=== PATIENT | male | born 1950 | race Caucasian/White ===

== ENCOUNTER 2019-04-09 13:11 | Outpatient (REF) | payer MEDICARE, SELFPAY ==
[2019-04-09 20:39] LABS: Anion Gap 10.4 mmol/L (3-11); BUN 14 mg/dL (7-18); CO2 28.6 mmol/L (21.0-32.0); CREATININE 0.87 mg/dL (0.70-1.30); Chloride 101 mmol/L (98-107); Glucose 98 mg/dL (74-106); HDL Cholesterol 62 mg/dL (40-60); LDL CHOLESTEROL 126 mg/dL (<100); Magnesium 2.1 mg/dL (1.8-2.4); Sodium 140 mmol/L (136-145)
== END 2019-04-09 13:31 ==
LOC: NCHCN 13:11
PROVIDERS: PCP Specialist/Technologist Athletic Trainer; Visit Provider Nurse Practitioner Family
DX: I10 Essential (primary) hypertension (principal); E78.5 Hyperlipidemia, unspecified; R25.2 Cramp and spasm
CPT/HCPCS: 80048; 83721; 83718; 83735

== ENCOUNTER 2023-11-05 10:33 | Emergency (ER) | payer MEDICARE, SELFPAY ==
[2023-11-05] VITALS (48 sets, daily range): BP systolic 35–188; BP diastolic 23–152; PULSE 116–155; RESP 12–42; TEMP 37.1–38; O2SAT 68–99
--- NOTE | 2023-11-05 10:30 | RT.EKG_ITS ---
APPROVED REPORT Exam: Resting ECG Reason for Exam: chf Patient Location: E HR:123 bpm ECG Measurements Heart Rate 123 AXIS OH 170 P 0 QRSd 143 QRS -92 QT 336 T 129 QTc 480 Conclusion Sinus tachycardia...rate> 99 Multiform ventricular premature complexes...short R-R, variable morphology Aberrant conduction of SV complex(es)...aberrant shape, OH 80-220 Right bundle branch block...QRSd>120, terminal axis(90,270) Probable anterior infarct, age indeterminate...Q >35mS, T neg, V2-V5 Abnormal T, consider ischemia, lateral leads...T <-0.20mV, I aVL V5 V6 poor baseline, motion artifact, left axis, narrrow complex
--- NOTE | 2023-11-05 10:30 | DI.RAD_ITS ---
Exam(s) XR PORTABLE CHEST AP EXAM: XR PORTABLE CHEST AP CLINICAL HISTORY: resp distress, hypoxia, edema TECHNIQUE: 2D digital imaging was performed. COMPARISON: No exams were available for comparison FINDINGS: Exam is quite limited due to under penetration particularly at the lung bases. Left costophrenic an gle not fully included in field of view. LUNGS: small bilateral pleural effusions. bilateral pulmonary edema. Pulmonary vascular prominenc e. HEART: Enlarged. AORTA: Mildly tortuous. BONES: Mostly obscured. Soft tissues: Unremarkable. IMPRESSION: Findings consistent with CHF. DATA REPOSITORY: RADIATION DOSE DELIVERED:
--- NOTE | 2023-11-05 10:50 | ED.GENADUL_ITS ---
Discharge Plan Disposition Patient Disposition: Transfer-Acute Inpatient Care Specific Acute Inpt Facility: [facility] Condition: Serious Discharge Details Chief Complaint: SOB Clinical Impression: Pulmonary edema, Elevated troponin, CHF (congestive heart failure) Primary Care Provider: Timmy Barba ED Provider: Anoop Ho Home Meds and New Rx's Prescriptions: No Action aspirin 325 mg tablet 325 mg PO DAILY HPI General Date/Time Provider Initiated Documentation: 11/05/23 10:40 . HPI Narrative: 73-year-old male history of hypertension brought in by EMS for evaluation of respiratory distress, tachypnea to the 30s and 40s, saturating 62% on room air on arrival initiated on CPAP, was given 2 g of magnesium DuoNeb x 2 and 10 mg of dexamethasone by EMS; per patient has been sleeping in a recliner over the last couple of nights has had increased swelling in his legs, no history of coronary disease. Related Data Home Medications ?Medication ?Instructions ?Recorded ?Confirmed aspirin 325 mg tablet 325 mg PO DAILY 11/05/23 11/05/23 Allergies Allergy/AdvReac Type Severity Reaction Status Date / Time No Known Allergies Allergy Unverified 11/05/23 11:09 General Stated Complaint: SOB HEIDE: 2 Exam Narrative Exam Narrative: Respiratory distress, tachypneic only able to speak in short sentences Tachypnea rales bilaterally Tachycardia no murmurs rubs or gallops appreciated Abdomen soft nontender nondistended Pitting edema to shins bilaterally Course Vital Signs Vital signs: Vital Signs Pulse 126 H 11/05/23 10:24 Respiratory Rate 32 H 11/05/23 10:24 Blood Pressure 165/103 H 11/05/23 10:24 Pulse Oximetry 99 11/05/23 10:24 Pulse 126 H 11/05/23 10:24 Respiratory Rate 32 H 11/05/23 10:24 Blood Pressure 165/103 H 11/05/23 10:24 Blood Pressure Position Sitting 11/05/23 10:24 Pulse Oximetry 99 11/05/23 10:24 Oxygen Delivery Method Bi-pap 11/05/23 10:24 Medical Decision Making 73-year-old male history of hypertension brought in by EMS for evaluation of respiratory distress, tachypnea to the 30s and 40s, saturating 62% on room air on arrival initiated on CPAP, was given 2 g of magnesium DuoNeb x 2 and 10 mg of dexamethasone by EMS; per patient has been sleeping in a recliner over the last couple of nights has had increased swelling in his legs, no history of coronary disease. Patient tachypneic pale mottled hypoxic to the 70s when transitioning off of EMS bedside CPAP onto our CPAP; bedside [id number] echocardiogram showing dilated hypokinetic LV no pericardial effusion normal appearing RV; EKG nondiagnostic due to base line artifact from tachypnea. Coloration and oxygenation greatly improved on BiPAP, saturating high 90s; noted to be hypertensive to the 180s systolic and 100s diastolic, given 0.4 sublingual nitro, loaded with Lasix, initiating nitroglycerin drip. Likely flash pulmonary edema in the setting of CHF in the setting of recent RI, lower suspicion for PE pneumonia asthma COPD or aortic pathology. Goals of care discussion had with patient and family patient is full code. Respiratory team at bedside. Will continue with resuscitation and contact [facility] cardiology team as patient will benefit from urgent catheterization and cardiac ICU placement 12: 15 discussed case with cardiology team at [facility] who is considering taking patient for cardiac catheterization pending improvement of respiratory status. Improving acidemia and hypercarbia on VBG. Patient's perfusion exam is improving with good coloration, maintaining mental status, will continue with nitro drip. Will load with aspirin, heparin, Plavix. 13: 18 patient accepted at [facility] for Client Services Director. Accepting physician Dr. Christian. Patient's work of breathing is improving patient's mental status is stable. Uptitrated nitro drip to 10 mcg/min. Patient diuresing more after another 80 mg IV bolus of Lasix. Medic transport team at bedside. Given patient's clinical status has signed requisite paperwork. Patient and are in agreements with need for transfer Quality:[facility] Health Related Social Needs: No Data to Display Critical Care Time Critical Care Time Critical Care Time: Yes Total Critical Care Time: 30 Attestation: Critical care time spent at the bedside assessing patient interpreting labs interpreting imaging, initiating BiPAP, coordinating specialty care with interventional cardiology team for patient in flash pulmonary edema requiring Client Services Director and ICU admission [facility] All Active Problems (Updated 11/05/23 @ 13:21 by Anoop Ho MD) CHF (congestive heart failure) (Chronic) Elevated troponin (Acute) Pulmonary edema (Acute) Social History Smoking/Tobacco Use Status: Former Tobacco Use Quit Date: 10/18/99 Smoking risk assessment performed?: Yes Alcohol Intake: current Alcohol Intake frequency: 0-2 drinks per day Alcohol type: beer Substance use type: does not use Housing: house Do you feel safe at home: Yes Do you feel safe in your relationship?: Yes
[2023-11-05 10:53] LABS: BE (Venous) -8 mmol/L (-2-3); HCO3 (Venous) 22 mmol/L (23-28); O2 Sat (Venous) 67 %; TCO2 (Venous) 21 mmol/L (24-29); pO2 (Venous) 50 mmHg
[2023-11-05 10:55] LABS: Abs Immature Grans 0.21 10^3/uL (0.0-0.06); Basophils % 0.6 %; Eosinophils % 0.7 %; HCT 40.9 % (40.0-50.0); HGB 12.3 g/dL (13.5-17.5); Immature Grans % 1.3 %; Lymphocytes % 8.2 %; MCH 24.2 pg (27.0-33.0); MCHC 30.1 % (32.0-36.0); MCV 80 fL (80-95); MPV 9.4 fL (8.0-11.0); Monocytes % 11.3 %; Neutrophils % 77.9 %; Platelet Count 345 10^3/uL (130-400); RBC 5.09 10^6/uL (4.36-5.78); RDW 17.5 % (11.8-14.1); RDW-SD 50.6 fL; WBC 16.51 10^3/uL (4.4-10.8)
[2023-11-05] MEDS: Furosemide 100 MG/10 ML VIAL (10:56)
[2023-11-05] MEDS: nitroGLYcerin 0.4 MG TAB (10:56)
[2023-11-05 10:57] LABS: Absolute Eosinophil Count 0.12 10^3/uL (0.0-0.7); Absolute Lymphocyte Count 1.35 10^3/uL (1.2-3.4); Absolute Monocyte Count 1.87 10^3/uL (0.1-0.8); Absolute Neutrophil Count 12.86 10^3/uL (1.2-6.7); pCO2 (Venous) 70 mmHg (41-51); pH (Venous) 7.09 (7.31-7.41)
[2023-11-05] MEDS: nitroGLYcerin in D5W 50 MG/250 ML BTL IV (10:58)
--- NOTE | 2023-11-05 11:00 | RT.EKG_ITS ---
APPROVED REPORT Exam: Resting ECG Reason for Exam: SOB Patient Location: E HR:125 bpm ECG Measurements Heart Rate 125 AXIS VA 187 P -84 QRSd 114 QRS -60 QT 340 T 112 QTc 491 Conclusion Sinus or ectopic atrial tachycardia...P axis (-45,135), rate> 99 Probable left atrial enlargement...P >50mS, <-0.10mV V1 Incomplete right bundle branch block...QRSd >112, terminal axis(90,270) LVH with secondary repolarization abnormality...multi-LVH criteria, abnrm ST-T ST elevation secondary to LVH...Multiple VCG criteria poor baseline, motion artifact, narrow, irregualr with ectopy
[2023-11-05 11:07] LABS: INR 1.3 (0.9-1.1); PTT Activated 27.8 sec (23.6-32.8); Prothrombin Time 12.9 sec (9.1-11.1)
[2023-11-05 11:12] LABS: Diff Comment Diff Reviewed; RBC Morphology Normal
[2023-11-05 11:22] LABS: ALT 17 U/L (16-63); AST 22 U/L (15-37); Albumin 2.8 g/dL (3.4-5.0); Alkaline Phosphatase 74 U/L (46-116); BUN 19 mg/dL (7-18); Bilirubin, Total 0.53 mg/dL (0.2-1.0); CREATININE 1.5 mg/dL (0.70-1.30); Calcium 8.7 mg/dL (8.5-10.1); Chloride 98 mmol/L (98-107); Estimated GFR 48.25 (mL/min/1.73m2); Glucose 286 mg/dL (74-106); Magnesium 3.1 mg/dL (1.8-2.4); NT-proBNP 10547 pg/mL (<300); Potassium 4.1 mmol/L (3.5-5.1); Sodium 135 mmol/L (136-145); Total Protein 6.9 g/dL (6.4-8.2)
[2023-11-05 11:31] LABS: Troponin I 2126 ng/L (< or =60)
[2023-11-05 12:03] LABS: COVID-19 PCR Negative (Negative); Influenza A PCR Negative (Negative); Influenza B PCR Negative (Negative); RSV PCR Negative (Negative)
[2023-11-05 12:10] LABS: BE (Venous) -7 mmol/L (-2-3); HCO3 (Venous) 21 mmol/L (23-28); O2 Sat (Venous) 95 %; TCO2 (Venous) 20 mmol/L (24-29); pCO2 (Venous) 57 mmHg (41-51); pO2 (Venous) 94 mmHg
[2023-11-05 12:11] LABS: pH (Venous) 7.18 (7.31-7.41)
[2023-11-05 12:16] LABS: Source Nasopharynx
[2023-11-05] MEDS: Furosemide 100 MG/10 ML VIAL 80 MG IVP (12:44)
[2023-11-05] MEDS: Aspirin 81 MG CHEW 324 MG CH (12:44)
[2023-11-05] MEDS: Clopidogrel 300 MG TAB PO ×2 (12:44→13:09)
[2023-11-05] MEDS: Heparin in 0.45% NaCl 25,000 UNIT/250 ML BAG 10 UNIT IV (13:09)
== END 2023-11-05 13:41 | disposition short-term general hospital (02) ==
LOC: ER 13:47
PROVIDERS: Emergency Provider Emergency Medicine; PCP Specialist/Technologist Athletic Trainer
DX: R06.02 Shortness of breath (principal); J81.1 Chronic pulmonary edema; I50.9 Heart failure, unspecified; R79.89 Other specified abnormal findings of blood chemistry
CPT/HCPCS: 80053; 82805; 86850; 86900; 86901; 87637; 93005; 96365; 96366; 96367; 96372; 96375; 99291; 71045; 83735; 83880; 84443; 84484; 85025; 85610; 85730; 93010; J1644; J1940; J2305

== ENCOUNTER 2023-11-17 11:41 | Inpatient (IN) | payer MEDICARE, SELFPAY ==
[2023-11-17] VITALS (38 sets, daily range): BP systolic 111–145; BP diastolic 52–92; PULSE 86–108; RESP 11–25; TEMP 37.2–37.6; O2SAT 93–100
--- NOTE | 2023-11-17 11:45 | RT.EKG_ITS ---
APPROVED REPORT Exam: Resting ECG Reason for Exam: syncope Patient Location: E HR:97 bpm ECG Measurements Heart Rate 97 AXIS AK 202 P 82 QRSd 123 QRS -63 QT 395 T 71 QTc 502 Conclusion Sinus rhythm...normal P axis, V-rate 60- 99 Ventricular premature complex...V complex w/ short R-R interval Probable left atrial enlargement...P >50mS, <-0.10mV V1 RBBB and LAFB...QRSd >120mS, axis(-40,240) Consider anteroseptal infarct...Q >30mS, dimin R, V1-V2 Normal sinus rhythm at a rate of 97. First-degree AV block AK of 202 ms. Interventricular conductio n delay with bifascicular block. Prolonged QTc at [address] segment abnormalities. No ac [place] injury pattern. No T wave version. First-degree AV block has prolonged compared to prior. Prio r dated earlier this month.
[2023-11-17 12:27] LABS: Abs Immature Grans 0.03 10^3/uL (0.0-0.06); Absolute Basophil Count 0.04 10^3/uL (0.0-0.2); Absolute Eosinophil Count 0.17 10^3/uL (0.0-0.7); Absolute Lymphocyte Count 0.54 10^3/uL (1.2-3.4); Absolute Monocyte Count 0.49 10^3/uL (0.1-0.8); Absolute Neutrophil Count 6.66 10^3/uL (1.2-6.7); Basophils % 0.5 %; Eosinophils % 2.1 %; HCT 36.6 % (40.0-50.0); HGB 11.5 g/dL (13.5-17.5); Immature Grans % 0.4 %; Lymphocytes % 6.8 %; MCH 24.1 pg (27.0-33.0); MCHC 31.4 % (32.0-36.0); MCV 77 fL (80-95); Monocytes % 6.2 %; Platelet Count 342 10^3/uL (130-400); RBC 4.78 10^6/uL (4.36-5.78); RDW 17.2 % (11.8-14.1); RDW-SD 47.5 fL; WBC 7.93 10^3/uL (4.4-10.8)
--- NOTE | 2023-11-17 12:45 | DI.RAD_ITS ---
Exam(s) XR PORTABLE CHEST AP EXAM: XR PORTABLE CHEST AP CLINICAL HISTORY: syncope. TECHNIQUE: 2D digital imaging was performed. COMPARISON: Prior chest x-ray 11/05/2023. FINDINGS: Single AP portable view. Heart size is minimally prominent. The mediastinum is not widened. Previously present pulmonary edema pattern has cleared. No new confluent infiltrates. No obvious pl eural effusions evident on this single portable view. IMPRESSION: There has been clearing of the bilateral interstitial pulmonary edema pattern which was evident on . DATA REPOSITORY: RADIATION DOSE DELIVERED:
[2023-11-17 12:51] LABS: ALT 22 U/L (16-63); AST 20 U/L (15-37); Albumin 3.1 g/dL (3.4-5.0); Alkaline Phosphatase 82 U/L (46-116); Anion Gap 9.9 mmol/L (3-11); BUN 12 mg/dL (7-18); Bilirubin, Total 0.29 mg/dL (0.2-1.0); CO2 26.1 mmol/L (21.0-32.0); CREATININE 1.1 mg/dL (0.70-1.30); Calcium 9.1 mg/dL (8.5-10.1); Chloride 101 mmol/L (98-107); Estimated GFR 70.01 (mL/min/1.73m2); Glucose 146 mg/dL (74-106); Magnesium 1.9 mg/dL (1.8-2.4); Potassium 4.1 mmol/L (3.5-5.1); Sodium 137 mmol/L (136-145); TSH (W/Ref FT4) 4.08 uIU/mL (0.36-3.74); Total Protein 7.3 g/dL (6.4-8.2)
[2023-11-17 12:55] LABS: Troponin I 287 ng/L (< or =60)
[2023-11-17 12:58] LABS: D-Dimer 2187 ng/mlFEU (<500)
--- NOTE | 2023-11-17 13:00 | DI.CT_ITS ---
Exam(s) CT CHEST PE CTA EXAM: CT CHEST PE CTA CLINICAL HISTORY: elevated ddimer post op. TECHNIQUE: Imaging Protocol: CT angiography of the chest was performed using pulmonary embolus benita col. Multi planar reconstructions were performed. CONTRAST MATERIAL: Intravenous: Omnipaque 350 Contrast volume: 100 cc COMPARISON: No exams were available for comparison FINDINGS: CHEST: PULMONARY ARTERIES: There is a significant intraluminal filling defect within left upper lobe pulmona ry arteries consistent with acute pulmonary emboli. LUNGS: No evidence of pulmonary infarction. There is a small-moderate size right pleural effusion wh ich is possibly remnant from the pulmonary edema which was evident on recent chest x-ray of 4.. No pleural fluid on the left side. There is no infiltrate in the left lung. There is, however, pleural based infiltrate in the lateral and anterior basal segments of the right lower lobe. It is doubtful that this represents pulmonary infarct as there are no intraluminal filling defects within t he pulmonary arterial tree feeding this region. There are no significant findings in the trachea and mainstem bronchi. No bronchiectasis. MEDIASTINUM: There is no hilar nor mediastinal adenopathy. Visualized thyroid unremarkable. CARDIAC: Heart size is upper normal. Coronary artery calcification is noted. There is no pericardia l effusion.Caliber of the thoracic aorta is within normal limits. There is no contrast reflux into th e intrahepatic IVC. There is no significant shift of the interventricular septum. PARTIALLY VISUALIZED UPPERMOST ABDOMEN: No adrenal masses. No ascites. OSSEOUS: No significant osseous lesions.No fractures.. IMPRESSION: 1. This study is positive for the presence of acute pulmonary emboli it in left upper lobe pulmonary arteries..There is no evidence of left lung infarction, infiltrate, nor left pleural effusion. Howev er, there is an area of peripheral pleural based infiltrate in the basal segments of the right lower lobe as well as a small right pleural effusion. This right lung pleural based infiltrate is probably not infarction given that there are no pulmonary emboli in the right-side evident. The pleural effu sinai may be related to the right-sided infiltrate or remnant from the pulmonary edema evident on the chest x-ray of 11/05/2023 2. Heart size upper normal. No pericardial effusion. No obvious right heart strain. Report called by myself to ER provider 11/17/2023 at 1:48 p.m. RADIATION DOSE DELIVERED: 127.39mGy.cm Total DLP DATA REPOSITORY: All CT scans at this facility are submitted to the National Radiology Data Registry (NRDR) Dose Index Registry (DIR) with the [employer] ([employer]). RADIATION OPTIMIZATION: All CT scans at this facility use at least one of these dose optimization te chniques: automated exposure control; mA and/or kV adjustment per patient size (includes targeted exa ms where dose is matched to clinical indication); or iterative reconstruction.
[2023-11-17 13:12] LABS: FREE T4 0.84 ng/dL (0.76-1.46)
--- NOTE | 2023-11-17 13:14 | DI.VRAD_ITS ---
PROCEDURE INFORMATION: Exam: XR Chest Exam date and time: 11/17/2023 12:41 PM Age: 73 years old Clinical indication: Other: Syncope TECHNIQUE: Imaging protocol: Radiologic exam of the chest. Views: 1 view. Total images: 2 COMPARISON: CR XR PORTABLE CHEST AP 11/05/2023 11:03 AM FINDINGS: Lungs: Bilateral hyperinflation is present. Atelectatic changes noted within both lung bases. Pleural spaces: Unremarkable. No pleural effusion. No pneumothorax. Heart/Mediastinum: Heart demonstrates mild diffuse enlargement. Vasculature: Mild atherosclerotic disease. Bones/joints: Degenerative changes of the glenohumeral and acromioclavicular joints. IMPRESSION: 1. Bilateral hyperinflation is present. 2. Atelectatic changes noted within both lung bases. 3. Mild cardiomegaly. Dictated and Authenticated by: Juan A Obrien MD. Ordering:EMELYN Farrell MD
[2023-11-17] MEDS: Omnipaque 350 MG/ML 100 ML BTL IJ (13:19)
[2023-11-17] MEDS: Enoxaparin 100 MG/ML SYR SC (14:24)
[2023-11-17 14:31] LABS: INR 1.2 (0.9-1.1)
[2023-11-17 14:40] LABS: Troponin I 307 ng/L (< or =60)
[2023-11-17 14:57] LABS: NT-proBNP 6950 pg/mL (<300)
--- NOTE | 2023-11-17 16:00 | ED.GENADUL_ITS ---
Discharge Plan Disposition Patient Disposition: Admit to [facility] Condition: Serious Discharge Details Clinical Impression: Syncope, Elevated troponin, Pulmonary embolism, CAD (coronary artery disease) Admit Date/Time: 11/17/23 16:26 Admit Provider: Romulo Landa Attending Provider: Romulo Landa Primary Care Provider: Unknown,Unknown ED Provider: Jami Zimmer Discharge Data Discharge Date/Time-TO BE ENTERED AT DEPARTURE: 11/17/23 17:00 HPI General Date/Time Provider Initiated Documentation: 11/17/23 12:06 . HPI Narrative: This 73-year-old male presents with report of recent cardiac catheterization with 4 stents placed on 04 November. Patient was an elevated female with a myocardial infarction at the time. He states that he has had persistent dyspnea and shortness of breath and felt to take this morning. He states that he had some breakfast this morning and sat in his chair and states that he had a period of unresponsiveness. She tried to wake him up for approximately a minute and was able to do so at that time. There was no seizure-like activity. Patient does report that he had some cramping in his left leg earlier this morning although this is since resolved. At this time patient denies chest pain, shortness of breath, or any additional complaints at this time. He is taking all of his medications aside from the atorvastatin as prescribed. He self discontinued the atorvastatin secondary to some insomnia he reports associated with it. He has been more fatigued and dyspneic on exertion, however he attributes this to his recent surgery and hospitalization. Related Data Home Medications ?Medication ?Instructions ?Recorded ?Confirmed aspirin 81 mg tablet,delayed 81 mg PO DAILY 11/17/23 11/17/23 release (Adult Aspirin Regimen) clopidogrel 75 mg tablet 75 mg PO DAILY 11/17/23 11/17/23 melatonin 3 mg tablet 6 mg PO HS PRN 11/17/23 11/17/23 metoprolol succinate 25 mg 25 mg PO DAILY 11/17/23 11/17/23 tablet,extended release 24 hr nitroglycerin 0.4 mg sublingual 0.4 mg sublingual Q5-15M PRN 11/17/23 11/17/23 tablet spironolactone 25 mg tablet 12.5 mg PO DAILY 11/17/23 11/17/23 (Aldactone) torsemide 20 mg tablet 20 mg PO DAILY PRN 11/17/23 11/17/23 valsartan 40 mg tablet (Diovan) 20 mg PO BID 11/17/23 11/17/23 Allergies Allergy/AdvReac Type Severity Reaction Status Date / Time No Known Allergies Allergy Unverified 11/17/23 11:53 General Stated Complaint: [id number] HEIDE: 2 Exam Narrative Exam Narrative: Alert and oriented 73-year-old male in no acute distress, no visible signs of trauma, pupils equal round reactive to light and accommodation, no respiratory distress, cardiac rate rhythm regular, 1+ edema to bilateral lower extremities neurovascularly intact no abdominal tenderness, no abdominal bruit or pulsatile mass, no murmurs or rubs Course Vital Signs Vital signs: Vital Signs Temperature 37.6 C H 11/17/23 11:48 Pulse 94 H 11/17/23 11:48 Respiratory Rate 16 11/17/23 11:48 Blood Pressure 143/71 H 11/17/23 11:48 Pulse Oximetry 95 11/17/23 11:48 Temperature 37.6 C H 11/17/23 11:48 Temperature Source Skin 11/17/23 11:48 Pulse 89 11/17/23 14:31 Pulse 89 11/17/23 14:31 Respiratory Rate 19 11/17/23 14:31 Respiratory Effort Normal 11/17/23 12:03 Respiratory Depth Normal 11/17/23 12:03 Blood Pressure 128/72 11/17/23 14:31 Blood Pressure Mean 89 11/17/23 14:31 Blood Pressure Position Sitting 11/17/23 11:48 Pulse Oximetry 94 11/17/23 14:31 Pain Level 0 11/17/23 11:48 Lab/Test Results Lab/Test Results: Laboratory Tests Range/Units 11/17/23 11/17/23 12:07 14:10 WBC (4.4-10.8) 10^3/uL 7.93 RBC (4.36-5.78) 10^6/uL 4.78 Hgb (13.5-17.5) g/dL 11.5 L Hct (40.0-50.0) % 36.6 L MCV (80-95) fL 77 L MCH (27.0-33.0) pg 24.1 L MCHC (32.0-36.0) % 31.4 L RDW (11.8-14.1) % 17.2 H Plt Count (130-400) 10^3/uL 342 MPV (8.0-11.0) fL 9.0 Immature Gran % % 0.4 Neutrophils % % 84.0 Lymphocytes % % 6.8 Monocytes % % 6.2 Eosinophils % % 2.1 Basophils % % 0.5 Nucleated RBC % (0.0-0.3) % 0.0 Absolute Neutrophils (1.2-6.7) 10^3/uL 6.66 Absolute Lymphocytes (1.2-3.4) 10^3/uL 0.54 L Absolute Monocytes (0.1-0.8) 10^3/uL 0.49 Absolute Eosinophils (0.0-0.7) 10^3/uL 0.17 Absolute Basophils (0.0-0.2) 10^3/uL 0.04 PT (9.1-11.1) sec 12.0 H INR (0.9-1.1) 1.2 H APTT (23.6-32.8) sec 28.0 D-Dimer (<500) ng/mlFEU 2187 H Sodium (136-145) mmol/L 137 Potassium (3.5-5.1) mmol/L 4.1 Chloride (98-107) mmol/L 101 Carbon Dioxide (21.0-32.0) mmol/L 26.1 Anion Gap (3-11) mmol/L 9.9 BUN (7-18) mg/dL 12 Creatinine (0.70-1.30) mg/dL 1.1 Est GFR (CKD-EPI 2020) (mL/min/1.73m2) 70.01 Glucose (74-106) mg/dL 146 H Calcium (8.5-10.1) mg/dL 9.1 Magnesium (1.8-2.4) mg/dL 1.9 Total Bilirubin (0.2-1.0) mg/dL 0.29 AST (15-37) U/L 20 ALT (16-63) U/L 22 Alkaline Phosphatase (46-116) U/L 82 Troponin I (< or =60) ng/L 287 H* 307 H* NT-Pro-B Natriuret Pep (<300) pg/mL 6950 H Total Protein (6.4-8.2) g/dL 7.3 Albumin (3.4-5.0) g/dL 3.1 L TSH (0.36-3.74) uIU/mL 4.08 H Free T4 (0.76-1.46) ng/dL 0.84 Medical Decision Making 73-year-old male in no acute distress, EKG without obvious ischemia or injury presenting with report of syncopal event this morning with preceding lightheadedness in the absence of any additional symptoms. He has no prior history of dysrhythmia per patient. He states he has had multiple episodes similar to this this week. He denies any significant new dyspnea on exertion. Chest x-ray does not show evidence of acute abnormality. D-dimer was ordered which was elevated over 1999, CTA was ordered which shows 2 PEs in the left upper lobe per radiology interpretation and my review. Troponin of 287 initially decreased from 1986 which was performed on dermis on 04 November. Ejection fraction reportedly at [facility] was approximately 20% on echocardiogram on 04 November. I spent approximately 15 minutes reviewing patient's evaluation, cardiac catheterization, and discharge summary from [facility]. Repeat troponin at the 2-hour jeramie noticed 307. BNP of 6959, decreased from 10,000 on 25 October. I spoke with Guevara cardiology PA at [facility] and he spoke with print shop stenographer and they agreed to accept patient tomorrow in transfer, Dr. Garrett Castaneda is the accepting provider. They initially, patient required transfer, however secondary to patient's ejection fraction and recent stenting with an elevated troponin, I did ask that the patient be transferred to a facility. They are unable to accept patient in transfer this evening secondary to capacity. Patient has been without obvious dysrhythmia or significant increase in troponin. He has remained alert and oriented and in no acute distress with stable vitals. patient will need trending of troponins. I did consider heparin versus Lovenox, And indicated that Lovenox is reasonable at this time. Patient will continue on the aspirin and Plavix. He did receive a dose of enoxaparin in the emergency department, 100 mg. Patient wishes to be full code status at this time. Quality:SDOH Health Related Social Needs: No Data to Display PFSH All Active Problems (Updated 11/18/23 @ 20:43 by RHIANNA Macdonald) Cardiac arrest (Acute) Hypertension (Chronic) CAD (coronary artery disease) (Chronic) Discharge planning issues (Acute) Syncope (Chronic) Pulmonary embolism (Chronic) CHF (congestive heart failure) (Chronic) Elevated troponin (Acute) Pulmonary edema (Acute) Medical History (Updated 11/18/23 @ 20:43 by RHIANNA Macdonald) HFrEF (heart failure with reduced ejection fraction) NSTEMI (non-ST elevated myocardial infarction) Surgical History (Updated 11/17/23 @ 18:17 by Deandra August APRN) History of coronary artery stent placement Social History Smoking/Tobacco Use Status: Former Tobacco Use Quit Date: 10/18/99 Smoking risk assessment performed?: Yes Alcohol Intake: current Alcohol Intake frequency: 0-2 drinks per day Alcohol type: beer Substance use type: does not use Housing: house Do you feel safe at home: Yes Do you feel safe in your relationship?: Yes PAWSS Have you Been Recently Intoxicated or Drunk Within the Last 30 days?: No Have you Ever Experienced Previous Episodes of Alcohol Withdrawal?: No Have you ever Experienced Withdrawal Seizures?: No Have you ever Experienced Delirium Tremens(DT)s?: No Have you ever undergone Alcohol Rehabilitation Treatment (i.e, inpt ot outpatient treatment programs)?: No Have you ever Experienced Blackouts?: No Have you ever Combined Alcohol with other Downers within the last 90 days?: No Have you ever Combined Alcohol with any other Substance of Abuse during the last 90 days?: No Result: 0
--- NOTE | 2023-11-17 16:26 | HPE_ITS ---
Date of service: 11/17/23 Time of Service: 16:27 Assessment and Plan Assessment and plan (1) Pulmonary embolism: Status: Chronic Assessment and plan: As per CT Provoked VS unprovoked PE -No family history, no prolonged immobility - Endovascular intervention on 11/04 and 11/05 at [facility] might be a factor to provoked PE On lovenox 100 mg Q 12 hours SQ US doppler lower ext on 11/19 if patient is still inpatient here CBC in AM Accepted at [facility] -bed pending (2) Syncope: Status: Chronic Assessment and plan: Most likely related to PE [facility] Attendant VS and symptoms (3) Elevated troponin: Status: Acute Assessment and plan: Trending Troponin was 2126 on 11/04 then around 1900 at [facility], no d/c troponin done Today trop 287 then 307 ; next troponin scheduled for 18:00 Patient remains asymptomatic w/o EKG signs (4) CHF (congestive heart failure): Status: Chronic Assessment and plan: Continue home dose diuretics, BNP 6950 today was [address]67 on 11/05/2023 On metoprolol succinate (5) Pulmonary edema: Status: Acute Assessment and plan: On home diuretic therapy No fever,chills, cough,leukocytosis, oxygen supplementation that would point to infectious etiology- no antibiotics at this time (6) CAD (coronary artery disease): Status: Chronic Assessment and plan: On plavix and ASA home dose (7) Hypertension: Status: Chronic Assessment and plan: On home dose Losartan (8) Discharge planning issues: Status: Acute Assessment and plan: Accepted at [facility] by Dr. Chavez - bed pending (9) History of coronary artery stent placement: (10) NSTEMI (non-ST elevated myocardial infarction): (11) HFrEF (heart failure with reduced ejection fraction): History of Present Illness History of Present Illness Chief Complaint: Syncope Narrative: This 73 years old male patient with a past medical history including but not limited to, CAD, stents placement to the circumflex and LAD coronary arteries on 11/05/2023 at [facility] with a diagnostic of myocardial infarction, congestive heart failure with an LVEF of 20%, hypertension, gout and PAD presented to the ED at [facility] today for evaluation of syncope. Patient reported persistent dyspnea and shortness of breath this morning and sitting in the chair status post breakfast with spouse noticing a period of unresponsiveness. At the time the spells tried to wake the patient up for approximately a minute but was unsuccessful. No seizure-like activity reported. Patient reported legs cramp early in the morning with resolution at presentation. In the ED the patient denied chest pain, shortness of breath and other symptoms. Patient reported compliance with medicine except for atorvastatin that he self discontinued due to insomnia that is associated with taking the statin. Patient reported fatigue, dyspnea on exertion and attributes this to his recent surgery and hospitalization. Workup in the ED was significant for an absolute lymphocyte count of 0.54, D- dimer of [address] positive for the presence of acute pulmonary emboli in the upper left lobe of the pulmonary artery without evidence of lung infarction infiltrate or pleural effusion. Peripheral pleural-based infiltrate seen in the basal segment of the right lower lobe with small pleural effusion with questionable infarction given that there are no pulmonary emboli in the right side. This pleural effusion might be related to the right sided infiltrate or remnant of the pulmonary edema evident on the chest x-ray completed on 11/05/2023. When met in the room, the patient denied any prolonged immobility after returning home from his stay at [facility]. The patient denied chills, fevers, night sweats, cough, hemoptysis, chest pain, hematemesis, nausea, vomiting, hematochezia, diarrhea or dysuria. The patient reported vomiting is first right with bruising around the nail; does not report any other injuries but reported transient left leg cramping earlier today. Patient denied any family history of clotting disorder. Patient reported drinking 2 beers a day since discharge from [facility]. Previously reported drinking history of drinking of 8-9 beers a day as per [facility] records. Review of Systems All systems reviewed & are unremarkable except as noted in HPI and below PFSH All Active Problems (Updated 11/17/23 @ 18:17 by Deandra August APRN) Hypertension (Chronic) CAD (coronary artery disease) (Chronic) Discharge planning issues (Acute) Syncope (Chronic) Pulmonary embolism (Chronic) CHF (congestive heart failure) (Chronic) Elevated troponin (Acute) Pulmonary edema (Acute) Medical History (Updated 11/17/23 @ 18:17 by Deandra August APRN) HFrEF (heart failure with reduced ejection fraction) NSTEMI (non-ST elevated myocardial infarction) Surgical History (Updated 11/17/23 @ 18:17 by Deandra August APRN) History of coronary artery stent placement Social History Smoking/Tobacco Use Status: Former Tobacco Use Quit Date: 10/18/99 Smoking risk assessment performed?: Yes Alcohol Intake: current Alcohol Intake frequency: 0-2 drinks per day Alcohol type: beer Substance use type: does not use Housing: house Do you feel safe at home: Yes Do you feel safe in your relationship?: Yes Meds Allergies and Home Medications Allergies Allergy/AdvReac Type Severity Reaction Status Date / Time No Known Allergies Allergy Unverified 11/17/23 11:53 Home Medications ?Medication ?Instructions ?Recorded ?Confirmed ?Type aspirin 81 mg tablet,delayed 81 mg PO DAILY 11/17/23 11/17/23 History release (Adult Aspirin Regimen) clopidogrel 75 mg tablet 75 mg PO DAILY 11/17/23 11/17/23 History melatonin 3 mg tablet 6 mg PO HS PRN 11/17/23 11/17/23 History metoprolol succinate 25 mg 25 mg PO DAILY 11/17/23 11/17/23 History tablet,extended release 24 hr nitroglycerin 0.4 mg sublingual 0.4 mg sublingual Q5-15M PRN 11/17/23 11/17/23 History tablet spironolactone 25 mg tablet 12.5 mg PO DAILY 11/17/23 11/17/23 History (Aldactone) torsemide 20 mg tablet 20 mg PO DAILY PRN 11/17/23 11/17/23 History valsartan 40 mg tablet (Diovan) 20 mg PO BID 11/17/23 11/17/23 History Exam Narrative Exam Narrative: Constitutional The patient is in bed comfortable,without acute distress HENMT: Head is atraumatic, normocephalic. Facial structures with normal appearance Eyes: Well aligneD Neuro:alert and oriented x4 . No neurological focal deficit Chest:Chest is symmetrical and normal appearance Resp: Normal respiratory pattern, speaks in full sentences, unlabored breathing, clear lung bilaterally Cardio:Tele SR HR 94, regular rhythm, no clear murmur but split S sound to 2nd left intercostal,posotive bilateral radial and pedal pulses. GI: Abdomen is not distended, soft and non tender, bowel sounds are present : Negative Costovertebral angle tenderness Back/spine/Pelvis: No back tenderness, normal alignment Integumentary: No skin lesions or rash except for small bruise to right radial area Extremities: strength 5/5 to bilateral lower and upper extremities Psych: RASS 0, congruent mood and normal affect. Results Labs 11/17/23 12:07 11/17/23 12:07 Labs: Laboratory Results - last 24 hr 11/17/23 11/17/23 12:07 14:10 WBC 7.93 RBC 4.78 Hgb 11.5 L Hct 36.6 L MCV 77 L MCH 24.1 L MCHC 31.4 L RDW 17.2 H Plt Count 342 MPV 9.0 Immature Gran % 0.4 Neutrophils % 84.0 Lymphocytes % 6.8 Monocytes % 6.2 Eosinophils % 2.1 Basophils % 0.5 Nucleated RBC % 0.0 Absolute Neutrophils 6.66 Absolute Lymphocytes 0.54 L Absolute Monocytes 0.49 Absolute Eosinophils 0.17 Absolute Basophils 0.04 PT 12.0 H INR 1.2 H APTT 28.0 D-Dimer 2187 H Sodium 137 Potassium 4.1 Chloride 101 Carbon Dioxide 26.1 Anion Gap 9.9 BUN 12 Creatinine 1.1 Est GFR (CKD-EPI 2020) 70.01 Glucose 146 H Calcium 9.1 Magnesium 1.9 Total Bilirubin 0.29 AST 20 ALT 22 Alkaline Phosphatase 82 Troponin I 287 H* 307 H* NT-Pro-B Natriuret Pep 6950 H Total Protein 7.3 Albumin 3.1 L TSH 4.08 H Free T4 0.84 Last Vital Signs Temp 37.6 C H 11/17/23 11:48 Pulse 89 11/17/23 14:31 Resp 19 11/17/23 14:31 BP 128/72 11/17/23 14:31 Pulse Ox 94 11/17/23 14:31 PAWSS Have you Been Recently Intoxicated or Drunk Within the Last 30 days?: No Have you Ever Experienced Previous Episodes of Alcohol Withdrawal?: No Have you ever Experienced Withdrawal Seizures?: No Have you ever Experienced Delirium Tremens(DT)s?: No Have you ever undergone Alcohol Rehabilitation Treatment (i.e, inpt ot outpatient treatment programs)?: No Have you ever Experienced Blackouts?: No Have you ever Combined Alcohol with other Downers within the last 90 days?: No Have you ever Combined Alcohol with any other Substance of Abuse during the last 90 days?: No Result: 0 Time Spent Time spent with Patient: >75 minutes Time was spent: preparing to see the patient(eg.review tests), obtaining and/or reviewing separately otained hiistory, ordering medications,tests, procedures, referring, communicating with other health wound care coordinator, indepentently interpreting results, counseling the patient and care coordination
--- NOTE | 2023-11-17 16:58 | W.PC.ACHO ---
Registration Status: Primary Language: Preferred Language: ED Information & Data Chief Complaint [id number] 11/17/23 16:14 Triage Note patient passed out this 11/17/23 11:48 morning, had a heart attack two weeks ago and had 4 stents placed. not having any pain or sob. patient had just finished breakfast and sat down in chair and fell over, unconscious. has been getting lightheaded in the morning since his hospitalization. no pcp. Most Recent Vital Signs Temperature 37.6 C H 11/17/23 11:48 Temperature Source Skin 11/17/23 11:48 Pulse 89 11/17/23 16:46 Pulse 90 11/17/23 16:46 Respiratory Rate 18 11/17/23 16:46 Respiratory Effort Normal 11/17/23 12:03 Respiratory Depth Normal 11/17/23 12:03 Blood Pressure 136/62 11/17/23 16:46 Blood Pressure Mean 89 11/17/23 16:46 Blood Pressure Position Sitting 11/17/23 11:48 Pulse Oximetry 95 11/17/23 16:46 Pain Level 0 11/17/23 11:48 Allergies No Known Allergies Allergy (Unverified 11/17/23 11:53) Precautions Isolation Standard precaution 11/17/23 12:03 Active Medications Generic Name Dose Route Start Last Admin Trade Name Freq PRN Reason Stop Dose Admin Iohexol 100 ml 11/17/23 13:30 11/17/23 13:19 Omnipaque 350 Mg/Ml 100 Ml Btl IJ 12/17/23 23:59 100 ml DIRECTED ABRAM Administration IV IV Catheter Type [Left Saline Lock Antecubital] IV Catheter Gauge [Left 18 Antecubital] Diagnostics 11/17/23 11/17/23 11/17/23 Range/Units 18:00 15:55 14:10 WBC (4.4-10.8) 10^3/uL RBC (4.36-5.78) 10^6/uL Hgb (13.5-17.5) g/dL Hct (40.0-50.0) % MCV (80-95) fL MCH (27.0-33.0) pg MCHC (32.0-36.0) % RDW (11.8-14.1) % Plt Count (130-400) 10^3/uL MPV (8.0-11.0) fL Immature Gran % % Neutrophils % % Lymphocytes % % Monocytes % % Eosinophils % % Basophils % % Nucleated RBC % (0.0-0.3) % Absolute Neutrophils (1.2-6.7) 10^3/uL Absolute Lymphocytes (1.2-3.4) 10^3/uL Absolute Monocytes (0.1-0.8) 10^3/uL Absolute Eosinophils (0.0-0.7) 10^3/uL Absolute Basophils (0.0-0.2) 10^3/uL PT 12.0 H (9.1-11.1) sec INR 1.2 H (0.9-1.1) APTT 28.0 (23.6-32.8) sec D-Dimer (<500) ng/mlFEU Sodium (136-145) mmol/L Potassium (3.5-5.1) mmol/L Chloride (98-107) mmol/L Carbon Dioxide (21.0-32.0) mmol/L Anion Gap (3-11) mmol/L BUN (7-18) mg/dL Creatinine (0.70-1.30) mg/dL Est GFR (CKD-EPI 2020) (mL/min/1.73m2) Glucose (74-106) mg/dL Calcium (8.5-10.1) mg/dL Magnesium (1.8-2.4) mg/dL Total Bilirubin (0.2-1.0) mg/dL AST (15-37) U/L ALT (16-63) U/L Alkaline Phosphatase (46-116) U/L Troponin I Pending Pending 307 H* (< or =60) ng/L NT-Pro-B Natriuret Pep 6950 H (<300) pg/mL Total Protein (6.4-8.2) g/dL Albumin (3.4-5.0) g/dL TSH (0.36-3.74) uIU/mL Free T4 (0.76-1.46) ng/dL 11/17/23 Range/Units 12:07 WBC 7.93 (4.4-10.8) 10^3/uL RBC 4.78 (4.36-5.78) 10^6/uL Hgb 11.5 L (13.5-17.5) g/dL Hct 36.6 L (40.0-50.0) % MCV 77 L (80-95) fL MCH 24.1 L (27.0-33.0) pg MCHC 31.4 L (32.0-36.0) % RDW 17.2 H (11.8-14.1) % Plt Count 342 (130-400) 10^3/uL MPV 9.0 (8.0-11.0) fL Immature Gran % 0.4 % Neutrophils % 84.0 % Lymphocytes % 6.8 % Monocytes % 6.2 % Eosinophils % 2.1 % Basophils % 0.5 % Nucleated RBC % 0.0 (0.0-0.3) % Absolute Neutrophils 6.66 (1.2-6.7) 10^3/uL Absolute Lymphocytes 0.54 L (1.2-3.4) 10^3/uL Absolute Monocytes 0.49 (0.1-0.8) 10^3/uL Absolute Eosinophils 0.17 (0.0-0.7) 10^3/uL Absolute Basophils 0.04 (0.0-0.2) 10^3/uL PT (9.1-11.1) sec INR (0.9-1.1) APTT (23.6-32.8) sec D-Dimer 2187 H (<500) ng/mlFEU Sodium 137 (136-145) mmol/L Potassium 4.1 (3.5-5.1) mmol/L Chloride 101 (98-107) mmol/L Carbon Dioxide 26.1 (21.0-32.0) mmol/L Anion Gap 9.9 (3-11) mmol/L BUN 12 (7-18) mg/dL Creatinine 1.1 (0.70-1.30) mg/dL Est GFR (CKD-EPI 2020) 70.01 (mL/min/1.73m2) Glucose 146 H (74-106) mg/dL Calcium 9.1 (8.5-10.1) mg/dL Magnesium 1.9 (1.8-2.4) mg/dL Total Bilirubin 0.29 (0.2-1.0) mg/dL AST 20 (15-37) U/L ALT 22 (16-63) U/L Alkaline Phosphatase 82 (46-116) U/L Troponin I 287 H* (< or =60) ng/L NT-Pro-B Natriuret Pep (<300) pg/mL Total Protein 7.3 (6.4-8.2) g/dL Albumin 3.1 L (3.4-5.0) g/dL TSH 4.08 H (0.36-3.74) uIU/mL Free T4 0.84 (0.76-1.46) ng/dL Intake and Output - 24 Hour Total 11/17/23 11:41 thru 11/17/23 12:07 Intake Total 10 Balance 10 Weight 102.058 kg Intake: IV 10 Falls Risk Assessment History of Falls Previous History 11/17/23 12:03 Contributing Factors No Factors 11/17/23 12:03 Ambulatory Aids Independent 11/17/23 12:03 Tubes/Lines None 11/17/23 12:03 Gait Evaluation No gait disturbance 11/17/23 12:03 Cognition No cognitive impairment 11/17/23 12:03 Fall Total Score 15 11/17/23 12:03 Level of Risk Standard/Low Risk 11/17/23 12:03 v v v v v v v v v Sending and/or Receiving Nurses: Please use comment section below to note any information pertinent to the patient hand-off not included above. Information / Comments: PT will go into room 214, on tele. Report received from: Tashia Luz RN
--- OUTSIDE RECORDS SUMMARY | 2023-11-17 17:08 | XMS_ITS | Encounter Summary ---
Author Organization [facility] Address [facility] [place] [address] Care Team Providers Care Acid Filler Name Role Phone None Primary Care Provider Unavailabl e Encounter Details Date Type Department Care Team (Late st Contact Info) Description 11/17/2023 External Results Administration [facility] [place] [phone] Social History Tobacco Use Types Packs/Day Years Used Date Smoking Tobacco: Former Cigarettes Q uit: 1996 Passive Smoke Exposure: Past Smokeless Tobacco: Never Alcohol Use Standard Drinks/Week Comments Yes 14 (1 standard drink = 0.6 oz pu re alcohol) [facility] Utilities Answer Date Recorded In the past 12 months has th e electric, gas, oil, or water company threatened to shut off services in your home? No 11/06/2023 Hunger Vital Sign Answer Date Recorded Within the past 12 months, y ou worried that your food would run out before you got the money to buy more. Never true 11/06/19 24 Within the past 12 months, t he food you bought just didn't last and you didn't have money to get more. Never true 11/06/2023 PRAPARE - Transportation Answer Date Re corded In the past 12 months, has l ack of transportation kept you from medical appointments or from getting medications? No 10/18 In the past 12 months, has l ack of transportation kept you from meetings, work, or from getting things needed for daily living? No 11/06/2023 Housing Stability Vital Sign Answer Todd e Recorded In the last 12 months, was t here a time when you were not able to pay the mortgage or rent on time? No 11/06/2023 Number of Times Moved in the Last Year Not on fi le 11/06/2023 At any time in the past [facility], were you homeless or living in a penitentiary (including now)? No 11/06/2023 IPV Inpatient Questions Answer Date Recorded Does Anyone Try to Keep You From Having Contact with Others or Doing Things Outside Your Home? no 11/05/2023 Feels Threatened by Someone no 10/17 Feels Unsafe at Home or Work/School no 11/05/2023 Physical Signs of Abuse Present no 11/05/2023 Sex and Gender Information Value Date Recorded Sex Assigned at Not on file Gender Identity Not on file Sexual Orientation Not on file documented as of this encounter Plan of Treatment Upcoming Encounters Date Type Department Care Team (Late st Contact Info) Description 11/18/2023 Hospital Encounter Heart and Vascular Unit Level 3 Wing B at [place] [phone] Yossi Castaneda MD [facility] [place] [address] 11/22/2023 1:00 PM EDT Laboratory Appointment Lab [address] [place] [phone] 11/22/2023 2:00 PM EDT Office Visit Cardiology at [address] [phone] Nahed Moore PA [facility] [place] [address] 11/27/2023 2:20 PM EDT Office Visit Cardiology at [address] [phone] Mara Robins PA [facility] [place] [address] documented as of this encounter Procedures Procedure Name Priority Date/Time Associated Diagnosis Comments MISC EXTERNAL CARDIOLOGY RESULT Routine 11/17/2023 3:07 PM EDT documented in this encounter Results * External Cardiology Result (11/17/2023 3:07 PM EDT) Anatomical Region Laterality Modality Other Historical Provider MD EXTERNAL CARDIOLO GY RESULT documented in this encounter Visit Diagnoses Not on filedocumented in this encounter Care Teams Acid Filler Relationship Specialty Start Date End Date None None PCP - General 11/05/23 documented as of this encounter
--- OUTSIDE RECORDS SUMMARY | 2023-11-17 17:08 | XMS_ITS | Encounter Summary ---
Author Organization [facility] Address [facility] [place] [address] Care Team Providers Care Apple Turner Name Role Phone None Primary Care Provider Unavailabl e Encounter Details Date Type Department Care Team (Late st Contact Info) Description 11/17/2023 Telephone Cardiology at [address] [phone] Guevara Fofana, PA [facility] [place] [address] Social History Tobacco Use Types Packs/Day Years Used Date Smoking Tobacco: Former Cigarettes Q uit: 1996 Passive Smoke Exposure: Past Smokeless Tobacco: Never Alcohol Use Standard Drinks/Week Comments Yes 14 (1 standard drink = 0.6 oz pu re alcohol) [facility] Utilities Answer Date Recorded In the past [...] any time in the past 12 m [facility], were you homeless or living in a usp (including now)? No 11/06/2023 DH IPV Inpatient Questions Answer Date Recorded Does [...] on file documented as of this encounter Miscellaneous Notes * Telephone Encounter - Guevara Fofana PA - 11/17/2023 3:29 PM EDT Images from the original note were not included. Cardiology Access Note 11/17/2023 Julian Elizondo Initial Contact Date: 11/17/2023 Contact time: 3:29 PM Referring Facility [facility] Referred by Jami Zimmer PA [address] [place] [address] Past Medical History: CAD with recent NSTEMI s/p stenting of mid LAD, proximal LAD, proximal LCx, and mid LCx Ischemic cardiomyopathy with LVEF 20% HTN Urinary retention Alcohol use disorder Gout Brief History: Julian Elizondo is a 73 y.o. male presenting after episode of syncope with loss of conscious for 1minute as witnessed by . Complaints of lightheadedness and fatigue earlier that morning as wellas leg cramping. D-dimer 2500. CTA showed 2 pulmonary emboli and no evidence of right heart strain.Troponin elevated 287- >307 elevated proBNP 7K (both lower than last admission earlier this month). He has not been using his atorvastatin as it made him feel weird. Vital sign: 140/64 94 16 37.6 95%RA Pertinent Diagnostic Findings: Labs: proBnp 6950, Trop 287->307 (11/04 troponin 1941-> 1944 and BNP 16K then). EKG: Sinus rhythm, first-degree AV block with [place] interval 202 ms, RBBB, LAFB, anteroseptal Q waves,no ischemic ST abnormalities which improved compared to prior tracing surrounding time of nstemi hospitalization. OSH Interventions: Therapeutic Lovenox Assessment & Plan: Julian Elizondo is a 73 y.o. male with ischemic cardiomyopathy with LVEF 20% and recent NSTEMI with 4 stents in LAD and LCx territory presents for evaluation of syncope and found to have 2 pulmonaryemboli. He has been started on therapeutic anticoagulation with Lovenox. CT did not show right heart strain. He is hemodynamically stable and maintaining normal oxygenation on room air. There has been no sign of concerning arrhythmias or heart block. [facility] is uncomfortable managing patient given EF and recent stenting. They are requesting transfer for further management. I recommend they continue to trend troponin which may be elevated in the setting of PE versus recurrent ACS though he has not had anginal symptoms and breathlessness has been stable since last admission. He is on DAPT. Listed for floor level care 11/17. I reviewed with family court counsellor backup who agrees. Above recommendations were based on my discussion with above listed OSH provider. I have not personally interviewed or examined this patient. I encouraged them to contact us if there is any change insymptoms, decision- making, or further need for guidance in management. Guevara Fofana PA-C Access Pager [phone] 11/17/2023 documented in this encounter Plan of Treatment Upcoming Encounters Date Type Department Care Team (Late st Contact Info) Description 11/18/2023 Hospital Encounter Heart and Vascular Unit Level 3 [place] [phone] Yossi Castaneda MD [facility] [place] [address] 11/22/2023 1:00 PM EDT Laboratory Appointment Lab [address] [place] [phone] 11/22/2023 2:00 PM EDT Office Visit Cardiology at [address] [phone] Nahed Moore PA [facility] [place] [address] 11/27/2023 2:20 PM EDT Office Visit Cardiology at [address] [phone] Mara Robins PA [facility] [place] [address] documented as of this encounter Visit Diagnoses Not on filedocumented in this encounter Care Teams Apple Turner Relationship Specialty Start Date End Date None None PCP - General 11/05/23 documented as of this encounter
--- OUTSIDE RECORDS SUMMARY | 2023-11-17 17:08 | XMS_ITS | Encounter Summary ---
Author Organization [facility] Address [facility] [place] [address] Care Team Providers Care Rand Tacker Name Role Phone None Primary Care Provider Unavailabl e Encounter Details Date Type Department Care Team (Late st Contact Info) Description 11/17/2023 2:30 PM EDT Ancillary Procedure [place] [phone] Yossi Castaneda MD [facility] [address] Arrived Social History Tobacco Use Types Packs/Day Years Used Date Smoking Tobacco: Former Cigarettes Q uit: 1996 Passive Smoke Exposure: Past Smokeless Tobacco: Never Alcohol Use Standard Drinks/Week Comments Yes 14 (1 standard drink = 0.6 oz pu re alcohol) [facility] Utilities Answer Date Recorded In the [...] any time in the past 12 m [facility], were you homeless or living in a [place] [facility] facility (including now)? No 11/06/2023 IPV Inpatient Questions [...] Vascular Unit Level 3 Wing B at [place] [phone] Yossi Castaneda MD [facility] [place] [address] 11/22/2023 1:00 PM EDT Laboratory Appointment Lab [address]L [place] [phone] 11/22/2023 2:00 PM EDT Office Visit Cardiology at [place] [phone] Nahed Moore PA [facility] [place] [address] 11/27/2023 2:20 PM EDT Office Visit Cardiology at [address] [phone] Mara Robins PA [facility] [place] [address] documented as of this encounter Procedures Procedure Name Priority Date/Time Associated Diagnosis Comments FILM LIBRARY STORAGE ONLY CT CHEST Routine 11/17/2023 2:25 PM EDT documented in this encounter Results * Film Library- Storage Only CT Chest (11/17/2023 2:25 PM EDT) Narrative RAD - 11/17/2023 2:25 PM EDT This exam is auto-finalizing. It's purpose is for storage only. Yossi Castaneda MD IMG FILM LIBRAR Y ORDERABLES Performing Organization Address City/State/[facility] Co de Phone Number [place], [place] documented in this encounter Visit Diagnoses Not on filedocumented in this encounter Care Teams Rand Tacker Relationship Specialty Start Date End Date None None PCP - General 11/05/23 documented as of this encounter
--- OUTSIDE RECORDS SUMMARY | 2023-11-17 17:08 | XMS_ITS | Clinical Summary ---
Author Organization Formerly [facility] Address [facility] [place] [address] Care Team Providers Care Prepared Foods Team Leader Name Role Phone None Primary Care Provider Unavailabl e Allergies No known active allergies Medications Medication Sig Dispensed Refills Start Date End Date Status valsartan (Diovan) 40 mg tablet Take 0.5 tablets by mouth 2 times daily. 90 tablet 3 11/09/2023 Active spironolactone (Aldactone) 25 mg tablet Take 0.5 tablets by mouth daily. 90 tablet 3 11/10/2023 Active nitroGLYcerin (Nitrostat) 0.[address] 1 tablet under the tongue every 5 minutes as needed for Chest pain. 90 tablet 12 11/09/2023 Active melatonin 3 mg tablet Take 2 tablets by mouth nightly as needed. 60 tablet 3 11/09/2023 Active clopidogreL (Plavix) 75 mg tablet Take 1 tablet by mouth daily. 90 tablet 3 11/10/2023 Active aspirin EC 81 mg EC (DR) tablet Take 1 tablet by mouth daily. 30 tablet 3 11/10/2023 Active metoprolol succinate XL (Toprol-XL) 25 mg ER 24 hr tablet Take 1 tablet by mouth daily. Hold for Sbp<100 and HR <55 30 tablet 12 11/09/2023 Active torsemide (Demadex) 20 mg tablet Take 1 tablet by mouth daily as needed. Take if gaining weight more than 3lbs in ne day or 5lbs in one week 90 tablet 3 11/09/2023 Active atorvastatin (Lipitor) 80 mg tablet Take 1 tablet by mouth daily. 90 tablet 3 11/10/2023 Active Active Problems Problem Noted Date Diagnosed Date Drinks beer 11/06/2023 Acute on chronic systolic heart failure 11/06/19 CAD (coronary artery disease) 11/05/2023 NSTEMI (non-ST elevated myocardial infarction) 0 11/05/2023 Encounters Date Type Department Care Team Description 11/17/2023 2:35 PM EDT Ancillary Procedure [place] [address] Yossi Castaneda MD Arrived 11/17/2023 2:30 PM EDT Ancillary Procedure [place] [address] Yossi Castaneda MD Arrived 11/17/2023 Telephone Cardiology at [address] [address] Guevara Fofana PA 11/17/2023 [place] [address] 11/08/2023 2:38 PM EDT - 11/08/2023 4:08 PM EDT Surgery [place] [address] Ashwin Antony MD CARDIAC CATHETERIZATION 11/05/2023 3:42 PM EDT - 11/05/2023 4:42 PM EDT Surgery [place] [address] Marina Mullen MD CARDIAC CATHETERIZATION 11/05/2023 2:43 PM EDT - 11/09/2023 4:19 PM EDT Hospital Encounter Heart and Vascular Unit Level 4 [place] [address] Prashant Calvin MD Helisch, Armin, MD Battula, Anusha K, MD Chaudry, Hannah I, MD Non-ST elevation myocardial infarction (NSTEMI); Coronary artery disease involving makah heart, unspecified vessel or lesion type, unspecified whether angina present; NSTEMI (non-ST elevated myocardial infarction); Hematuria, unspecified type Discharge Disposition: Home 11/05/2023 Ancillary Procedure Radiology Library at [facility] [place] [address] Yossi Castaneda MD Arrived 11/05/2023 Telephone Cardiology at [address] [place] [address] Yaz Anderson MD 11/05/2023 External Results Transfer Center [facility] [place] [address] from Last 3 Months Social History Tobacco Use Types Packs/Day Years Used Date Smoking Tobacco: Former Cigarettes Q uit: 1996 Passive Smoke Exposure: Past Smokeless Tobacco: Never Tobacco Cessation:Counseling Given: Yes Alcohol Use Standard Drinks/Week Comments Yes 14 (1 standard drink = 0.6 oz pu re alcohol) [facility] Utilities Answer Date Recorded In [...] any time in the past 12 m [facility], were you homeless or living in a alf (including now)? No 11/06/2023 [facility] Inpatient Questions Answer Date Recorded Does Anyone [...] on file Sexual Orientation Not on file Last Filed Vital Signs Vital Sign Reading Time Taken Comments Blood Pressure 107/69 11/09/2023 7:45 AM EDT Pulse 89 11/09/2023 7:45 AM EDT Temperature 36.6 ??C (97.9 ??F) 11/09/2023 7:45 AM ED T Respiratory Rate 19 11/09/2023 4:21 AM EDT Oxygen Saturation 96% 11/09/2023 7:45 AM EDT Inhaled Oxygen Concentration - - Weight 103 kg (227 lb) 11/09/2023 6:20 AM EDT Height 189 cm (6' 2.4) 11/06/2023 3:00 AM EDT Body Mass Index 28.83 11/06/2023 3:00 AM EDT Plan of Treatment Upcoming Encounters Date Type Department Care Team (Late st Contact Info) Description 11/18/2023 Hospital Encounter Heart and Vascular Unit Level 3 [place] [phone] Yossi Castaneda MD [facility] [place] [address] 11/22/2023 1:00 PM EDT Laboratory Appointment Lab 3[address] [place] [address] 11/22/2023 2:00 PM EDT Office Visit Cardiology at [address] [phone] Nahed Moore PA [facility] [place] [address] 11/27/2023 2:20 PM EDT Office Visit Cardiology at [address] [phone] Mara Robins PA [facility] [place] [address] Health Maintenance Due Date Last Done Comments CT Colonography 1948 Colonoscopy 1948 Colorectal Cancer Screening 1948 FIT DNA 1948 FIT 1948 Sigmoidoscopy (10 year) with FIT yearly 1948 Sigmoidoscopy 1948 Pneumoccocal Vaccine: 65+ (1 of 2 - PCV) 1954 Hepatitis C Screening 1966 Tdap adult 08/08/1967 Tetanus vaccine 08/08/1967 Zoster vaccine (1 of 2) 1998 Advance Directive 08/08/2003 AAA Screen 2013 Covid-19 Vaccine (1 - season) 2022 Influenza (Flu) vaccine (1 o f 1 - Influenza standard series) 11/18/2023 Lipid Screening Discontinued 11/05/2023 Procedures Procedure Name Priority Date/Time Associated Diagnosis Comments MISC EXTERNAL CARDIOLOGY RESULT Routine 11/17/2023 3:07 PM EDT FILM LIBRARY STORAGE ONLY DX CHEST Routine 11/17/2023 2:25 PM EDT FILM LIBRARY STORAGE ONLY CT CHEST Routine 11/17/2023 2:25 PM EDT SCAN DOC: TELEMETRY STRIPS 11/09/2023 10:34 AM EDT SCAN DOC: TELEMETRY STRIPS 11/09/2023 7:30 AM EDT PHOSPHORUS Routine 11/09/2023 3:29 AM EDT MAGNESIUM Routine 11/09/2023 3:29 AM EDT BASIC METABOLIC PANEL Routine 11/09/2023 3:29 AM EDT CBC (WITH DIFF) Routine 11/09/2023 3:29 AM EDT SCAN DOC: TELEMETRY STRIPS 11/08/2023 8:31 PM EDT SCAN DOC: TELEMETRY STRIPS 11/08/2023 7:19 PM EDT SCAN DOC: TELEMETRY STRIPS 11/08/2023 4:50 PM EDT EKG 12-LEAD Routine 11/08/2023 3:00 PM EDT Non-ST elevation myocardial infarction (NSTEMI) CARDIAC CATHETERIZATION Routine 11/08/19 2:55 PM EDT SCAN DOC: TELEMETRY STRIPS 11/08/2023 11:28 AM EDT SCAN DOC: TELEMETRY STRIPS 11/08/2023 8:14 AM EDT SCAN DOC: TELEMETRY STRIPS 11/08/2023 8:14 AM EDT HEPARIN (UNFRACTIONATED) LEVEL Timed 11/08/2023 2:46 AM EDT PHOSPHORUS Routine 11/08/2023 2:46 AM EDT MAGNESIUM Routine 11/08/2023 2:46 AM EDT BASIC METABOLIC PANEL Routine 11/08/2023 2:46 AM EDT CBC (WITH DIFF) Routine 11/08/2023 2:46 AM EDT SCAN DOC: TELEMETRY STRIPS 11/07/2023 9:06 PM EDT SCAN DOC: TELEMETRY STRIPS 11/07/2023 7:27 PM EDT XR CHEST PA AND LATERAL Routine 11/07/19 2:35 PM EDT SCAN DOC: TELEMETRY STRIPS 11/07/2023 7:42 AM EDT SCAN DOC: TELEMETRY STRIPS 11/07/2023 7:19 AM EDT HEPARIN (UNFRACTIONATED) LEVEL Timed 11/07/2023 1:38 AM EDT TSH Routine 11/07/2023 1:38 AM EDT PHOSPHORUS Routine 11/07/2023 1:38 AM EDT MAGNESIUM Routine 11/07/2023 1:38 AM EDT BASIC METABOLIC PANEL Routine 11/07/2023 1:38 AM EDT CBC (WITH DIFF) Routine 11/07/2023 1:38 AM EDT HEPARIN (UNFRACTIONATED) LEVEL Timed 11/06/2023 7:25 PM EDT SCAN DOC: TELEMETRY STRIPS 11/06/2023 7:19 PM EDT SCAN DOC: TELEMETRY STRIPS 11/06/2023 1:04 PM EDT SCAN DOC: TELEMETRY STRIPS 11/06/2023 1:04 PM EDT SCAN DOC: TELEMETRY STRIPS 11/06/2023 12:51 PM EDT HEPARIN (UNFRACTIONATED) LEVEL Timed 11/06/2023 12:00 PM EDT SCAN DOC: TELEMETRY STRIPS 11/06/2023 10:33 AM EDT EKG 12-LEAD Routine 11/06/2023 10:01 AM EDT Non-ST elevation myocardial infarction (NSTEMI) ECHO COMPLETE W CONTRAST Routine 11/06/2023 9:02 AM EDT Non-ST elevation myocardial infarction (NSTEMI) HEPARIN (UNFRACTIONATED) LEVEL Timed 11/06/2023 4:08 AM EDT PHOSPHORUS Routine 11/06/2023 4:08 AM EDT MAGNESIUM Routine 11/06/2023 4:08 AM EDT BASIC METABOLIC PANEL Routine 11/06/2023 4:08 AM EDT CBC (WITH DIFF) Routine 11/06/2023 4:08 AM EDT TROPONIN-T, HIGH SENSITIVITY 3 HOUR PERFORMABLE STAT 11/05/2023 7:02 PM EDT EKG 12-LEAD Routine 11/05/2023 4:52 PM EDT Non-ST elevation myocardial infarction (NSTEMI) POC, GLUCOSE Routine 11/05/2023 4:45 PM EDT CARDIAC CATHETERIZATION Routine 11/05/19 4:27 PM EDT HEMOGLOBIN A1C Routine 11/05/2023 4:03 PM EDT LIPID PANEL (REFLEX DIRECT LDL) Routine 11/05/2023 4:03 PM EDT TROPONIN-T, HIGH SENSITIVITY INITIAL PERFORMABLE STAT 11/05/2023 4:03 PM EDT TROPONIN - SERIES STAT 11/05/2023 4:0 3 PM EDT HEPATIC FUNCTION PANEL Routine 4:03 PM EDT PRO-BRAIN NATRIURETIC PEPTIDE Routine 11/05/2023 4:03 PM EDT TSH Routine 11/05/2023 4:03 PM EDT PHOSPHORUS Routine 11/05/2023 4:03 PM EDT MAGNESIUM Routine 11/05/2023 4:03 PM EDT BASIC METABOLIC PANEL Routine 11/05/2023 4:03 PM EDT CBC (WITH DIFF) Routine 11/05/2023 4:03 PM EDT POC, GLUCOSE Routine 11/05/2023 3:44 PM EDT BLOOD GAS, POC Routine 11/05/2023 3:22 PM EDT EKG 12-LEAD Routine 11/05/2023 2:48 PM EDT [facility] EXTERNAL CARDIOLOGY RESULT Routine 11/05/2023 11:59 AM EDT FILM LIBRARY STORAGE ONLY DX CHEST Routine 11/05/2023 12:00 AM EDT from Last 3 Months Results * External Cardiology Result (11/17/2023 3:07 PM EDT) Anatomical Region Laterality Modality Other Historical Provider EXTERNAL CARDIOLO GY RESULT * Film Library- Storage Only DX Chest (11/17/2023 2:25 PM EDT) Only the most recent of2 resultswithin the time period is included. Narrative [facility] - 11/17/2023 2:25 PM EDT This exam is auto-finalizing. It's purpose is for storage only. Yossi Castaneda MD IMG FILM LIBRAR Y ORDERABLES Performing Organization Address [facility] de Phone Number [facility] [place], [place] * Film Library- Storage Only CT Chest (11/17/2023 2:25 PM EDT) Narrative [facility] - 11/17/2023 2:25 PM EDT This exam is auto-finalizing. It's purpose is for storage only. Yossi JONES FILM LIBRAR Y ORDERABLES DH LIANE Ignacio * Scan Doc: Telemetry Strips (11/09/2023 10:34 AM EDT) Only the most recent of17 resultswithin the time period is included. Narrative 11/09/2023 10:34 AM EDT Ordered by an unspecified provider. Scanning Provider MEDIA MGR SCAN EXT O RDR/RSLT * (ABNORMAL) CBC (with Diff) (11/09/2023 3:29 AM EDT) Only the most recent of5 resultswithin the time period is included. White Blood Cell 6.55 4.00 - 9.50 x10(3)/mc L 11/09/2023 3:54 AM T [facility] Red Blood Cell 4.54(L) 4.58 - 5.54 x10(6)/mc L 11/09/2023 3:54 AM T [facility] Hemoglobin 10.9(L) 13.7 - 16.5 g/dL 11/09/2023 3:54 AM T [facility] Hematocrit 34.6(L) 40.5 - 48.5 % 11/09/2023 3:54 AM T [facility] Mean Cell Volume 76.2(L) 82.9 - 93.1 fL 11/09/2023 3:54 AM [facility] Mean Cell Hemoglobin 24.0(L) 27.5 - 32.1 pg 11/09/2023 3:54 AM T [facility] Mean Cell Hemoglobin Concentration 31.5(L) 32.0 - 35.7 g/dL 11/09/2023 3:54 AM [facility] Platelet 288 145 - 357 x10(3)/mc L 11/09/2023 3:54 AM [facility] Mean Platelet Volume 9.4 7.6 - 12.9 fL 11/09/2023 3:54 AM [facility] RDW Standard Deviation 48.4(H) 36.0 - 45.0 fL 11/09/2023 3:54 AM [facility] RDW coefficient of variation 17.5(H) 11.4 - 13.8 % 11/09/2023 3:54 AM [facility] NRBC% auto 0.0 % 11/09/2023 3:54 AM [facility] NRBC Absolute 0.00 0.00 - 0.00 x10(3)/mc L 11/09/2023 3:54 AM [facility] Neutrophil % 72.2 % 11/09/2023 3:54 AM [facility] Neutrophil Absolute (ANC) - Automated 4.73 1.70 - 6.10 x10(3)/mc L 11/09/2023 3:54 AM [facility] Lymph % 11.6 % 11/09/2023 3:54 AM [facility] Lymph Absolute 0.76(L) 0.90 - 3.20 x10(3)/mc L 11/09/2023 3:54 AM [facility] Monocyte % 12.5 % 11/09/2023 3:54 AM [facility] Monocyte Absolute 0.82 0.30 - 0.90 x10(3)/mc L 11/09/2023 3:54 AM [facility] Eos % 2.6 % 11/09/2023 3:54 AM [facility] Eos Absolute 0.17 0.00 - 0.40 x10(3)/mc L 11/09/2023 3:54 AM [facility] Basophil % 0.6 % 11/09/2023 3:54 AM [facility] Baso Absolute 0.04 0.00 - 0.10 x10(3)/mc L 11/09/2023 3:54 AM [facility] Immature Gran % 0.5 % 3:54 AM [facility] Immature Gran Absolute 0.03 0.00 - 0.04 x10(3)/mc L 11/09/2023 3:54 AM EDT [facility] Blood VENOUS BLOOD SPECIMEN / Unknown IP Care Team Draw / Unknown 11/09/2023 3:29 AM EDT 11/09/2023 3:40 AM EDT Allen Figueroa MD HEMATOLOGY ORDERABLE S Performing Organization Address City/[facility]/ZIP Co de Phone Number [facility] [place] [address] * Phosphorus (11/09/2023 3:29 AM EDT) Only the most recent of5 resultswithin the time period is included. Phosphorus 3.1 2.5 - 4.5 mg/dL 11/09/2023 4:11 AM EDT [facility] Blood VENOUS BLOOD SPECIMEN / Unknown IP Care Team Draw / Unknown 11/09/2023 3:29 AM EDT 11/09/2023 3:40 AM EDT Allen Figueroa MD CHEMISTRY ORDERABLES Performing Organization Address [facility] Co de Phone Number [facility] [place] [address] * Magnesium (11/09/2023 3:29 AM EDT) Only the most recent of5 resultswithin the time period is included. Magnesium 1.03 0.69 - 1.07 mMol/L 11/09/2023 4:11 AM EDT [facility] Blood VENOUS BLOOD SPECIMEN / Unknown IP Care Team Draw / Unknown 11/09/2023 3:29 AM EDT 11/09/2023 3:40 AM EDT Allen Figueroa MD CHEMISTRY ORDERABLES Performing Organization Address City/[facility] Co de Phone Number [facility] [place] [address] * (ABNORMAL) Basic Metabolic Panel (11/09/2023 3:29 AM EDT) Only the most recent of5 resultswithin the time period is included. Glucose 99 65 - 199 mg/dL 11/09/2023 4:11 AM [facility] Comment:Glucose Concentratio n >=200 mg/dL plus symptoms is consistent with Diabetes Mellitus. Blood Urea Nitrogen 21(H) 10 - 20 mg/dL 11/09/2023 4:11 AM [facility] Creatinine 1.03 0.80 - 1.50 mg/dL 11/09/2023 4:11 AM [facility] Sodium 136 135 - 145 mMol/L 11/09/2023 4:11 AM [facility] Potassium 4.1 3.5 - 5.0 mMol/L 11/09/2023 4:11 AM [facility] Chloride 103 98 - 107 mMol/L 11/09/2023 4:11 AM [facility] Carbon Dioxide 22 22 - 31 mMol/L 11/09/2023 4:11 AM [facility] Anion Gap 11 5 - 15 mMol/L 11/09/2023 4:11 AM [facility] Calcium 8.7 8.5 - 10.5 mg/dL 11/09/2023 4:11 AM [facility] Est Glomerular Filtration Rate - Male 76 mL/min/1. 73 m?? 11/09/2023 4:11 AM [facility] Comment: This patient's estimated GFR was calculated using the 2020 CKD-EPI equation. The estimated GFR can vary from the measured GFR by up to 30% in the absence of rapidly changing kidney function. Assessment of the estimated GFR is not appropriate when creatinine concentrations are rapidly changing. For clinical situations in which a more precise estimate of GFR is necessary, consider alternative methods of GFR estimation such as a 24-hour urine creatinine clearance. Assignment of CKD stage 1 - 5 for patients with an eGFR near the transition point between stages may be based on clinical assessment of muscle mass and symptoms in addition to eGFR. Link: eGFR Calculator [employer] Blood VENOUS BLOOD SPECIMEN / Unknown IP Care Team Draw / Unknown 11/09/2023 3:29 AM EDT 11/09/2023 3:40 AM EDT Allen Figueroa MD CHEMISTRY ORDERABLES Performing Organization Address [facility] Co de Phone Number [facility] [place] [address] * EKG 12 Lead (11/08/2023 3:00 PM EDT) Only the most recent of4 resultswithin the time period is included. Ventricular rate 95 BPM MUSE SYSTEM Atrial Rate 95 BPM MUSE SYSTEM P-R Interval 180 ms MUSE SYSTEM QRS Duration 126 ms MUSE SYSTEM Q-T Interval 418 ms MUSE SYSTEM QTC Calculated (Bezet) 525 ms MUSE SYSTEM Calculated P [place] 81 degrees MUSE SYSTEM Calculated R [place] -57 degrees MUSE SYSTEM Calculated T [place] 109 degrees MUSE SYSTEM INTERPRETATION Normal sinus rhythm Possible Left atrial enlargement Left axis deviation Left ventricular hypertrophy with QRS widening and repolarization abnormality ( R in aVL , [place] product ) Cannot rule out Septal infarct (cited on or before 05-NOV-2023) Abnormal ECG When compared with ECG of 06-NOV-2023 10:01, Premature ventricular complexes are no longer Present Confirmed by MD Jero, Rosas Shepard ([id number]) on 11/09/2023 11:39:40 AM MUSE SYSTEM 11/08/2023 3:00 PM EDT 11/09/2023 11:39 AM EDT Danni Joy MD ECG ORDERABLES Performing Organization Address City/[facility] Co de Phone Number MUSE SYSTEM * CARDIAC CATHETERIZATION (11/08/2023 2:55 PM EDT) Only the most recent of2 resultswithin the time period is included. Anatomical Region Laterality Modality Other Narrative 11/09/2023 8:37 AM EDT ?[facility] ? Cardiac Catheterization/Intervention Report ? Patient Name: Gayazminwski, Rose ? Procedure Date: 11/08/2023 ? A #: [id number] ? Primary Physician: Antony, Ashwin V ? Case #: [id number] ? File Name: [id number] ? Catheterization Order Number: [id number] ? [facility] ? Final Report [place], [place] ? Patient Name: ? Rose Gajowski ? ID#: ?[id number] ? : ?1950 ? Procedure Date: ? November 08, 2023 ?Case #: ? [id number] ? Room: ? 5 ? Case Physician: ? Ashwin Antony M.D. ? Start: ?13:54 ?Fellow: ? Froilan Lopez M.D. ? Admission: ??11/05/2023 ? Procedures: ?* Coronary Angiography ?* Left Heart Catheterization ?* Coronary Ultrasound ?* Coronary Stent Insertion ? History ?Rose Buck is a 73 year old man. The patient's smoking status is ?Former. The patient has a prior history of coronary artery disease. He is ?status post a recent non-ST elevation myocardial infarction. The patient ?had a coronary intervention procedure. He has a history of an ejection ?fraction less than or equal to 35%. The patient has a history of CHF. The ?CHF is NYHA Functional Class IV, is newly diagnosed and is classified as ?Systolic. Prior to the initiation of this procedure, the patient was ?designated as ASA Class III. The [facility] clinical frailty scale is 4: ?Vulnerable. ? Diagnostic Tests: ?Prior Coronary Angiography: ? Prior coronary angiography was performed on 11/05/2023 and showed ? obstructive CAD. LV ejection fraction within 6 months is 20%. ?Medications Prior to Procedure: ? Aspirin, Angiotensin II Receptor Good and Statin. ? Indications for Diagnostic Cath: ?The priority of the diagnostic procedure was Elective. 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 Chest pain symptom assessment ?was: Asymptomatic. ? Technique: ?A 6Fr sheath was inserted in the right radial artery utilizing the ?Seldinger technique. The left coronary artery was injected utilizing a ?6Fr EBU 4.0 catheter. Left ventricular pressure was performed utilizing a ?5Fr JR 4 catheter. Coronary stent insertion was performed and the ?equipment utilized will be described in the intervention summary section. ?10,500 units of heparin were administered. A total of 150cc of Omnipaque ?were opened, 109cc of Omnipaque were administered and 41cc of Omnipaque ?were wasted. Radiation: Fluoro time was 8.9 minutes, dose area product ?was 53.50 Gy/cm2 and air kerma was 759 mGY. See the case log for ?additional details. ?The patient received the following medications prior to and during the ?procedure: ? Unfractionated Heparin. ? Hemodynamics: ?Left Heart Pressures ? Resting: ? Syst Diast ? EDP ?a ?v ? m ?Ao 99 ?61 ?75 ?LV 103 ? 18 ? Coronary Angiography: ?Dominance: Left ?Left Main ? The left main was normal, free of disease. ?Left Anterior Descending ? There was mild diffuse (<=25% stenosis) disease of the entire vessel ? segment of the left anterior descending artery (LAD). ??The LAD was ? large. ??The previously placed stent is patent. ?Left Circumflex ? There was mild diffuse (<=25% stenosis) disease of the entire vessel ? segment of the left circumflex artery (LCX). ??The LCX was large. ? The proximal segment of the LCX had an eccentric and ulcerated long ? segmental 75% stenosis. ??There also was a 90% single discrete ? stenosis of the mid segment of the LCX. ?Right Coronary Artery ? This vessel was not injected. ? Intravascular Imaging/Physiology: ?Intravascular Ultrasound was performed in the proximal LCX using a 6 Fr ?EBU 4.0 guiding catheter and a 3.1 Fr Refinity 42 MHz catheter. ??Imaging ?was successful. ??Image quality was good. ??A vasodilator was administered. ?Indication: IVUS performed for pre intervention planning and post ?intervention assessment. ?IVUS performed after pre-dilation. ??IVUS performed after vessel ?manipulation. ?Findings Pre-Intervention: scattered plaque. The distal reference minimum ?luminal diameter was 3.50mm. ??The distal reference cross-sectional area ?was 9.50mm2. ??These measurements were performed after pre-dilation of the ?lesion. ?Findings Post-Intervention: The stent was well expanded and apposed. ?Conclusions: stent/intervention appears optimized. ?Intravascular Ultrasound was performed in the mid LCX using a 6 Fr EBU ?4.0 guiding catheter and a 3.1 Fr Refinity 42 MHz catheter using auto 0.5 ?mm/sec pullback. ??Imaging was successful. ??A vasodilator was ?administered. ?Indication: IVUS performed for pre intervention planning and post ?intervention assessment. ?IVUS performed after pre-dilation. ??IVUS performed after vessel ?manipulation. ?Findings Pre-Intervention: scattered plaque. The distal reference minimum ?luminal diameter was 3.30mm. ??The distal reference cross-sectional area ?was 8.50mm2. ??These measurements were performed after pre-dilation of the ?lesion. ?Findings Post-Intervention: The stent was well expanded and apposed. ?Conclusions: stent/intervention appears optimized. ? Indication for Intervention: ?Coronary intervention was indicated for primary therapy for an acute ?myocardial infarction. The priority for the procedure was Urgent. The ?NCDR indication for the procedure was NSTE-ACS. LVEF within one week was ?20%. Staged PCI was performed for multivessel disease. ? Intervention Summary: ?Left Circumflex Artery ? Proximal 75% ? Stent insertion was performed on the 75% stenosis in the ? proximal segment of the LCX. This was a de scarlett lesion. ? According to the ACC/AHA classification system, this lesion ? was a type B2 moderate risk lesion. Primary prevention of ? restenosis was the indication for stent insertion. This was ? the culprit lesion. A guidewire was placed across this lesion. ? Vessel flow pre intervention was OSVALDO 3. Lesion length was ? 15mm. ? Stent insertion was accomplished through a 6 Fr. guide. ??The ? lesion was predilated with a 3.00mm EUPHORA 12 MM balloon with ? a maximum inflation pressure of 14 atmospheres. ??A premounted ? 3.50 x 18 mm Michael Berlin (DORINDA) was deployed with a maximum ? inflation pressure of 18 atmospheres. ??Following stent ? deployment, the lesion was dilated using a 4.00mm NC EUPHORA ? 15 MM balloon with a maximum inflation pressure of 24 ? atmospheres. ? The final outcome was defined as successful. A coronary ? arteriolar vasodilator was administered as part of the ? intervention on this lesion. There was no residual stenosis ? following this intervention. The final OSVALDO flow was 3. ? Mid 90% ? Stent insertion was performed on the 90% stenosis in the mid ? segment of the LCX. This was a de scarlett lesion. This lesion was ? designated a type B2 moderate risk lesion based on ACC/AHA ? classification system. Primary prevention of restenosis was ? the indication for stent insertion. This was the culprit ? lesion. A guidewire was placed across this lesion. Vessel flow ? pre intervention was OSVALDO 3. Lesion length was 8mm. ? Stent insertion was accomplished through a 6 Fr. EBU 4.0 ? guide. ??The lesion was predilated with a 3.00mm EUPHORA 12 MM ? balloon with a maximum inflation pressure of 14 atmospheres. ? A premounted 3.50 x 18 mm Michael Berlin (DORINDA) was deployed ? with a maximum inflation pressure of 15 atmospheres. ? The final outcome was defined as successful. A coronary ? arteriolar vasodilator was administered as part of the ? intervention on this lesion. There was no residual stenosis ? following this intervention. The final OSVALDO flow was 3. ? Vascular Access: ?Vascular Access Management: ? Mechanical Compression of the right radial artery access site was ? performed. ? Dual Antiplatelet (DAPT) Recommendations: ?Drug eluting stent (DORINDA) inserted. ?Patient was on chronic DAPT on arrival to the aquatic life laborer. ?Recommended anti-platelet/anti-thrombotic regimen: ?Start aspirin 81 mg daily now and continue for indefinitely. ?Start clopidogrel 75 mg daily now and continue for 12 months then stop. ?These recommendations are made at the time of the intervention. Patient ?and provider preferences or a changing clinical situation may require ?modification of this regimen. Consult [facility] for ?questions. ?The 1 year bleeding risk as calculated by the PRECISE DAPT score is High ?risk. ?This patient may be at high bleeding risk. In patients treated with DAPT ?after coronary stent implantation who develop a high risk of bleeding, or ?are at high risk of severe bleeding complication, or develop significant ?overt bleeding, discontinuation of P2Y12 inhibitor therapy after 3 months ?for stable ischemic heart disease (SIHD) or after 6 months for acute ?coronary syndrome (ACS) may be reasonable. ? Conclusions: ?* Obstructive disease of the LCX ?* Nonobstructive disease of the LAD ?* Successful stent insertion of the proximal LCX lesion ?* Successful stent insertion of the mid LCX lesion ?* See Dual Antiplatelet (DAPT) Recommendations above ? Complications/Events: ?The patient had no complications during these procedures. ? Post Procedure Fluid Recommendations: ?IV fluid at 315 mL/hr for 4 hours for a total of 1,260 mL. These ?recommendations are made at the time of the procedure. Patient and ?provider preferences or a changing clinical situation may require ?modification of this regimen. ? Recommendations: ?Based upon the results of this procedure, it was recommended that the ?patient be managed with medical therapy. ?The attending physician was present for the entire procedure. ?Dr. Ashwin Antony M.D. was present during the moderate sedation ?intraservice time as documented by the sedation nurse. ??Case time = 00:52. ?Dr. Ashwin Antony M.D. performed the coronary angiography, stent ?insertion-coronary, left heart catheterization and IVUS # coronary. ? Ashwin Antony M.D. ? Electronically Signed by: Ashwin Antony M.D. ? Report Finalized: 11/09/2023 ??08:30 ? Procedure Note Ashwin Antony MD - 11/09/2023 [facility] Cardiac Catheterization/Intervention Report Patient Name: Rose Buck Procedure Date: 11/08/2023 A #: [id number] Primary Physician: Ashwin Antony V Case #: [id number] File Name: [id number] Catheterization Order Number: [id number] [facility] FinalReport [place], [place] Patient Name: Rose Buck ID#:[id number] :1950 Procedure Date: November 08, 2023 Case #: [id number] Room: 5 Case Physician: Ashwin Antony M.D. Start: 13:54 Fellow: Froilan Lopez M.D. Admission:11/05/2023 Procedures: * Coronary Angiography * Left Heart Catheterization * Coronary Ultrasound * Coronary Stent Insertion History Rose Buck is a 73 year old man. The patient's smoking statusis Former. The patient has a prior history of coronary artery disease.He is status post a recent non-ST elevation myocardial infarction. Thepatient had a coronary intervention procedure. He has a history of anejection fraction less than or equal to 35%. The patient has a history ofCHF. The CHF is NYHA Functional Class IV, is newly diagnosed and isclassified as Systolic. Prior to the initiation of this procedure, the patient was designated as ASA Class III. The [facility] clinical frailty scale is 4: Vulnerable. Diagnostic Tests: Prior Coronary Angiography: Prior coronary angiography was performed on 11/05/2023 andshowed obstructive CAD. LV ejection fraction within 6 months is 20%. Medications Prior to Procedure: Aspirin, Angiotensin II Receptor Good and Statin. Indications for Diagnostic Cath: The priority of the diagnostic procedure was Elective. 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 Chest pain symptomassessment was: Asymptomatic. Technique: A 6Fr sheath was inserted in the right radial artery utilizing the Seldinger technique. The left coronary artery was injected utilizinga 6Fr EBU 4.0 catheter. Left ventricular pressure was performedutilizing a 5Fr JR 4 catheter. Coronary stent insertion was performed and the equipment utilized will be described in the intervention summarysection. 10,500 units of heparin were administered. A total of 150cc ofOmnipaque were opened, 109cc of Omnipaque were administered and 41cc ofOmnipaque were wasted. Radiation: Fluoro time was 8.9 minutes, dose areaproduct was 53.50 Gy/cm2 and air kerma was 759 mGY. See the case log for additional details. The patient received the following medications prior to and duringthe procedure: Unfractionated Heparin. Hemodynamics: Left Heart Pressures Resting: Syst Diast EDP a v m Ao 99 61 75 LV 103 18 Coronary Angiography: Dominance: Left Left Main The left main was normal, free of disease. Left Anterior Descending There was mild diffuse (<=25% stenosis) disease of the entirevessel segment of the left anterior descending artery (LAD). The LADwas large. The previously placed stent is patent. Left Circumflex There was mild diffuse (<=25% stenosis) disease of the entirevessel segment of the left circumflex artery (LCX). The LCX waslarge. The proximal segment of the LCX had an eccentric and ulceratedlong segmental 75% stenosis. There also was a 90% single discrete stenosis of the mid segment of the LCX. Right Coronary Artery This vessel was not injected. Intravascular Imaging/Physiology: Intravascular Ultrasound was performed in the proximal LCX using a 6Fr EBU 4.0 guiding catheter and a 3.1 Fr Refinity 42 MHz catheter.Imaging was successful. Image quality was good. A vasodilator wasadministered. Indication: IVUS performed for pre intervention planning and post intervention assessment. IVUS performed after pre-dilation. IVUS performed after vessel manipulation. Findings Pre-Intervention: scattered plaque. The distal referenceminimum luminal diameter was 3.50mm. The distal reference cross-sectionalarea was 9.50mm2. These measurements were performed after pre-dilationof the lesion. Findings Post-Intervention: The stent was well expanded and apposed. Conclusions: stent/intervention appears optimized. Intravascular Ultrasound was performed in the mid LCX using a 6 FrEBU 4.0 guiding catheter and a 3.1 Fr Refinity 42 MHz catheter usingauto 0.5 mm/sec pullback. Imaging was successful. A vasodilator was administered. Indication: IVUS performed for pre intervention planning and post intervention assessment. IVUS performed after pre-dilation. IVUS performed after vessel manipulation. Findings Pre-Intervention: scattered plaque. The distal referenceminimum luminal diameter was 3.30mm. The distal reference cross-sectionalarea was 8.50mm2. These measurements were performed after pre-dilationof the lesion. Findings Post-Intervention: The stent was well expanded and apposed. Conclusions: stent/intervention appears optimized. Indication for Intervention: Coronary intervention was indicated for primary therapy for an acute myocardial infarction. The priority for the procedure was Urgent.The NCDR indication for the procedure was NSTE-ACS. LVEF within one weekwas 20%. Staged PCI was performed for multivessel disease. Intervention Summary: Left Circumflex Artery Proximal 75% Stent insertion was performed on the 75% stenosis in the proximal segment of the LCX. This was a de scarlett lesion. According to the ACC/AHA classification system, thislesion was a type B2 moderate risk lesion. Primary prevention of restenosis was the indication for stent insertion. Thiswas the culprit lesion. A guidewire was placed across thislesion. Vessel flow pre intervention was OSVALDO 3. Lesion lengthwas 15mm. Stent insertion was accomplished through a 6 Fr. guide.The lesion was predilated with a 3.00mm EUPHORA 12 MM balloonwith a maximum inflation pressure of 14 atmospheres. Apremounted 3.50 x 18 mm Michael Berlin (DORINDA) was deployed with amaximum inflation pressure of 18 atmospheres. Following stent deployment, the lesion was dilated using a 4.00mm NCEUPHORA 15 MM balloon with a maximum inflation pressure of 24 atmospheres. The final outcome was defined as successful. A coronary arteriolar vasodilator was administered as part of the intervention on this lesion. There was no residualstenosis following this intervention. The final OSVALDO flow was 3. Mid 90% Stent insertion was performed on the 90% stenosis in themid segment of the LCX. This was a de scarlett lesion. Thislesion was designated a type B2 moderate risk lesion based onACC/AHA classification system. Primary prevention of restenosiswas the indication for stent insertion. This was the culprit lesion. A guidewire was placed across this lesion. Vesselflow pre intervention was OSVALDO 3. Lesion length was 8mm. Stent insertion was accomplished through a 6 Fr. EBU 4.0 guide. The lesion was predilated with a 3.00mm [id number] MM balloon with a maximum inflation pressure of 14atmospheres. A premounted 3.50 x 18 mm [place] (DORINDA) wasdeployed with a maximum inflation pressure of 15 atmospheres. The final outcome was defined as successful. A coronary arteriolar vasodilator was administered as part of the intervention on this lesion. There was no residualstenosis following this intervention. The final OSVALDO flow was 3. Vascular Access: Vascular Access Management: Mechanical Compression of the right radial artery access sitewas performed. Dual Antiplatelet (DAPT) Recommendations: Drug eluting stent (DORINDA) inserted. 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 Recommended anti-platelet/anti-thrombotic regimen: Start aspirin 81 mg daily now and continue for indefinitely. Start clopidogrel 75 mg daily now and continue for 12 months thenstop. These recommendations are made at the time of the intervention.Patient and provider preferences or a changing clinical situation mayrequire modification of this regimen. Consult [facility]iologyfor questions. The 1 year bleeding risk as calculated by the PRECISE DAPT score isHigh risk. This patient may be at high bleeding risk. In patients treated withDAPT after coronary stent implantation who develop a high risk ofbleeding, or are at high risk of severe bleeding complication, or developsignificant overt bleeding, discontinuation of P2Y12 inhibitor therapy after 3months for stable ischemic heart disease (SIHD) or after 6 months for acute coronary syndrome (ACS) may be reasonable. Conclusions: * Obstructive disease of the LCX * Nonobstructive disease of the LAD * Successful stent insertion of the proximal LCX lesion * Successful stent insertion of the mid LCX lesion * See Dual Antiplatelet (DAPT) Recommendations above Complications/Events: The patient had no complications during these procedures. Post Procedure Fluid Recommendations: IV fluid at 315 mL/hr for 4 hours for a total of 1,260 mL. These recommendations are made at the time of the procedure. Patient and provider preferences or a changing clinical situation may require modification of this regimen. Recommendations: Based upon the results of this procedure, it was recommended thatthe patient be managed with medical therapy. The attending physician was present for the entire procedure. Dr. Ashwin Atnony M.D. was present during the moderate sedation intraservice time as documented by the sedation nurse. Case time =00:52. Dr. Ahswin Antony M.D. performed the coronary angiography, stent insertion-coronary, left heart catheterization and IVUS # coronary. Ashwin Antony M.D. Electronically Signed by: Ashwin Antony M.D. Report Finalized: 11/09/2023 08:30 Ashwin Machado MD CARDIAC CATH ORDERAB LES * Heparin (unfractionated) Level (11/08/2023 2:46 AM EDT) Only the most recent of5 resultswithin the time period is included. UF Heparin 0.36 IU/mL 11/08/2023 3:16 AM EDT [facility] Comment: Heparin (anti-Xa) levels should be determined in a plasma sample that has been drawn 6 hours after a dose change to approximate steady-state for continuous heparin infusions. Indication specific Heparin (anti-Xa) levels based on order set selection: Acute DVT or PE prevention: ? 0.3-0.7 IU/mL Thrombosis Prevention (e.g. atrial fibrillation, igor-procedural bridging, mechanical valves): ? 0.3-0.7 IU/mL Acute Coronary Syndrome: ? 0.3-0.7 IU/mL Stroke Indications: ? 0.3-0.5 IU/mL Ultra-low intensity (select indications in cardiac surgery): ? 0.1-0.3 IU/mL Blood VENOUS BLOOD SPECIMEN / Unknown IP Care Team Draw / Unknown 11/08/2023 2:46 AM EDT 11/08/2023 2:53 AM EDT Allen Figueroa MD HEMATOLOGY ORDERABLE S Performing Organization Address City/State/[facility] Co de Phone Number [facility] [place] [address] * XR Chest PA & Lateral (Generic) (11/07/2023 2:35 PM EDT) [employer] WORKSTATION ID [id number] DH RAD Anatomical Region Laterality Modality Chest N/A Digital Radiogra phy Impressions 11/08/2023 9:05 AM EDT Small pleural effusions I have personally reviewed the image(s) and the resident's interpretation and agree with the findings, Rosas Verduzco MD at 11/08/2023 9:05 AM Thank you for letting us participate in the care of this patient. ??If you are a health care provider and have any questions regarding this report, please contact the number below. ??For patients who have questions please contact the health career development associate that requested your imaging first. ? Electronically signed by: Rosas Verduzco MD, [facility] ??([phone]), at 11/08/2023 9:05 AM Narrative 11/08/2023 9:05 AM EDT EXAMINATION: XR CHEST PA AND LATERAL (GENERIC) CLINICAL HISTORY: Chest pain and shortness of breath TECHNIQUE: PA and lateral views of the chest COMPARISON: None FINDINGS: The cardiac silhouette is enlarged. There are small pleural effusions, right greater than left. No pneumothorax. Procedure Note Rosas Verduzco MD - 11/08/2023 EXAMINATION: XR CHEST PA AND LATERAL (GENERIC) CLINICAL HISTORY: Chest pain and shortness of breath TECHNIQUE: PA and lateral views of the chest COMPARISON: None FINDINGS: The cardiac silhouette is enlarged. There are small pleural effusions,right greater than left. No pneumothorax. IMPRESSION Small pleural effusions I have personally reviewed the image(s) and the resident's interpretationand agree with the findings, Rosas Verduzco MD at 11/08/2023 9:05 AM Thank you for letting us participate in the care of this patient. If youare a health care provider and have any questions regarding this report,please contact the number below. For patients who have questions please contactthe health career development associate that requested your imaging first. Electronically signed by: Rosas Verduzco MD, [facility]([phone]), at 11/08/2023 9:05 AM Danni Joy MD IMG DX ORDERABLES * TSH (11/07/2023 1:38 AM EDT) Only the most recent of2 resultswithin the time period is included. Thyroid Stimulating Hormone 3.11 0.27 - 4.20 mcIU/mL 11/07/2023 2:23 AM EDT [facility] Blood VENOUS BLOOD SPECIMEN / Unknown IP Care Team Draw / Unknown 11/07/2023 1:38 AM EDT 11/07/2023 1:43 AM EDT Danni Joy MD CHEMISTRY ORDERABLES [facility] [place] [address] * ECHO COMPLETE W CONTRAST (11/06/2023 9:02 AM EDT) EF 20 HEARTLAB SYSTEM Anatomical Region Laterality Modality Cardiac Other 11/06/2023 7:50 AM EDT Narrative 11/06/2023 9:49 AM EDT [address] [place] [address] ? Echocardiogram Report Name: ROSE BUCK ? Study Date: 11/06/2023 07:50 AMBP: 97/64 mmHg ? Patient Location: [facility] CV26 A : 1950 ? Height: 189 cm ? Account: [id number] Age: 73 yrs ? Weight: 107 kg Gender: Male ?BSA: 2.3 m2 Ordering Physician: PRASHANT CALVIN Referring Physician: MILDRED STEINER Performed By: KAYLIN Samuel Reason For Study: NSTEMI Interpreting Fellow: Rafael Johnson. Exam Location: [facility]. Interpretation Summary Left ventricle is severely dilated by volume index. Wall thickness is moderately increased. Left ventricular systolic function is severely reduced. The LVEF is 20% by Schwartz's biplane. There area RWMAs in a multi-vessel distribution, including anteroapical akinesis (see diagram in PDF). There is no left ventricular thrombus observed. The right ventricle is of normal size and systolic function. The estimated peak RVSP is 39 mmHg. The left atrium is moderately dilated. The right atrium is mildly dilated. There is mild mitral regurgitation. No comparison study is available. See report for additional findings. Procedure Complete-[id number]. Satisfactory quality. Left Ventricle Left ventricle is severely dilated. Wall thickness is moderately increased. There is no left ventricular outflow tract obstruction. There is no ventricular septal defect. Left ventricular systolic function is severely reduced. The left ventricular ejection fraction is 20% by Schwartz's biplane. There is akinesis of the apical region. There is akinesis of the inferior wall. Moderate global hypokinesis. There is no left ventricular thrombus. Right Ventricle The right ventricle is of normal size. Right ventricular systolic function is normal. Left Atrium The left atrium is moderately dilated. No abnormality of the interatrial septum is identified. Right Atrium The right atrium is mildly dilated. Aortic Valve The aortic valve is tricuspid. There is calcification of the aortic annulus. The aortic valve is mildly thickened. There is no aortic stenosis. There is no aortic regurgitation. Mitral Valve The mitral valve leaflets are thickened. There is posterior mitral annular calcification. There is mild mitral regurgitation. Tricuspid Valve The tricuspid valve is structurally and functionally normal. There is mild tricuspid regurgitation. Pulmonic Valve The pulmonic valve is not well visualized. There is no pulmonic valve regurgitation. Great Arteries The aortic root is dilated. The diameter at the level of the sinuses of Valsalva is 4.1 cm. The ascending aorta is not well visualized. The pulmonary artery is not well visualized. Venous Inferior vena cava is normal in size. Inferior vena cava collapse greater than 50% with respiration. Pericardium/Pleural The pericardium appears normal. A pericardial fat pad is present. Hemodynamics The estimated right atrial pressure is 3mmHg. The peak right ventricular systolic pressure is 39 mmHg. Left ventricular diastolic function is indeterminate. Ejection Fraction ?2D Measurements ? Volumes EF(MOD-bp): 19.7 % ?IVSd: 1.6 cm ? LAV(MOD- bp) Indexed: ?LVIDd: 5.5 cm ?LVIDs: 5.1 cm ?44.4 ml/m2 ?LVPWd: 1.1 cm ?RA A4Cs_phl: 24.3 cm2 ?RWT: 0.39 {ratio} ?EDV(MOD-bp) Indexed: ?LV mass(C)d: 308.9 grams ? 107.8 ml/m2 ?LV mass(C)dI: 132.0 grams/m2 ?? ESV(MOD- bp) Indexed: ?Ao root diam: 4.1 cm ? 86.6 ml/m2 ?Ao root diam index: 1.8 ?SV(LVOT): 53.0 ml ?LVOT diam: 2.4 cm ? SI(LVOT): 22.6 ml/m2 Doppler LV V1 VTI: 12.0 cm Lat Peak E' Pietro: 11.9 cm/sec TR max pietro: 298.0 cm/sec I ?WMSI = 2.44 ? % Normal = 13 ?Segments ??Size X - Cannot ?2 - ?4 - ?1-2 ? small Interpret ?1 - Normal ?? Hypokinetic 3 - Akinetic Dyskinetic ?? 3-5 ? moderate 5 - ? 6-14 ?large Aneurysmal ?15-16 ?? diffuse Procedure Note Vipul Beltrán MD - 11/06/2023 [address] [place] [address] Echocardiogram Report Name: ROSE BUCK Study Date: 407:50 AMBP: 97/64 mmHg Patient Location: [id number] : 1950 Height: 189 cm Account: [id number] Age: 73 yrs Weight: 107 kg Gender: Male BSA: 2.3 m2 Ordering Physician: PRASHANT CALVIN Referring Physician: MILDRED STEINER Performed By: KAYLIN Samuel Reason For Study: NSTEMI Interpreting Fellow: Rafael Johnson. Exam Location: [facility]. Interpretation Summary Left ventricle is severely dilated by volume index. Wall thickness ismoderately increased. Left ventricular systolic function is severely reduced. TheLVEF is 20% by Schwartz's biplane. There area RWMAs in a multi-vessel distribution,including anteroapical akinesis (see diagram in PDF). There is no left ventricularthrombus observed. The right ventricle is of normal size and systolic function. The estimatedpeak RVSP is 39 mmHg. The left atrium is moderately dilated. The right atrium is mildlydilated. There is mild mitral regurgitation. No comparison study is available. See report for additional findings. Procedure Complete-[id number]. Satisfactory quality. Left Ventricle Left ventricle is severely dilated. Wall thickness is moderatelyincreased. There is no left ventricular outflow tract obstruction. There is no ventricularseptal defect. Left ventricular systolic function is severely reduced. The left ventricular ejection fraction is 20% by Schwartz's biplane. There isakinesis of the apical region. There is akinesis of the inferior wall. Moderateglobal hypokinesis. There is no left ventricular thrombus. Right Ventricle The right ventricle is of normal size. Right ventricular systolic functionis normal. Left Atrium The left atrium is moderately dilated. No abnormality of the interatrialseptum is identified. Right Atrium The right atrium is mildly dilated. Aortic Valve The aortic valve is tricuspid. There is calcification of the aorticannulus. The aortic valve is mildly thickened. There is no aortic stenosis. There is noaortic regurgitation. Mitral Valve The mitral valve leaflets are thickened. There is posterior mitralannular calcification. There is mild mitral regurgitation. Tricuspid Valve The tricuspid valve is structurally and functionally normal. There ismild tricuspid regurgitation. Pulmonic Valve The pulmonic valve is not well visualized. There is no pulmonic valve regurgitation. Great Arteries The aortic root is dilated. The diameter at the level of the sinuses ofValsalva is 4.1 cm. The ascending aorta is not well visualized. The pulmonaryartery is not well visualized. Venous Inferior vena cava is normal in size. Inferior vena cava collapse greaterthan 50% with respiration. Pericardium/Pleural The pericardium appears normal. A pericardial fat pad is present. Hemodynamics The estimated right atrial pressure is 3mmHg. The peak right ventricularsystolic pressure is 39 mmHg. Left ventricular diastolic function isindeterminate. Ejection Fraction 2D Measurements Volumes EF(MOD-bp): 19.7 % IVSd: 1.6 cm LAV(MOD-bp)Indexed: LVIDd: 5.5 cm LVIDs: 5.1 cm 44.4 ml/m2 LVPWd: 1.1 cm RA A4Cs_phl: 24.3cm2 RWT: 0.39 {ratio} EDV(MOD-bp)Indexed: LV mass(C)d: 308.9 grams 107.8 ml/m2 LV mass(C)dI: 132.0 grams/m2 ESV(MOD-bp)Indexed: Ao root diam: 4.1 cm 86.6 ml/m2 Ao root diam index: 1.8 SV(LVOT): 53.0ml LVOT diam: 2.4 cm SI(LVOT): 22.6ml/m2 Doppler LV V1 VTI: 12.0 cm Lat Peak E' Pietro: 11.9 cm/sec TR max pietro: 298.0 cm/sec I WMSI = 2.44 % Normal = 13 SegmentsSize X - Cannot 2 - 4 - 1-2small Interpret 1 - Normal Hypokinetic 3 - Akinetic Dyskinetic 3-5moderate 5 - 6-14large Aneurysmal 15-16diffuse Prashant Calvin MD ECHO ORDERABLES * (ABNORMAL) Troponin-T, Shola Sensitivity 3 Hour (11/05/2023 7:02 PM EDT) [facility] Troponin-T, High Sensitivity 1,944(H) <=22 ng/L 11/05/2023 7:32 PM EDT [facility] Comment: This patient's troponin T concentration was determined using the Ni 5th Generation troponin T assay. According to the fourth universal definition of myocardial infarction, the term acute myocardial infarction should be used when there is acute myocardial injury with clinical evidence of acute myocardial ischemia and with detection of a rise and/or fall of cardiac troponin values with at least one value above the 99th percentile and at least one of the following: - Symptoms of myocardial ischemia; - New ischemic ECG changes; - Development of pathological Q waves; - Imaging evidence of new loss of viable myocardium or new regional wall motion ?? abnormality in a pattern consistent with an ischemic etiology; - Identification of a coronary thrombus by angiography or autopsy (not for type 2 or 3 ?? MIs) Serial measurement of troponin and the change in troponin concentration over time (delta) is crucial for the diagnosis of acute myocardial infarction. Guidance on the interpretation of the new 5th Generation Troponin T values and the delta troponin value can be found in the [facility] Test Catalog Troponin - https://one-dh.testcatalog.org/catalogs/565/files/33382 Reference: Fourth [place] Definition of Myocardial Infarction. Journal of the [place] College [employer] 2018;72:7942-8207 Troponin-T, HS 3 hr delta 3 ng/L 11/05/2023 7:32 PM EDT [facility] Comment:The 3 hour Troponin T delta value is the absolute difference between the Troponin T concentrations of the initial and subsequent sample collected between 2 h: 45 min and 6 h following the initial collection Blood VENOUS BLOOD SPECIMEN / Unknown IP Care Team Draw / Unknown 11/05/2023 7:02 PM EDT 11/05/2023 7:06 PM EDT Prashant Calvin MD CHEMISTRY ORDERABLES Performing Organization Address [facility]/ZIP Co de Phone Number [facility] [place] [address] * POC, GLUCOSE (11/05/2023 4:45 PM EDT) Only the most recent of2 resultswithin the time period is included. Pathologist [facility] Glucometer, POC 195 65 - 199 mg/dL 11/06/2023 1:14 AM EDT [facility] Comment:Supplemental ranges: <140 mg/dL before meals <180 mg/dL all other times of the day. Blood CAPILLARY BLOOD / Unknown 11/05/2023 4:45 PM EDT 11/06/2023 1:14 AM EDT Prashant Calvin MD POINT OF CARE TEST O RDERABLES Performing Organization Address [facility] Co de Phone Number [facility] [place] [address] * (ABNORMAL) Troponin-T, High Sensitivity (11/05/2023 4:03 PM EDT) [facility] Troponin-T, High Sensitivity Initial 1,941(HHH ) <=22 ng/L 11/05/2023 6:19 PM EDT [facility] Comment: This patient's troponin T concentration was determined using the Ni 5th Generation troponin T assay. The 99th percentile for Troponin T for this test is 14 ng/L for females, and 22 ng/L for males. According to the fourth universal definition of myocardial infarction, the term acute myocardial infarction should be used when there is acute myocardial injury with clinical evidence of acute myocardial ischemia and with detection of a rise and/or fall of cardiac troponin values with at least one value above the 99th percentile and at least one of the following: - Symptoms of myocardial ischemia; - New ischemic ECG changes; - Development of pathological Q waves; - Imaging evidence of new loss of viable myocardium or new regional wall motion ?? abnormality in a pattern consistent with an ischemic etiology; - Identification of a coronary thrombus by angiography or autopsy (not for type 2 or 3 ?? MIs) Serial measurement of troponin and the change in troponin concentration over time (delta) is crucial for the diagnosis of acute myocardial infarction. Guidance on the interpretation of the new 5th Generation Troponin T values and the delta troponin value can be found in the [facility] Test Catalog Troponin - https://[facility].testcatalog.org/catalogs/565/files/64330 Reference: Fourth [place] Definition of Myocardial Infarction. Journal of the [place] College of [employer]iology 2018;72:9041-6694 Blood VENOUS BLOOD SPECIMEN / Unknown IP Care Team Draw / Unknown 11/05/2023 4:03 PM EDT 11/05/2023 5:22 PM EDT Prashant Calvin MD CHEMISTRY ORDERABLES Performing Organization Address City/[facility]/ZIP Co de Phone Number [facility] [place] [address] * (ABNORMAL) pro-Brain Natriuretic Peptide (11/05/2023 4:03 PM EDT) NT-proBNP 15,949(H) <=124 pg/mL 11/05/2023 6:13 PM EDT [facility] Blood VENOUS BLOOD SPECIMEN / Unknown IP Care Team Draw / Unknown 11/05/2023 4:03 PM EDT 11/05/2023 5:22 PM EDT Prashant Calvin MD CHEMISTRY ORDERABLES [facility] [place] [address] * Hemoglobin A1c (11/05/2023 4:03 PM EDT) Hemoglobin A1c 5.4 4.3 - 5.6 % 11/05/2023 8:50 PM EDT [facility] Comment: Per ADA guidelines, without clear symptoms of hyperglycemia or a random plasma glucose >199 mg/dL, a single abnormal A1c measurement cannot be used to diagnose diabetes mellitus. The diagnosis must be confirmed by either 1) a concurrent abnormal fasting plasma glucose or impaired response to oral glucose tolerance testing, or 2) an additional abnormal A1c, impaired fasting plasma glucose, or impaired response to oral glucose tolerance testing on a different day. A1c results obtained on patients with altered red blood cell turnover may not be commercial pest control representative of glycemic control. Reference Interval: 4.3 - 5.6% 5.7 - 6.4%: Consistent with prediabetes >=6.5%: Consistent with diagnosis of diabetes mellitus Estimated Average Glucose 11/05/2023 8:50 PM EDT [facility] Comment:Not Calculated. Blood VENOUS BLOOD SPECIMEN / Unknown IP Care Team Draw / Unknown 11/05/2023 4:03 PM EDT 11/05/2023 5:22 PM EDT [facility] - 11/05/2023 8:50 PM EDT Estimated average glucose (eAG) is calculated from the equation described in: Bahman MARTÍNEZ, Lia J, Gala R, et al. ??Translating the A1C assay into estimated average glucose values. ??Diabetes Care 2008:31(8):9280-2211. Additional resources are available on the ADA website (diabetes.org). Prashant Calvin MD CHEMISTRY ORDERABLES [facility] [place] [address] * Hepatic Function Panel (11/05/2023 4:03 PM EDT) Albumin 3.6 3.2 - 5.2 g/dL 11/05/2023 6:13 PM EDT [facility] Aspartate Aminotransferase 35 <=39 unit/L 11/05/2023 6:13 PM EDT [facility] Alanine Aminotransferase 15 0 - 55 unit/L 11/05/2023 6:13 PM EDT [facility] Alkaline Phosphatase 74 40 - 130 unit/L 11/05/2023 6:13 PM EDT [facility] Bilirubin, Total 0.3 <=1.3 mg/dL 11/05/2023 6:13 PM EDT [facility] Bilirubin, Direct 0.2 0.0 - 0.3 mg/dL 11/05/2023 6:13 PM EDT [facility] Protein, Total 6.6 6.1 - 8.0 g/dL 11/05/2023 6:13 PM EDT [facility] Blood VENOUS BLOOD SPECIMEN / Unknown IP Care Team Draw / Unknown 11/05/2023 4:03 PM EDT 11/05/2023 5:22 PM EDT Prashant Calvin MD CHEMISTRY ORDERABLES [facility] [place] [address] * Lipid Panel (Reflex Direct LDL) (11/05/2023 4:03 PM EDT) Cholesterol, Total 108 mg/dL 11/05/2023 6:13 PM EDT [facility] Comment: Desirable: < 200 mg/dL Borderline High: 200 - 239 mg/dL High: > or = 240 mg/dL Triglyceride 37 mg/dL 11/05/2023 6:13 PM EDT [facility] Comment: Normal: <150 mg/dL Borderline High: 150-199 mg/dL High: 200-499 mg/dL Very High: > or =500 mg/dL HDL Cholesterol 40 mg/dL 4 6:13 PM EDT [facility] Comment:Males: High Risk: <4 0 mg/dL LDL Cholesterol 58 mg/dL 4 6:13 PM EDT [facility] Comment: Desirable: <100 mg/dL Above Desirable: 100-129 mg/dL Borderline High: 130-159 mg/dL High: 160-189 mg/dL Very High: > or =190 mg/dL Note: LDL calculation updated to the NIH LDL formula as of 10/21/2023 Non-HDL Cholesterol 68 mg/dL 11/05/2023 6:13 PM EDT [facility] Comment: Desirable: <130 mg/dL Above Desirable: 130-159 mg/dL Borderline High: 160-189 mg/dL High: 190-219 mg/dL Very High: > or = 220 mg/dL Blood VENOUS BLOOD SPECIMEN / Unknown IP Care Team Draw / Unknown 11/05/2023 4:03 PM EDT 11/05/2023 5:22 PM EDT [facility] - 11/05/2023 6:13 PM EDT It is important to review the results of your lipid panel with your health care provider. You can compare your lipid results to the ranges below and whether they are in the desirable range. These ranges are only meant to be used for people without known cardiac disease, history of stroke, or peripheral vascular disease (blockages in the leg arteries or diabetes). If you have one of these conditions, your desirable LDL-C (bad cholesterol) will likely be even lower. ?? ACC/AHA Guidelines (most recently Margarette et al. [facility] 12/20/21): * For individuals with atherosclerotic cardiovascular disease (ASCVD) or LDL >=190 mg/dL, use a high-intensity statin(40-80 mg atorvastatin or 20-40 mg rosuvastatin with goal >=50% LDL reduction) * For individuals with diabetes, age 40-75 without ASCVD, moderate-intensity statin (goal 30-49% LDL reduction); consider high intensity statin for those with increased risk. * For adults without diabetes or ASCVD, aged 40-75 with LDL 70-189 mg/dL, estimate 10 year ASCVD risk with smartphrase ??.ASCVDRISK ??or Dynamed Decisions. If 10 year risk is 7.5%-19.9% (intermediate risk), consider moderate intensity statin based on risk enhancers and patient preference. Consider coronary artery calcium test (CT)if there is concern regarding the benefit of a statin. If ten year risk is >=20%, initiate high-intensity statin. * Evaluate for secondary causes of Triglycerides >500 mg/dL or LDL >190 mg/dL. * Lifestyle modification is a critical component of ASCVD risk reduction. * If not reaching LDL goals on maximally tolerated statin, consider ezetimibe and/or a PCSK9 inhibitor: ?* Target for primary prevention: LDL<100 ?* Target for those with ASCVD or diabetes and 10-year risk >=20%: LDL<70 ?* Target for those with very high risk ASCVD: LDL<55 (Very high risk being the presence of 2 or more of: recent acute coronary syndrome, past ? myocardial infarction, ischemic stroke, symptomatic peripheral artery disease) Prashant Calvin MD CHEMISTRY ORDERABLES [facility] [place] [address] * (ABNORMAL) BLOOD GAS, POC (11/05/2023 3:22 PM EDT) Sodium, POC 131(L) 135 - 145 mmol/L 11/08/2023 8:27 AM EDT [facility] Potassium, POC 3.6 3.5 - 5.0 mmol/L [facility] pH, POC 7.35 7.35 - 7.45 11/08/2023 8:27 AM [facility] Ionized Calcium, POC 1.14(L) 1.15 - 1.33 mmol/L 11/08/2023 8:27 AM [facility] pCO2, POC 39 35 - 45 mmHg 11/08/2023 8:27 AM EDT [facility] pO2, POC 76(L) 85 - 104 mmHg [facility]23 [facility] Base Excess, POC -4.0(L) -3.0 - 3.0 mmol/L 11/08/2023 8:27 AM [facility] Hematocrit, POC 36.0(L) 40.5 - 48.5 %PCV 11/08/2023 8:27 AM [facility] Hemoglobin, POC 12.2(L) 13.7 - 16.5 g/dL 11/08/2023 8:27 AM EDT [facility] Comment:The calculation of h emoglobin from hematocrit assumes a normal MCHC. Bicarbonate, POC 21.4 20.0 - 26.0 mmol/L 11/08/2023 8:27 AM EDT [facility] Carbon Dioxide, POC 23 22 - 31 mmol/L 11/08/2023 8:27 AM EDT [facility] Blood VENOUS BLOOD SPECIMEN / Unknown 11/05/2023 3:22 PM EDT 11/08/2023 8:27 AM EDT Prashant Calvin MD POINT OF CARE TEST O RDERABLES [facility] [place] [address] * External Cardiology Result (11/05/2023 11:59 AM EDT) Anatomical Region Laterality Modality Other Historical Provider EXTERNAL CARDIOLO GY RESULT from Last 3 Months Advance Directives * Attempt Cardiopulmonary Resuscitation - Inpatient (Latest Code Status on File) Date Activated Date Inactivated Comments 11/05/2023 3:07 PM 11/09/2023 6:25 PM Question Answer Comments Code Status decision made by: Patient Content of discussion: Open to resuscitative eff orts if heart stops Care Teams Prepared Foods Team Leader Relationship Specialty Start Date End Date None None PCP - General 11/05/23
--- OUTSIDE RECORDS SUMMARY | 2023-11-17 17:08 | XMS_ITS | Encounter Summary ---
[facility] Address [facility] [place] [address] Care Team Providers Care Digital Imager Name Role Phone None Primary Care Provider Unavailabl e Encounter Details Date Type Department Care Team (Late st Contact Info) Description 11/17/2023 2:35 PM EDT Ancillary Procedure [place] [address] Yossi Castaneda MD [facility] [place] [address] Arrived Social History Tobacco Use Types Packs/Day Years Used Date Smoking Tobacco: Former Cigarettes Q uit: 1996 Passive Smoke Exposure: Past Smokeless Tobacco: Never Alcohol Use Standard Drinks/Week Comments Yes 14 (1 standard drink = 0.6 oz pu re alcohol) [facility] Utilities Answer Date Recorded In the [...] any time in the past 12 m [facility], were you homeless or living in a chcf (including now)? No 11/06/2023 IPV Inpatient Questions [...] Vascular Unit Level 3 Wing B at [place] [phone] Yossi Castaneda MD [facility] [place] [address] 11/22/2023 1:00 PM EDT Laboratory Appointment Lab 3L [place] [phone] 11/22/2023 2:00 PM EDT Office Visit Cardiology at [place] [phone] Nahed Moore PA [facility] [place] [address] 11/27/2023 2:20 PM EDT Office Visit Cardiology at [address] [phone] Mara Robins PA [facility] [place] [address] documented as of this encounter Procedures Procedure Name Priority Date/Time Associated Diagnosis Comments FILM LIBRARY STORAGE ONLY DX CHEST Routine 11/17/2023 2:25 PM EDT documented in this encounter Results * Film Library- Storage Only DX Chest (11/17/2023 2:25 PM EDT) Narrative RAD - 11/17/2023 2:25 PM EDT This exam is auto-finalizing. It's purpose is for storage only. Yossi Castaneda MD IMG FILM LIBRAR Y ORDERABLES Performing Organization Address City/State/[facility] Co de Phone Number [place], [place] documented in this encounter Visit Diagnoses Not on filedocumented in this encounter Care Teams Digital Imager Relationship Specialty Start Date End Date None None PCP - General 11/05/23 documented as of this encounter
--- OUTSIDE RECORDS SUMMARY | 2023-11-17 17:09 | XMS_ITS | Encounter Summary ---
Author Organization [facility] Address [facility] [place] [address] Care Team Providers Care Scrap Metal Processing Worker Name Role Phone None Primary Care Provider Unavailabl e Encounter Details Date Type Department Care Team (Late st Contact Info) Description 11/05/2023 External Results Transfer Center [facility] [place] [phone] Social History Tobacco Use Types Packs/Day Years Used Date Smoking Tobacco: Former Cigarettes Q uit: 1996 Passive Smoke Exposure: Past Smokeless Tobacco: Never Alcohol Use Standard Drinks/Week Comments Yes 14 (1 standard drink = 0.6 oz pu re alcohol) [facility] Utilities Answer Date Recorded In the [...] any time in the past 12 m [facility], were you homeless or living in a skilled nursing (including now)? No 11/06/2023 IPV Inpatient Questions [...] Vascular Unit Level 3 [place] [phone] Yossi Castaneda MD [facility] [place] [address] 11/22/2023 1:00 PM EDT Laboratory Appointment Lab [address] [place] [phone] 11/22/2023 2:00 PM EDT Office Visit Cardiology at [address] [phone] Nahed Moore PA [facility] [place] [address] 11/27/2023 2:20 PM EDT Office Visit Cardiology at [address] [phone] Mara Robins PA [facility] [place] [address] documented as of this encounter Procedures Procedure Name Priority Date/Time Associated Diagnosis Comments MISC EXTERNAL CARDIOLOGY RESULT Routine 11/05/2023 11:59 AM EDT documented in this encounter Results * External Cardiology Result (11/05/2023 11:59 AM EDT) Anatomical Region Laterality Modality Other Historical Provider MD EXTERNAL CARDIOLO GY RESULT documented in this encounter Visit Diagnoses Not on filedocumented in this encounter Care Teams Scrap Metal Processing Worker Relationship Specialty Start Date End Date None None PCP - General 11/05/23 documented as of this encounter
--- OUTSIDE RECORDS SUMMARY | 2023-11-17 17:09 | XMS_ITS | Encounter Summary ---
Author Organization [facility] Address [facility] [place] [address] Care Team Providers Care Tread Cutter Name Role Phone None Primary Care Provider Unavailabl e Encounter Details Date Type Department Care Team (Late st Contact Info) Description 11/05/2023 Ancillary Procedure [place] [phone] Yossi Castaneda MD [facility] [place] [address] Arrived Social History Tobacco Use Types Packs/Day Years Used Date Smoking Tobacco: Former Cigarettes Q uit: 1996 Passive Smoke Exposure: Past Smokeless Tobacco: Never Alcohol Use Standard Drinks/Week Comments Yes 14 (1 standard drink = 0.6 oz pu re alcohol) [facility] Utilities Answer Date Recorded In the past 12 months has th e electric, gas, oil, or water Whyd threatened to shut off services in your [...] any time in the past 12 m onths, were you homeless or living in a long-term (including now)? No 11/06/2023 IPV Inpatient Questions [...] Vascular Unit Level 3 Wing B at [place] [phone] Yossi Castaneda MD [facility] [place] [address] 11/22/2023 1:00 PM EDT Laboratory Appointment Lab 3L [place] [phone] 11/22/2023 2:00 PM EDT Office Visit Cardiology at [place] [phone] Nahed Moore PA [facility] [place] [address] 11/27/2023 2:20 PM EDT Office Visit Cardiology at [address] [phone] Mara Robins PA [facility] [place] [address] documented as of this encounter Procedures Procedure Name Priority Date/Time Associated Diagnosis Comments FILM LIBRARY STORAGE ONLY DX CHEST Routine 11/05/2023 12:00 AM EDT documented in this encounter Results * Film Library- Storage Only DX Chest (11/05/2023 12:00 AM EDT) Narrative JOSELUIS - 11/17/2023 2:25 PM EDT This exam is auto-finalizing. It's purpose is for storage only. Yossi Castaneda MD IMG FILM LIBRAR Y ORDERABLES Performing Organization Address City/State/[facility] Co de Phone Number [place], [place] documented in this encounter Visit Diagnoses Not on filedocumented in this encounter Care Teams Tread Cutter Relationship Specialty Start Date End Date None None PCP - General 11/05/23 documented as of this encounter
--- OUTSIDE RECORDS SUMMARY | 2023-11-17 17:09 | XMS_ITS | Encounter Summary ---
Author Organization [facility] [place] [address] Care Team Providers Care Database Dba Name Role Phone None Primary Care Provider Unavailabl e Reason for Visit * Auth/Cert (Routine) Specialty Diagnoses / Procedures Referred By Terrance t Referred To Contact Diagnoses CAD (coronary artery disease) LHC/CORS Procedures CARDIAC CATHETERIZATION Marina Mullen MD [facility] [place] [address] [place] [address] [facility] Referral ID Status Reason Start Date Expiration Date Visits Re quested Visits Authorized [id number] 1 1 Encounter Details Date Type Department Care Team (Late st Contact Info) Description 11/05/2023 3:42 PM EDT - 11/05/2023 4:42 PM EDT [place] [address] Marina Mullen MD [facility] [place] [address] CARDIAC CATHETERIZATION Social History Tobacco Use Types Packs/Day Years Used Date Smoking Tobacco: Former Cigarettes Q uit: 1996 Passive Smoke Exposure: Past Smokeless Tobacco: Never Tobacco Cessation:Counseling Given: Yes Alcohol Use Standard Drinks/Week Comments Yes 14 (1 standard drink = 0.6 oz pu re alcohol) [facility] Utilities Answer Date Recorded In the past 12 months has e electric, gas, oil, or water company threatened to shut off services in your home? No 11/06/2023 Hunger Vital Sign Answer Date Recorded Within the past 12 months, y ou worried that your food would run out before you got the money to buy more. Never true 08/20/20 24 Within the past 12 months, t [...] any time in the past 12 m [facility], were you homeless or living in a custodial (including now)? No 11/06/2023 IPV Inpatient Questions [...] on file documented as of this encounter Last Filed Vital Signs Vital Sign Reading Time Taken Comments Blood Pressure 109/70 11/05/2023 4:33 PM EDT Pulse 94 11/05/2023 4:33 PM EDT Temperature 36 ??C (96.8 ??F) 11/05/2023 4:33 PM EDT Respiratory Rate 27 11/05/2023 4:33 PM EDT Oxygen Saturation 95% 11/05/2023 4:33 PM EDT Inhaled Oxygen Concentration - - Weight - - Height - - Body Mass Index - - documented in this encounter Discharge Summaries * Danni Joy MD - 11/09/2023 4:19 PM EDT Discharge Summary Patient Name: Rose Buck Patient Age: 73 y.o. Language: Tajik Race: Choose not to Disclose Ethnicity: Choose not to Disclose Admit date: 11/05/2023 Discharge date and time: 11/09/2023 Attending Physician: Danni Joy MD Discharge Physician: Danni Joy MD Follow-up Recommendations for Providers: #Outpatient follow-up with cardiology, and cardiac rehab #Discharged on aspirin, Plavix, valsartan, spironolactone, atorvastatin, metoprolol #Urology referral placed for hematuria resolved on discharge after discontinuation of heparin # To address alcohol intake and nutrition at every visit # Patient to find and establish care with PCP close to his home. He will give us a call if he is unable to find PCP in the next 4 weeks. Inpatient Provider Contact Information: Danni Joy MD For questions regarding this document or issues relating to this hospitalization on the Medical Service, please contact your inpatient physician through the [facility] Warp Tension Tester . Issues afterhours and on weekends will be handled by the Hospitalist staff on-call. Discharge Diagnoses (Hospital Problems) and Secondary Diagnoses (Chronic Problems): Active Hospital Problems Diagnosis NSTEMI (non-ST elevated myocardial infarction) Drinks beer Acute on chronic systolic heart failure CAD (coronary artery disease) Resolved Hospital Problems No resolved problems to display. There are no active non-hospital problems to display for this patient. Operations/Major Procedures: Operations: Procedure(s): CARDIAC CATHETERIZATION 11/08/2023 Procedure(s): CARDIAC CATHETERIZATION 11/08/2023 Other Major Procedures: History of Presentation: ID: Rose Buck is a 73 y.o. male w/ PMH of HTN, PAD, gout and arthritis transferred from [facility] for PCI with angioplasty. He refers experiencing constant chest pain, irradiating to the left should for a few days which he tried to get his mind out of it, orthopnea for a couple weeks, and fatigue. Today in the morning he was experiencing dyspnea on exertion three days ago, which limited his ability to take no more than three steps without the feeling of passing out. His called EMS today due to progressive worsening. Chief concern: chest pain, shortness of breath, fatigue REVIEW OF SYSTEMS (positives in bold) A full 14 point review of systems was performed and negative except as noted per the HPI Past Medical History HTN, gout (arthritis) Past Surgical History Vasectomy Otherwise non-contributory Family History No history of HTN, cardiac disease, diabetes in his family that he recalls. Social History Alcohol: 8 - 9 beers/day - cut back to half that quantity during the past week Tobacco: former smoker 03/14/1997, 2 - 3 packs/day for 31 years Hospital Course: NSTEMI s/p proximal and mid LAD PCI ASCVD Ischemic cardiomyopathy with a EF of 20% S/p PCI of the midLAD lesion with 3.0x30mm stent post dilated to 3.5, Proximal LAD with 3.5x22mm stent postdilated with 4.0 NC at 18 SAMMY near proximal portion followed by multiple dilations further along the stent with excellent angiographic result. Prox LCx lesion treated with a single stent good angio and IVUS result. Mid LCx lesion treated with a single stent with good angio and IVUS result Continue with aspirin ,Plavix, metoprolol 12.5 mg every 12, atorvastatin 80mg, spironolactone 12.5 mg valsartan 20 mg twice daily Decompensated HfrEF LVEDP-30 ->18 Diuresed aggressively, on day of discharge, reports significant improvement in her shortness of breath, on room air, close to euvolemia. Recommended additional 24 to 48 hours of IV diuresis-preferred going home. Recommended to take torsemide 20 mg as needed for weight gain of 3 pounds in in the setting of fluctuating renal functions. DEN most likely from over diuresis-resolved Hematuria He had retention on the day of admission resolved with Bates's. Discontinued Bates's 11/09/2023 with successful voiding trial. He had mild hematuria with minimal clots on 11/07/2023, H&H with mild drop in hemoglobin howeverremained stable. Imaging resolved post heparin discontinuation. Clear urine for 24 hours recommended. Outpatient urology follow-up. We discussed regarding risk versus benefits of tamsulosin and ACS shared decision was made to hold tamsulosin in the setting of absent symptoms of Prostate hyperplasia. Leukocytosis Most likely reactive, Afebrile Trended down will monitor closely Alcohol use Social work consult in Closely monitor for withdrawal No active signs of withdrawal PerSocialworker note-Patient reports that he is aware he needs to cut down or stop.He also is aware on how to find services in his area if he needs counseling or anything else.He was not interested in the Rethinking Drinking brochure Vital Signs at Discharge: BP: 107/69, Heart Rate: 89, Temp: 36.6 ??C (97.9 ??F), Resp: 19, BMI (Calculated): 29.97 Height: 189 cm (6' 2.4) (11/06/23 0300) Weight: 103 kg (227 lb) (11/09/23 0620) Functional and Cognitive Status: Aox4, independent with ADL's Important Studies and Lab Data: Labs: Last wbc, hgb, hct plt No results for input(s): WBC, HGB, HCT in the last 72 hours. Invalid input(s): PLT Last 3 wbc, hgb, hct plt Recent Labs 11/09/23 0329 11/08/23 0246 11/07/23 0138 WBC 6.55 7.95 12.68* HGB 10.9* 10.7* 11.3* HCT 34.6* 33.9* 35.6* PLATELET 288 298 326 Last 3 Lytes Recent Labs 11/09/23 0329 11/08/23 0246 11/07/23 0138 NA 136 135 133* K 4.1 4.1 3.7 CL 103 99 94* CO2 22 25 24 BUN 21* 27* 32* CREATININE 1.03 1.15 1.35 Last 3 LFTs Recent Labs 11/05/23 1603 AST 35 ALT 15 ALKPHOS 74 BILITOT 0.3 BILIDIR 0.2 Last Ca, Mg, Phos Recent Labs 11/09/23 0329 CALCIUM 8.7 PHOS 3.1 MAGNESIUM 1.03 Last 3 Coags No results for input(s): PT, INR, PTT in the last 168 hours. Last 3 ProBNP, Trop, CK No results for input(s): CK, TROPONINT, PROBNP in the last 168 hours. Last 3 TFT Recent Labs 11/07/23 0138 11/05/23 1603 TSH 3.11 2.25 Pending Studies and Lab Data: Discharge Conditions/Prognosis: good Discharge to: home Updated Allergies/ADRs: No Known Allergies Immunizations Given this Hospitalization: There is no immunization history on file for this patient. Discharge Medications: Your Medications New Medications Dose Details aspirin EC 81 mg EC (DR) tablet Take 1 tablet by mouth daily. 81 mg Quantity: 30 tablet Refills: 3 atorvastatin 80 mg tablet Commonly known as: Lipitor Take 1 tablet by mouth daily. 80 mg Quantity: 90 tablet Refills: 3 clopidogreL 75 mg tablet Commonly known as: Plavix Take 1 tablet by mouth daily. 75 mg Quantity: 90 tablet Refills: 3 melatonin 3 mg tablet Take 2 tablets by mouth nightly as needed. 6 mg Quantity: 60 tablet Refills: 3 metoprolol succinate XL 25 mg ER 24 hr tablet Commonly known as: Toprol-XL Take 1 tablet by mouth daily. Hold for Sbp<100 and HR <55 25 mg Quantity: 30 tablet Refills: 12 nitroGLYcerin 0.4 mg sublingual tablet Commonly known as: Nitrostat Place 1 tablet under the tongue every 5 minutes as needed for Chest pain. 0.4 mg Quantity: 90 tablet Refills: 12 spironolactone 25 mg tablet Commonly known as: Aldactone Take 0.5 tablets by mouth daily. 12.5 mg Quantity: 90 tablet Refills: 3 torsemide 20 mg tablet Commonly known as: Demadex Take 1 tablet by mouth daily as needed. Take if gaining weight more than 3lbs in ne day or 5lbs in one week 20 mg Quantity: 90 tablet Refills: 3 valsartan 40 mg tablet Commonly known as: Diovan Take 0.5 tablets by mouth 2 times daily. 20 mg Quantity: 90 tablet Refills: 3 Smoking Status at Discharge: Social History Tobacco Use Smoking Status Former Current packs/day: 0.00 Types: Cigarettes Quit date: 1996 Years since quittin.6 Passive exposure: Past Smokeless Tobacco Never Instructions Given to Patient at Discharge: Patient Instructions Anti-coagulation follow up: None Call your doctor if: Chest pain, dyspnea, pain or swelling in legs occurs, or for weight gain of 2 pounds overnight or 5pounds in 5 days. If you have non-emergent questions, prior to your follow-up visit call: Sunday-Sunday between the hours of 8AM-5PM please call the Cardiology Clinic [phone] to speak with a nurse. All other hours please call the Hospital Warp Tension Tester [phone] and ask to speak to the complaint adjuster on-call. Return to work: One week Driving: No driving for 48 hours after cath Follow up Appointments: 11/27/2023 2:20 PM Mara Robins PA [facility] CARDIOLOGY 4A Arrive at: [facility] [address] [place] [facility] Home oxygen therapy: N/A Arrangements for VNA/home care: N/A You were hospitalized for treatment of your heart attack. A heart attack (myocardial infarction, orMI) occurs when one or more of the coronary arteries, which supply the heart with oxygen-rich blood, is blocked. A blockage usually occurs when plaque inside the artery breaks open and a blood clot forms in the artery. In order to treat this, you underwent a cardiac catheterization at which time a stent was placed to left coronary artery. In order to protect your stent from blood clots forming, you will need to remain on two antiplatelet medications called aspirin and Plavix for a minimum of one year. After this time, your element winding machine tender will determine if you need to continue on both blood thinners, or if either can be stopped. You will likely be on aspirin life-long. You were also started/continued on a beta good called metoprolol which will help reduce workloadon your heart, as well as a statin called atorvastatin which will help reduce your cholesterol as well as help to reduce inflammation in your heart arteries. You were prescribed sublingual nitroglycerin. Keep it with you at all times. If you have angina symptoms, such as chest pain or pressure, sit down and rest. Take the first dose of nitroglycerin and let it melt under your tongue. If symptoms go away, do not take any additional. If your symptoms get worse or are not getting better within 5 minutes, take a second nitro tab and call 911 right away. Stay on the phone. The emergency berry picker machine operator will tell you what to do. Nitroglycerin is an emergency use medication. If you are taking this more than once in a week or increased frequency of use, please alert your provider. Nitroglycerin in the original bottle is good for 1 year once the bottle is opened or until the date on the bottle is not used. If the bottom of the bottle is obscured by powder, or the label falls of discard the nitroglycerin and get a new bottle. You may resume light activity such as walking after your discharge. Do not do any strenuous activity for the first week after your catheterization, including no lifting anything over 10 lbs. This is to help protect your cardiac cath access site and to continue to let it heal properly. You may shower, but do not submerge your cardiac cath access site in water for 1 week (no tubs, hot tubs, lakes, or pools). You may resume driving 48 hours after your catheterization if you were driving prior to your hospitalization. You were hospitalized for evaluation of your shortness of breath, lower leg swelling . Your lab work, chest xray, and ultrasound of your heart indicated you were in congestive heart failure. The ultrasound of your heart also showed that your heart muscle has weakened. We evaluated this further with [facility] and believe CAD caused this weakening. You were started on lasix, a diuretic to help remove fluid from your body. This was started in the hospital through your IV and switched to a pill form before you discharged home. You were started on a beta good called metoprolol which will help reduce workload on your heart.You were also started on valsartan and spironolactone, a medication often used to decrease blood pressure, but also works to decrease work load on the heart. These medications all work to help improve and preserve normal heart shape, size, and function. You will need to limit sodium in your diet. We suggest you avoid adding salt to any of your food, and actively monitor the salt content on the labels of the food you buy. Your total salt intake in a 24 hour period should not exceed 2,000 grams. Once at home, you will need to weigh yourself without clothing at the same time each day. Record your weight. Call your doctor if you have a sudden weight gain, such as more than 2 to 3 pounds in a day or 5 pounds in a week. (Your doctor may suggest a different range of weight gain.) A sudden weight gain may mean that your heart failure is getting worse. Your weight on day of discharge is 227 When to call your doctor: -Chest pain, worsening shortness of breath, fatigue with usual exertion, or new rest/night time symptoms. -Weigh yourself daily and record; if you note an increase of more than 2-3 pounds in 2 days, or 5 pounds over a week, contact your health care provider. -If you become short of breath, cannot lie down to sleep, or have swelling in your legs/ankles or abdomen, contact your health care provider. -Call if you have reduced urination during the day or increased urination at night. -Call for signs of increased wound drainage, redness, swelling, or increased pain at the site of your cardiac cath. -Call if you develop a temp >100.5 Activity level: -No heavy lifting (more than five pounds) for 48 hours; no more than 10 pounds for one week. -You may return to work in 1 week. Use common sense. Don't exhaust yourself. -No hunting, skiing, jogging, snow shoveling, snowmobiling, lawn mowing, swimming, golf or tennis until after your return appointment with your family doctor. -Do not ride motorcycles, tractors or horses until cleared by your doctor. Diet: -Heart healthy: low salt, low fat, low concentrated sweets. Remember to avoid added salt, canned foods, processed foods (ie hot dogs, sausage, cold meats), and foods naturally high in salt, such as potato chips or pizza. Driving: -Per your routine after 48 hrs Shower/Bath: -You may shower 24 hours after cardiac catheterization. -You may not sit in water for 5 days (tub bath, hot tub or pool). Wound Care: -Cath site dressing may be removed in 24 hours. Site may be washed with soap/water. A dressing doesnot need to be reapplied unless irritation occurs with underclothes. If irritation occurs, apply clean band-aid daily. Exercise: -Exercise 5-7 days per week as tolerated with gradual increase to 30 minutes per day. Smoking cessation: -If you are currently a smoker, you are strongly urged to stop smoking! Smoking increases the severity and incidence of heart disease, and is a risk factor for cancer and emphysema. Your health care provider can provide specific measures to assist you, including nicotine supplements, anti-anxiety meds, and support groups in your community. General Instructions None Future Appointments and Orders Future Appointments and Orders Future Appointments Provider Department Dept Phone 11/22/2023 1:00 PM LAB, THREE L Lab 3L [facility] Arrive at: [facility] [address] [place] [facility]L [phone] 11/22/2023 2:00 PM Nahed Moore PA Cardiology at [facility] Arrive at: [facility] [address] [place] [facility] [address]A [phone] 11/27/2023 2:20 PM Mara Robins PA Cardiology at [facility] Arrive at: [facility] [address] [place] [facility] [address] [phone] Future Orders Complete By Expires Referral to Cardiac Rehab [[id number] Custom] As directed Process Instructions: If no progress note charted, please enter Clinical details in comments. Scheduling Instructions: Questions: My question or request is: NSTEMI, staged PCI- cardiac rehab at [facility] Referral to Urology [[id number] Custom] As directed Process Instructions: If no progress note charted, please enter Clinical details in comments. Scheduling Instructions: Questions: My question or request is: hematuria on Heparin inaptient , cleared off of AC. Discharge References/Attachments None documented in this encounter Discharge Instructions * Patient Instructions* Danni Joy MD - 11/09/2023 10:44 AM EDT Anti-coagulation follow up: None Call your doctor if: Chest pain, dyspnea, pain or swelling in legs occurs, or for weight gain of 2 pounds overnight or 5pounds in 5 days. If you have non-emergent questions, prior to your follow-up visit call: Sunday-Sunday between the hours of 8AM-5PM please call the Cardiology Clinic [phone] to speak with a nurse. All other hours please call the Hospital Warp Tension Tester [phone] and ask to speak to the complaint adjuster on-call. Return to work: One week Driving: No driving for 48 hours after cath Follow up Appointments: 11/27/2023 2:20 PM Mara Robins PA [facility] CARDIOLOGY 4A Arrive at: [facility] [address] [place] [facility] Home oxygen therapy: N/A Arrangements for VNA/home care: N/A You were hospitalized for treatment of your heart attack. A heart attack (myocardial infarction, orMI) occurs when one or more of the coronary arteries, which supply the heart with oxygen-rich blood, is blocked. A blockage usually occurs when plaque inside the artery breaks open and a blood clot forms in the artery. In order to treat this, you underwent a cardiac catheterization at which time a stent was placed to left coronary artery. In order to protect your stent from blood clots forming, you will need to remain on two antiplatelet medications called aspirin and Plavix for a minimum of one year. After this time, your element winding machine tender will determine if you need to continue on both blood thinners, or if either can be stopped. You will likely be on aspirin life-long. You were also started/continued on a beta good called metoprolol which will help reduce workloadon your heart, as well as a statin called atorvastatin which will help reduce your cholesterol as well as help to reduce inflammation in your heart arteries. You were prescribed sublingual nitroglycerin. Keep it with you at all times. If you have angina symptoms, such as chest pain or pressure, sit down and rest. Take the first dose of nitroglycerin and let it melt under your tongue. If symptoms go away, do not take any additional. If your symptoms get worse or are not getting better within 5 minutes, take a second nitro tab and call 911 right away. Stay on the phone. The emergency berry picker machine operator will tell you what to do. Nitroglycerin is an emergency use medication. If you are taking this more than once in a week or increased frequency of use, please alert your provider. Nitroglycerin in the original bottle is good for 1 year once the bottle is opened or until the date on the bottle is not used. If the bottom of the bottle is obscured by powder, or the label falls of discard the nitroglycerin and get a new bottle. You may resume light activity such as walking after your discharge. Do not do any strenuous activity for the first week after your catheterization, including no lifting anything over 10 lbs. This is to help protect your cardiac cath access site and to continue to let it heal properly. You may shower, but do not submerge your cardiac cath access site in water for 1 week (no tubs, hot tubs, lakes, or pools). You may resume driving 48 hours after your catheterization if you were driving prior to your hospitalization. You were hospitalized for evaluation of your shortness of breath, lower leg swelling . Your lab work, chest xray, and ultrasound of your heart indicated you were in congestive heart failure. The ultrasound of your heart also showed that your heart muscle has weakened. We evaluated this further with [facility] and believe CAD caused this weakening. You were started on lasix, a diuretic to help remove fluid from your body. This was started in the hospital through your IV and switched to a pill form before you discharged home. You were started on a beta good called metoprolol which will help reduce workload on your heart.You were also started on valsartan and spironolactone, a medication often used to decrease blood pressure, but also works to decrease work load on the heart. These medications all work to help improve and preserve normal heart shape, size, and function. You will need to limit sodium in your diet. We suggest you avoid adding salt to any of your food, and actively monitor the salt content on the labels of the food you buy. Your total salt intake in a 24 hour period should not exceed 2,000 grams. Once at home, you will need to weigh yourself without clothing at the same time each day. Record your weight. Call your doctor if you have a sudden weight gain, such as more than 2 to 3 pounds in a day or 5 pounds in a week. (Your doctor may suggest a different range of weight gain.) A sudden weight gain may mean that your heart failure is getting worse. Your weight on day of discharge is 227 When to call your doctor: -Chest pain, worsening shortness of breath, fatigue with usual exertion, or new rest/night time symptoms. -Weigh yourself daily and record; if you note an increase of more than 2-3 pounds in 2 days, or 5 pounds over a week, contact your health care provider. -If you become short of breath, cannot lie down to sleep, or have swelling in your legs/ankles or abdomen, contact your health care provider. -Call if you have reduced urination during the day or increased urination at night. -Call for signs of increased wound drainage, redness, swelling, or increased pain at the site of your cardiac cath. -Call if you develop a temp >100.5 Activity level: -No heavy lifting (more than five pounds) for 48 hours; no more than 10 pounds for one week. -You may return to work in 1 week. Use common sense. Don't exhaust yourself. -No hunting, skiing, jogging, snow shoveling, snowmobiling, lawn mowing, swimming, golf or tennis until after your return appointment with your family doctor. -Do not ride motorcycles, tractors or horses until cleared by your doctor. Diet: -Heart healthy: low salt, low fat, low concentrated sweets. Remember to avoid added salt, canned foods, processed foods (ie hot dogs, sausage, cold meats), and foods naturally high in salt, such as potato chips or pizza. Driving: -Per your routine after 48 hrs Shower/Bath: -You may shower 24 hours after cardiac catheterization. -You may not sit in water for 5 days (tub bath, hot tub or pool). Wound Care: -Cath site dressing may be removed in 24 hours. Site may be washed with soap/water. A dressing doesnot need to be reapplied unless irritation occurs with underclothes. If irritation occurs, apply clean band-aid daily. Exercise: -Exercise 5-7 days per week as tolerated with gradual increase to 30 minutes per day. Smoking cessation: -If you are currently a smoker, you are strongly urged to stop smoking! Smoking increases the severity and incidence of heart disease, and is a risk factor for cancer and emphysema. Your health care provider can provide specific measures to assist you, including nicotine supplements, anti-anxiety meds, and support groups in your community. documented in this encounter Medications at Time of Discharge Medication Sig Dispensed Refills Start Date End Date atorvastatin (Lipitor) 80 mg tablet Take 1 tablet by mouth daily. 90 tablet 3 11/10/2023 valsartan (Diovan) 40 mg tablet Take 0.5 tablets by mouth 2 times daily. 90 tablet 3 11/09/2023 spironolactone (Aldactone) 25 mg tablet Take 0.5 tablets by mouth daily. 90 tablet 3 11/10/2023 nitroGLYcerin (Nitrostat) 0.[address] 1 tablet under the tongue every 5 minutes as needed for Chest pain. 90 tablet 12 11/09/2023 melatonin 3 mg tablet Take 2 tablets by mouth nightly as needed. 60 tablet 3 11/09/2023 clopidogreL (Plavix) 75 mg tablet Take 1 tablet by mouth daily. 90 tablet 3 11/10/2023 aspirin EC 81 mg EC (DR) tablet Take 1 tablet by mouth daily. 30 tablet 3 11/10/2023 metoprolol succinate XL (Toprol-XL) 25 mg ER 24 hr tablet Take 1 tablet by mouth daily. Hold for Sbp<100 and HR <55 30 tablet 12 11/09/2023 torsemide (Demadex) 20 mg tablet Take 1 tablet by mouth daily as needed. Take if gaining weight more than 3lbs in ne day or 5lbs in one week 90 tablet 3 11/09/2023 documented as of this encounter Progress Notes * Bekah Saeed - 11/09/2023 10:45 AM EDT Nutrition Services Note - Low Nutrition Acuity Rose Buck is a 73 y.o. male Reason for intervention: consult - cardiac education NSTEMI S/p LAD stent Nutrition Plan: Patient scheduled for a cardiac diet consult following NSTEMI S/p LAD stent. Peg Driver met with pt at bedside. Peg Driver provided Guidelines for a Heart Healthy Lifestyle handout and discussed with pt his typical eating habits. Pt stated he typically cooks at home for him and his , and rarely goes out to eat. Pt stated that he gave up red meat and likes cooking with fresh fruit and vegetables. Peg Driver highlighted the importance of decreasing alcohol consumption for a heart healthy lifestyle, andpt agreed he needed to work toward that. Pt was very engaged, asked questions about his diet, and agreed that he would review the material and work toward improving his diet to maintain a heart healthy lifestyle. Clinical nutrition to monitor and follow up. Active Orders Diet Daily Healthy Menu Choices/Cardiac diet ([facility]-Diet) Frequency: Effective Now Number of Occurrences: Until Specified Admit Weight: 113.4 kg Estimated body mass index is 28.83 kg/m?? as calculated from the following: Height as of this encounter: 189 cm (6' 2.4). Weight as of this encounter: 103 kg (227 lb). Wt Readings from Last 5 Encounters: 11/09/23 103 kg (227 lb) Last Bowel Movement: 11/09/23 Patient education / questions: all nutrition related questions answered at this time Nutrition services to follow weekly through hospital course unless consulted in the interim. Bekah Saeed Implementation Lead * Danni Joy MD - 11/08/2023 2:06 PM EDT Inpatient Cardiology Progress Note Patient Name: Rose Buck Service: CV1 Hospitalist Responsible Attending: Danni Joy MD Reason for continued hospitalization: Awaiting cardiac catherization Active Problems: Active Hospital Problems Diagnosis NSTEMI (non-ST elevated myocardial infarction) Drinks beer Acute on chronic systolic heart failure CAD (coronary artery disease) Resolved Hospital Problems No resolved problems to display. Interval History: No acute events overnight Denies chest pains, shortness of breath at baseline, improvement in orthopnea Posted for Staged PCI today Haematuria with minimal clots noted Telemetry: HR: 85 sinus rhythm Meds: Scheduled Meds: [Transfer Hold] metoproloL tartrate 12.5 mg Oral 2 times per day [Transfer Hold] sodium chloride 0.9 % (flush) 5 mL Intravenous BID aspirin EC 81 mg Oral Daily clopidogreL 75 mg Oral Daily [Transfer Hold] valsartan 20 mg Oral BID [Transfer Hold] spironolactone 12.5 mg Oral Daily [Transfer Hold] rosuvastatin 20 mg Oral QPM [Transfer Hold] pantoprazole EC 40 mg Oral Daily Continuous Infusions: PRN Meds:midazolam, fentaNYL (PF), verapamiL, nitroGLYcerin, heparin (porcine), [Transfer Hold] ipratropium-albuteroL, [Transfer Hold] sodium chloride, [Transfer Hold] sodium chloride 0.9 % (flush), [Transfer Hold] lidocaine, [Transfer Hold] nitroGLYcerin, [Transfer Hold] acetaminophen, [Transfer Hold] melatonin Physical Exam: Vital Signs: Last value Range last 48 hrs Temperature Temp: 36.8 ??C (98.2 ??F) Temp: [36.4 ??C (97.6 ??F)-37.2 ??C (99 ??F)] Heart Rate Heart Rate: 90 Heart Rate: [85-109] Blood Pressure BP: 106/68 BP: (94-135)/(58-86) Respiratory Rate Resp: 18 Resp: [18-24] SpO2 SpO2: 95 % SpO2: [92 %-100 %] Physical Exam Constitutional: Positive for activity change. HENT: Negative. Eyes: Negative. Respiratory: Positive for chest tightness and shortness of breath. Cardiovascular: Negative. Gastrointestinal: Negative. Endocrine: Negative. Genitourinary: Negative. Musculoskeletal: Negative. Allergic/Immunologic: Negative. Neurological: Negative. Hematological: Negative. Psychiatric/Behavioral: Negative. Lab Comments: Recent Labs 11/08/23 0246 11/07/23 0138 11/06/23 0408 WBC 7.95 12.68* 16.03* HGB 10.7* 11.3* 12.2* HCT 33.9* 35.6* 38.3* PLATELET 298 326 297 No results for input(s): INR in the last 168 hours. Recent Labs 11/08/23 02411/07/23 0138 11/06/23 0408 NA 135 133* 133* K 4.1 3.7 4.1 CL 99 94* 95* CO2 25 24 23 BUN 27* 32* 25* CREATININE 1.15 1.35 1.40 Recent Labs 11/05/23 1603 AST 35 ALT 15 ALKPHOS 74 BILITOT 0.3 BILIDIR 0.2 Recent Labs 11/08/23 0246 11/07/23 0138 11/06/23 0408 CALCIUM 8.5 8.9 9.0 MAGNESIUM 1.06 1.05 1.04 PHOS 3.3 4.4 4.6* Recent Labs 11/05/23 1902 11/05/23 1603 TROPONINTHS 1,944* 1,941* Assessment: Rose Bukc is a 73 y.o. male with past medical history of hypertension, PAD, gout, arthritis presented from outside hospital for NSTEMI s/p LAD PCI with severe stenosis of LCx for staged PCI this week. Also found to have acute on chronic systolic heart failure with LVEDP of 30. Plan: NSTEMI s/p proximal and mid LAD PCI ASCVD Ischemic cardiomyopathy with a EF of 20% Continue with aspirin and Plavix Continue with metoprolol 12.5 mg every 12 Continue with rosuvastatin 20 mg Continue with spironolactone 12.5 mg Continue with valsartan 20 mg twice daily Hold Lasix today in the setting of DEN Posted for staged PCI today DEN most likely from over diuresis-resolved Net negative of 4.5 L for the past 24 hours post IV Lasix 120 mg Hold Lasix for today Daily BMPs Leukocytosis Most likely reactive Afebrile Trending down will monitor closely Hematuria On AC Stable counts Will monitor off of AC post cath Alcohol use Social work consult in Closely monitor for withdrawal No active signs of withdrawal Diet: NPO diet (Give Meds) DVT Prophylaxis: Heparin gtt GI Prophylaxis: Pantoprazole 40 mg qd Danni Joy MD 11/08/2023 * Danni Joy MD - 11/07/2023 3:49 PM EDT Inpatient Cardiology Progress Note Patient Name: Rose Buck Service: CV1 Hospitalist Responsible Attending: Danni Joy MD Reason for continued hospitalization: Awaiting cardiac catherization Active Problems: Active Hospital Problems Diagnosis NSTEMI (non-ST elevated myocardial infarction) Drinks beer Acute on chronic systolic heart failure CAD (coronary artery disease) Resolved Hospital Problems No resolved problems to display. Interval History: No acute events overnight Denies chest pains, shortness of breath at baseline, improvement in orthopnea Hold diuresis today, net negative of 5 L over the past 48 hours, anticipating rising creatinine post cath as well Could not go for catheter today due to scheduling conflict, posted for cath tomorrow. N.p.o. after midnight DC heparin around midnight after 48hrs completion and asymptomatic, to reconsider if symptomatic Telemetry: HR: 85 sinus rhythm Meds: Scheduled Meds: metoproloL tartrate 12.5 mg Oral 2 times per day sodium chloride 0.9 % (flush) 5 mL Intravenous BID aspirin EC 81 mg Oral Daily clopidogreL 75 mg Oral Daily valsartan 20 mg Oral BID spironolactone 12.5 mg Oral Daily rosuvastatin 20 mg Oral QPM pantoprazole EC 40 mg Oral Daily Continuous Infusions: heparin (porcine) infusion 1,700 Units/hr (11/07/23 0521) PRN Meds:ipratropium-albuteroL, sodium chloride, sodium chloride 0.9 % (flush), lidocaine, nitroGLYcerin, heparin (porcine) infusion AND heparin (porcine), acetaminophen, melatonin Physical Exam: Vital Signs: Last value Range last 48 hrs Temperature Temp: 36.7 ??C (98.1 ??F) Temp: [36 ??C (96.8 ??F)-37.6 ??C (99.7 ??F)] Heart Rate Heart Rate: 96 Heart Rate: [88-109] Blood Pressure BP: 114/66 BP: (90-122)/(48-86) Respiratory Rate Resp: 22 Resp: [15-28] SpO2 SpO2: 95 % SpO2: [90 %-98 %] Physical Exam Constitutional: Positive for activity change. HENT: Negative. Eyes: Negative. Respiratory: Positive for chest tightness and shortness of breath. Cardiovascular: Negative. Gastrointestinal: Negative. Endocrine: Negative. Genitourinary: Negative. Musculoskeletal: Negative. Allergic/Immunologic: Negative. Neurological: Negative. Hematological: Negative. Psychiatric/Behavioral: Negative. Lab Comments: Recent Labs 11/07/2313711/06/23 0408 11/05/23 1603 WBC 12.68* 16.03* 18.52* HGB 11.3* 12.2* 12.2* HCT 35.6* 38.3* 38.6* PLATELET 326 297 261 No results for input(s): INR in the last 168 hours. Recent Labs 11/07/23 01311/06/23 0408 11/05/23 1603 NA 133* 133* 132* K 3.7 4.1 3.7 CL 94* 95* 95* CO2 24 23 22 BUN 32* 25* 22* CREATININE 1.35 1.40 1.28 Recent Labs 11/05/23 1603 AST 35 ALT 15 ALKPHOS 74 BILITOT 0.3 BILIDIR 0.2 Recent Labs 11/07/23 0138 11/06/23 0408 11/05/23 1603 CALCIUM 8.9 9.0 8.6 MAGNESIUM 1.05 1.04 1.04 PHOS 4.4 4.6* 3.3 Recent Labs 11/05/23 1902 11/05/23 1603 TROPONINTHS 1,944* 1,941* Assessment: Rose Buck is a 73 y.o. male with past medical history of hypertension, PAD, gout, arthritis presented from outside hospital for NSTEMI s/p LAD PCI with severe stenosis of LCx for staged PCI this week. Also found to have acute on chronic systolic heart failure with LVEDP of 30. Plan: NSTEMI s/p proximal and mid LAD PCI ASCVD Ischemic cardiomyopathy with a EF of 20% Continue with aspirin and Plavix Continue with Heparin Gtt Continue with metoprolol 12.5 mg every 12 Continue with rosuvastatin 20 mg Continue with spironolactone 12.5 mg Continue with valsartan 20 mg twice daily Hold Lasix today in the setting of DEN Staged PCI for left circumflex artery this week to discuss with interventional cardiology for the timing. Currently denies chest pains and significant improvement in his shortness of breath, orthopnea and lower extremity edema HF team consulted, to reengage Post PCI NPO after midnight DEN most likely from over diuresis Net negative of 4.5 L for the past 24 hours post IV Lasix 120 mg Hold Lasix for today Daily BMPs Leukocytosis Most likely reactive Afebrile Trending down will monitor closely Alcohol use Social work consult in Closely monitor for withdrawal No active signs of withdrawal Diet: NPO diet (Give Meds) DVT Prophylaxis: Heparin gtt GI Prophylaxis: Pantoprazole 40 mg qd Danni Joy MD 11/07/2023 * Jami Naqvi MSW - 11/06/2023 12:27 PM EDT Social Work Response to Consult Consult: Nursing consult to Social Work Ordered at: 11/05/23 0161 Reason for Consult: Substance / alcohol abuse Social Work Response: Patient reports that 10 days ago he was drinking 8-9 beers per day.About 10 days ago he made a decision to slow down on his alcohol intake with the goal to stop drinking.He slowed down a couple of drinks per day and 2 days before he ended up here in the Hospital he was at 2 beers per day.He reported that now he is in a forced sobriety situation.He reports hat he is not having any withdrawal sighs at this time and will staff know if he does. Follow Up Needed: Patient reports that he is aware he needs to cut down or stop.He also is aware onhow to find services in his area if he needs counseling or anything else.He was not interested in the [employer] brochure. Jami Naqvi MSW,[employer] [id number] * Yesi Sharif MD - 11/06/2023 7:15 AM EDT Images from the original note were not included. Cardiology ICU Progress Note PATIENT INFO Name: Rose Buck : 1950 PCP: None PCP phone number: [phone] Date of Admission: 11/05/2023 ( Hospital Day 1 day ) Attending: Allen Figueroa MD HISTORY OF PRESENT ILLNESS ID: Rose Buck is a 73 y.o. male w/ PMH of HTN, PAD, gout and arthritis transferred from [facility] for PCI with angioplasty. He refers experiencing constant chest pain, irradiating to the left should for a few days which he tried to get his mind out of it, orthopnea for a couple weeks, and fatigue. Today in the morning he was experiencing dyspnea on exertion three days ago, which limited his ability to take no more than three steps without the feeling of passing out. His called EMS today due to progressive worsening. Chief concern: chest pain, shortness of breath, fatigue 24 Hour Events/Subjective: - Yesterday No acute events overnight, post-cath check okay. - Today No chest pain, no shortness of breath. Improved sleeping while lying down; however, he was uncomfortable during repositioning OBJECTIVE Vitals Last value Range last 24 hrs Temperature Temp: 37.1 ??C (98.8 ??F) Temp: [36 ??C (96.8 ??F)-37.6 ??C (99.7 ??F)] Heart Rate Heart Rate: 100 Heart Rate: [88-105] Blood Pressure BP: 103/52 BP: (90-132)/(50-86) Art Line BP BP (Arterial Line): -- MAP (NBP): [64 mmHg-91 mmHg] Respiratory Rate Resp: 22 Resp: [15-28] SpO2 SpO2: 93 % SpO2: [93 %-100 %] Oxygen Delivery Oxygen Therapy O2 Device: None (Room air) O2 Flow Rate (L/min): 1 L/min FiO2 (%): 45 % Reason for Oxygen: Patient currently on room air Infusions: Continuous Infusions: heparin (porcine) infusion 1,450 Units/hr (11/06/23 0700) I&O's/ Weights Intake/Output Summary (Last 24 hours) at 11/06/2023 09 Last data filed at 11/06/2023 0800 Gross per 24 hour Intake 509.55 ml Output 5490 ml Net -4980.45 ml Admit wt: 113.4 kg Physical Exam General: not in acute distress. Eyes: anicteric sclerae, no conjunctival pallor CV: soft cardiac sounds regular, rhythmic. No murmurs, rubs, or gallops Pulm: CTAB, no crackles/wheezes/ronchi, normal work of breathing Abd: soft, non-tender, no rebound or guarding Ext: No cyanosis or edema. Distal pulses 2+ and symmetric, wwp Neuro: oriented in time, space, and person. No focal deficits noted, sensation grossly intact Psych: cooperative, normal affect and cognition Skin: no rashes, lesions, or ulcerations noted Lines/Drains/Airways: PIV 11/05/23 1645 basilic vein (medial side of arm), left (Active) Indication/Daily Review of Necessity fluid therapy intermittent 11/05/232099 Site Preparation/Maintenance dressing: dry and intact 11/06/23599 Securement sterile tape strips, secured with;site guard in place 11/05/232099 Patency/Maintenance flushed without difficulty 11/05/232099 Phlebitis 0-->no symptoms 11/06/23599 Infiltration 0-->no symptoms 11/06/23599 Site Signs/Symptoms no redness;no swelling 11/06/23 0400 PIV 11/05/23 1645 median cubital vein (antecubital fossa), right (Active) Indication/Daily Review of Necessity fluid therapy intermittent 11/05/232099 Site Preparation/Maintenance dressing: dry and intact 11/06/23599 Securement catheter stabilization device, secured with;site guard in place;sterile tape strips, secured with 11/05/23 2100 Patency/Maintenance flushed without difficulty 11/05/23 2100 Phlebitis 0-->no symptoms 11/06/23 0600 Infiltration 0-->no symptoms 11/06/23 0600 Site Signs/Symptoms no redness;no swelling 11/06/23 0400 Labs Recent Labs 11/06/23 0408 11/05/23 1603 WBC 16.03* 18.52* HGB 12.2* 12.2* HCT 38.3* 38.6* PLATELET 297 261 MCV 75.1* 76.7* Recent Labs 11/06/23 0408 11/05/23 1603 NA 133* 132* CL 95* 95* CO2 23 22 K 4.1 3.7 MAGNESIUM 1.04 1.04 PHOS 4.6* 3.3 CALCIUM 9.0 8.6 BUN 25* 22* CREATININE 1.40 1.28 LFTs Recent Labs 11/05/23 1603 PROT 6.6 ALBUMIN 3.6 AST 35 ALT 15 ALKPHOS 74 BILITOT 0.3 BILIDIR 0.2 Coags No results for input(s): INR, PT, PTT, FIBRINOGEN, DDIMER in the last 168 hours. Invalid input(s): THROMBIN TIME Cardiac Enzymes Recent Labs 11/05/23 1603 PROBNP 15,949* Endocrine Recent Labs 11/05/23 1603 TSH 2.25 Recent Labs 11/05/23 1645 11/05/23 1544 POCGLU 195 239* Heme No results for input(s): LDH, HAPTOGLOBIN, URICACID in the last 168 hours. Microbiology Microbiology Results (Last 30 days) No results found for the last 720 hours. Imaging Medications Scheduled Meds: sodium chloride 0.9 % (flush) 5 mL Intravenous BID aspirin EC 81 mg Oral Daily clopidogreL 75 mg Oral Daily valsartan 20 mg Oral BID spironolactone 12.5 mg Oral Daily rosuvastatin 20 mg Oral QPM pantoprazole EC 40 mg Oral Daily Continuous Infusions: heparin (porcine) infusion 1,450 Units/hr (11/06/23 0700) PRN Meds:.sodium chloride 0.9 % (flush), lidocaine, nitroGLYcerin, heparin (porcine), fentaNYL (PF), midazolam (PF), iohexoL, heparin (porcine) infusion AND heparin (porcine), acetaminophen, melatonin ASSESSMENT & PLAN Rose Buck is a 73 y.o. male w/ PMH of HTN, PAD, gout and arthritis transferred from [facility] for PCI with angioplasty. 11/06/23 He is doing well this morning overall, asymptomatic. Optimization and titration of GDMT can be donein a step-down unit. Although EF is low, he is hemodynamically stable and betablocker therapy can be started. Neuro # No active issues Cardiovascular # STEMI, mid and proximal LAD stenting, pending staging of proximal and mid LCX lesions # HFrEF - Telemetry - Vitals q2h - Trend troponins - Transthoracic echocardiogram to assess post-PCI EF tomorrow morning - Aspirin 81 mg qd - Hold clopidogrel - pending upon film laboratory technician recommendation - Spironolactone 12.5 mg qd - Valsartan 20 mg q12h - Nitroglycerin 0.4 mg PRN - Rosuvastatin 20 mg - Lasix 120 mg qd - Metoprolol 12.5 mg BID Pulmonary # Obstructive Lung Disease (?) It is unclear whether he has underlying COPD or asthma, Renal/Fluid/Electrolytes Hypokalemia - K repletion as needed for a goal of >3.5 Gastrointestinal/Metabolic/Nutrition # No active issues Hematology # No active issues Infection # Leukocytosis - Likely reactive to stress, no intervention at the moment #Rounding checklist Activity:: Diet: NPO diet (Give Meds) DVT Prophylaxis: Heparin gtt GI Prophylaxis: Pantoprazole 40 mg qd Dispo: Step-down unit CODE STATUS: Attempt Cardiopulmonary Resuscitation - Inpatient Yesi Varghese MD Internal Medicine, PGY-1 Cardiovascular Critical Care, Pager #[phone] 11/06/23 7:16 AM Associated attestation - Allen Figueroa MD - 11/06/2023 2:59 PM EDT Cardiology Attending Addendum Active Hospital Problems Diagnosis NSTEMI (non-ST elevated myocardial infarction) CAD (coronary artery disease) Drinks beer Acute on chronic systolic heart failure Resolved Hospital Problems No resolved problems to display. I have interviewed and examined the patient, reviewed the available data, and have discussed my findings, assessment and plan with the patient and the team on rounds today. I agree with Dr. Patrick Varghese's note as below which reflects our discussion. * Wong Meyer MD - 11/05/2023 11:15 PM EDT Post Cardiac Catheterization Check Note Subjective: No chest pain, dyspnea, R hand/arm pain. No rash. No weakness/numbness/tingling. No bleeding/swelling from access site. Objective: Vitals: Last value Range last 8 hrs Temperature Temp: 37.3 ??C (99.1 ??F) Temp: [36 ??C (96.8 ??F)-37.3 ??C (99.1 ??F)] Heart Rate Heart Rate: (!) 104 Heart Rate: [91-105] Blood Pressure BP: 121/76 BP: (109-121)/(70-80) Respiratory Rate Resp: 28 Resp: [20-28] SpO2 SpO2: 97 % SpO2: [95 %-97 %] General: Lying in bed in NAD. Site: Access site without hematoma or ecchymoses. Dressing c/d/i. No bruit. Nontender. Extremities: No livedo reticularis, warm/symmetric, sensation intact/symmetric, symmetric 2+ radialpulses. A/P: s/p coronary catheterization with benign-appearing right radial access site. Patient stable following cardiac cath without apparent complications. Will continue to monitor. Wong Meyer MD [facility] * Lulu Wilson, [facility] - 11/05/2023 4:34 PM EDT Respiratory Therapy NIV Note NIV Settings: NIV Mode: S/T IPAP (cmH20): 12 EPAP (cmH20): 6 Pressure Support (cm H2O): 6 FiO2 (%): 40 % NIV Measurements: Resp: 28 Mve: 32.7 Leak (L/min): 0 L/min Vte: 1280 SpO2: 97 % Skin Assessment: NIV Skin Assessment WDL: WDL Mepilex Applied: No Nares Assessment WDL: WDL Breath Sounds: Clear/Diminished Assessment: Received pt from on NIV BiPAP / and 40%. Transitioned pt to 4L NC. Pulled NIV machine, pt deferred use of NIV. Made pt aware if becomes SOB or increased WOB to let nurse/RT know and will bring new NIV to bedside. Lulu Wilson RCP documented in this encounter H&P Notes * Danni Joy MD - 11/08/2023 12:24 PM EDT Images from the original note were not included. HVC Pre-Procedure H&P and Pre-Sedation Assessment Rose Buck is a 73 y.o. male referred for cardiac catheterization by for evaluation of LCX There have been no significant changes in health status since the prior H&P documented within the past 30 days. Bleeding concerns: Yes, hematuria, stable counts Kidney disease: DEN on CKD Diabetes: None DAPT Status (if applicable): Aspirin and Plavix Anticoagulation status: heparin on hold since this am NPO status: Since midnight Alcohol History: Significant History -3 beers per day Prior issues with sedation/anesthesia/airway: unknown Medical and surgical history reviewed and updated as appropriate. No Known Allergies No outpatient medications have been marked as taking for the 11/05/23 encounter (Hospital Encounter). BP 94/66 Pulse 85 Temp 36.8 ??C (98.2 ??F) Resp 18 Ht 189 cm (6' 2.4) Wt 105.2 kg (232 lb) SpO2 95% BMI 29.47 kg/m?? @LASTWEIGHT1@ PE NAD CV: RRR, S1 S2 physiologic, JVP estimated @ cm H2O Pulm: Non-labored, CTAB, no w/r/r Abd: soft, NT, ND, +BS, no bruits Vasc: 2+ bilat radial with favorable Kailash's test on the R, 2+ bilat femoral pulses w/o bruits, 2+ bilat DP pulses Extr: wwp, no edema ASA: 2: Patient with mild systemic disease Mallampati: III: only the base of the uvula can be seen Labs reviewed and notable for: Lab Results Component Value Date WBC 7.95 11/08/2023 HGB 10.7 (L) 11/08/2023 HCT 33.9 (L) 11/08/2023 MCV 75.8 (L) 11/08/2023 PLATELET 298 11/08/2023 Lab Results Component Value Date CREATININE 1.15 11/08/2023 BUN 27 (H) 11/08/2023 NA 135 11/08/2023 K 4.1 11/08/2023 CL 99 11/08/2023 CO2 25 11/08/2023 Stress Testing:N/A Echocardiogram: Left ventricle is severely dilated by volume [...] is available. See report for additional findings. EKG:Sinus rhythm Telemetry: Sinus A/P 73 y.o. male here for cardiac catheterization evaluation of Lcx-staged PCI Cath consent A discussion was held reviewing the benefits and attendant risks of diagnostic or therapeutic catheterization. The risks include, but are not limited to: stroke, , myocardial infarction, bleeding, limb loss, infection, dye reaction, vascular injury, arrhythmias. If an intervention is performed, risks would include the potential for vessel closure, need for emergency CABG, subacute closure, restenosis. After a discussion about the above, and having answered all questions posed, the patient was provided with a consent which was reviewed and signed. - Proceed as planned - Consent reviewed and signed - No apparent contraindication to planned procedure - Sedation plan: moderate/conscious sedation OR - FULL CODE - Patient to return to inpatient bed following procedure completion Danni Joy MD 11/08/2023 * Danni Joy MD - 11/06/2023 7:47 PM EDT Cardiology Admission H&P Patient Name: Rose Buck Date of : 1950 Age: 73 y.o. Hospital Admit Date: 11/05/2023 Inpatient Attending: Danni Joy MD PCP: None Presenting Diagnosis/Chief Complaint: Chest pain and Sob Active Problem List: Active Hospital Problems Diagnosis NSTEMI (non-ST elevated myocardial infarction) Drinks beer Acute on chronic systolic heart failure CAD (coronary artery disease) Resolved Hospital Problems No resolved problems to display. Please refer to admission H and P History of Present Illness: 73 y.o. male w/ PMH of HTN, PAD, gout and arthritis transferred from [facility], with chest pains and worsening shortness of breath. He reported the chest pain over the past few days, worsened at rest was 10 on 10, radiating to the left side. He also reported orthopnea and worsening shortness of breath to the point where he was short of breath at rest. Denies smoking, significant alcohol use, was drinking 6 to 8 cans of beer until couple of weeks currently drinks 3 to 4 cans of beers. Denies recreational drugs. Brief ICU course Found to have NSTEMI s/p LHC with severe LAD proximal and mid lesion and severe left circumflex lesion. He underwent staged PCI of mid LAD LVEDP of 30, plan for left circumflex staged PCI at this week. Past Medical History: No past medical history on file. Surgical History/Problems: No past surgical history on file. Significant Family History: No family history on file. Social History: Social History Socioeconomic History Marital status: Unknown Spouse name: Not on file Number of children: Not on file Years of education: Not on file Highest education level: Not on file Occupational History Not on file Tobacco Use Smoking status: Former Current packs/day: 0.00 Types: Cigarettes Quit date: 1996 Years since quittin.6 Passive exposure: Past Smokeless tobacco: Never Vaping Use Vaping status: Never Used Substance and Sexual Activity Alcohol use: Yes Alcohol/week: 14.0 standard drinks of alcohol Types: 14 Cans of beer per week Drug use: Never Sexual activity: Not Currently Other Topics Concern Not on file Social History Narrative Not on file Social Determinants of Health Financial Resource Strain: Not on file Food Insecurity: No Food Insecurity (11/06/2023) Hunger Vital Sign Worried About Running Out of Food in the Last Year: Never true Ran Out of Food in the Last Year: Never true Transportation Needs: No Transportation Needs (11/06/2023) PRAPARE - Transportation Lack of Transportation (Medical): No Lack of Transportation (Non-Medical): No Physical Activity: Not on file Intimate Partner Violence: Not At Risk (11/05/2023) DH IPV Inpatient Questions Prevent Contact with Others: no Feels Threatened by Someone: no Feels Unsafe at Home: no Physical Signs of Abuse Present: no Housing Stability: Unknown (11/06/2023) Housing Stability Vital Sign Unable to Pay for Housing in the Last Year: No Number of Times Moved in the Last Year: Not on file Homeless in the Last Year: No REVIEW OF SYSTEMS: Review of Systems Constitutional: Positive for activity change. HENT: Negative. Eyes: Negative. Respiratory: Positive for chest tightness and shortness of breath. Cardiovascular: Negative. Gastrointestinal: Negative. Endocrine: Negative. Genitourinary: Negative. Musculoskeletal: Negative. Allergic/Immunologic: Negative. Neurological: Negative. Hematological: Negative. Psychiatric/Behavioral: Negative. Medications: No medications prior to admission. Allergies: No Known Allergies PHYSICAL EXAM: Last set of vital signs: BP 122/86 Pulse (!) 109 Temp 36.7 ??C (98.1 ??F) (Oral) Resp 24 Ht189 cm (6' 2.4) Wt 107 kg (236 lb) SpO2 95% BMI 29.98 kg/m?? Physical Exam Constitutional: Appearance: Normal appearance. HENT: Head: Normocephalic. Mouth/Throat: Mouth: Mucous membranes are dry. Eyes: Extraocular Movements: Extraocular movements intact. Pupils: Pupils are equal, round, and reactive to light. Cardiovascular: Rate and Rhythm: Normal rate. Pulses: Normal pulses. Pulmonary: Effort: Pulmonary effort is normal. Abdominal: Palpations: Abdomen is soft. Musculoskeletal: Cervical back: Normal range of motion. Right lower leg: Edema present. Left lower leg: Edema present. Skin: General: Skin is warm. Capillary Refill: Capillary refill takes less than 2 seconds. Neurological: General: No focal deficit present. Mental Status: He is alert. Psychiatric: Mood and Affect: Mood normal. LABS: Recent Results (from the past 24 hour(s)) CBC (with Diff) Result Value Ref Range White Blood Cell 16.03 (H) 4.00 - 9.50 x10(3)/mcL Red Blood Cell 5.10 4.58 - 5.54 x10(6)/mcL Hemoglobin 12.2 (L) 13.7 - 16.5 g/dL Hematocrit 38.3 (L) 40.5 - 48.5 % Mean Cell Volume 75.1 (L) 82.9 - 93.1 fL Mean Cell Hemoglobin 23.9 (L) 27.5 - 32.1 pg Mean Cell Hemoglobin Concentration 31.9 (L) 32.0 - 35.7 g/dL Platelet 297 145 - 357 x10(3)/mcL Mean Platelet Volume 9.8 7.6 - 12.9 fL RDW Standard Deviation 47.1 (H) 36.0 - 45.0 fL RDW coefficient of variation 17.8 (H) 11.4 - 13.8 % NRBC% auto 0.0 % NRBC Absolute 0.00 0.00 - 0.00 x10(3)/mcL Neutrophil % 90.1 % Neutrophil Absolute 14.46 (H) 1.70 - 6.10 x10(3)/mcL Lymph % 3.6 % Lymph Absolute 0.57 (L) 0.90 - 3.20 x10(3)/mcL Monocyte % 5.6 % Monocyte Absolute 0.89 0.30 - 0.90 x10(3)/mcL Eos % 0.0 % Eos Absolute 0.00 0.00 - 0.40 x10(3)/mcL Basophil % 0.1 % Baso Absolute 0.02 0.00 - 0.10 x10(3)/mcL Immature Gran % 0.6 % Immature Gran Absolute 0.09 (H) 0.00 - 0.04 x10(3)/mcL Basic Metabolic Panel Result Value Ref Range Glucose 123 65 - 199 mg/dL Blood Urea Nitrogen 25 (H) 10 - 20 mg/dL Creatinine 1.40 0.80 - 1.50 mg/dL Sodium 133 (L) 135 - 145 mMol/L Potassium 4.1 3.5 - 5.0 mMol/L Chloride 95 (L) 98 - 107 mMol/L Carbon Dioxide 23 22 - 31 mMol/L Anion Gap 15 5 - 15 mMol/L Calcium 9.0 8.5 - 10.5 mg/dL Est Glomerular Filtration Rate - Male 52 mL/min/1.73 m?? Magnesium Result Value Ref Range Magnesium 1.04 0.69 - 1.07 mMol/L Phosphorus Result Value Ref Range Phosphorus 4.6 (H) 2.5 - 4.5 mg/dL Heparin (unfractionated) Level Result Value Ref Range UF Heparin <0.04 IU/mL Heparin (unfractionated) Level Result Value Ref Range UF Heparin 0.27 IU/mL TTE: Left ventricle is severely dilated by volume [...] is available. See report for additional findings. ASSESSMENT: 73-year-old male with past medical history of hypertension, PAD, gout, arthritis presented from outside hospital for NSTEMI s/p LAD PCI with severe stenosis of LCx for staged PCI this week. Also found to have acute on chronic systolic heart failure with LVEDP of 30. TREATMENT PLAN: NSTEMI s/p proximal and mid LAD PCI ASCVD Ischemic cardiomyopathy with a EF of 20% Continue with aspirin and Plavix Continue with Heparin Gtt Continue with metoprolol 12.5 mg every 12 Continue with rosuvastatin 20 mg Continue with spironolactone 12.5 mg Continue with valsartan 20 mg twice daily Hold Lasix today in the setting of DEN Staged PCI for left circumflex artery this week to discuss with interventional cardiology for the timing. Currently denies chest pains and significant improvement in his shortness of breath, orthopnea and lower extremity edema HF team consulted, to reengage Post PCI DEN most likely from over diuresis Net negative of 4.5 L for the past 24 hours post IV Lasix 120 mg Hold Lasix for today Daily BMPs Leukocytosis Most likely reactive Afebrile Trending down will monitor closely Alcohol use Social work consult in Closely monitor for withdrawal No active signs of withdrawal Diet: NPO diet (Give Meds) DVT Prophylaxis: Heparin gtt GI Prophylaxis: Pantoprazole 40 mg qd Provider: Danni Joy MD Provider #: [id number] 11/06/2023 * Yesi Sharif MD - 11/05/2023 4:36 PM EDT Images from the original note were not included. Cardiology ICU H&P PATIENT INFO Name: Rose Buck : 1950 PCP: None PCP phone number: None Date of Admission: 11/05/2023 ( Hospital Day 0 days ) Attending:Prashant Calvin MD HISTORY OF PRESENT ILLNESS ID: Rose Buck is a 73 y.o. male w/ PMH of HTN, PAD, gout and arthritis transferred from [facility] for PCI with angioplasty. He refers experiencing constant chest pain, irradiating to the left should for a few days which he tried to get his mind out of it, orthopnea for a couple weeks, and fatigue. Today in the morning he was experiencing dyspnea on exertion three days ago, which limited his ability to take no more than three steps without the feeling of passing out. His called EMS today due to progressive worsening. Chief concern: chest pain, shortness of breath, fatigue REVIEW OF SYSTEMS (positives in bold) A full 14 point review of systems was performed and negative except as noted per the HPI Past Medical History HTN, gout (arthritis) Past Surgical History Vasectomy Otherwise non-contributory Family History No history of HTN, cardiac disease, diabetes in his family that he recalls. Social History Alcohol: 8 - 9 beers/day - cut back to half that quantity during the past week Tobacco: former smoker 03/14/1997, 2 - 3 packs/day for 31 years Allergies: Not on File OBJECTIVE Vitals Last value Range last 24 hrs Temperature Temp: -- Heart Rate Heart Rate: 91 Heart Rate: [91-104] Blood Pressure BP: 110/75 BP: (110-132)/(75-86) Art Line BP BP (Arterial Line): -- MAP (NBP): -- Respiratory Rate Resp: 28 Resp: [28] SpO2 SpO2: 97 % SpO2: [97 %-100 %] Oxygen Delivery Oxygen Therapy O2 Device: Nasal cannula O2 Flow Rate (L/min): 6 L/min FiO2 (%): 45 % Reason for Oxygen: Titration down from previous higher respiratory or O2 need I&O's/ Weights Intake/Output Summary (Last 24 hours) at 11/05/2023 1636 Last data filed at 11/05/2023 1530 Gross per 24 hour Intake -- Output 1125 ml Net -1125 ml Admit wt: 250 lb Physical Exam General: not in acute distress, sitting comfortably in bed. Eyes: anicteric sclerae, no conjunctival pallor CV: cardiac sounds regular, rhythmic. No murmurs, rubs, or gallops Pulm: expiratory wheezes, crackles on lung bases Abd: soft, non-tender, no rebound or guarding Ext: Cold extremities, no cyanosis or edema. Faint distal pulses, Neuro: oriented in time, space, and person. No focal deficits noted, sensation grossly intact Psych: cooperative, normal affect and cognition Skin: no rashes, lesions, or ulcerations noted Labs: Recent Labs 11/05/23 1603 WBC 18.52* HGB 12.2* HCT 38.6* PLATELET 261 MCV 76.7* Recent Labs 11/05/23 1603 NA 132* CL 95* CO2 22 K 3.7 MAGNESIUM 1.04 PHOS 3.3 CALCIUM 8.6 BUN 22* CREATININE 1.28 LFTs Recent Labs 11/05/23 1603 PROT 6.6 ALBUMIN 3.6 AST 35 ALT 15 ALKPHOS 74 BILITOT 0.3 BILIDIR 0.2 Cardiac Enzymes Recent Labs 11/05/23 1603 PROBNP 15,949* Endocrine Recent Labs 11/05/23 1603 TSH 2.25 Recent Labs 11/05/23 1544 POCGLU 239* Imaging: No results found for this visit on 11/05/23. Medications Scheduled Meds: sodium chloride 0.9 % (flush) 5 mL Intravenous BID [START ON 11/06/2023] aspirin EC 81 mg Oral Daily [START ON 11/06/2023] clopidogreL 75 mg Oral Daily valsartan 20 mg Oral BID [START ON 11/06/2023] spironolactone 12.5 mg Oral Daily rosuvastatin 20 mg Oral QPM furosemide 120 mg Intravenous Once potassium chloride ER 40 mEq Oral Once Continuous Infusions: PRN Meds:.sodium chloride 0.9 % (flush), lidocaine, nitroGLYcerin, heparin (porcine), fentaNYL (PF), midazolam (PF), iohexoL, heparin (porcine) infusion AND heparin (porcine) ASSESSMENT & PLAN Rose Quinones is a 73 y.o. male w/ PMH of HTN, PAD, gout arthritis transferred from [facility] for STEMI s/p PCI and stent of mid and proximal LAD. Overall Will is feeling better, denies chest pain, shortness of breath. Neuro # No active issues - Delirium prevention measures Cardiovascular # STEMI, mid and proximal LAD stenting, pending staging of proximal and mid LCX lesions # HFrEF - Telemetry - Vitals q2h - Trend troponins - Transthoracic echocardiogram to assess post-PCI EF tomorrow morning - Aspirin 81 mg qd - Hold clopidogrel - pending upon film laboratory technician recommendation - Spironolactone 12.5 mg q12h - Valsartan 20 mg q12h - Nitroglycerin 0.4 mg PRN - Rosuvastatin 20 mg - Lasix 120 mg qd Pulmonary # Obstructive Lung Disease (?) It is unclear whether he has underlying COPD or asthma, Renal/Fluid/Electrolytes Hypokalemia - K repletion as needed for a goal of >3.5 Gastrointestinal/Metabolic/Nutrition # No active issues Hematology # No active issues Infection # Leukocytosis - Likely reactive to stress, no intervention at the moment #Routine Diet: NPO diet (Give Meds) DVT Prophylaxis: Heparin drip until complete PCI staging GI Prophylaxis: Pantoprazole 40 mg Lines/Drains/Airways: N/A Dispo: Pending upon clinical course CODE STATUS: Attempt Cardiopulmonary Resuscitation - Inpatient Yesi Varghese MD Internal Medicine, PGY-1 Cardiovascular Critical Care, Pager #[phone] 11/05/23 4:36 PM Associated attestation - Allen Figueroa MD - 11/05/2023 11:56 PM EDT Cardiology Attending Addendum Active Hospital Problems Diagnosis CAD (coronary artery disease) NSTEMI (non-ST elevated myocardial infarction) Resolved Hospital Problems No resolved problems to display. I have interviewed and examined the patient, reviewed the available data, and have discussed my findings, assessment and plan with the patient and the team on rounds today. I agree with Dr. Lucy Varghese's note as below which reflects our discussion. documented in this encounter Miscellaneous Notes * Plan of Care - Altagracia Spears RN - 11/09/2023 3:24 PM EDT AVS reviewed with the patient. All questions and concerns answered, no further questions. Discharged to home without services. * Care Management Discharge - Navid Quispe RN - 11/09/2023 10:19 AM EDT CARE MANAGEMENT FINAL DISCHARGE NOTE Chart reviewed, care reviewed with primary team and at interdisciplinary rounds. Patient is medically ready for discharge to home. Needs for Transition of Care: per discharge instructions Plan for discharge is: Home w/o Services Outpatient Agency/Support Group Needs: None Agency Referrals & Follow-up Care: per discharge instructions Transportation: family or friend will provide Wheelchair van/Ambulance? No Functional status prior to admission: Independent Home Environment: Others in the home: spouse. Current Living Arrangements: home/apartment/condo. Accessibility Concerns:home on one level with high toilet seat,grab bars in shower. Current Functional Ability: Independent DME used at home: none DME Needed at Discharge: N/A Patient is insured through: Primary Insurance: [employer] MANAGED MEDICARE Payor: HU[employer] MANAGED MEDICARE / Plan: HU[employer] PPO MANAGED MEDICARE / Product Type: *No Product type* / Secondary Insurance: N/A Prescription Coverage: Yes This plan was formulated with input from patient and team. All are in agreement with plan. * Plan of Care - Mara Puri RN - 11/09/2023 5:03 AM EDTSummary: Shift Summary Shift Evaluation Note Shift Summary: Pt AAOx4. Bed alarm maintained for high fall risk. VSS on RA. Pt denies CP and SOB. NSR on tele, see scanned documents. HR 80s-90s. Call gonzalez within reach. Plan Moving Forward: Possible D/C today CPG Evaluation and Outcome: Problem: Adult Inpatient Plan of Care Goal: Plan of Care Review Outcome: Ongoing (Interventions Implemented as Appropriate) Goal: Patient-Specific Goal (Individualized) Outcome: Ongoing (Interventions Implemented as Appropriate) Goal: Absence of Hospital-Acquired Illness or Injury Outcome: Ongoing (Interventions Implemented as Appropriate) Goal: Optimal Comfort and Wellbeing Outcome: Ongoing (Interventions Implemented as Appropriate) Goal: Readiness for Transition of Care Outcome: Ongoing (Interventions Implemented as Appropriate) Problem: Arrhythmia/Dysrhythmia (Cardiac Catheterization) Goal: Stable Heart Rate and Rhythm Outcome: Ongoing (Interventions Implemented as Appropriate) Problem: Bleeding (Cardiac Catheterization) Goal: Absence of Bleeding Outcome: Ongoing (Interventions Implemented as Appropriate) Problem: Contrast-Induced Injury Risk (Cardiac Catheterization) Goal: Absence of Contrast-Induced Injury Outcome: Ongoing (Interventions Implemented as Appropriate) Problem: Embolism (Cardiac Catheterization) Goal: Absence of Embolism Signs and Symptoms Outcome: Ongoing (Interventions Implemented as Appropriate) Problem: Ongoing Anesthesia/Sedation Effects (Cardiac Catheterization) Goal: Anesthesia/Sedation Recovery Outcome: Ongoing (Interventions Implemented as Appropriate) Problem: Pain (Cardiac Catheterization) Goal: Acceptable Pain Control Outcome: Ongoing (Interventions Implemented as Appropriate) Problem: Vascular Access Protection (Cardiac Catheterization) Goal: Absence of Vascular Access Complication Outcome: Ongoing (Interventions Implemented as Appropriate) * Plan of Care - Divina Martins MD - 11/08/2023 9:41 PM EDT Post Cardiac cath note Rose Mikhail [id number] 73 y.o. male Last value Range last 8 hrs Temperature Temp: 36.6 ??C (97.9 ??F) Temp: [36.4 ??C (97.5 ??F)-36.6 ??C (97.9 ??F)] Heart Rate Heart Rate: 96 Heart Rate: [94-96] Blood Pressure BP: 102/65 BP: (102-107)/(65-72) Respiratory Rate Resp: 21 Resp: [20-21] SpO2 SpO2: 95 % SpO2: [95 %-97 %] S: Patient reports no chest pain or SOB Patient reports no hand pain, numbness, or tingling O: No active bleeding noted @ R radial cath site No hematoma, bruit or tenderness Radial pulses intact + equal A/P. S/p cath with no complications * Plan of Care - Altagracia Spears RN - 11/08/2023 5:07 PM EDT OUTCOME EVALUATION NOTE: OUTCOME SUMMARY: Pt A&Ox4 this shift. No reports of CP or SOB, patient denies pain. NSR on tele, see scanned docs. Questions answered and education provided. Call gonzalez within reach, safety checks performed throughout shift. R radial TR band free of excessive bleeding and hematoma. Plan moving forward: discharge plans Problem: Adult Inpatient Plan of Care Goal: Plan of Care Review 11/08/20231705 by Altagracia Spears RN Outcome: Ongoing (Interventions Implemented as Appropriate) 11/08/20231705 by Altagracia Spears RN Outcome: Ongoing (Interventions Implemented as Appropriate) Goal: Patient-Specific Goal (Individualized) 11/08/20231705 by Altagracia Spears RN Outcome: Ongoing (Interventions Implemented as Appropriate) 11/08/20231705 by Altagracia Spears RN Outcome: Ongoing (Interventions Implemented as Appropriate) Goal: Absence of Hospital-Acquired Illness or Injury 11/08/20231705 by Altagracia Spears RN Outcome: Ongoing (Interventions Implemented as Appropriate) 11/08/20231705 by Altagracia Spears RN Outcome: Ongoing (Interventions Implemented as Appropriate) Goal: Optimal Comfort and Wellbeing 11/08/20231705 by Altagracia Spears RN Outcome: Ongoing (Interventions Implemented as Appropriate) 11/08/20231705 by Altagracia Spears RN Outcome: Ongoing (Interventions Implemented as Appropriate) Goal: Readiness for Transition of Care 11/08/20231705 by Altagracia Spears RN Outcome: Ongoing (Interventions Implemented as Appropriate) 11/08/20231705 by Altagracia Spears RN Outcome: Ongoing (Interventions Implemented as Appropriate) Problem: Arrhythmia/Dysrhythmia (Cardiac Catheterization) Goal: Stable Heart Rate and Rhythm 11/08/20231705 by Altagracia Spears RN Outcome: Ongoing (Interventions Implemented as Appropriate) 11/08/20231705 by Altagracia Spears RN Outcome: Ongoing (Interventions Implemented as Appropriate) Problem: Bleeding (Cardiac Catheterization) Goal: Absence of Bleeding 11/08/20231705 by Altagracia Spears RN Outcome: Ongoing (Interventions Implemented as Appropriate) 11/08/20231705 by Altagracia Spears RN Outcome: Ongoing (Interventions Implemented as Appropriate) Problem: Contrast-Induced Injury Risk (Cardiac Catheterization) Goal: Absence of Contrast-Induced Injury 11/08/20231705 by Altagracia Spears RN Outcome: Ongoing (Interventions Implemented as Appropriate) 11/08/20231705 by Altagracia Spears RN Outcome: Ongoing (Interventions Implemented as Appropriate) Problem: Embolism (Cardiac Catheterization) Goal: Absence of Embolism Signs and Symptoms 11/08/20231705 by Altagracia Spears RN Outcome: Ongoing (Interventions Implemented as Appropriate) 11/08/20231705 by Altagracia Spears RN Outcome: Ongoing (Interventions Implemented as Appropriate) Problem: Ongoing Anesthesia/Sedation Effects (Cardiac Catheterization) Goal: Anesthesia/Sedation Recovery 11/08/20231705 by Altagracia Spears RN Outcome: Ongoing (Interventions Implemented as Appropriate) 11/08/20231705 by Altagracia Spears RN Outcome: Ongoing (Interventions Implemented as Appropriate) Problem: Pain (Cardiac Catheterization) Goal: Acceptable Pain Control 11/08/20231705 by Altagracia Spears RN Outcome: Ongoing (Interventions Implemented as Appropriate) 11/08/20231705 by Altagracia Spears RN Outcome: Ongoing (Interventions Implemented as Appropriate) Problem: Vascular Access Protection (Cardiac Catheterization) Goal: Absence of Vascular Access Complication 11/08/2023 170 by Altagracia Spears RN Outcome: Ongoing (Interventions Implemented as Appropriate) 11/08/2023 1706 by Altagracia Spears RN Outcome: Ongoing (Interventions Implemented as Appropriate) * Care Management - Navid Quispe RN - 11/08/2023 2:54 PM EDT OFFICE OF CARE MANAGEMENT PROGRESS NOTE LOS: Hospital Day 3 days Chart reviewed, care reviewed with primary team and at interdisciplinary rounds. Patient continues to meet inpatient level of care related to: NSTEMI Decision Maker: Self Functional status prior to admission: Independent Home Environment: Others in the home: spouse. Current Living Arrangements: home/apartment/condo. Accessibility Concerns: home on one level with high toilet seat,grab bars in shower. Current Functional Ability: Independent DME used at home: none DME Needed at Discharge: No Patient is insured through: Primary Insurance: [employer] MANAGED MEDICARE Payor: HU[employer] MANAGED MEDICARE / Plan: [employer] PPO MANAGED MEDICARE / Product Type: *No Product type* / Secondary Insurance: N/A Plan for discharge is: Home w/o Services Outpatient Agency/Support Group Needs: None Agency Referrals: Not Applicable Transportation: family or friend will provide Barriers to discharge: None Plan going forward: d/c plan pending clinical course, but anticipating d/c home without needs when MRBryant Per team, plan for staged PCI today. Anticipated Date of Discharge: 11/10/2023 * Brief Op Note - Joslyn Antony MD - 11/08/2023 2:54 PM EDT Preliminary Cardiac Catheterization Procedure Note: Patient Name: Rose Buck : [id number] MR#: [id number] Case Date: 11/08/2023 Warp Tension Tester: Surgeons and Role: * Joslyn Antony MD - Primary * Froilan Lopez MD - Fellow - Assisting * Mara Robins PA - Physician Manager Administration Preoperative diagnosis: NSTEMI S/P LAD PCI with diseased LCx Postoperative diagnosis: NSTEMI S/P PCI LAD (previously stente) and LCx Preliminary Cardiac Catheterization Procedure Note: Procedure(s) performed: Coronary Angiography, Left Heart Cath, IVUS, PCI-Stent Baseline Frailty Assessment: Definitions from [place] [employer] and Aging Clinical Frailty Scale: 4: VULNERABLE: symptoms limit activities, though not dependent on others for daily help. Often complain for being slowed up or tired A time-out was conducted prior to the start of the procedure to verify the correct patient and procedure, procedure location, and all relevant critical information. Access: Right Radial: 6 Fr Preliminary findings: Coronary Angiography: Anatomically normal left dominant circulation LMCA: Mild diffuse disease LAD: MIld diffuse disease Previously placed stent is widely patent LCx: MIld diffuse disease Proximal: Moderate grade long tubular ulcerated lesion Distal: High grade discrete lesion RCA: Not injected IVUS (Pre) \Mild diffuse disease Dstal high grade discrete lesion Proximal lesion with large ulcerated plaque LVEDP 18 mmHg Contrast: ~110 ml PCI-Stent Prox LCx lesion treated with a single stent good angio and IVUS result Mid LCx lesion treated with a single stent with good angio and IVUS result Hemostasis: Right radial sheath was removed at case completion with hemostasis obtained with mechanical (TR Band) compression The patient tolerated the procedure well and was transferred from the cardiac catheterization lab to the CRU in stable condition without apparent complications. Full report to follow. JOSLYN ANTONY MD entomology professor Pager 2020 * Consult Note - Adela Vásquez RN - 11/08/2023 9:32 AM EDT During VAS Purposeful Rounding, an assessment of your patient's venous access was performed fby theVascular Access Service. The following tasks were performed if needed and communicated to the bedside RN Choose all that apply: [x] PIV(s) checked for patency if daily need for flush needs to be performed [] CVAD was checked for patency if daily flush needs to be performed [] IV tubing clamped or capped if needed [] Visual inspection of your patient's central line dressing integrity [x] Review of indications for vascular access [] A photo was taken of your patient's central line [x] Visual inspection of your patient's IV dressing integrity [] Other While rounding an intervention was needed and communicated to the bedside RN Choose all that apply: [] Nonocclusive IV dressing addressed [] Nonocclusive CVAD dressing (please identify type of line) [] Infusion site leaking [] IV not patent and removed [] IV not indicated [] IV placed [] IV restarted [] Implanted Port, PICC or ML dressing changed if needed (either PRN or weekly) [] Other * Plan of Care - Mara Puri RN - 11/08/2023 5:52 AM EDTSummary: Shift Summary Shift Evaluation Note Shift Summary: Pt AAOx3. Intermittently disoriented to situation and restless. Bed alarm maintained for high fall risk. VSS on RA. Pt denies CP and SOB. NSR on tele, see scanned documents. HR 70s-100s. Pt slept between care. Call gonzalez within reach. 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 Discharge planning as appropriate CPG Evaluation and Outcome: Problem: Adult Inpatient Plan of Care Goal: Plan of Care Review Outcome: Ongoing (Interventions Implemented as Appropriate) Goal: Patient-Specific Goal (Individualized) Outcome: Ongoing (Interventions Implemented as Appropriate) Goal: Absence of Hospital-Acquired Illness or Injury Outcome: Ongoing (Interventions Implemented as Appropriate) Goal: Optimal Comfort and Wellbeing Outcome: Ongoing (Interventions Implemented as Appropriate) Goal: Readiness for Transition of Care Outcome: Ongoing (Interventions Implemented as Appropriate) Problem: Arrhythmia/Dysrhythmia (Cardiac Catheterization) Goal: Stable Heart Rate and Rhythm Outcome: Ongoing (Interventions Implemented as Appropriate) Problem: Bleeding (Cardiac Catheterization) Goal: Absence of Bleeding Outcome: Ongoing (Interventions Implemented as Appropriate) Problem: Contrast-Induced Injury Risk (Cardiac Catheterization) Goal: Absence of Contrast-Induced Injury Outcome: Ongoing (Interventions Implemented as Appropriate) Problem: Embolism (Cardiac Catheterization) Goal: Absence of Embolism Signs and Symptoms Outcome: Ongoing (Interventions Implemented as Appropriate) Problem: Ongoing Anesthesia/Sedation Effects (Cardiac Catheterization) Goal: Anesthesia/Sedation Recovery Outcome: Ongoing (Interventions Implemented as Appropriate) Problem: Pain (Cardiac Catheterization) Goal: Acceptable Pain Control Outcome: Ongoing (Interventions Implemented as Appropriate) Problem: Vascular Access Protection (Cardiac Catheterization) Goal: Absence of Vascular Access Complication Outcome: Ongoing (Interventions Implemented as Appropriate) * Consult Note - Viola Dewey RN - 11/07/2023 3:49 PM EDT Rose Buck was seen today by Cardiac Rehabilitation for: NSTEMI, staged PCI Activity evaluation - Patient still on IV gtts. Waiting for staged PCI, probably tomorrow. Tried a brief walk but was very tired. Will follow up w/him after his procedure. Educational packet regarding CAD, cardiac risk factors, and managing angina given to the patient. Heart diagram reviewed. 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 Given parameters for home exercise. Participation in an outpatient cardiac rehabilitation program at [facility] was discussed. Patient agrees to a referral to this program. The referral will be sent at discharge and the patient should be contacted by the Program within 1-2 weeks from discharge. * Plan of Care - Nancy Samuels RN - 11/07/2023 3:03 AM EDT Rajinder denied chest pain or SOB. He had some expiratory wheezes on auscultation. He attempted a duoneb but he did not like it. Stated a previous bad smoke experience. Tylenol given for bilateral hand pain. Nasal spray given for congestion. Slept a little. Heparin infusion in therapeutic range. NPO for PCI today. Problem: Adult Inpatient Plan of Care Goal: Plan of Care Review Outcome: Ongoing (Interventions Implemented as Appropriate) Goal: Patient-Specific Goal (Individualized) Outcome: Ongoing (Interventions Implemented as Appropriate) Goal: Absence of Hospital-Acquired Illness or Injury Outcome: Ongoing (Interventions Implemented as Appropriate) Goal: Optimal Comfort and Wellbeing Outcome: Ongoing (Interventions Implemented as Appropriate) Goal: Readiness for Transition of Care Outcome: Ongoing (Interventions Implemented as Appropriate) Problem: Arrhythmia/Dysrhythmia (Cardiac Catheterization) Goal: Stable Heart Rate and Rhythm Outcome: Ongoing (Interventions Implemented as Appropriate) Problem: Bleeding (Cardiac Catheterization) Goal: Absence of Bleeding Outcome: Ongoing (Interventions Implemented as Appropriate) Problem: Contrast-Induced Injury Risk (Cardiac Catheterization) Goal: Absence of Contrast-Induced Injury Outcome: Ongoing (Interventions Implemented as Appropriate) Problem: Embolism (Cardiac Catheterization) Goal: Absence of Embolism Signs and Symptoms Outcome: Ongoing (Interventions Implemented as Appropriate) Problem: Ongoing Anesthesia/Sedation Effects (Cardiac Catheterization) Goal: Anesthesia/Sedation Recovery Outcome: Ongoing (Interventions Implemented as Appropriate) Problem: Pain (Cardiac Catheterization) Goal: Acceptable Pain Control Outcome: Ongoing (Interventions Implemented as Appropriate) Problem: Vascular Access Protection (Cardiac Catheterization) Goal: Absence of Vascular Access Complication Outcome: Ongoing (Interventions Implemented as Appropriate) * Plan of Care - Ashley Toribio RN - 11/06/2023 5:45 PM EDT Problem: Adult Inpatient Plan of Care Goal: Plan of Care Review Outcome: Ongoing (Interventions Implemented as Appropriate) Goal: Absence of Hospital-Acquired Illness or Injury Outcome: Ongoing (Interventions Implemented as Appropriate) Goal: Readiness for Transition of Care Outcome: Ongoing (Interventions Implemented as Appropriate) Problem: Arrhythmia/Dysrhythmia (Cardiac Catheterization) Goal: Stable Heart Rate and Rhythm Outcome: Ongoing (Interventions Implemented as Appropriate) Problem: Bleeding (Cardiac Catheterization) Goal: Absence of Bleeding Outcome: Ongoing (Interventions Implemented as Appropriate) Problem: Contrast-Induced Injury Risk (Cardiac Catheterization) Goal: Absence of Contrast-Induced Injury Outcome: Ongoing (Interventions Implemented as Appropriate) Problem: Pain (Cardiac Catheterization) Goal: Acceptable Pain Control Outcome: Ongoing (Interventions Implemented as Appropriate) Problem: Vascular Access Protection (Cardiac Catheterization) Goal: Absence of Vascular Access Complication Outcome: Ongoing (Interventions Implemented as Appropriate) * Initial Assessments - Jami Naqvi MSW - 11/06/2023 12:13 PM EDT Office of Care Management Initial Assessment ALETHEA Freedman reviewed record and discussed patient with Care Team. Source of Information: Team, bedside nurse, medical record, and Patient, Chart Review Bill Introduced self/reviewed role; services accepted. Admitted From: Transfer from another hospital [facility] Reason for Hospitalization: Heart attack Past medical History: No past medical history on file. Hospitalizations Within the Past 30 Days: no previous admission in last 30 days Current Decision-Making Capacity: Self If AD's have not been completed the following surrogate would be surrogate decision maker per [place] surrogate decision making law. (Only good for 180 days) Any patient receiving care in [place] must abide by [place] law. The hierarchy for surrogate decision making is: (a) Patient???s spouse or civil union partner unless there is a divorce proceeding, separation agreement, or restraining order limiting that person???s relationship with the patient. (b) Any adult son or daughter of the patient. (c) Either parent of the patient. (d) Any adult brother or sister of the patient. (e) Any adult grandchild of the patient. (f) Any grandparent of the patient. (g) Any adult aunt, uncle, niece, or nephew of the patient. (h) A close friend of the patient. (i) The agent with financial power of estate planning attorney or a conservator appointed in accordance with RSA 464-A. (j) The guardian of the patient???s estate. Advance Care Planning: Attempt Cardiopulmonary Resuscitation - Inpatient <no information> -Advanced Directive: No, declines Current Coping/Education/Information Needs: Patient does puzzles and word games to keep her mind busy. Current Functional Ability: Independent Functional Status Prior to Admission: Independent Home Environment: Others in the home: spouse. Current Living Arrangements: home/apartment/condo. Accessibility Concerns:home on one level with high toilet seat,grab bars in shower. In the last 12 months, was there a time when you were not able to pay the mortgage or rent on time?: No At any time in the past 12 months, were you homeless or living in a custodial (including now)?: No In the past 12 months has the [employer], gas, oil, or water [employer] threatened to shut off services in your home?: No Within the past 12 months, you worried that your food would run out before you got the money to buymore.: Never true Within the past 12 months, the food you bought just didn't last and you didn't have money to get more.: Never true Resource / Environmental Concerns: Resource/Environmental Concerns: none Home Accessibility Concerns: bathroom not accessible In the past 12 months, has lack of transportation kept you from medical appointments or from getting medications?: No In the past 12 months, has lack of transportation kept you from meetings, work, or from getting things needed for daily living?: No Current DME: none Home Address confirmed as: [address] ([place], [place]) [address] Social & Family Supports: All names listed below confirmed with patient as current and correct Extended Emergency Contact Information Primary Emergency Contact: Fabi Buck Relation: Other Current Care Provided by: self Provides Primary Care For: no one Caregiver if needed: none Quality of Family relationships: supportive Community Resources being provided currently: none Behavioral Health History: None reported Substance Use/Abuse confirmed: Social History Tobacco Use Smoking Status Former Current packs/day: 0.00 Types: Cigarettes Quit date: 1996 Years since quittin.6 Passive exposure: Past Smokeless Tobacco Never In the past year have you used an illegal drug or used a prescription medication for non-medical reasons?: No 0 No problems reported 1-2 Low level 3-5 Moderate level 6-8 Substantial level 9- 10 Severe level In the past year have you had 5 or more drinks a day containing alcohol?: Yes Audit Score (Male): 12 0 to 7 points: Low risk 8 to 15 points: Medium risk 16 to 19 points: High risk 20 to 40 points: Addiction likely Other Pertinent/Service Specific Information: Health/Prescription Coverage: Primary Insurance: HUMA[employer] MANAGED MEDICARE Payor: HUMANA MANAGED MEDICARE / Plan: HUMANA PPO MANAGED MEDICARE / Product Type: *No Product type* / Secondary Insurance: N/A ONLY if patient has Medicare A&B - Does this patient have secondary insurance?: No ; Prescription Coverage: Yes Preferred Pharmacy: No Pharmacies Listed Status: Patient is a : No Primary Care Provider confirmed: None None Patient/Caregiver Goals of Treatment: Potential Needs for Transition of Care: none Agency Referrals: Not Applicable Transportation: no concerns Transportation Anticipated: family or friend will provide Concerns to be Addressed: no discharge needs identified Assessment: Patient is admitted to CV Hospitalist service for heart attack. 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 Care Management team will continue to follow and assist with discharge planing and coordination of care as indicated. Jami Naqvi MSW,[facility] [id number] * Plan of Care - Terence Chopra RN - 11/05/2023 11:04 PM EDT Problem: Adult Inpatient Plan of Care Goal: Plan of Care Review 11/05/20232303 by Terence Chopra RN Outcome: Ongoing (Interventions Implemented as Appropriate) 11/05/20232301 by Terence Chopra RN Outcome: Ongoing (Interventions Implemented as Appropriate) Goal: Patient-Specific Goal (Individualized) 11/05/20232303 by Terence Chopra RN Outcome: Ongoing (Interventions Implemented as Appropriate) 11/05/20232301 by Terence Chopra RN Outcome: Ongoing (Interventions Implemented as Appropriate) Goal: Absence of Hospital-Acquired Illness or Injury 11/05/20232303 by Terence Chopra RN Outcome: Ongoing (Interventions Implemented as Appropriate) 11/05/20232301 by Terence Chopra RN Outcome: Ongoing (Interventions Implemented as Appropriate) Goal: Optimal Comfort and Wellbeing 11/05/20232303 by Terence Chopra RN Outcome: Ongoing (Interventions Implemented as Appropriate) 11/05/20232301 by Terence Chopra RN Outcome: Ongoing (Interventions Implemented as Appropriate) Goal: Readiness for Transition of Care 11/05/20232303 by Terence Chopra RN Outcome: Ongoing (Interventions Implemented as Appropriate) 11/05/20232301 by Terence Chopra RN Outcome: Ongoing (Interventions Implemented as Appropriate) Problem: Arrhythmia/Dysrhythmia (Cardiac Catheterization) Goal: Stable Heart Rate and Rhythm Outcome: Ongoing (Interventions Implemented as Appropriate) Problem: Bleeding (Cardiac Catheterization) Goal: Absence of Bleeding Outcome: Ongoing (Interventions Implemented as Appropriate) Problem: Contrast-Induced Injury Risk (Cardiac Catheterization) Goal: Absence of Contrast-Induced Injury Outcome: Ongoing (Interventions Implemented as Appropriate) Problem: Embolism (Cardiac Catheterization) Goal: Absence of Embolism Signs and Symptoms Outcome: Ongoing (Interventions Implemented as Appropriate) Problem: Ongoing Anesthesia/Sedation Effects (Cardiac Catheterization) Goal: Anesthesia/Sedation Recovery Outcome: Ongoing (Interventions Implemented as Appropriate) Problem: Vascular Access Protection (Cardiac Catheterization) Goal: Absence of Vascular Access Complication Outcome: Ongoing (Interventions Implemented as Appropriate) * Brief Op Note - Blake Young MD - 11/05/2023 4:40 PM EDT Brief Operative Note Patient Name: Rose Buck : [id number] MR#: [id number] Case Date: 11/05/2023 Surgeon: Surgeons and Role: * Marina Mullen MD - Primary * Blake Young MD - Fellow - Assisting Preoperative diagnosis: LHC/CORS Postoperative diagnosis: NSTEMI Procedure(s) (LRB): CARDIAC CATHETERIZATION (N/A) Anesthesia: Anesthesia type not filed in the log. Minimal sedation Findings: Left dominant system LM: No disease LAD: Severe 90% lesion proximal and mid LAD LCX: Severe 80% ulcerated lesion proximal LCX and 90% lesion mid LCX RCA: Small nondominant possibly giving collaterals to left system ? LAD LVEDP: 30 mmHg Intervention: S/p PCI of the midLAD lesion with 3.0x30mm stent post dilated to 3.5, Proximal LAD with 3.5x22mm stent postdilated with 4.0 NC at 18 SAMMY near proximal portion followed by multiple dilations further along the stent with excellent angiographic result. Recommendations: The patient will need staged PCI of the proximal and mid LCX lesions Adequate diuresis and GDMT for HFrEF Formal echocardiogram Renal optimization Complications: none documented in this encounter Plan of Treatment Upcoming Encounters Date Type Department Care Team (Late st Contact Info) Description 11/18/2023 Hospital Encounter Heart and Vascular Unit Level 3 [place] [phone] Yossi Castaneda MD [facility] [place] [address] 11/22/2023 1:00 PM EDT Laboratory Appointment Lab [address] [place] [phone] 11/22/2023 2:00 PM EDT Office Visit Cardiology at [address] [phone] Nahed Moore PA [facility] [address] 11/27/2023 2:20 PM EDT Office Visit Cardiology at [address] [phone] Mara Robins PA [facility] [place] [address] Scheduled Referrals Name Type Priority Associated Diagnoses Orde r Schedule Referral to Cardiac Rehab Outpatient Referral Routine NSTEMI (non-ST elevated myocardial infarction) Ordered: 11/09/2023 Referral to Urology Outpatient Referral Routine Hematuria, unspecified type Ordered: 11/09/2023 documented as of this encounter Procedures Procedure Name Priority Date/Time Associated Diagnosis Comments CBC (WITH DIFF) Routine 11/09/2023 3:29 AM EDT PHOSPHORUS Routine 11/09/2023 3:29 AM EDT MAGNESIUM Routine 11/09/2023 3:29 AM EDT BASIC METABOLIC PANEL Routine 11/09/2023 3:29 AM EDT EKG 12-LEAD Routine 11/08/2023 3:00 PM EDT Non-ST elevation myocardial infarction (NSTEMI) CARDIAC CATHETERIZATION Routine 11/08/19 2:55 PM EDT HEPARIN (UNFRACTIONATED) LEVEL Timed 11/08/2023 2:46 AM EDT CBC (WITH DIFF) Routine 11/08/2023 2:46 AM EDT PHOSPHORUS Routine 11/08/2023 2:46 AM EDT MAGNESIUM Routine 11/08/2023 2:46 AM EDT BASIC METABOLIC PANEL Routine 11/08/2023 2:46 AM EDT XR CHEST PA AND LATERAL Routine 11/07/19 2:35 PM EDT HEPARIN (UNFRACTIONATED) LEVEL Timed 11/07/2023 1:38 AM EDT CBC (WITH DIFF) Routine 11/07/2023 1:38 AM EDT TSH Routine 11/07/2023 1:38 AM EDT PHOSPHORUS Routine 11/07/2023 1:38 AM EDT MAGNESIUM Routine 11/07/2023 1:38 AM EDT BASIC METABOLIC PANEL Routine 11/07/2023 1:38 AM EDT HEPARIN (UNFRACTIONATED) LEVEL Timed 11/06/2023 7:25 PM EDT HEPARIN (UNFRACTIONATED) LEVEL Timed 11/06/2023 12:00 PM EDT EKG 12-LEAD Routine 11/06/2023 10:01 AM EDT Non-ST elevation myocardial infarction (NSTEMI) ECHO COMPLETE W CONTRAST Routine 11/06/2023 9:02 AM EDT Non-ST elevation myocardial infarction (NSTEMI) HEPARIN (UNFRACTIONATED) LEVEL Timed 11/06/2023 4:08 AM EDT CBC (WITH DIFF) Routine 11/06/2023 4:08 AM EDT PHOSPHORUS Routine 11/06/2023 4:08 AM EDT MAGNESIUM Routine 11/06/2023 4:08 AM EDT BASIC METABOLIC PANEL Routine 11/06/2023 4:08 AM EDT TROPONIN-T, HIGH SENSITIVITY 3 HOUR PERFORMABLE STAT 11/05/2023 7:02 PM EDT EKG 12-LEAD Routine 11/05/2023 4:52 PM EDT Non-ST elevation myocardial infarction (NSTEMI) POC, GLUCOSE Routine 11/05/2023 4:45 PM EDT CARDIAC CATHETERIZATION Routine 11/05/19 4:27 PM EDT TROPONIN-T, HIGH SENSITIVITY INITIAL PERFORMABLE STAT 11/05/2023 4:03 PM EDT TROPONIN - SERIES STAT 11/05/2023 4:0 3 PM EDT CBC (WITH DIFF) Routine 11/05/2023 4:03 PM EDT TSH Routine 11/05/2023 4:03 PM EDT PHOSPHORUS Routine 11/05/2023 4:03 PM EDT PRO-BRAIN NATRIURETIC PEPTIDE Routine 11/05/2023 4:03 PM EDT MAGNESIUM Routine 11/05/2023 4:03 PM EDT HEMOGLOBIN A1C Routine 11/05/2023 4:03 PM EDT HEPATIC FUNCTION PANEL Routine 4:03 PM EDT LIPID PANEL (REFLEX DIRECT LDL) Routine 11/05/2023 4:03 PM EDT BASIC METABOLIC PANEL Routine 11/05/2023 4:03 PM EDT POC, GLUCOSE Routine 11/05/2023 3:44 PM EDT BLOOD GAS, POC Routine 11/05/2023 3:22 PM EDT documented in this encounter Results * Phosphorus (11/09/2023 3:29 AM EDT) Phosphorus 3.1 2.5 - 4.5 mg/dL 11/09/2023 4:11 AM EDT [facility] Blood VENOUS BLOOD SPECIMEN / Unknown IP Care Team Draw / Unknown 11/09/2023 3:29 AM EDT 11/09/2023 3:40 AM EDT Allen Figueroa MD CHEMISTRY ORDERABLES [facility] [place] [address] * Magnesium (11/09/2023 3:29 AM EDT) Magnesium 1.03 0.69 - 1.07 mMol/L 11/09/2023 4:11 AM EDT [facility] Blood VENOUS BLOOD SPECIMEN / Unknown IP Care Team Draw / Unknown 11/09/2023 3:29 AM EDT 11/09/2023 3:40 AM EDT Allen Figueroa MD CHEMISTRY ORDERABLES [facility] [place] [address] * (ABNORMAL) Basic Metabolic Panel (11/09/2023 3:29 AM EDT) Glucose 99 65 - 199 mg/dL 11/09/2023 4:11 AM [facility] Comment:Glucose Concentratio n >=200 mg/dL plus symptoms is consistent with Diabetes Mellitus. Blood Urea Nitrogen 21(H) 10 - 20 mg/dL 11/09/2023 4:11 AM [facility] Creatinine 1.03 0.80 - 1.50 mg/dL 11/09/2023 4:11 AM [facility] Sodium 136 135 - 145 mMol/L 11/09/2023 4:11 AM [facility] Potassium 4.1 3.5 - 5.0 mMol/L 11/09/2023 4:11 AM [facility] Chloride 103 98 - 107 mMol/L 11/09/2023 4:11 AM [facility] Carbon Dioxide 22 22 - 31 mMol/L 11/09/2023 4:11 AM [facility] Anion Gap 11 5 - 15 mMol/L 11/09/2023 4:11 AM [facility] Calcium 8.7 8.5 - 10.5 mg/dL 11/09/2023 4:11 AM [facility] Est Glomerular Filtration Rate - Male 76 mL/min/1. 73 m?? 11/09/2023 4:11 AM [facility] Comment: This patient's estimated GFR was [...] AM EDT Allen Figueroa MD CHEMISTRY ORDERABLES [facility] [place] [address] * (ABNORMAL) CBC (with Diff) (11/09/2023 3:29 AM EDT) White Blood Cell 6.55 4.00 - 9.50 x10(3)/mc L 11/09/2023 3:54 AM EDT [facility] Red Blood Cell 4.54(L) 4.58 - 5.54 x10(6)/mc L 11/09/2023 3:54 AM EDT [facility] Hemoglobin 10.9(L) 13.7 - 16.5 g/dL 11/09/2023 3:54 AM EDT [facility] Hematocrit 34.6(L) 40.5 - 48.5 % 11/09/2023 3:54 AM EDT [facility] Mean Cell Volume 76.2(L) 82.9 - 93.1 fL 11/09/2023 3:54 AM EDT [facility] Mean Cell Hemoglobin 24.0(L) 27.5 - 32.1 pg 11/09/2023 3:54 AM EDT [facility] Mean Cell Hemoglobin Concentration 31.5(L) 32.0 - 35.7 g/dL 11/09/2023 3:54 AM EDT [facility] Platelet 288 145 - 357 x10(3)/mc L 11/09/2023 3:54 AM EDT [facility] Mean Platelet Volume 9.4 7.6 - 12.9 fL 11/09/2023 3:54 AM EDT [facility] RDW Standard Deviation 48.4(H) 36.0 - 45.0 fL 11/09/2023 3:54 AM [facility] RDW coefficient of variation 17.5(H) 11.4 - 13.8 % 11/09/2023 3:54 AM [facility] NRBC% auto 0.0 % 11/09/2023 3:54 AM [facility] NRBC Absolute 0.00 0.00 - 0.00 x10(3)/mc L 11/09/2023 3:54 AM [facility] Neutrophil % 72.2 % 11/09/2023 3:54 AM [facility] Neutrophil Absolute (ANC) - Automated 4.73 1.70 - 6.10 x10(3)/mc L 11/09/2023 3:54 AM [facility] Lymph % 11.6 % 11/09/2023 3:54 AM [facility] Lymph Absolute 0.76(L) 0.90 - 3.20 x10(3)/mc L 11/09/2023 3:54 AM [facility] Monocyte % 12.5 % 11/09/2023 3:54 AM [facility] Monocyte Absolute 0.82 0.30 - 0.90 x10(3)/mc L 11/09/2023 3:54 AM [facility] Eos % 2.6 % 11/09/2023 3:54 AM [facility] Eos Absolute 0.17 0.00 - 0.40 x10(3)/mc L 11/09/2023 3:54 AM [facility] Basophil % 0.6 % 11/09/2023 3:54 AM [facility] Baso Absolute 0.04 0.00 - 0.10 x10(3)/mc L 11/09/2023 3:54 AM [facility] Immature Gran % 0.5 % 3:54 AM [facility] Immature Gran Absolute 0.03 0.00 - 0.04 x10(3)/mc L 11/09/2023 3:54 AM EDT [facility] Blood VENOUS BLOOD SPECIMEN / Unknown IP Care Team Draw / Unknown 11/09/2023 3:29 AM EDT 11/09/2023 3:40 AM EDT Allen Figueroa MD HEMATOLOGY ORDERABLE S Performing Organization Address City/[facility]/ZIP Co de Phone Number [facility] [place] [address] * EKG 12 Lead (11/08/2023 3:00 PM EDT) Ventricular rate 95 BPM MUSE SYSTEM Atrial Rate 95 BPM MUSE SYSTEM P-R Interval 180 ms MUSE SYSTEM QRS Duration 126 ms MUSE SYSTEM Q-T Interval 418 ms MUSE SYSTEM QTC Calculated (Bezet) 525 ms MUSE SYSTEM Calculated P Mathiston 81 degrees MUSE SYSTEM Calculated R Math[place] -57 degrees MUSE SYSTEM Calculated T Math[place] 109 degrees MUSE SYSTEM INTERPRETATION Normal sinus rhythm Possible Left atrial enlargement Left axis deviation Left ventricular hypertrophy with QRS widening and repolarization abnormality ( R in aVL , Momo product ) Cannot rule out Septal infarct (cited on or before 05-NOV-2023) Abnormal ECG When compared with ECG of 06-NOV-2023 10:01, Premature ventricular complexes are no longer Present Confirmed by MD Jero, Rosas Shepard ([id number]) on 11/09/2023 11:39:40 AM MUSE SYSTEM 11/08/2023 3:00 PM EDT 11/09/2023 11:39 AM EDT Danni Joy MD ECG ORDERABLES Performing Organization Address City/[facility]/ZIP Co de Phone Number MUSE SYSTEM * CARDIAC CATHETERIZATION (11/08/2023 2:55 PM EDT) Anatomical Region Laterality Modality Other Narrative 11/09/2023 8:37 AM EDT ?[facility] ? Cardiac Catheterization/Intervention Report ? Patient Name: Mikhail, Rose ? Procedure Date: 11/08/2023 ? A #: [id number] ? Primary Physician: Antony, Joslyn V ? Case #: [id number] ? File Name: [id number] ? Catheterization Order Number: [id number] ? [facility] ? Final Report [place], [place] ? Patient Name: ? Rose Gajowski ? ID#: ?[id number] ? : ?1950 ? Procedure Date: ? November 08, 2023 ?Case #: ? [id number] ? Room: ? 5 ? Case Physician: ? Joslyn Antony M.D. ? Start: ?13:54 ?Fellow: ? Froilan Lopez M.D. ? Admission: ??11/05/2023 ? Procedures: ?* Coronary Angiography ?* Left Heart Catheterization ?* Coronary Ultrasound ?* Coronary Stent Insertion ? History ?Rose Gajowski is a 73 year old man. The [...] was ?designated as ASA Class III. The CSHA clinical frailty scale is 4: ?Vulnerable. ? Diagnostic Tests: ?Prior Coronary Angiography: ? Prior coronary angiography was performed on 11/05/2023 and showed ? obstructive CAD. LV ejection fraction within 6 months is 20%. ?Medications Prior to Procedure: ? Aspirin, Angiotensin II Receptor Good and Statin. ? Indications for Diagnostic Cath: ?The priority of the diagnostic procedure was Elective. 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 Chest pain [...] premounted ? 3.50 x 18 mm Michael [place] (DORINDA) was deployed with a maximum ? [...] A premounted 3.50 x 18 mm Michael [place] (DORINDA) was deployed ? 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 ?Recommended anti-platelet/anti-thrombotic regimen: ?Start aspirin 81 mg daily now and continue for indefinitely. ?Start clopidogrel 75 mg daily now and continue for 12 months then stop. ?These recommendations are made at the time of the intervention. Patient ?and provider preferences or a changing clinical situation may require ?modification of this regimen. Consult [facility] Interventional Cardiology for ?questions. ?The 1 year [...] was present for the entire procedure. ?Dr. Joslyn Antony M.D. was present during the moderate sedation ?intraservice time as documented by the sedation nurse. ??Case time = 00:52. ?Dr. Joslyn Antony M.D. performed the coronary angiography, stent ?insertion-coronary, left heart catheterization and IVUS # coronary. ? Joslyn Antony M.D. ? Electronically Signed by: Joslyn Antony M.D. ? Report Finalized: 11/09/2023 ??08:30 ? Procedure Note Joslyn Antony MD - 11/09/2023 [facility] Cardiac Catheterization/Intervention Report Patient Name: Rose Buck Procedure Date: 11/08/2023 A #: [id number] Primary Physician: Joslyn Antony V Case #: [id number] File Name: [id number] Catheterization Order Number: [id number] [facility] FinalReport [place], [place] Patient Name: Rose Buck ID#:[id number] :1950 Procedure Date: November 08, 2023 Case #: [id number] Room: 5 Case Physician: Joslyn Antony M.D. Start: 13:54 Fellow: Froilan Lopez [...] was designated as ASA Class III. The [facility] clinical frailty scale is 4: Vulnerable. Diagnostic Tests: Prior Coronary Angiography: Prior coronary angiography was performed on 11/05/2023 andshowed obstructive CAD. LV ejection fraction within 6 months is 20%. Medications Prior to Procedure: Aspirin, Angiotensin II Receptor Good and Statin. Indications for Diagnostic Cath: The priority of the diagnostic procedure was Elective. Theindication for the film laboratory technician visit is stable known CAD. Chest pain [...] 14 atmospheres. Apremounted 3.50 x 18 mm [place] (DORINDA) was deployed with amaximum inflation pressure [...] The lesion was predilated with a 3.00mm TBDFIUB10 MM balloon with a maximum inflation pressure of 14atmospheres. 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 Recommended anti-platelet/anti-thrombotic regimen: Start aspirin 81 mg daily now and continue for indefinitely. Start clopidogrel 75 mg daily now and continue for 12 months thenstop. These recommendations are made at the time of the intervention.Patient and provider preferences or a changing clinical situation mayrequire modification of this regimen. Consult [facility] Interventional Cardiologyfor questions. The 1 year bleeding [...] was present for the entire procedure. Dr. Joslyn Antony M.D. was present during the moderate sedation intraservice time as documented by the sedation nurse. Case time =00:52. Dr. Joslyn Antony M.D. performed the coronary angiography, stent insertion-coronary, left heart catheterization and IVUS # coronary. Joslyn Antony M.D. Electronically Signed by: Joslyn Antony M.D. Report Finalized: 11/09/2023 08:30 Joslyn Machado MD CARDIAC CATH ORDERAB LES * Heparin (unfractionated) Level (11/08/2023 2:46 AM EDT) UF Heparin 0.36 IU/mL 11/08/2023 3:16 AM EDT [facility] Comment: Heparin (anti-Xa) levels should be [...] MD HEMATOLOGY ORDERABLE S Performing Organization Address City/[facility] Co de Phone Number [facility] [place] [address] * Phosphorus (11/08/2023 2:46 AM EDT) Phosphorus 3.3 2.5 - 4.5 mg/dL 11/08/2023 3:24 AM EDT [facility] Blood VENOUS BLOOD SPECIMEN / Unknown IP Care Team Draw / Unknown 11/08/2023 2:46 AM EDT 11/08/2023 2:53 AM EDT Allen Figueroa MD CHEMISTRY ORDERABLES Performing Organization Address City/[facility] Co de Phone Number [facility] [place] [address] * Magnesium (11/08/2023 2:46 AM EDT) Magnesium 1.06 0.69 - 1.07 mMol/L 11/08/2023 3:24 AM EDT [facility] Blood VENOUS BLOOD SPECIMEN / Unknown IP Care Team Draw / Unknown 11/08/2023 2:46 AM EDT 11/08/2023 2:53 AM EDT Allen Figueroa MD CHEMISTRY ORDERABLES [facility] [place] [address] * (ABNORMAL) Basic Metabolic Panel (11/08/2023 2:46 AM EDT) Glucose 105 65 - 199 mg/dL 11/08/2023 3:24 AM EDT [facility] Comment:Glucose Concentratio n >=200 mg/dL plus symptoms is consistent with Diabetes Mellitus. Blood Urea Nitrogen 27(H) 10 - 20 mg/dL 11/08/2023 3:24 AM EDT [facility] Creatinine 1.15 0.80 - 1.50 mg/dL 11/08/2023 3:24 AM [facility] Sodium 135 135 - 145 mMol/L 11/08/2023 3:24 AM [facility] Potassium 4.1 3.5 - 5.0 mMol/L 11/08/2023 3:24 AM [facility] Chloride 99 98 - 107 mMol/L 11/08/2023 3:24 AM [facility] Carbon Dioxide 25 22 - 31 mMol/L 11/08/2023 3:24 AM [facility] Anion Gap 11 5 - 15 mMol/L 11/08/2023 3:24 AM [facility] Calcium 8.5 8.5 - 10.5 mg/dL 11/08/2023 3:[facility] Est Glomerular Filtration Rate - Male 66 mL/min/1. 73 m?? 11/08/2023 3:24 AM [facility] Comment: This patient's estimated GFR was [...] 11/08/2023 2:53 AM EDT Allen Figueroa MD CHEMISTRY ORDERABLES [facility] [place] [address] * (ABNORMAL) CBC (with Diff) (11/08/2023 2:46 AM EDT) White Blood Cell 7.95 4.00 - 9.50 x10(3)/mc L 11/08/2023 3:03 AM EDT [facility] Red Blood Cell 4.47(L) 4.58 - 5.54 x10(6)/mc L 11/08/2023 3:03 AM EDT [facility] Hemoglobin 10.7(L) 13.7 - 16.5 g/dL 11/08/2023 3:03 AM [facility] Hematocrit 33.9(L) 40.5 - 48.5 % 11/08/2023 3:03 AM [facility] Mean Cell Volume 75.8(L) 82.9 - 93.1 fL 11/08/2023 3:03 AM EDT [facility] Mean Cell Hemoglobin 23.9(L) 27.5 - 32.1 pg 11/08/2023 3:03 AM [facility] Mean Cell Hemoglobin Concentration 31.6(L) 32.0 - 35.7 g/dL 11/08/2023 3:03 AM [facility] Platelet 298 145 - 357 x10(3)/mc L 11/08/2023 3:03 [facility] Mean Platelet Volume 9.3 7.6 - 12.9 fL 11/08/2023 3:03 AM [facility] RDW Standard Deviation 48.6(H) 36.0 - 45.0 fL 11/08/2023 3:03 AM [facility] RDW coefficient of variation 17.6(H) 11.4 - 13.8 % 11/08/2023 3:03 AM [facility] NRBC% auto 0.0 % 11/08/2023 3:03 AM [facility] NRBC Absolute 0.00 0.00 - 0.00 x10(3)/mc L 11/08/2023 3:03 AM [facility] Neutrophil % 77.3 % 11/08/2023 3:03 AM [facility] Neutrophil Absolute (ANC) - Automated 6.15(H) 1.70 - 6.10 x10(3)/mc L 11/08/2023 3:03 AM [facility] Lymph % 11.8 % 11/08/2023 3:03 AM [facility] Lymph Absolute 0.94 0.90 - 3.20 x10(3)/mc L 11/08/2023 3:03 AM [facility] Monocyte % 9.3 % 11/08/2023 3:03 AM [facility] Monocyte Absolute 0.74 0.30 - 0.90 x10(3)/mc L 11/08/2023 3:03 AM [facility] Eos % 0.8 % 11/08/2023 3:03 AM [facility] Eos Absolute 0.06 0.00 - 0.40 x10(3)/mc L 11/08/2023 3:03 AM [facility] Basophil % 0.4 % 11/08/2023 3:03 AM [facility] Baso Absolute 0.03 0.00 - 0.10 x10(3)/mc L 11/08/2023 3:03 AM [facility] Immature Gran % 0.4 % 3:03 AM EDT [facility] Immature Gran Absolute 0.03 0.00 - 0.04 x10(3)/mc L 11/08/2023 3:03 AM EDT [facility] Blood VENOUS BLOOD SPECIMEN / Unknown IP Care Team Draw / Unknown 11/08/2023 2:46 AM EDT 11/08/2023 2:53 AM EDT Allen Figueroa MD HEMATOLOGY ORDERABLE S [facility] [place] [address] * XR Chest PA & Lateral (Generic) (11/07/2023 2:35 PM EDT) O&P Pro WORKSTATION ID [id number] RAD Anatomical Region Laterality Modality Chest N/A [...] who have questions please contact the health aged or disabled care worker that requested your imaging first. ? Electronically signed by: Rosas Verduzco MD, Radiology [place] ??([phone]), at 11/08/2023 9:05 AM Narrative 11/08/2023 9:05 [...] patients who have questions please contactthe health aged or disabled care worker that requested your imaging first. Danni Joy MD IMG DX ORDERABLES * Heparin (unfractionated) Level (11/07/2023 1:38 AM EDT) UF Heparin 0.45 IU/mL 11/07/2023 2:22 AM EDT [facility] Comment: Heparin (anti-Xa) levels should be [...] 1:38 AM EDT 11/07/2023 1:43 AM EDT Allen Figueroa MD HEMATOLOGY ORDERABLE S [facility] [place] [address] * Phosphorus (11/07/2023 1:38 AM EDT) Phosphorus 4.4 2.5 - 4.5 mg/dL 11/07/2023 2:23 AM EDT [facility] Blood VENOUS BLOOD SPECIMEN / Unknown IP Care Team Draw / Unknown 11/07/2023 1:38 AM EDT 11/07/2023 1:43 AM EDT Allen Figueroa MD CHEMISTRY ORDERABLES Performing Organization Address [facility] Co de Phone Number [facility] [place] [address] * Magnesium (11/07/2023 1:38 AM EDT) Magnesium 1.05 0.69 - 1.07 mMol/L 11/07/2023 2:23 AM EDT [facility] Blood VENOUS BLOOD SPECIMEN / Unknown IP Care Team Draw / Unknown 11/07/2023 1:38 AM EDT 11/07/2023 1:43 AM EDT Allen Figueroa MD CHEMISTRY ORDERABLES Performing Organization Address [facility] Co de Phone Number [facility] [place] [address] * (ABNORMAL) Basic Metabolic Panel (11/07/2023 1:38 AM EDT) Glucose 113 65 - 199 mg/dL 11/07/2023 2:23 AM [facility] Comment:Glucose Concentratio n >=200 mg/dL plus symptoms is consistent with Diabetes Mellitus. Blood Urea Nitrogen 32(H) 10 - 20 mg/dL 11/07/2023 2:23 AM [facility] Creatinine 1.35 0.80 - 1.50 mg/dL 11/07/2023 2:23 AM [facility] Sodium 133(L) 135 - 145 mMol/L 11/07/2023 2:23 AM [facility] Potassium 3.7 3.5 - 5.0 mMol/L 11/07/2023 2:23 AM [facility] Chloride 94(L) 98 - 107 mMol/L 11/07/2023 2:23 AM [facility] Carbon Dioxide 24 22 - 31 mMol/L 11/07/2023 2:23 AM [facility] Anion Gap 15 5 - 15 mMol/L 11/07/2023 2:23 AM [facility] Calcium 8.9 8.5 - 10.5 mg/dL 11/07/2023 2:23 AM [facility] Est Glomerular Filtration Rate - Male 55 mL/min/1. 73 m?? 11/07/2023 2:23 AM [facility] Comment: This patient's estimated GFR was [...] 1:38 AM EDT 11/07/2023 1:43 AM EDT Allen Figueroa MD CHEMISTRY ORDERABLES [facility] [place] [address] * (ABNORMAL) CBC (with Diff) (11/07/2023 1:38 AM EDT) White Blood Cell 12.68(H) 4.00 - 9.50 x10(3)/mc L 11/07/2023 1:50 AM EDT [facility] Red Blood Cell 4.67 4.58 - 5.54 x10(6)/mc L 11/07/2023 1:50 AM EDT [facility] Hemoglobin 11.3(L) 13.7 - 16.5 g/dL 11/07/2023 1:50 AM EDT [facility] Hematocrit 35.6(L) 40.5 - 48.5 % 11/07/2023 1:50 AM EDT [facility] Mean Cell Volume 76.2(L) 82.9 - 93.1 fL 11/07/2023 1:50 AM EDT [facility] Mean Cell Hemoglobin 24.2(L) 27.5 - 32.1 pg 11/07/2023 1:50 AM EDT [facility] Mean Cell Hemoglobin Concentration 31.7(L) 32.0 - 35.7 g/dL 11/07/2023 1:50 AM EDT [facility] Platelet 326 145 - 357 x10(3)/mc L 11/07/2023 1:50 AM EDT [facility] Mean Platelet Volume 9.5 7.6 - 12.9 fL 11/07/2023 1:50 AM EDT [facility] RDW Standard Deviation 48.5(H) 36.0 - 45.0 fL 11/07/2023 1:50 AM EDT [facility] RDW coefficient of variation 18.0(H) 11.4 - 13.8 % 11/07/2023 1:50 AM [facility] NRBC% auto 0.0 % 11/07/2023 1:50 AM [facility] NRBC Absolute 0.00 0.00 - 0.00 x10(3)/mc L 11/07/2023 1:50 AM [facility] Neutrophil % 81.0 % 11/07/2023 1:50 AM [facility] Neutrophil Absolute (ANC) - Automated 10.27(H) 1.70 - 6.10 x10(3)/mc L 11/07/2023 1:50 AM [facility] Lymph % 10.0 % 11/07/2023 1:50 AM [facility] Lymph Absolute 1.27 0.90 - 3.20 x10(3)/mc L 11/07/2023 1:50 AM [facility] Monocyte % 8.0 % 11/07/2023 1:50 AM [facility] Monocyte Absolute 1.01(H) 0.30 - 0.90 x10(3)/mc L 11/07/2023 1:50 AM [facility] Eos % 0.3 % 11/07/2023 1:50 AM [facility] Eos Absolute 0.04 0.00 - 0.40 x10(3)/mc L 11/07/2023 1:50 AM [facility] Basophil % 0.3 % 11/07/2023 1:50 AM [facility] Baso Absolute 0.04 0.00 - 0.10 x10(3)/mc L 11/07/2023 1:50 AM [facility] Immature Gran % 0.4 % 1:50 AM [facility] Immature Gran Absolute 0.05(H) 0.00 - 0.04 x10(3)/mc L 11/07/2023 1:50 AM [facility] Blood VENOUS BLOOD SPECIMEN / Unknown IP Care Team Draw / Unknown 11/07/2023 1:38 AM EDT 11/07/2023 1:43 AM EDT Allen Figueroa MD HEMATOLOGY ORDERABLE S Performing Organization Address City/[facility] Co de Phone Number [facility] [place] [address] * TSH (11/07/2023 1:38 AM EDT) Thyroid Stimulating Hormone 3.11 0.27 - 4.20 mcIU/mL 11/07/2023 2:23 AM EDT [facility] Blood VENOUS BLOOD SPECIMEN / Unknown IP Care Team Draw / Unknown 11/07/2023 1:38 AM EDT 11/07/2023 1:43 AM EDT Danni Joy MD CHEMISTRY ORDERABLES Performing Organization Address City/[facility] Co de Phone Number [facility] [place] [address] * Heparin (unfractionated) Level (11/06/2023 7:25 PM EDT) UF Heparin 0.35 IU/mL 11/06/2023 8:03 PM EDT [facility] Comment: Heparin (anti-Xa) levels should be [...] Unknown IP Care Team Draw / Unknown 11/06/2023 7:25 PM EDT 11/06/2023 7:36 PM EDT Allen Figueroa MD HEMATOLOGY ORDERABLE S Performing Organization Address [facility] Co de Phone Number [facility] [place] [address] * Heparin (unfractionated) Level (11/06/2023 12:00 PM EDT) [facility] UF Heparin 0.27 IU/mL 11/06/2023 12:27 PM EDT [facility] Comment: Heparin (anti-Xa) levels should be [...] Unknown IP Care Team Draw / Unknown 11/06/2023 12:00 PM EDT 11/06/2023 12:09 PM EDT Allen Figueroa MD HEMATOLOGY ORDERABLE S Performing Organization Address City/[facility]/ZIP Co de Phone Number [facility] [place] [address] * EKG 12 Lead (11/06/2023 10:01 AM EDT) Pathologist [facility] Ventricular rate 96 BPM MUSE SYSTEM Atrial Rate 96 BPM MUSE SYSTEM P-R Interval 174 ms MUSE SYSTEM QRS Duration 104 ms MUSE SYSTEM Q-T Interval 418 ms MUSE SYSTEM QTC Calculated (Bezet) 528 ms MUSE SYSTEM Calculated P [place] 67 degrees MUSE SYSTEM Calculated R [place] -56 degrees MUSE SYSTEM Calculated T [place] 130 degrees MUSE SYSTEM INTERPRETATION Sinus rhythm Occasional Premature ventricular complexes Possible Left atrial enlargement Left axis deviation Minimal voltage criteria for LVH, may be normal variant ( Hollywood product ) Anteroseptal infarct , age undetermined Prolonged QT Abnormal ECG When compared with ECG of 05-NOV-2023 16:52, No significant change was found Confirmed by MD Phan, Krystle ([id number]) on 11/06/2023 5:29:02 PM MUSE SYSTEM 11/06/2023 10:0 1 AM EDT 11/06/2023 5:29 PM EDT Prashant Calvin MD ECG ORDERABLES MUSE SYSTEM * ECHO COMPLETE W CONTRAST (11/06/2023 9:02 AM EDT) EF 20 HEARTLAB SYSTEM Anatomical Region Laterality Modality Cardiac Other 11/06/2023 7:50 AM EDT Narrative 11/06/2023 9:49 AM EDT 1 [place] [address] ? Echocardiogram Report Name: ROSE BUCK ? Study Date: 11/06/2023 07:50 AMBP: 97/64 mmHg ? Patient Location: [facility] CV26 A : 1950 ? Height: 189 cm ? Account: [id number] Age: 73 yrs ? Weight: 107 kg Gender: Male ?BSA: 2.3 m2 Ordering Physician: PRASHANT CALVIN Referring Physician: MILDRED STEINER Performed By: KAYLIN Samuel Reason For Study: NSTEMI Interpreting Fellow: Rafael Johnson. Exam Location: [facility]. Interpretation Summary Left ventricle is severely dilated [...] available. See report for additional findings. Procedure Complete-29438. Satisfactory quality. Left Ventricle Left ventricle is [...] Note Vipul Beltrán MD - 11/06/2023 1 [place] [address] Echocardiogram Report Name: ROSE BUCK Study Date: 407:50 AMBP: 97/64 mmHg Patient Location: [id number] A : 1950 Height: 189 cm Account: [id number] Age: 73 yrs Weight: 107 kg Gender: Male BSA: 2.3 m2 Ordering Physician: PRASHANT CALVIN Referring Physician: MILDRED STEINER Performed By: KAYLIN Samuel Reason For Study: NSTEMI Interpreting Fellow: Rafael Johnson. Exam Location: [facility]. Interpretation Summary Left ventricle is severely dilated [...] available. See report for additional findings. Procedure Complete-[id number]. Satisfactory quality. Left Ventricle Left ventricle is [...] 15-16diffuse Prashant Calvin MD ECHO ORDERABLES * Heparin (unfractionated) Level (11/06/2023 4:08 AM EDT) UF Heparin <0.04 IU/mL 11/06/2023 4:52 AM EDT [facility] Comment: Heparin (anti-Xa) levels should be [...] Unknown IP Care Team Draw / Unknown 11/06/2023 4:08 AM EDT 11/06/2023 4:30 AM EDT Allen Figueroa MD HEMATOLOGY ORDERABLE S Performing Organization Address City/[facility]/ZIP Co de Phone Number [facility] [place] [address] * (ABNORMAL) Phosphorus (11/06/2023 4:08 AM EDT) Phosphorus 4.6(H) 2.5 - 4.5 mg/dL 11/06/2023 5:04 AM EDT [facility] Blood VENOUS BLOOD SPECIMEN / Unknown IP Care Team Draw / Unknown 11/06/2023 4:08 AM EDT 11/06/2023 4:30 AM EDT Allen Figueroa MD CHEMISTRY ORDERABLES Performing Organization Address [facility]/ZIP Co de Phone Number [facility] [place] [address] * Magnesium (11/06/2023 4:08 AM EDT) Pathologist [facility] Magnesium 1.04 0.69 - 1.07 mMol/L 11/06/2023 5:04 AM EDT [facility] Blood VENOUS BLOOD SPECIMEN / Unknown IP Care Team Draw / Unknown 11/06/2023 4:08 AM EDT 11/06/2023 4:30 AM EDT Allen Figueroa MD CHEMISTRY ORDERABLES Performing Organization Address City/[facility]/ZIP Co de Phone Number [facility] [place] [address] * (ABNORMAL) Basic Metabolic Panel (11/06/2023 4:08 AM EDT) Glucose 123 65 - 199 mg/dL 11/06/2023 5:04 AM EDT [facility] Comment:Glucose Concentratio n >=200 mg/dL plus symptoms is consistent with Diabetes Mellitus. Blood Urea Nitrogen 25(H) 10 - 20 mg/dL 11/06/2023 5:04 AM EDT [facility] Creatinine 1.40 0.80 - 1.50 mg/dL 11/06/2023 5:04 AM EDT [facility] Sodium 133(L) 135 - 145 mMol/L 11/06/2023 5:[facility] Potassium 4.1 3.5 - 5.0 mMol/L 11/06/2023 5:04 AM [facility] Chloride 95(L) 98 - 107 mMol/L 11/06/2023 5:04 AM [facility] Carbon Dioxide 23 22 - 31 mMol/L 11/06/2023 5:04 AM [facility] Anion Gap 15 5 - 15 mMol/L 11/06/2023 5:04 AM [facility] Calcium 9.0 8.5 - 10.5 mg/dL 11/06/2023 5:04 AM [facility] Est Glomerular Filtration Rate - Male 52 mL/min/1. 73 m?? 11/06/2023 5:04 AM [facility] Comment: This patient's estimated GFR was [...] Unknown IP Care Team Draw / Unknown 11/06/2023 4:08 AM EDT 11/06/2023 4:30 AM EDT Allen Figueroa MD CHEMISTRY ORDERABLES [facility] [place] [address] * (ABNORMAL) CBC (with Diff) (11/06/2023 4:08 AM EDT) White Blood Cell 16.03(H) 4.00 - 9.50 x10(3)/mc L 11/06/2023 4:38 AM [facility] Red Blood Cell 5.10 4.58 - 5.54 x10(6)/mc L 11/06/2023 4:38 AM [facility] Hemoglobin 12.2(L) 13.7 - 16.5 g/dL 11/06/2023 4:38 AM [facility] Hematocrit 38.3(L) 40.5 - 48.5 % 11/06/2023 4:38 AM [facility] Mean Cell Volume 75.1(L) 82.9 - 93.1 fL 11/06/2023 4:38 AM [facility] Mean Cell Hemoglobin 23.9(L) 27.5 - 32.1 pg 11/06/2023 4:38 AM [facility] Mean Cell Hemoglobin Concentration 31.9(L) 32.0 - 35.7 g/dL 11/06/2023 4:38 AM [facility] Platelet 297 145 - 357 x10(3)/mc L 11/06/2023 4:38 AM [facility] Mean Platelet Volume 9.8 7.6 - 12.9 fL 11/06/2023 4:38 AM [facility] LABORATORY RDW Standard Deviation 47.1(H) 36.0 - 45.0 fL 11/06/2023 4:38 AM [facility] RDW coefficient of variation 17.8(H) 11.4 - 13.8 % 11/06/2023 4:38 AM [facility] NRBC% auto 0.0 % 11/06/2023 4:38 AM [facility] NRBC Absolute 0.00 0.00 - 0.00 x10(3)/mc L 11/06/2023 4:38 AM [facility] Neutrophil % 90.1 % 11/06/2023 4:38 AM [facility] Neutrophil Absolute (ANC) - Automated 14.46(H) 1.70 - 6.10 x10(3)/mc L 11/06/2023 4:38 AM EDT [facility] Lymph % 3.6 % 11/06/2023 4:38 AM EDT [facility] Lymph Absolute 0.57(L) 0.90 - 3.20 x10(3)/mc L 11/06/2023 4:38 AM EDT [facility] Monocyte % 5.6 % 11/06/2023 4:38 AM EDT [facility] Monocyte Absolute 0.89 0.30 - 0.90 x10(3)/mc L 11/06/2023 4:38 AM EDT [facility] Eos % 0.0 % 11/06/2023 4:38 AM EDT [facility] Eos Absolute 0.00 0.00 - 0.40 x10(3)/mc L 11/06/2023 4:38 AM EDT [facility] Basophil % 0.1 % 11/06/2023 4:38 AM EDT [facility] Baso Absolute 0.02 0.00 - 0.10 x10(3)/mc L 11/06/2023 4:38 AM EDT [facility] Immature Gran % 0.6 % 4:38 AM EDT [facility] Immature Gran Absolute 0.09(H) 0.00 - 0.04 x10(3)/mc L 11/06/2023 4:38 AM EDT [facility] Blood VENOUS BLOOD SPECIMEN / Unknown IP Care Team Draw / Unknown 11/06/2023 4:08 AM EDT 11/06/2023 4:30 AM EDT Allen Figueroa MD HEMATOLOGY ORDERABLE S [facility] [place] [address] * (ABNORMAL) Troponin-T, Shola Sensitivity 3 Hour (11/05/2023 7:02 PM EDT) Troponin-T, High Sensitivity 1,944(H) <=22 ng/L 11/05/2023 7:32 PM EDT [facility] Comment: This patient's troponin T concentration [...] troponin value can be found in the [facility] Laboratory Test Catalog Troponin - [email or web address]/catalogs/565/files/55506 Reference: [facility] Definition of Myocardial Infarction. Journal of the [employer] 2018;72:3929-2800 Troponin-T, HS 3 hr delta 3 ng/L 11/05/2023 7:32 PM EDT [facility] Comment:The 3 hour Troponin T delta value is the absolute difference between the Troponin T concentrations of the initial and subsequent sample collected between 2 h: 45 min and 6 h following the initial collection Blood VENOUS BLOOD SPECIMEN / Unknown IP Care Team Draw / Unknown 11/05/2023 7:02 PM EDT 11/05/2023 7:06 PM EDT Prashant Calvin MD CHEMISTRY ORDERABLES [facility] [place] [address] * EKG 12 Lead (11/05/2023 4:52 PM EDT) Ventricular rate 97 BPM MUSE SYSTEM Atrial Rate 97 BPM MUSE SYSTEM P-R Interval 184 ms MUSE SYSTEM QRS Duration 106 ms MUSE SYSTEM Q-T Interval 412 ms MUSE SYSTEM QTC Calculated (Bezet) 523 ms MUSE SYSTEM Calculated P [place] 78 degrees MUSE SYSTEM Calculated R [place] -62 degrees MUSE SYSTEM Calculated T [place] 106 degrees MUSE SYSTEM INTERPRETATION Sinus rhythm with Fusion complexes Left axis deviation Minimal voltage criteria for LVH, may be normal variant ( Hollywood product ) Possible Anteroseptal infarct Nonspecific ST and T wave abnormality Prolonged QT Abnormal ECG When compared with ECG of 05-NOV-2023 14:48, No significant change was found Confirmed by MD Phan, Krystle ([id number]) on 11/06/2023 5:28:21 PM MUSE SYSTEM 11/05/2023 4:52 PM EDT 11/06/2023 5:28 PM EDT Prashant Calvin MD ECG ORDERABLES Performing Organization Address City/[facility]/ZIP Co de Phone Number MUSE SYSTEM * POC, GLUCOSE (11/05/2023 4:45 PM EDT) Glucometer, POC 195 65 - 199 mg/dL 11/06/2023 1:14 AM EDT [facility] Comment:Supplemental ranges: <140 mg/dL before meals <180 mg/dL all other times of the day. Blood CAPILLARY BLOOD / Unknown 11/05/2023 4:45 PM EDT 11/06/2023 1:14 AM EDT Prashant Calvin MD POINT OF CARE TEST O RDERABLES Performing Organization Address City/[facility]/ZIP Co de Phone Number [facility] [place] [address] * CARDIAC CATHETERIZATION (11/05/2023 4:27 PM EDT) Anatomical Region Laterality Modality Other Narrative 11/07/2023 8:33 AM EDT ?[facility] ? Cardiac Catheterization/Intervention Report ? Patient Name: Mikhail, Rose ? Procedure Date: 11/05/2023 ? A #: [id number] ? Primary Physician: Marina Mullen I ? Case #: [id number] ? File Name: [id number] ? Catheterization Order Number: [id number] ? [facility] ? Final Report [place], [place] ? Patient Name: ? Rose Buck ? ID#: ?[id number] ? : ?1950 ? Procedure Date: ? November 05, 2023 ?Case #: ? [id number] ? Room: ? 5 ? Case Physician: ? Marina Mullen M.D. ? Start: ?15:05 ?Fellow: ? Blake Young M.D. ?Admission: ??11/05/2023 ?Yaz Anderson M.D. ? Procedures: ?* Coronary Angiography ?* Left Heart Catheterization ?* Coronary Ultrasound ?* Coronary Stent Insertion ?* Arterial Blood Gases ?* Transthoracic Echo During Cath ? Pre Case Status: ?These procedures were performed on an emergent basis. ? History ?Rose Buck is a 73 year old man. The patient's smoking status is ?Former. The patient has a history of an ejection fraction less than or ?equal to 35%. He has a history of CHF. The CHF is NYHA Functional Class ?IV, is newly diagnosed and is classified as Systolic. Prior to the ?initiation of this procedure, the patient was designated as ASA Class IV. ?The [facility] clinical frailty scale is 5: Mildly Frail. ? Diagnostic Tests: ?Medications Prior to Procedure: ? Aspirin. ? Indications for Diagnostic Cath: ?The priority of the diagnostic procedure was Emergent. 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 Chest ?pain symptom assessment was: Typical Angina. ? Technique: ?A 6 SLFr sheath was inserted in the right radial artery utilizing the ?Seldinger technique. The left coronary artery was injected utilizing a ?6Fr EBU 4.0 catheter. A 6Fr JR 4 catheter was used to inject the right ?coronary artery. Left ventricular pressure was performed utilizing a 6Fr ?JR 4 catheter. Coronary stent insertion was performed and the equipment ?utilized will be described in the intervention summary section. 8,000 ?units of heparin were administered. A total of 300cc of Omnipaque were ?opened, 189cc of Omnipaque were administered and 111cc of Omnipaque were ?wasted. Radiation: Fluoro time was 20.4 minutes, dose area product was ?194.00 Gy/cm2 and air kerma was 2,392 mGY. See the case log for ?additional details. ?The patient received the following medications prior to and during the ?procedure: ? Unfractionated Heparin. ? Hemodynamics: ?Left Heart Pressures ? Resting: ? Syst Diast ? EDP ?a ?v ? m ?Ao 112 ?? 74 ?92 ?LV 118 ? 30 ? Coronary Angiography: ?Dominance: Left ?Left Main ? There was mild diffuse (<=25% stenosis) disease of the entire vessel ? segment of the left main artery. ?Left Anterior Descending ? There was a 90% stenosis of the proximal segment of the left ? anterior descending artery (LAD). ??The mid segment of the LAD had ? 99% stenosis. ?Left Circumflex ? There was a 75% ulcerated single discrete stenosis of the proximal ? segment of the left circumflex artery (LCX). ??The mid segment of the ? LCX had a single discrete 90% stenosis. ?Right Coronary Artery ? There was mild diffuse (<=25% stenosis) disease of the entire vessel ? segment of the right coronary artery (RCA). ? Intravascular Imaging/Physiology: ?Intravascular Ultrasound was performed in the proximal LAD using a 6 Fr ?EBU 4.0 guiding catheter and a 3.5 Fr [place] [address] ??20 Mhz using ?Manual pullback. ??Imaging was successful. ?Indication: IVUS performed for pre intervention planning and post ?intervention assessment. ?IVUS performed after pre-dilation. ??IVUS performed after vessel ?manipulation. ?Findings Pre-Intervention: scattered plaque and diffuse plaque. These ?measurements were performed after pre-dilation of the lesion. ?Findings Post-Intervention: There was stent under expansion. ?Conclusions: further intervention performed, no repeat imaging. ?Intravascular Ultrasound was performed in the mid LAD using a 6 Fr EBU ?4.0 guiding catheter and a 3.5 Fr [place] [address] ??20 Mhz using ?Manual pullback. ??Imaging was successful. ?Indication: IVUS performed for pre intervention planning and post ?intervention assessment. ?IVUS performed after pre-dilation. ??IVUS performed after vessel ?manipulation. ?Findings Pre-Intervention: scattered plaque and diffuse plaque. These ?measurements were performed after pre-dilation of the lesion. ?Findings Post-Intervention: There was stent under expansion. ?Conclusions: further intervention performed, no repeat imaging. ? Indication for Intervention: ?Coronary intervention was indicated for primary therapy for an acute ?myocardial infarction. The priority for the procedure was Emergent. The ?NCDR indication for the procedure was NSTE-ACS. Syntax Score was Low. ? Intervention Summary: ?Left Anterior Descending Artery ? Proximal 90% ? Stent insertion was performed on the 90% stenosis in the ? proximal segment of the LAD. This was a de scarlett lesion. ? According to the ACC/AHA classification system, this lesion ? was a type C high risk lesion. Management of threatened ? closure was the indication for stent insertion. This was the ? culprit lesion. A guidewire was placed across this lesion. ? Vessel flow pre intervention was OSVALDO 3. Lesion length was ? 22mm. ? Stent insertion was accomplished through a 6 Fr. EBU 4.0 ? guide. ??The lesion was predilated with a 2.50mm EUPHORA 15 MM ? balloon with a maximum inflation pressure of 15 atmospheres. ? A premounted 3.50 x 22 mm [place] (DORINDA) was deployed ? with a maximum inflation pressure of 12 atmospheres. ? Following stent deployment, the lesion was dilated using a ? 4.00mm NC EMERGE 12 MM balloon with a maximum inflation ? pressure of 12 atmospheres. ? The final outcome was defined as successful. There was no ? residual stenosis following this intervention. The final OSVALDO ? flow was 3. ? Mid 99% ? Stent insertion was performed on the 99% stenosis in the mid ? segment of the LAD. This was a de scarlett lesion. This lesion was ? designated a type C high risk lesion based on ACC/AHA ? classification system. Management of threatened closure was ? the indication for stent insertion. This was the culprit ? lesion. A guidewire was placed across this lesion. Vessel flow ? pre intervention was OSVALDO 3. Lesion length was 30mm. This ? lesion was severely calcified. ? Stent insertion was accomplished through a 6 Fr. EBU 4.0 ? guide. ??The lesion was predilated with a 2.50mm EUPHORA 20 MM ? balloon with a maximum inflation pressure of 15 atmospheres. ? A premounted 3.00 x 30 mm [place] (DORINDA) was deployed ? with a maximum inflation pressure of 12 atmospheres. ? Following stent deployment, the lesion was dilated using a ? 3.50mm NC EMERGE 12 MM balloon with a maximum inflation ? pressure of 14 atmospheres. ? The final outcome was defined as successful. There was no ? residual stenosis following this intervention. The final OSVALDO ? flow was 3. ? Vascular Access: ?Vascular Access Management: ? Mechanical Compression of the right radial artery access site was ? performed. ? Point of Care Testing: ?ABG: ? Arterial Blood gasses were performed using the I-Stat analyzer at ? 15:22: pH: 7.35, pCO2: 38.5, pO2: 76.0, sPO2: 95%, HCO3: 21 on FIO2: ? 45. ?I-Stat: ? I-Stat was performed using the I-Stat analyzer at 15:22: Na+: 131, ? K+: 3.6, iCa++: 1.14, Hct: 36%, Hb: 12.2. ? Dual Antiplatelet (DAPT) Recommendations: ?Drug eluting stent (DORINDA) inserted. ?P2Y12 Loading dose administered prior to arrival in the film laboratory technician. ?Recommended anti-platelet/anti-thrombotic regimen: ?Continue aspirin 81 mg daily. ?Continue clopidogrel 75 mg daily. ?These recommendations are made at the time of the intervention. Patient ?and provider preferences or a changing clinical situation may require ?modification of this regimen. Consult [facility] Interventional Cardiology for ?questions. ? Conclusions: ?* Two vessel coronary artery disease (LAD and LCX) ?* Elevated left ventricular end diastolic pressure ?* Successful stent insertion of the proximal LAD lesion ?* Successful stent insertion of the mid LAD lesion ?* See Dual Antiplatelet (DAPT) Recommendations above ? Complications/Events: ?The patient had no complications during these procedures. ? Post Procedure Fluid Recommendations: ?IV fluid at 169 mL/hr for 4 hours for a total of 676 mL. These ?recommendations are made at the time of the procedure. Patient and ?provider preferences or a changing clinical situation may require ?modification of this regimen. ? Recommendations: ?Based upon the results of these procedures, it was recommended that the ?patient be managed with medical therapy and have coronary intervention. ?The attending physician was present for the entire procedure. ?Dr. Marina Mullen M.D. was present during the moderate sedation ?intraservice time as documented by the sedation nurse. ??Case time = 01:15. ?Dr. Marina Mullen M.D. performed the coronary angiography, left heart ?catheterization, IVUS # coronary, stent insertion-coronary and ABG. ? Marina Mullen M.D. ? Electronically Signed by: Marina Mullen M.D. ? Report Finalized: 11/06/2023 ??09:56 ? Report Last Ammended: 11/08/2023 ??07:27 ? Procedure Note Marina Mullen MD - 11/08/2023 [facility] Cardiac Catheterization/Intervention Report Patient Name: Rose Buck Procedure Date: 11/05/2023 A #: [id number] Primary Physician: Marina Mullen I Case #: [id number] File Name: [id number] Catheterization Order Number: [id number] [facility] FinalReport [place], [place] Patient Name: Rose Buck ID#:[id number] :1950 Procedure Date: November 05, 2023 Case #: [id number] Room: 5 Case Physician: Marina Mullen M.D. Start: 15:05 Fellow: Blake Young M.D. Admission:11/05/2023 Yaz Anderson M.D. Procedures: * Coronary Angiography * Left Heart Catheterization * Coronary Ultrasound * Coronary Stent Insertion * Arterial Blood Gases * Transthoracic Echo During Cath Pre Case Status: These procedures were performed on an emergent basis. History Rose Buck is a 73 year old man. The patient's smoking statusis Former. The patient has a history of an ejection fraction less thanor equal to 35%. He has a history of CHF. The CHF is NYHA FunctionalClass IV, is newly diagnosed and is classified as Systolic. Prior to the initiation of this procedure, the patient was designated as ASAClass IV. The [facility] clinical frailty scale is 5: Mildly Frail. Diagnostic Tests: Medications Prior to Procedure: Aspirin. Indications for Diagnostic Cath: The priority of the diagnostic procedure was Emergent. Theindication for the film laboratory technician visit is ACS greater than 24 hrs and LV dysfunction.Chest pain symptom assessment was: Typical Angina. Technique: A 6 SLFr sheath was inserted in the right radial artery utilizingthe Seldinger technique. The left coronary artery was injected utilizinga 6Fr EBU 4.0 catheter. A 6Fr JR 4 catheter was used to inject theright coronary artery. Left ventricular pressure was performed utilizing a6Fr JR 4 catheter. Coronary stent insertion was performed and theequipment utilized will be described in the intervention summary section.8,000 units of heparin were administered. A total of 300cc of Omnipaquewere opened, 189cc of Omnipaque were administered and 111cc of Omnipaquewere wasted. Radiation: Fluoro time was 20.4 minutes, dose area productwas 194.00 Gy/cm2 and air kerma was 2,392 mGY. See the case log for additional details. The patient received the following medications prior to and duringthe procedure: Unfractionated Heparin. Hemodynamics: Left Heart Pressures Resting: Syst Diast EDP a v m Ao 112 74 92 LV 118 30 Coronary Angiography: Dominance: Left Left Main There was mild diffuse (<=25% stenosis) disease of the entirevessel segment of the left main artery. Left Anterior Descending There was a 90% stenosis of the proximal segment of the left anterior descending artery (LAD). The mid segment of the LADhad 99% stenosis. Left Circumflex There was a 75% ulcerated single discrete stenosis of theproximal segment of the left circumflex artery (LCX). The mid segmentof the LCX had a single discrete 90% stenosis. Right Coronary Artery There was mild diffuse (<=25% stenosis) disease of the entirevessel segment of the right coronary artery (RCA). Intravascular Imaging/Physiology: Intravascular Ultrasound was performed in the proximal LAD using a 6Fr EBU 4.0 guiding catheter and a 3.5 Fr [place] [facility] 20 Mhzusing Manual pullback. Imaging was successful. Indication: IVUS performed for pre intervention planning and post intervention assessment. IVUS performed after pre-dilation. IVUS performed after vessel manipulation. Findings Pre-Intervention: scattered plaque and diffuse plaque.These measurements were performed after pre-dilation of the lesion. Findings Post-Intervention: There was stent under expansion. Conclusions: further intervention performed, no repeat imaging. Intravascular Ultrasound was performed in the mid LAD using a 6 FrEBU 4.0 guiding catheter and a 3.[address] [place] [address] [address] 20 Mhzusing Manual pullback. Imaging was successful. Indication: IVUS performed for pre intervention planning and post intervention assessment. IVUS performed after pre-dilation. IVUS performed after vessel manipulation. Findings Pre-Intervention: scattered plaque and diffuse plaque.These measurements were performed after pre-dilation of the lesion. Findings Post-Intervention: There was stent under expansion. Conclusions: further intervention performed, no repeat imaging. Indication for Intervention: Coronary intervention was indicated for primary therapy for an acute myocardial infarction. The priority for the procedure was Emergent.The NCDR indication for the procedure was NSTE-ACS. Syntax Score wasLow. Intervention Summary: Left Anterior Descending Artery Proximal 90% Stent insertion was performed on the 90% stenosis in the proximal segment of the LAD. This was a de scarlett lesion. According to the ACC/AHA classification system, thislesion was a type C high risk lesion. Management of threatened closure was the indication for stent insertion. This wasthe culprit lesion. A guidewire was placed across thislesion. Vessel flow pre intervention was OSVALDO 3. Lesion lengthwas 22mm. Stent insertion was accomplished through a 6 Fr. EBU 4.0 guide. The lesion was predilated with a 2.50mm [id number] MM balloon with a maximum inflation pressure of 15atmospheres. A premounted 3.50 x 22 mm [place] (DORINDA) wasdeployed with a maximum inflation pressure of 12 atmospheres. Following stent deployment, the lesion was dilated usinga 4.00mm NC EMERGE 12 MM balloon with a maximum inflation pressure of 12 atmospheres. The final outcome was defined as successful. There was no residual stenosis following this intervention. The finalTIMI flow was 3. Mid 99% Stent insertion was performed on the 99% stenosis in themid segment of the LAD. This was a de scarlett lesion. Thislesion was designated a type C high risk lesion based on ACC/AHA classification system. Management of threatened closurewas the indication for stent insertion. This was the culprit lesion. A guidewire was placed across this lesion. Vesselflow pre intervention was OSVALDO 3. Lesion length was 30mm. This lesion was severely calcified. Stent insertion was accomplished through a 6 Fr. EBU 4.0 guide. The lesion was predilated with a 2.50mm [id number] MM balloon with a maximum inflation pressure of 15atmospheres. A premounted 3.00 x 30 mm [place] (DORINDA) wasdeployed with a maximum inflation pressure of 12 atmospheres. Following stent deployment, the lesion was dilated usinga 3.50mm NC EMERGE 12 MM balloon with a maximum inflation pressure of 14 atmospheres. The final outcome was defined as successful. There was no residual stenosis following this intervention. The finalTIMI flow was 3. Vascular Access: Vascular Access Management: Mechanical Compression of the right radial artery access sitewas performed. Point of Care Testing: ABG: Arterial Blood gasses were performed using the I-Stat analyzerat 15:22: pH: 7.35, pCO2: 38.5, pO2: 76.0, sPO2: 95%, HCO3: 21 onFIO2: 45. I-Stat: I-Stat was performed using the I-Stat analyzer at 15:22: Na+:131, K+: 3.6, iCa++: 1.14, Hct: 36%, Hb: 12.2. Dual Antiplatelet (DAPT) Recommendations: Drug eluting stent (DORINDA) inserted. P2Y12 Loading dose administered prior to arrival in the film laboratory technician. Recommended anti-platelet/anti-thrombotic regimen: Continue aspirin 81 mg daily. Continue clopidogrel 75 mg daily. These recommendations are made at the time of the intervention.Patient and provider preferences or a changing clinical situation mayrequire modification of this regimen. Consult [facility] Interventional Cardiologyfor questions. Conclusions: * Two vessel coronary artery disease (LAD and LCX) * Elevated left ventricular end diastolic pressure * Successful stent insertion of the proximal LAD lesion * Successful stent insertion of the mid LAD lesion * See Dual Antiplatelet (DAPT) Recommendations above Complications/Events: The patient had no complications during these procedures. Post Procedure Fluid Recommendations: IV fluid at 169 mL/hr for 4 hours for a total of 676 mL. These recommendations are made at the time of the procedure. Patient and provider preferences or a changing clinical situation may require modification of this regimen. Recommendations: Based upon the results of these procedures, it was recommended thatthe patient be managed with medical therapy and have coronaryintervention. The attending physician was present for the entire procedure. Dr. Marina Mullen M.D. was present during the moderate sedation intraservice time as documented by the sedation nurse. Case time =01:15. Dr. Marina Mullen M.D. performed the coronary angiography, leftheart catheterization, IVUS # coronary, stent insertion-coronary and ABG. Marina Mullen M.D. Electronically Signed by: Marina Mullen M.D. Report Finalized: 11/06/2023 09:56 Report Last Ammended: 11/08/2023 07:27 Marina Willard MD CARDIAC CATH ORDERA BLES * (ABNORMAL) Troponin-T, High Sensitivity (11/05/2023 4:03 PM EDT) Troponin-T, High Sensitivity Initial 1,941(H ) <=22 ng/L 11/05/2023 6:19 PM EDT [facility] Comment: This patient's troponin T concentration [...] troponin value can be found in the [facility] Laboratory Test Catalog Troponin - https://[email or web address].org/catalogs/565/files/42105 Reference: [facility] Definition of Myocardial Infarction. Journal of the [place] [employer] 2018;72:9784-7906 Blood VENOUS BLOOD SPECIMEN / Unknown IP Care Team Draw / Unknown 11/05/2023 4:03 PM EDT 11/05/2023 5:22 PM EDT Prashant Calvin MD CHEMISTRY ORDERABLES [facility] [place] [address] * Hemoglobin A1c (11/05/2023 4:03 PM EDT) [facility] Hemoglobin A1c 5.4 4.3 - 5.6 % 11/05/2023 8:50 PM EDT [facility] Comment: Per ADA guidelines, without clear [...] red blood cell turnover may not be sales representative wire rope of glycemic control. Reference Interval: 4.3 - 5.6% 5.7 - 6.4%: Consistent with prediabetes >=6.5%: Consistent with diagnosis of diabetes mellitus Estimated Average Glucose 11/05/2023 8:50 PM EDT [facility] Comment:Not Calculated. Blood VENOUS BLOOD SPECIMEN / Unknown IP Care Team Draw / Unknown 11/05/2023 4:03 PM EDT 11/05/2023 5:22 PM EDT Narrative [facility] - 11/05/2023 8:50 PM EDT Estimated average glucose (eAG) is calculated from the equation described in: Bahman DM, Lia J, Gala R, et al. ??Translating the A1C assay into estimated average glucose values. ??Diabetes Care 2008:31(8):9521-5478. Additional resources are available on the ADA website (diabetes.org). Prashant Calvin MD CHEMISTRY ORDERABLES Performing Organization Address City/[facility]/ZIP Co de Phone Number [facility] [place] [address] * Lipid Panel (Reflex Direct LDL) (11/05/2023 4:03 PM EDT) [facility] Cholesterol, Total 108 mg/dL 11/05/2023 6:13 PM EDT [facility] Comment: Desirable: < 200 mg/dL Borderline High: 200 - 239 mg/dL High: > or = 240 mg/dL Triglyceride 37 mg/dL 11/05/2023 6:13 PM T [facility] Comment: Normal: <150 mg/dL Borderline High: 150-199 mg/dL High: 200-499 mg/dL Very High: > or =500 mg/dL HDL Cholesterol 40 mg/dL 4 6:13 PM T [facility] Comment:Males: High Risk: <4 0 mg/dL LDL Cholesterol 58 mg/dL 4 6:13 PM [facility] Comment: Desirable: <100 mg/dL Above Desirable: 100-129 mg/dL Borderline High: 130-159 mg/dL High: 160-189 mg/dL Very High: > or =190 mg/dL Note: LDL calculation updated to the NIH LDL formula as of 10/21/2023 Non-HDL Cholesterol 68 mg/dL 11/05/2023 6:13 PM [facility] Comment: Desirable: <130 mg/dL Above Desirable: 130-159 mg/dL Borderline High: 160-189 mg/dL High: 190-219 mg/dL Very High: > or = 220 mg/dL Blood VENOUS BLOOD SPECIMEN / Unknown IP Care Team Draw / Unknown 11/05/2023 4:03 PM EDT 11/05/2023 5:22 PM EDT [facility] LABORATORY - 11/05/2023 6:13 PM EDT It [...] ACC/AHA Guidelines (most recently Margarette et al. [facility] 12/20/21): * For individuals with atherosclerotic cardiovascular [...] artery disease) Prashant Calvin MD CHEMISTRY ORDERABLES [facility] [place] [address] * Hepatic Function Panel (11/05/2023 4:03 PM EDT) [facility] Albumin 3.6 3.2 - 5.2 g/dL 11/05/2023 6:13 PM EDT [facility] Aspartate Aminotransferase 35 <=39 unit/L 11/05/2023 6:13 PM EDT [facility] Alanine Aminotransferase 15 0 - 55 unit/L 11/05/2023 6:13 PM EDT [facility] Alkaline Phosphatase 74 40 - 130 unit/L 11/05/2023 6:13 PM EDT [facility] Bilirubin, Total 0.3 <=1.3 mg/dL 11/05/2023 6:13 PM EDT [facility] Bilirubin, Direct 0.2 0.0 - 0.3 mg/dL 11/05/2023 6:13 PM EDT [facility] Protein, Total 6.6 6.1 - 8.0 g/dL 11/05/2023 6:13 PM EDT [facility] Blood VENOUS BLOOD SPECIMEN / Unknown IP Care Team Draw / Unknown 11/05/2023 4:03 PM EDT 11/05/2023 5:22 PM EDT Prashant Calvin MD CHEMISTRY ORDERABLES [facility] [place] [address] * (ABNORMAL) pro-Brain Natriuretic Peptide (11/05/2023 4:03 PM EDT) NT-proBNP 15,949(H) <=124 pg/mL 11/05/2023 6:13 PM EDT [facility] Blood VENOUS BLOOD SPECIMEN / Unknown IP Care Team Draw / Unknown 11/05/2023 4:03 PM EDT 11/05/2023 5:22 PM EDT Prashant Calvin MD CHEMISTRY ORDERABLES [facility] [place] [address] * TSH (11/05/2023 4:03 PM EDT) Thyroid Stimulating Hormone 2.25 0.27 - 4.20 mcIU/mL 11/05/2023 6:13 PM EDT [facility] Blood VENOUS BLOOD SPECIMEN / Unknown IP Care Team Draw / Unknown 11/05/2023 4:03 PM EDT 11/05/2023 5:22 PM EDT Prashant Calvin MD CHEMISTRY ORDERABLES [facility] [place] [address] * Phosphorus (11/05/2023 4:03 PM EDT) Phosphorus 3.3 2.5 - 4.5 mg/dL 11/05/2023 6:13 PM EDT [facility] Blood VENOUS BLOOD SPECIMEN / Unknown IP Care Team Draw / Unknown 11/05/2023 4:03 PM EDT 11/05/2023 5:22 PM EDT Prashant Calvin MD CHEMISTRY ORDERABLES Performing Organization Address City/[facility]/ZIP Co de Phone Number [facility] [place] [address] * Magnesium (11/05/2023 4:03 PM EDT) Magnesium 1.04 0.69 - 1.07 mMol/L 11/05/2023 6:13 PM EDT [facility] Blood VENOUS BLOOD SPECIMEN / Unknown IP Care Team Draw / Unknown 11/05/2023 4:03 PM EDT 11/05/2023 5:22 PM EDT Prashant Calvin MD CHEMISTRY ORDERABLES [facility] [place] [address] * (ABNORMAL) Basic Metabolic Panel (11/05/2023 4:03 PM EDT) Glucose 185 65 - 199 mg/dL 11/05/2023 6:13 PM EDT [facility] Comment:Glucose Concentratio n >=200 mg/dL plus symptoms is consistent with Diabetes Mellitus. Blood Urea Nitrogen 22(H) 10 - 20 mg/dL 11/05/2023 6:13 PM [facility] Creatinine 1.28 0.80 - 1.50 mg/dL 11/05/2023 6:13 PM [facility] Sodium 132(L) 135 - 145 mMol/L 11/05/2023 6:13 PM [facility] Potassium 3.7 3.5 - 5.0 mMol/L 11/05/2023 6:13 PM [facility] Chloride 95(L) 98 - 107 mMol/L 11/05/2023 6:13 PM [facility] Carbon Dioxide 22 22 - 31 mMol/L 11/05/2023 6:13 PM [facility] Anion Gap 15 5 - 15 mMol/L 11/05/2023 6:13 PM [facility] Calcium 8.6 8.5 - 10.5 mg/dL 11/05/2023 6:13 PM [facility] Est Glomerular Filtration Rate - Male 58 mL/min/1. 73 m?? 11/05/2023 6:13 PM [facility] Comment: This patient's estimated GFR was [...] PM EDT Prashant Calvin MD CHEMISTRY ORDERABLES [facility] [place] [address] * (ABNORMAL) CBC (with Diff) (11/05/2023 4:03 PM EDT) White Blood Cell 18.52(H) 4.00 - 9.50 x10(3)/mc L 11/05/2023 5:33 PM EDT [facility] Red Blood Cell 5.03 4.58 - 5.54 x10(6)/mc L 11/05/2023 5:33 PM EDT [facility] Hemoglobin 12.2(L) 13.7 - 16.5 g/dL 11/05/2023 5:33 PM EDT [facility] Hematocrit 38.6(L) 40.5 - 48.5 % 11/05/2023 5:33 PM EDT [facility] Mean Cell Volume 76.7(L) 82.9 - 93.1 fL 11/05/2023 5:33 PM EDT [facility] Mean Cell Hemoglobin 24.3(L) 27.5 - 32.1 pg 11/05/2023 5:33 PM EDT [facility] Mean Cell Hemoglobin Concentration 31.6(L) 32.0 - 35.7 g/dL 11/05/2023 5:33 PM EDT [facility] Platelet 261 145 - 357 x10(3)/mc L 11/05/2023 5:33 PM EDT [facility] Mean Platelet Volume 9.4 7.6 - 12.9 fL 11/05/2023 5:33 PM EDT [facility] RDW Standard Deviation 47.9(H) 36.0 - 45.0 fL 11/05/2023 5:33 PM EDT [facility] RDW coefficient of variation 17.6(H) 11.4 - 13.8 % 11/05/2023 5:33 PM EDT [facility] NRBC% auto 0.0 % 11/05/2023 5:33 PM EDT [facility] NRBC Absolute 0.00 0.00 - 0.00 x10(3)/mc L 11/05/2023 5:33 PM EDT [facility] Neutrophil % 94.1 % 11/05/2023 5:33 PM EDT [facility] Neutrophil Absolute (ANC) - Automated 17.44(H) 1.70 - 6.10 x10(3)/mc L 11/05/2023 5:33 PM EDT [facility] Lymph % 1.6 % 11/05/2023 5:33 PM EDT [facility] Lymph Absolute 0.30(L) 0.90 - 3.20 x10(3)/mc L 11/05/2023 5:33 PM EDT [facility] Monocyte % 3.5 % 11/05/2023 5:33 PM EDT [facility] Monocyte Absolute 0.64 0.30 - 0.90 x10(3)/mc L 11/05/2023 5:33 PM EDT [facility] Eos % 0.0 % 11/05/2023 5:33 PM EDT [facility] Eos Absolute 0.00 0.00 - 0.40 x10(3)/mc L 11/05/2023 5:33 PM EDT [facility] Basophil % 0.2 % 11/05/2023 5:33 PM EDT [facility] Baso Absolute 0.03 0.00 - 0.10 x10(3)/mc L 11/05/2023 5:33 PM EDT [facility] Immature Gran % 0.6 % 5:33 PM EDT [facility] Immature Gran Absolute 0.11(H) 0.00 - 0.04 x10(3)/mc L 11/05/2023 5:33 PM [facility] Blood VENOUS BLOOD SPECIMEN / Unknown IP Care Team Draw / Unknown 11/05/2023 4:03 PM EDT 11/05/2023 5:22 PM EDT Prashant Calvin MD HEMATOLOGY ORDERABLE S Performing Organization Address City/[facility]/ZIP Co de Phone Number [facility] [place] [address] * (ABNORMAL) POC, GLUCOSE (11/05/2023 3:44 PM EDT) Glucometer, POC 239(H) 65 - 199 mg/dL 11/05/2023 3:44 PM EDT [facility] Comment:Supplemental ranges: <140 mg/dL before meals <180 mg/dL all other times of the day. Blood CAPILLARY BLOOD / Unknown 11/05/2023 3:44 PM EDT 11/05/2023 3:44 PM EDT Prashant Calvin MD POINT OF CARE TEST O RDERABLES Performing Organization Address City/[facility]/ZIP Co de Phone Number [facility] [place] [address] * (ABNORMAL) BLOOD GAS, POC (11/05/2023 3:22 PM EDT) Sodium, POC 131(L) 135 - 145 mmol/L 11/08/2023 8:27 AM EDT [facility] Potassium, POC 3.6 3.5 - 5.0 mmol/L 11/08/2023 8:27 AM EDT [facility] pH, POC 7.35 7.35 - 7.45 11/08/2023 8:27 AM EDT [facility] Ionized Calcium, POC 1.14(L) 1.15 - 1.33 mmol/L 11/08/2023 8:27 AM EDT [facility] pCO2, POC 39 35 - 45 mmHg 11/08/2023 8:27 AM EDT [facility] pO2, POC 76(L) 85 - 104 mmHg 11/08/2023 8:27 AM EDT [facility] Base Excess, POC -4.0(L) -3.0 - 3.0 mmol/L 11/08/2023 8:27 AM EDT [facility] Hematocrit, POC 36.0(L) 40.5 - 48.5 %PCV 11/08/2023 8:27 AM EDT [facility] Hemoglobin, POC 12.2(L) 13.7 - 16.5 g/dL 11/08/2023 8:27 AM EDT [facility] Comment:The calculation of h emoglobin from hematocrit assumes a normal MCHC. Bicarbonate, POC 21.4 20.0 - 26.0 mmol/L 11/08/2023 8:27 AM EDT [facility] Carbon Dioxide, POC 23 22 - 31 mmol/L 11/08/2023 8:27 AM EDT [facility] Blood VENOUS BLOOD SPECIMEN / Unknown 11/05/2023 3:22 PM EDT 11/08/2023 8:27 AM EDT Prashant Calvin MD POINT OF CARE TEST O RDERABLES [facility] [place] [phone] documented in this encounter Visit Diagnoses Not on filedocumented in this encounter Admitting Diagnoses Diagnosis CAD (coronary artery disease) Coronary atherosclerosis of unspecified type of vessel, [place] or graft documented in this encounter Administered Medications Inactive Administered Medications - up to 3 most recent administrations Medication Order MAR Action Action Date Dose Rate Site acetaminophen (Tylenol) tablet 650 mg 650 mg, Oral, EVERY 6 HOURS PRN, Starting on Sun11/05/23 at 2258, Until Sun11/09/23 at 1820, Pain, - Maximum dose of acetaminophen is 4,000 mg from all sources in 24 hours. - Unless otherwise specified, when ordered PRN for pain, acetaminophen should be given first if other PRN pain medications are ordered., Routine Given 11/08/2023 5:45 PM EDT 650 mg Given 11/07/2023 2:15 PM EDT 650 mg Given 11/06/2023 7:59 PM EDT 650 mg aspirin EC tablet 81 mg 81 mg, Oral, DAILY, First dose on Sun11/06/23 at 0900, Until Discontinued, Recovery (Recovery-Hospital Unit), Routine Given 11/09/2023 8:30 AM EDT 81 mg Given 11/08/2023 9:11 AM EDT 81 mg Given 11/07/2023 8:21 AM EDT 81 mg clopidogreL (Plavix) tablet 75 mg 75 mg, Oral, DAILY, First dose on Sun11/06/23 at 0900, Until Discontinued, Recovery (Recovery-Hospital Unit), Routine Given 11/09/2023 8:30 AM EDT 75 mg Given 11/08/2023 9:11 AM EDT 75 mg Given 11/07/2023 8:21 AM EDT 75 mg fentaNYL (pf) (50 mcg/mL) multi-dose injection PRN, Starting on Sun11/05/23 at 1529, Until Sun11/06/23 at 1005, Intra-Operative (Intra-Procedure), Routine Given 11/05/2023 3:29 PM EDT 25 mcg heparin (porcine) (1,000 units/mL) injection PRN, Starting on Sun11/05/23 at 1509, Until Sun11/06/23 at 1005, Intra-Operative (Intra-Procedure), Routine Given 11/05/2023 3:28 PM EDT 4,000 Units Given 11/05/2023 3:09 PM EDT 4,000 Units iohexoL (Omnipaque) (350 mg/mL) solution PRN, Starting on Sun11/05/23 at 1616, Until Sun11/06/23 at 1005, Intra-Operative (Intra-Procedure), Routine Given 11/05/2023 4:16 PM EDT 189 mLs ipratropium-albuteroL (Duoneb) 0.5 mg-3 mg(2.5 mg base)/3 mL nebulizer solution 3 mL 3 mL, Nebulization, EVERY 4 HOURS PRN, Starting on Sun11/06/23 at 0931, Until Sun11/09/23 at 1820, Wheezing, Routine lidocaine (Xylocaine) 1% (10 mg/mL) injection 3 mg 3 mg (0.3 mL), Subcutaneous, ONCE PRN, 1 dose, Starting on Sun11/05/23 at 1503, Until Sun11/09/23 at 1820, for discomfort with PIV insertion, Routine melatonin tablet 6 mg 6 mg, Oral, NIGHTLY PRN, Starting on Sun11/05/23 at 2315, Until Sun11/09/23 at 1820, Sleep, Routine Given 11/06/2023 8:58 PM EDT 6 mg Given 11/06/2023 12:44 AM EDT 6 mg metoprolol tartrate (Lopressor) tablet 12.5 mg 12.5 mg, Oral, EVERY 12 HOURS SCHEDULED (2 times per day), First dose on Sun11/06/23 at 1045, Until Discontinued, Routine Given 11/09/2023 8:30 AM EDT 12.5 mg Given 11/08/2023 8:31 PM EDT 12.5 mg Given 11/08/2023 9:09 AM EDT 12.5 mg midazolam (pf) (Versed) (1 mg/mL) multi-dose injection PRN, Starting on Sun11/05/23 at 1531, Until Sun11/06/23 at 1005, Intra-Operative (Intra-Procedure), Routine Given 11/05/2023 3:31 PM EDT 1 mg nitroGLYcerin (Nitrostat) disintegrating tablet 0.4 mg 0.4 mg, Sublingual, EVERY 5 MIN PRN, Starting on Sun11/05/23 at 1503, Until Sun11/09/23 at 1820, Chest pain, May repeat every 5 minutes for a total of three doses. Notify provider if chest pain not relieved with nitroGLYcerin. Do not administer nitroGLYcerin if the patient has received or taken phosphodiesterase (PDE-5) inhibitors such as sildenafiL, tadalafiL or vardenafiL within the last 24 to 72 hours., Routine nitroGLYcerin 100 mcg/mL intracoronary dilution PRN, Starting on Sun11/05/23 at 1542, Until Sun11/05/23 at 1814, Intra-Operative (Intra-Procedure), Routine Given 11/05/2023 3:56 PM EDT 100 mcg Given 11/05/2023 3:43 PM EDT 100 mcg Given 11/05/2023 3:42 PM EDT 175 mcg pantoprazole EC (Protonix) tablet 40 mg 40 mg, Oral, DAILY, First dose on Sun11/05/23 at 1900, Until Discontinued, DO NOT CRUSH OR OPEN, Routine Given 11/09/2023 8:31 AM EDT 40 mg Given 11/08/2023 9:11 AM EDT 40 mg Given 11/07/2023 8:21 AM EDT 40 mg rosuvastatin (Crestor) tablet 20 mg 20 mg, Oral, EVERY EVENING, First dose on Sun11/05/23 at 1830, Until Discontinued, Routine Given 11/08/2023 5:40 PM EDT 20 mg Given 11/07/2023 5:36 PM EDT 20 mg Given 11/06/2023 4:25 PM EDT 20 mg sodium chloride ([place]) 0.65 % nasal spray 1 spray 1 spray, Each Nare, 2 TIMES DAILY PRN, Starting on Sun11/06/23 at 2004, Until Sun11/09/23 at 1820, Congestion, Routine Given 11/06/2023 8:58 PM EDT 1 spray sodium chloride 0.9 % (flush) (BD PosiFlush Normal Saline 0.9) flush 5 mL 5 mL, Intravenous, 2 TIMES DAILY, First dose on Sun11/05/23 at 2100, Until Discontinued, Routine Given 11/09/2023 8:32 AM EDT 5 mLs Given 11/08/2023 8:31 PM EDT 5 mLs Given 11/08/2023 9:14 AM EDT 5 mLs sodium chloride 0.9 % (flush) (BD PosiFlush Normal Saline 0.9) flush 5-20 mL 5-20 mL, Intravenous, EVERY 1 MIN PRN, Starting on Sun11/05/23 at 1503, Until Sun11/09/23 at 1820, flush, Flush pertains to all indwelling lines. Flush per protocol found in the job aid using the link provided on this medication record., Routine Given 11/05/2023 8:55 PM EDT 5 mLs spironolactone (Aldactone) tablet 12.5 mg 12.5 mg, Oral, DAILY, First dose on Sun11/06/23 at 0900, Until Discontinued, DO NOT SPLIT, CRUSH OR OPEN, Routine Given 11/09/2023 8:31 AM EDT 12.5 mg Given 11/08/2023 9:11 AM EDT 12.5 mg Given 11/07/2023 8:23 AM EDT 12.5 mg valsartan (Diovan) tablet 20 mg 20 mg, Oral, 2 TIMES DAILY, First dose on Sun11/05/23 at 2100, Until Discontinued, Routine Given 11/09/2023 8:30 AM EDT 20 mg Given 11/08/2023 8:31 PM EDT 20 mg Given 11/08/2023 9:00 AM EDT 20 mg documented in this encounter Active and Recently Administered Medications Times are shown in EDT. Scheduled Medication Order 11/07/2023 11/08/2023 11/09/2023 aspirin EC tablet 81 mg 81 mg, Oral, DAILY, First dose on Sun11/06/23 at 0900, Until Discontinued, Recovery (Recovery-Hospital Unit), Routine 08 (Given - Provider: Hilton Guevara RN) 09 (Given - Provider: Altagracia Spears RN) 0830 (Given - Provider: Hilton Guevara RN) clopidogreL (Plavix) tablet 75 mg 75 mg, Oral, DAILY, First dose on Sun11/06/23 at 0900, Until Discontinued, Recovery (Recovery-Hospital Unit), Routine 08 (Given - Provider: Hilton Guevara RN) 09 (Given - Provider: Altagracia Spears RN) 0830 (Given - Provider: Hilton Guevara RN) furosemide (Lasix) (10 mg/mL) injection 60 mg (COMPLETED) 60 mg, Intravenous, ONCE, 1 dose, On Sun11/09/23 at 1030 1110 (Given - Provider: Altagarcia Spears RN) metoprolol tartrate (Lopressor) tablet 12.5 mg 12.5 mg, Oral, EVERY 12 HOURS SCHEDULED (2 times per day), First dose on Sun11/06/23 at 1045, Until Discontinued, Routine 08 (Given - Provider: Hilton Guevara RN)2020 (Given - Provider: Mara Puri RN) 0909 (Given - Provider: Altagracia Spears RN)1330 (MAR Hold - Provider: Admin Adt - Reason: Transfer to a Procedural area)153 (MAR Unhold - Provider: Admin Adt)2030 (Given - Provider: Mara Puri, ROWENA) 0830 (Given - Provider: Hilton Guevara RN) pantoprazole EC (Protonix) tablet 40 mg 40 mg, Oral, DAILY, First dose on Sun11/05/23 at 1900, Until Discontinued, DO NOT CRUSH OR OPEN, Routine 0821 (Given - Provider: Hilton Guevara RN) 0911 (Given - Provider: Altagracia Spears, ROWENA)1330 ([facility] Hold - Provider: Admin Adt - Reason: Transfer to a Procedural area)1531 ([facility] Unhold - Provider: Admin Adt) 0831 (Given - Provider: Hilton Guevara RN) potassium chloride ER (Klor-Con M) crystal tablet 40 mEq (COMPLETED) 40 mEq, Oral, ONCE, 1 dose, On Sun11/07/23 at 1245, potassium chloride ER particle/crystal tablets (Klor-Con M) may be broken in half and each half swallowed separately. Tablets can be dissolved in ~4 ounces of water; allow ~2 minutes to dissolve, stir well and drink immediately. Do not crush, chew, or suck on tablet., Routine 1412 (Given - Provider: Hilton Guevara RN) rosuvastatin (Crestor) tablet 20 mg 20 mg, Oral, EVERY EVENING, First dose on Sun11/05/23 at 1830, Until Discontinued, Routine 1736 (Given - Provider: Hilton Guevara RN) 1330 ([facility] Hold - Provider: Admin Adt - Reason: Transfer to a Procedural area)1531 ([facility] Unhold - Provider: Admin Adt)1740 (Given - Provider: Altagracia Spears, ROWENA) sodium chloride 0.9 % (flush) (BD PosiFlush Normal Saline 0.9) flush 5 mL 5 mL, Intravenous, 2 TIMES DAILY, First dose on Sun11/05/23 at 2100, Until Discontinued, Routine 0822 (Given - Provider: Hilton Guevara RN)2020 (Given - Provider: Mara Puri, ROWENA) 0914 (Given - Provider: Altagracia Spears, ROWENA)1330 ([facility] Hold - Provider: Admin Adt - Reason: Transfer to a Procedural area)1531 ([facility] Unhold - Provider: Admin Adt)2030 (Given - Provider: Mara Puri, ROWENA) 0832 (Given - Provider: Hilton Guevara RN) spironolactone (Aldactone) tablet 12.5 mg 12.5 mg, Oral, DAILY, First dose on Sun11/06/23 at 0900, Until Discontinued, DO NOT SPLIT, CRUSH OR OPEN, Routine 0823 (Given - Provider: Hilton Guevara RN) 0911 (Given - Provider: Altagracia Spears RN)1330 ([facility] Hold - Provider: Admin Adt - Reason: Transfer to a Procedural area)153 ([facility] Unhold - Provider: Admin Adt) 0831 (Given - Provider: Hilton Guevara RN) valsartan (Diovan) tablet 20 mg 20 mg, Oral, 2 TIMES DAILY, First dose on Sun11/05/23 at 2100, Until Discontinued, Routine 0823 (Given - Provider: Hilton Guevara RN)2020 (Given - Provider: Mara Puri RN) 0900 (Given - Provider: Altagracia Spears RN)1330 ([facility] Hold - Provider: Admin Adt - Reason: Transfer to a Procedural area)153 ([facility] Unhold - Provider: Admin Adt)2030 (Given - Provider: Mara Puri RN) 0830 (Given - Provider: Hilton Guevara RN) Continuous Medication Order 11/07/2023 11/08/2023 11/09/2023 heparin (porcine) 50 units/mL in dextrose 5% 500 mL infusion (CANCELED)(Linked Group 1) 0-5,000 Units/hr (0-100 mL/hr), Intravenous, CONTINUOUS, Starting on Sun11/05/23 at 1830, Until Barbara 11/08/23 at 0934, Begin infusion at 1,000 units per hr (12 units/kg/hr). Maximum initial infusion rate is 1,000 units/hr. Infusion doses are rounded to the nearest 50 units. Target Heparin UFH Level (anti-Xa activity) = 0.3 - 0.7 international unit/mL Start adjustment schedule 6 hours after starting infusion. If Heparin UFH Level is: - Less than 0.1 international unit/mL: Administer PRN bolus and increase rate by 450 units per hr (4 units/kg/hr) - 0.1 - 0.19 international unit/mL: Administer PRN bolus and increase rate by 250 units per hr (2 units/kg/hr) - 0.2 - 0.29 international unit/mL: NO BOLUS and increase rate by 250 units per hr (2 units/kg/hr) - 0.3 - 0.7 international unit/mL: No change - 0.71 - 0.79 international unit/mL: NO BOLUS and decrease rate by 100 units per hr (1 units/kg/hr) - 0.8 - 0.99 international unit/mL: NO BOLUS and decrease rate by 250 units per hr (2 units/kg/hr) - Greater than or equal to 1.00 international unit/mL: Hold infusion for 60 minutes then decrease rate by 350 units per hour (3 units/kg/hr) Obtain Heparin UFH Level 6 hours after initiating heparin. Then 6 hours after each dose adjustment. When 2 consecutive Heparin UFH Level within target range of 0.3 - 0.7 international unit/mL, change Heparin UFH Level to once every 24 hours with A.M. labs while on heparin. RN to order required Heparin UFH Level - Per Protocol, Routine 0521 (New Bag - Provider: Nancy Samuels RN)1944 (New Bag - Provider: Mara Puri, ROWENA) 0325 (Rate/Dose Verify - Provider: Mara Puri RN)0948 (Hold - Provider: Altagracia Spears RN - Reason: Per MD Order) sodium chloride 0.9% infusion () 100 mL/hr, Intravenous, CONTINUOUS, Starting on Barbara 11/08/23 at 1515, Until Barbara 11/08/23 at 1914, Recovery (Recovery-Hospital Unit) 1515 (Continued Bag - Provider: Taisha Dahl RN) PRN Medication Order 11/07/2023 11/08/2023 11/09/2023 acetaminophen (Tylenol) tablet 650 mg 650 mg, Oral, EVERY 6 HOURS PRN, Starting on 11/05/23 at 2258, Until Sun11/09/23 at 1820, Pain, - Maximum dose of acetaminophen is 4,000 mg from all sources in 24 hours. - Unless otherwise specified, when ordered PRN for pain, acetaminophen should be given first if other PRN pain medications are ordered., Routine 1415 (Given - Provider: Hilton Guevara RN) 1330 ([facility] Hold - Provider: Admin Adt - Reason: Transfer to a Procedural area)153 ([facility] Unhold - Provider: Admin Adt)1745 (Given - Provider: Hilton Guevara RN) fentaNYL (pf) (50 mcg/mL) multi-dose injection (CANCELED) PRN, Starting on Barbara 11/08/23 at 1351, Until Barbara 11/08/23 at 1531, Intra-Operative (Intra-Procedure), Routine 1351 (Given - Provider: Mylene Martin RN) heparin (porcine) (1,000 units/mL) injection (CANCELED) PRN, Starting on Barbara 11/08/23 at 1400, Until Barbara 11/08/23 at 1531, Intra-Operative (Intra-Procedure), Routine 1400 (Given - Provider: Mylene Martin RN)1407 (Given - Provider: Mylene Martin, ROWENA)1424 (Given - Provider: Mylene Martin, ROWENA) ipratropium-albuteroL (Duoneb) 0.5 mg-3 mg(2.5 mg base)/3 mL nebulizer solution 3 mL 3 mL, Nebulization, EVERY 4 HOURS PRN, Starting on Sun11/06/23 at 0931, Until Sun11/09/23 at 1820, Wheezing, Routine 1330 ([facility] Hold - Provider: Admin Adt - Reason: Transfer to a Procedural area)153 ([facility] Unhold - Provider: Admin Adt) lidocaine (Xylocaine) 1% (10 mg/mL) injection 3 mg 3 mg (0.3 mL), Subcutaneous, ONCE PRN, 1 dose, Starting on Sun11/05/23 at 1503, Until Sun11/09/23 at 1820, for discomfort with PIV insertion, Routine 1330 ([facility] Hold - Provider: Admin Adt - Reason: Transfer to a Procedural area)1531 ([facility] Unhold - Provider: Admin Adt) melatonin tablet 6 mg 6 mg, Oral, NIGHTLY PRN, Starting on Sun11/05/23 at 2315, Until Sun11/09/23 at 1820, Sleep, Routine 1330 ([facility] Hold - Provider: Admin Adt - Reason: Transfer to a Procedural area)1531 ([facility] Unhold - Provider: Admin Adt) midazolam (pf) (Versed) (1 mg/mL) injection (CANCELED) PRN, Starting on Barbara 11/08/23 at 1351, Until Barbara 11/08/23 at 1531, Intra-Operative (Intra-Procedure), Routine 1351 (Given - Provider: Mylene Martin RN) nitroGLYcerin (Nitrostat) disintegrating tablet 0.4 mg 0.4 mg, Sublingual, EVERY 5 MIN PRN, Starting on Sun11/05/23 at 1503, Until Sun11/09/23 at 1820, Chest pain, May repeat every 5 minutes for a total of three doses. Notify provider if chest pain not relieved with nitroGLYcerin. Do not administer nitroGLYcerin if the patient has received or taken phosphodiesterase (PDE-5) inhibitors such as sildenafiL, tadalafiL or vardenafiL within the last 24 to 72 hours., Routine 1330 ([facility] Hold - Provider: Admin Adt - Reason: Transfer to a Procedural area)1531 ([facility] Unhold - Provider: Admin Adt) nitroGLYcerin 100 mcg/mL intracoronary dilution (CANCELED) PRN, Starting on Barbara 11/08/23 at 1355, Until Barbara 11/08/23 at 1531, Intra-Operative (Intra-Procedure), Routine 1355 (Given - Provider: RHIANNA Alves)1402 (Given - Provider: Joslyn Machado MD) sodium chloride ([place]) 0.65 % nasal spray 1 spray 1 spray, Each Nare, 2 TIMES DAILY PRN, Starting on Sun11/06/23 at 2004, Until Sun11/09/23 at 1820, Congestion, Routine 1330 ([facility] Hold - Provider: Admin Adt - Reason: Transfer to a Procedural area)153 ([facility] Unhold - Provider: Admin Adt) sodium chloride 0.9 % (flush) (BD PosiFlush Normal Saline 0.9) flush 5-20 mL 5-20 mL, Intravenous, EVERY 1 MIN PRN, Starting on Sun11/05/23 at 1503, Until Sun11/09/23 at 1820, flush, Flush pertains to all indwelling lines. Flush per protocol found in the job aid using the link provided on this medication record., Routine 1330 ([facility] Hold - Provider: Admin Adt - Reason: Transfer to a Procedural area)1531 ([facility] Unhold - Provider: Admin Adt) verapamiL (Isoptin) (2.5 mg/mL) injection (CANCELED) PRN, Starting on Barbara 11/08/23 at 1354, Until Barbara 11/08/23 at 1531, Administer over 2 Minutes, Intra-Operative (Intra-Procedure) 1354 (Given - Provider: RHIANNA Alves) Linked Groups Order Group 1: heparin (porcine) 50 units/mL in dextrose 5% 500 mL infusion (CANCELED)Jump to med 0-5,000 Units/hr (0-100 mL/hr), Intravenous, CONTINUOUS, Starting on 11/05/23 at 1830, Until Barbara 11/08/23 at 0934, Begin infusion at 1,000 units per hr (12 units/kg/hr). Maximum initial infusion rate is 1,000 units/hr. Infusion doses are rounded to the nearest 50 units. Target Heparin UFH Level (anti-Xa activity) = 0.3 - 0.7 international unit/mL Start adjustment schedule 6 hours after starting infusion. If Heparin UFH Level is: - Less than 0.1 international unit/mL: Administer PRN bolus and increase rate by 450 units per hr (4 units/kg/hr) - 0.1 - 0.19 international unit/mL: Administer PRN bolus and increase rate by 250 units per hr (2 units/kg/hr) - 0.2 - 0.29 international unit/mL: NO BOLUS and increase rate by 250 units per hr (2 units/kg/hr) - 0.3 - 0.7 international unit/mL: No change - 0.71 - 0.79 international unit/mL: NO BOLUS and decrease rate by 100 units per hr (1 units/kg/hr) - 0.8 - 0.99 international unit/mL: NO BOLUS and decrease rate by 250 units per hr (2 units/kg/hr) - Greater than or equal to 1.00 international unit/mL: Hold infusion for 60 minutes then decrease rate by 350 units per hour (3 units/kg/hr) Obtain Heparin UFH Level 6 hours after initiating heparin. Then 6 hours after each dose adjustment. When 2 consecutive Heparin UFH Level within target range of 0.3 - 0.7 international unit/mL, change Heparin UFH Level to once every 24 hours with A.M. labs while on heparin. RN to order required Heparin UFH Level - Per Protocol, Routine And heparin (porcine) (1,000 units/mL) injection 0-4,000 Units (CANCELED) 0-4,000 Units, Intravenous, BOLUS PER HEPARIN PROTOCOL, Starting on 11/05/23 at 1814, Until Barbara 11/08/23 at 0934, Per Protocol, START ADJUSTMENT SCHEDULE 6 HOURS AFTER STARTING INFUSION Bolus doses are rounded to the nearest 100 units. If Heparin UFH Level is: - Less than 0.1 international unit/mL: Bolus 60 units/kg (Maximum of 4,000 units) = Bolus 4,000 units - 0.1 - 0.19 International unit/mL: Bolus 30 units/kg (Maximum of 2,000 units) = Bolus 2,000 units - Equal to or greater than 0.2 international unit/mL: No Bolus, Routine documented in this encounter Care Teams Database Dba Relationship Specialty Start Date End Date None None PCP - General 11/05/23 documented as of this encounter
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
--- OUTSIDE RECORDS SUMMARY | 2023-11-17 17:09 | XMS_ITS | Encounter Summary ---
Author Organization [facility] [place] [address] Care Team Providers Care Instrument Assembly Supervisor Name Role Phone None Primary Care Provider Unavailabl e Reason for Referral * Consultation (Routine) - Authorized Specialty Diagnoses / Procedures Referred By Terrance og Referred To Contact Urology Diagnoses Hematuria, unspecified type Danni Joy MD [facility] [place] [address] [facility] [address] Referral ID Status Reason Start Date Expiration Date Visits Requested Visits Authorized [id number] Authorized Consult, Test & Treat 11/09/2023 11/08/2024 11 11 * Consultation (Routine) - Authorized Specialty Diagnoses / Procedures Referred By Terrance og Referred To Contact Cardiology Diagnoses NSTEMI (non-ST elevated myocardial infarction) Danni Joy MD [facility] [place] [address] Cardiac Rehab, [address] [address] Referral ID Status Reason Start Date Expiration Date Visits Requested Visits Authorized [id number] Authorized Consult, Test & Treat 11/09/2023 05/07/2024 36 36 Reason for Visit * Auth/Cert (Routine) Specialty Diagnoses / Procedures Referred By Angkimberly t Referred To Contact Diagnoses CAD (coronary artery disease) LHC/CORS Procedures CARDIAC CATHETERIZATION Marnia Mullen MD [facility] [place] [address] [facility] Referral ID Status Reason Start Date Expiration Date Visits Re quested Visits Authorized [id number] 1 1 Encounter Details Date Type Department Care Team (Latest Contact Info) Description 11/05/2023 2:43 PM EDT - 11/09/2023 4:19 PM EDT Hospital Encounter Heart and Vascular Unit Level 4 Wing A at [place] [phone] [facility] [place] [address] [address] [facility] [place] [address] [facility] [place] [address] [facility] [place] [address] Non-ST elevation myocardial infarction (NSTEMI); Coronary artery disease involving alturas heart, unspecified vessel or lesion type, unspecified whether angina present; NSTEMI (non-ST elevated myocardial infarction); Hematuria, unspecified type Discharge Disposition: Home Social History Tobacco Use Types Packs/Day Years Used Date Smoking Tobacco: Former Cigarettes Q uit: 1996 Passive Smoke Exposure: Past Smokeless Tobacco: Never Tobacco Cessation:Counseling Given: Yes Alcohol Use Standard Drinks/Week Comments Yes 14 (1 standard drink = 0.6 oz pu re alcohol) [facility] Utilities Answer Date Recorded In the past 12 months has [employer], gas, oil, or water [employer] threatened to shut off services in your [...] any time in the past 12 m [facility], were you homeless or living in a nursing home (including now)? No 11/06/2023 DH IPV Inpatient [...] Mass Index 28.83 11/06/2023 3:00 AM EDT documented in this encounter Discharge Summaries * Danni Joy MD - 11/09/2023 4:19 PM EDT Discharge Summary Patient Name: Rose Buck Patient Age: 73 y.o. Language: Tongan Race: Choose not to Disclose Ethnicity: Choose [...] please contact your inpatient physician through the [facility] Educational Program Assistant . Issues afterhours and on weekends will [...] HTN, PAD, gout and arthritis transferred from [facility] for PCI with angioplasty. He refers experiencing [...] 4.1 3.7 CL 103 99 94* CO2 BUN 21* 27* 32* CREATININE 1.03 1.15 [...] of 8AM-5PM please call the Cardiology Clinic [phone] to speak with a nurse. All other hours please call the Hospital Educational Program Assistant [phone] and ask to speak to the credit rating inspector on-call. Return to work: One week Driving: No driving for 48 hours after cath Follow up Appointments: 11/27/2023 2:20 PM Mara Robins PA [facility] CARDIOLOGY 4A Arrive at: Pedigree Researcher Area 4A Home oxygen therapy: N/A Arrangements [...] of one year. After this time, your pattern ruler will determine if you need to continue [...] away. Stay on the phone. The emergency finishing tunnel operator will tell you what to do. [...] has weakened. We evaluated this further with [facility] and believe CAD caused this weakening. You [...] 11/22/2023 1:00 PM LAB, THREE L [facility] Arrive at: Ped[facility]ree Researcher Area 3L [phone] 11/22/2023 2:00 PM Nahed Moore PA Cardiology at [facility] Arrive at: Pedigree Researcher Area 4A [phone] 11/27/2023 2:20 PM Mara Robins PA Cardiology at [facility] Arrive at: Pedigree Researcher Area 4A [phone] Future Orders Complete By Expires Referral to Cardiac Rehab [[id number] Custom] As directed Process Instructions: If no progress note charted, please enter Clinical details in comments. Scheduling Instructions: Questions: My question or request is: NSTEMI, staged PCI- cardiac rehab at [facility] Referral to Urology [[id number] Custom] As directed Process Instructions: If no [...] of 8AM-5PM please call the Cardiology Clinic [phone] to speak with a nurse. All other hours please call the Hospital Educational Program Assistant [phone] and ask to speak to the credit rating inspector on-call. Return to work: One week Driving: No driving for 48 hours after cath Follow up Appointments: 11/27/2023 2:20 PM Mara Robins PA [facility] CARDIOLOGY 4A Arrive at: Pedigree Researcher Area 4A Home oxygen therapy: N/A Arrangements [...] of one year. After this time, your pattern ruler will determine if you need to continue [...] away. Stay on the phone. The emergency finishing tunnel operator will tell you what to do. [...] has weakened. We evaluated this further with [facility] and believe CAD caused this weakening. You [...] diet consult following NSTEMI S/p LAD stent. Senior Front End Engineer met with pt at bedside. Senior Front End Engineer provided Guidelines for a Heart Healthy Lifestyle handout and discussed with pt his typical eating habits. Pt stated he typically cooks at home for him and his , and rarely goes out to eat. Pt stated that he gave up red meat and likes cooking with fresh fruit and vegetables. Senior Front End Engineer highlighted the importance of decreasing alcohol consumption [...] Orders Diet Daily Healthy Menu Choices/Cardiac diet ([facility]-Diet) Frequency: Effective Now Number of Occurrences: Until [...] unless consulted in the interim. Bekah Saeed Tile And Marble Setter * Danni Joy MD - 11/08/2023 2:06 [...] Negative. Psychiatric/Behavioral: Negative. Lab Comments: Recent Labs 11/08/2324511/07/23 0138 11/06/23 0408 WBC 7.95 12.68* 16.03* [...] in the last 168 hours. Recent Labs 11/07/2313711/06/238 11/05/23 1603 NA 133* 133* 132* K 3.7 4.1 3.7 CL 94* 95* 95* CO2 24 23 22 BUN 32* 25* 22* CREATININE 1.35 1.40 1.28 Recent Labs 11/05/23 1603 AST 35 ALT 15 ALKPHOS 74 BILITOT 0.3 BILIDIR 0.2 Recent Labs 11/07/238 11/06/23 0408 11/05/23 1603 CALCIUM 8.9 9.0 [...] consult to Social Work Ordered at: 11/05/23 1801 Reason for Consult: Substance / alcohol abuse [...] interested in the Rethinking Drinking brochure. Jami CLAIRE,CUTTER BANANA ROOM [id number] * Yesi Sharif MD - 11/06/2023 [...] HTN, PAD, gout and arthritis transferred from [facility] for PCI with angioplasty. He refers experiencing [...] Intake/Output Summary (Last 24 hours) at 11/06/2023 0906 Last data filed at 11/06/2023 0800 Gross [...] flushed without difficulty 11/05/232099 Phlebitis 0-->no symptoms 11/06/23 06 Infiltration 0-->no symptoms 11/06/23 06 Site Signs/Symptoms no redness;no swelling 11/06/23 0400 PIV 11/05/23 1645 median cubital vein (antecubital fossa), right (Active) Indication/Daily Review of Necessity fluid therapy intermittent 11/05/23 2100 Site Preparation/Maintenance dressing: dry and intact 11/06/23 06 Securement catheter stabilization device, secured with;site guard [...] HTN, PAD, gout and arthritis transferred from [facility] for PCI with angioplasty. 11/06/23 He is [...] qd - Hold clopidogrel - pending upon lab coordinator recommendation - Spironolactone 12.5 mg qd - [...] Internal Medicine, PGY-1 Cardiovascular Critical Care, Pager #[phone] 11/06/23 7:16 AM Associated attestation - Allen [...] on rounds today. I agree with Dr. Partick Varghese's note as below which reflects our [...] Wong Meyer MD CV[facility] * Lulu Wilson, [facility] - 11/05/2023 4:34 PM EDT Respiratory Therapy [...] Assessment: Received pt from on NIV BiPAP 12/6 and 40%. Transitioned pt to 4L NC. Pulled NIV machine, pt deferred use of NIV. Made pt aware if becomes SOB or increased WOB to let nurse/RT know and will bring new NIV to bedside. Lulu Wilson RCP documented in this encounter H&P Notes * Danni Joy MD - 11/08/2023 12:24 PM EDT Images from the original note were not included. [facility] Pre-Procedure H&P and Pre-Sedation Assessment Rose Buck [...] HTN, PAD, gout and arthritis transferred from [facility], with chest pains and worsening shortness of [...] HTN, PAD, gout and arthritis transferred from [facility] for PCI with angioplasty. He refers experiencing [...] of HTN, PAD, gout arthritis transferred from [facility] for STEMI s/p PCI and stent of [...] qd - Hold clopidogrel - pending upon lab coordinator recommendation - Spironolactone 12.5 mg q12h - [...] Internal Medicine, PGY-1 Cardiovascular Critical Care, Pager #[phone] 11/05/23 4:36 PM Associated attestation - Allen [...] EDT Post Cardiac cath note Rose Mikhail [id number] 73 y.o. male Last value Range [...] (Interventions Implemented as Appropriate) 11/08/20231705 by Altagracia Speras RN Outcome: Ongoing (Interventions Implemented as Appropriate) [...] Catheterization) Goal: Absence of Vascular Access Complication 11/08/20231705 by Altagracia Spears RN Outcome: Ongoing [...] but anticipating d/c home without needs when Per team, plan for staged PCI today. Anticipated Date of Discharge: 11/10/2023 * Brief Op Note - Joslyn Antony MD - 11/08/2023 2:54 PM EDT Preliminary Cardiac Catheterization Procedure Note: Patient Name: Rose Buck : [id number] MR#: [id number] Case Date: 11/08/2023 Educational Program Assistant: Surgeons and Role: * Joslyn Antony MD - Primary * Froilan Lopez MD - Fellow - Assisting * Mara Robins PA - Physician Gas Appliance Servicer Helper Preoperative diagnosis: NSTEMI S/P LAD PCI with diseased LCx Postoperative diagnosis: NSTEMI S/P PCI LAD (previously stente) and LCx Preliminary Cardiac Catheterization Procedure Note: Procedure(s) performed: Coronary Angiography, Left Heart Cath, IVUS, PCI-Stent Baseline Frailty Assessment: Definitions from [place] Study of Health and Aging Clinical Frailty [...] Full report to follow. JOSLYN ANTONY MD hammersmith helper Pager [phone] * Consult Note - Adela [...] within reach. Plan Moving Forward: NPO for lab coordinator today Discharge planning as appropriate CPG Evaluation [...] RN - 11/07/2023 3:49 PM EDT Rose Moonyazminleón was seen today by Cardiac Rehabilitation for: [...] in an outpatient cardiac rehabilitation program at [facility] was discussed. Patient agrees to a referral [...] Admitted From: Transfer from another hospital Location: [facility] Reason for Hospitalization: Heart attack Past medical History: No past medical history on file. Hospitalizations Within the Past 30 Days: no previous admission in last 30 days Current Decision-Making Capacity: Self If AD's have not been completed the following surrogate would be surrogate decision maker per [place] surrogate decision making law. (Only good for 180 days) Any patient receiving care in [place] must abide by [place] law. The hierarchy for surrogate decision making [...] (i) The agent with financial power of transactional attorney or a conservator appointed in accordance [...] were you homeless or living in a nursing home (including now)?: No In the past 12 months has the electric, gas, oil, or water company threatened [...] Current DME: none Home Address confirmed as: [address] [place] [id number] Social & Family Supports: All names listed [...] needs identified Assessment: Patient is admitted to Hospitalist service for heart attack. Patient reports that heis feeling better.He would like to go home as soon as possible as his broke her wrist and needs help in the home and can not drive.He was open about his current drinking and desire to cut down.(See MOISTURE CONDITIONER OPERATOR Note) His step son will transport him home a his can not drive. Care Management team will continue to follow and assist with discharge planing and coordination of care as indicated. Jami Naqvi MSW,CUTTER BANANA ROOM [id number] * Plan of Care - Terence [...] Appropriate) * Brief Op Note - Blake Yonug MD - 11/05/2023 4:40 PM EDT Brief Operative Note Patient Name: Rose Buck : [id number] MR#: [id number] Case Date: 11/05/2023 Surgeon: Surgeons and Role: [...] Vascular Unit Level 3 [place] [phone] [facility] [place] [address] 11/22/2023 1:00 PM EDT Laboratory Appointment Lab [address] [place] [phone] 11/22/2023 2:00 PM EDT Office Visit Cardiology at [place] [phone] [facility] [place] [address] 11/27/2023 2:20 PM EDT Office Visit Cardiology at [address] [phone] [facility] [place] [address] Scheduled Referrals Name Type Priority Associated Diagnoses [...] - 4.5 mg/dL 11/09/2023 4:11 AM EDT [facility] Blood VENOUS BLOOD SPECIMEN / Unknown IP Care Team Draw / Unknown 11/09/2023 3:29 AM EDT 11/09/2023 3:40 AM EDT Allen Figueroa MD CHEMISTRY ORDERABLES [facility] [place] [address] * Magnesium (11/09/2023 3:29 AM EDT) Magnesium 1.03 0.69 - 1.07 mMol/L 11/09/2023 4:11 AM EDT [facility] Blood VENOUS BLOOD SPECIMEN / Unknown IP Care Team Draw / Unknown 11/09/2023 3:29 AM EDT 11/09/2023 3:40 AM EDT Allen Figueroa MD CHEMISTRY ORDERABLES [facility] [place] [address] * (ABNORMAL) Basic Metabolic Panel (11/09/2023 3:29 AM EDT) Glucose 99 65 - 199 mg/dL 11/09/2023 4:11 AM EDT [facility] Comment:Glucose Concentratio n >=200 mg/dL plus symptoms is consistent with Diabetes Mellitus. Blood Urea Nitrogen 21(H) 10 - 20 mg/dL 11/09/2023 4:11 AM [facility] Creatinine 1.03 0.80 - 1.50 mg/dL 11/09/2023 4:11 AM [facility] Sodium 136 135 - 145 mMol/L 11/09/2023 4:11 AM [facility] Potassium 4.1 3.5 - 5.0 mMol/L 11/09/2023 4:11 AM [facility] Chloride 103 98 - 107 mMol/L 11/09/2023 4:11 AM [facility] Carbon Dioxide 22 22 - 31 mMol/L 11/09/2023 4:11 AM [facility] Anion Gap 11 5 - 15 mMol/L 11/09/2023 4:11 AM [facility] Calcium 8.7 8.5 - 10.5 mg/dL 11/09/2023 4:11 AM [facility] Est Glomerular Filtration Rate - Male 76 mL/min/1. 73 m?? 11/09/2023 4:11 AM [facility] Comment: This patient's estimated GFR [...] AM EDT Allen Figueroa MD CHEMISTRY ORDERABLES [facility] [place] [address] * (ABNORMAL) CBC (with Diff) (11/09/2023 3:29 AM EDT) White Blood Cell 6.55 4.00 - 9.50 x10(3)/mc L 11/09/2023 3:54 AM EDT [facility] Red Blood Cell 4.54(L) 4.58 - 5.54 x10(6)/mc L 11/09/2023 3:54 AM [facility] Hemoglobin 10.9(L) 13.7 - 16.5 g/dL 11/09/2023 3:54 AM [facility] Hematocrit 34.6(L) 40.5 - 48.5 % 11/09/2023 3:54 AM EDT [facility] Mean Cell Volume 76.2(L) 82.9 - 93.1 fL 11/09/2023 3:54 AM [facility] Mean Cell Hemoglobin 24.0(L) 27.5 - 32.1 pg 11/09/2023 3:54 AM [facility] Mean Cell Hemoglobin Concentration 31.5(L) 32.0 - 35.7 g/dL 11/09/2023 3:54 AM [facility] Platelet 288 145 - 357 x10(3)/mc L 11/09/2023 3:54 AM [facility] Mean Platelet Volume 9.4 7.6 - 12.9 fL 11/09/2023 3:54 AM [facility] RDW Standard Deviation 48.4(H) 36.0 - 45.0 fL 11/09/2023 3:54 AM [facility] RDW coefficient of variation 17.5(H) 11.4 - 13.8 % 11/09/2023 3:54 AM [facility] NRBC% auto 0.0 % 11/09/2023 3:54 AM [facility] NRBC Absolute 0.00 0.00 - 0.00 x10(3)/mc L 11/09/2023 3:54 AM [facility] Neutrophil % 72.2 % 11/09/2023 3:54 AM [facility] Neutrophil Absolute (ANC) - Automated 4.73 1.70 - 6.10 x10(3)/mc L 11/09/2023 3:54 AM [facility] Lymph % 11.6 % 11/09/2023 3:54 AM [facility] Lymph Absolute 0.76(L) 0.90 - 3.20 x10(3)/mc L 11/09/2023 3:54 AM [facility] Monocyte % 12.5 % 11/09/2023 3:54 AM [facility] Monocyte Absolute 0.82 0.30 - 0.90 x10(3)/mc L 11/09/2023 3:54 AM [facility] Eos % 2.6 % 11/09/2023 3:54 AM [facility] Eos Absolute 0.17 0.00 - 0.40 x10(3)/mc L 11/09/2023 3:54 AM [facility] Basophil % 0.6 % 11/09/2023 3:54 AM [facility] Baso Absolute 0.04 0.00 - 0.10 x10(3)/mc L 11/09/2023 3:54 AM EDT [facility] Immature Gran % 0.5 % 3:54 AM EDT [facility] Immature Gran Absolute 0.03 0.00 - 0.04 x10(3)/mc L 11/09/2023 3:54 AM EDT [facility] Blood VENOUS BLOOD SPECIMEN / Unknown IP Care Team Draw / Unknown 11/09/2023 3:29 AM EDT 11/09/2023 3:40 AM EDT Allen Figueroa MD HEMATOLOGY ORDERABLE S [facility] [place] [address] * EKG 12 Lead (11/08/2023 3:00 PM EDT) Ventricular rate 95 BPM MUSE SYSTEM Atrial Rate 95 BPM MUSE SYSTEM P-R Interval 180 ms MUSE SYSTEM QRS Duration 126 ms MUSE SYSTEM Q-T Interval 418 ms MUSE SYSTEM QTC Calculated (Bezet) 525 ms MUSE SYSTEM Calculated P [place]vine 81 degrees MUSE SYSTEM Calculated R [place] -57 degrees MUSE SYSTEM Calculated T [place] 109 degrees MUSE SYSTEM INTERPRETATION Normal sinus [...] AM EDT Danni Joy MD ECG ORDERABLES MUSE SYSTEM * CARDIAC CATHETERIZATION (11/08/2023 2:55 PM EDT) Anatomical Region Laterality Modality Other Narrative 11/09/2023 8:37 AM EDT ?[facility] ? Cardiac Catheterization/Intervention Report ? Patient Name: Gajowski, Rose ? Procedure Date: 11/08/2023 ? A #: [id number] ? Primary Physician: Antony, Joslyn V ? Case #: [id number] ? File Name: [id number] ? Catheterization Order Number: [id number] ? [facility] ? Final Report [place], [place] ? Patient Name: ? Rose Buck ? ID#: ?[id number] ? : ?1950 ? Procedure Date: ? November 08, 2023 ?Case #: ? [id number] ? Room: ? 5 ? Case Physician: [...] was ?designated as ASA Class III. The [facility] clinical frailty scale is 4: ?Vulnerable. ? Diagnostic Tests: ?Prior Coronary Angiography: ? Prior coronary angiography was performed on 11/05/2023 and showed ? obstructive CAD. LV ejection fraction within 6 months is 20%. ?Medications Prior to Procedure: ? Aspirin, Angiotensin II Receptor Good and Statin. ? Indications for Diagnostic Cath: ?The priority of the diagnostic procedure was Elective. The indication for ?the lab coordinator visit is stable known CAD. Chest pain [...] premounted ? 3.50 x 18 mm Michael Gary (DORINDA) was deployed with a maximum ? [...] ? A premounted 3.50 x 18 mm Pride Gary (DORINDA) was deployed ? with a maximum [...] on chronic DAPT on arrival to the lab coordinator. ?Recommended anti-platelet/anti-thrombotic regimen: ?Start aspirin 81 mg daily now and continue for indefinitely. ?Start clopidogrel 75 mg daily now and continue for 12 months then stop. ?These recommendations are made at the time of the intervention. Patient ?and provider preferences or a changing clinical situation may require ?modification of this regimen. Consult [facility] Interventional Cardiology for ?questions. ?The 1 year [...] Procedure Note Joslyn Antony MD - 11/09/2023 [facility] Cardiac Catheterization/Intervention Report Patient Name: Rose Buck Procedure Date: 11/08/2023 A #: [id number] Primary Physician: Joslyn Antony V Case #: [id number] File Name: [id number] Catheterization Order Number: [id number] [facility] FinalReport [place], [place] Patient Name: Rose Buck ID#:[id number] :1950 Procedure Date: November 08, 2023 Case [...] was designated as ASA Class III. The [facility] clinical frailty scale is 4: Vulnerable. Diagnostic Tests: Prior Coronary Angiography: Prior coronary angiography was performed on 11/05/2023 andshowed obstructive CAD. LV ejection fraction within 6 months is 20%. Medications Prior to Procedure: Aspirin, Angiotensin II Receptor Good and Statin. Indications for Diagnostic Cath: The priority of the diagnostic procedure was Elective. Theindication for the lab coordinator visit is stable known CAD. Chest pain [...] 14 atmospheres. Apremounted 3.50 x 18 mm Pride Gary (DORINDA) was deployed with amaximum inflation pressure [...] The lesion was predilated with a 3.00mm [id number] MM balloon with a maximum inflation pressure of 14atmospheres. A premounted 3.50 x 18 mm Michael Gary (DORINDA) wasdeployed with a maximum inflation pressure [...] on chronic DAPT on arrival to the lab coordinator. Recommended anti-platelet/anti-thrombotic regimen: Start aspirin 81 mg daily now and continue for indefinitely. Start clopidogrel 75 mg daily now and continue for 12 months thenstop. These recommendations are made at the time of the intervention.Patient and provider preferences or a changing clinical situation mayrequire modification of this regimen. Consult [facility] Interventional Cardiologyfor questions. The 1 year bleeding [...] Heparin 0.36 IU/mL 11/08/2023 3:16 AM EDT [facility] Comment: Heparin (anti-Xa) levels should [...] MD HEMATOLOGY ORDERABLE S Performing Organization Address City/[facility] Co de Phone Number [facility] [place] [address] * Phosphorus (11/08/2023 2:46 AM EDT) [facility] Phosphorus 3.3 2.5 - 4.5 mg/dL 11/08/2023 3:24 AM EDT [facility] Blood VENOUS BLOOD SPECIMEN / Unknown IP Care Team Draw / Unknown 11/08/2023 2:46 AM EDT 11/08/2023 2:53 AM EDT Allen Figueroa MD CHEMISTRY ORDERABLES Performing Organization Address City/[facility] Co de Phone Number [facility] [place] [address] * Magnesium (11/08/2023 2:46 AM EDT) [facility] Magnesium 1.06 0.69 - 1.07 mMol/L 11/08/2023 3:24 AM EDT [facility] Blood VENOUS BLOOD SPECIMEN / Unknown IP Care Team Draw / Unknown 11/08/2023 2:46 AM EDT 11/08/2023 2:53 AM EDT Allen Figueroa MD CHEMISTRY ORDERABLES [facility] [place] [address] * (ABNORMAL) Basic Metabolic Panel (11/08/2023 2:46 AM EDT) Glucose 105 65 - 199 mg/dL 11/08/2023 3:24 AM EDT [facility] Comment:Glucose Concentratio n >=200 mg/dL plus symptoms is consistent with Diabetes Mellitus. Blood Urea Nitrogen 27(H) 10 - 20 mg/dL 11/08/2023 3:24 AM EDT [facility] Creatinine 1.15 0.80 - 1.50 mg/dL 11/08/2023 3:24 AM [facility] Sodium 135 135 - 145 mMol/L 11/08/2023 3:24 AM [facility] Potassium 4.1 3.5 - 5.0 mMol/L 11/08/2023 3:24 AM [facility] Chloride 99 98 - 107 mMol/L 11/08[facility]2023 3[facility] Carbon Dioxide 25 22 - 31 mMol/L 11/08/2023 3:24 [facility] Anion Gap 11 5 - 15 mMol/L 11/08/2023 3:24 AM [facility] Calcium 8.5 8.5 - 10.5 mg/dL 11/08/2023 3:24 AM [facility] Est Glomerular Filtration Rate - Male 66 mL/min/1. 73 m?? 11/08/2023 3:24 [facility] Comment: This patient's estimated GFR was [...] AM EDT Allen Figueroa MD CHEMISTRY ORDERABLES [facility] [place] [address] * (ABNORMAL) CBC (with Diff) (11/08/2023 2:46 AM EDT) White Blood Cell 7.95 4.00 - 9.50 x10(3)/mc L 11/08/2023 3:03 AM EDT [facility] Red Blood Cell 4.47(L) 4.58 - 5.54 x10(6)/mc L 11/08/2023 3:03 AM EDT [facility] Hemoglobin 10.7(L) 13.7 - 16.5 g/dL 11/08/2023 3:03 AM T [facility] Hematocrit 33.9(L) 40.5 - 48.5 % 11/08/2023 3:03 AM EDT [facility] Mean Cell Volume 75.8(L) 82.9 - 93.1 fL 11/08/2023 3:03 AM [facility] Mean Cell Hemoglobin 23.9(L) 27.5 - 32.1 pg 11/08/2023 3:03 [facility] Mean Cell Hemoglobin Concentration 31.6(L) 32.0 - 35.7 g/dL 11/08/2023 3:03 AM [facility] Platelet 298 145 - 357 x10(3)/mc L 11/08/2023 3:03 AM [facility] Mean Platelet Volume 9.3 7.6 - 12.9 fL 11/08/2023 3:03 AM [facility] RDW Standard Deviation 48.6(H) 36.0 - 45.0 fL 11/08/2023 3:03 AM [facility] RDW coefficient of variation 17.6(H) 11.4 - 13.8 % 11/08/2023 3:03 AM [facility] NRBC% auto 0.0 % 11/08/2023 3:03 AM [facility] NRBC Absolute 0.00 0.00 - 0.00 x10(3)/mc L 11/08/2023 3:03 AM [facility] Neutrophil % 77.3 % 11/08/2023 3:03 AM [facility] Neutrophil Absolute (ANC) - Automated 6.15(H) 1.70 - 6.10 x10(3)/mc L 11/08/2023 3:03 AM [facility] Lymph % 11.8 % 11/08/2023 3:03 AM [facility] Lymph Absolute 0.94 0.90 - 3.20 x10(3)/mc L 11/08/2023 3:03 AM [facility] Monocyte % 9.3 % 11/08/2023 3:03 AM [facility] Monocyte Absolute 0.74 0.30 - 0.90 x10(3)/mc L 11/08/2023 3:03 AM [facility] Eos % 0.8 % 11/08/2023 3:03 AM [facility] Eos Absolute 0.06 0.00 - 0.40 x10(3)/mc L 11/08/2023 3:03 AM EDT [facility] Basophil % 0.4 % 11/08/2023 3:03 AM EDT [facility] Baso Absolute 0.03 0.00 - 0.10 x10(3)/mc L 11/08/2023 3:03 AM EDT [facility] Immature Gran % 0.4 % 3:03 AM EDT [facility] Immature Gran Absolute 0.03 0.00 - 0.04 x10(3)/mc L 11/08/2023 3:03 AM EDT [facility] Blood VENOUS BLOOD SPECIMEN / Unknown IP Care Team Draw / Unknown 11/08/2023 2:46 AM EDT 11/08/2023 2:53 AM EDT Allen Figueroa MD HEMATOLOGY ORDERABLE S Performing Organization Address City/State/[facility] Co de Phone Number [facility] [place] [address] * XR Chest PA & Lateral (Generic) (11/07/2023 2:35 PM EDT) [employer] WORKSTATION ID [id number] RAD Anatomical Region Laterality Modality Chest N/A [...] who have questions please contact the health anesthesiologist and critical care that requested your imaging first. ? Electronically signed by: Rosas Verduzco MD, [facility] ??([phone]), at 11/08/2023 9:05 AM Narrative 11/08/2023 9:05 [...] patients who have questions please contactthe health anesthesiologist and critical care that requested your imaging first. Danni Joy MD IMG DX ORDERABLES * Heparin (unfractionated) Level (11/07/2023 1:38 AM EDT) UF Heparin 0.45 IU/mL 11/07/2023 2:22 AM EDT [facility] Comment: Heparin (anti-Xa) levels should [...] MD HEMATOLOGY ORDERABLE S Performing Organization Address City/[facility] Co de Phone Number [facility] [place] [address] * Phosphorus (11/07/2023 1:38 AM EDT) Phosphorus 4.4 2.5 - 4.5 mg/dL 11/07/2023 2:23 AM EDT [facility] Blood VENOUS BLOOD SPECIMEN / Unknown IP Care Team Draw / Unknown 11/07/2023 1:38 AM EDT 11/07/2023 1:43 AM EDT Allen Figueroa MD CHEMISTRY ORDERABLES Performing Organization Address City/[facility]/ZIP Co de Phone Number [facility] [place] [address] * Magnesium (11/07/2023 1:38 AM EDT) Magnesium 1.05 0.69 - 1.07 mMol/L 11/07/2023 2:23 AM EDT [facility] Blood VENOUS BLOOD SPECIMEN / Unknown IP Care Team Draw / Unknown 11/07/2023 1:38 AM EDT 11/07/2023 1:43 AM EDT Allen Figueroa MD CHEMISTRY ORDERABLES [facility] [place] [address] * (ABNORMAL) Basic Metabolic Panel (11/07/2023 1:38 AM EDT) Glucose 113 65 - 199 mg/dL 11/07/2023 2:23 AM EDT [facility] Comment:Glucose Concentratio n >=200 mg/dL plus symptoms is consistent with Diabetes Mellitus. Blood Urea Nitrogen 32(H) 10 - 20 mg/dL 11/07/2023 2:23 AM EDT [facility] Creatinine 1.35 0.80 - 1.50 mg/dL 11/07/2023 2:23 AM [facility] Sodium 133(L) 135 - 145 mMol/L 11/07/2023 2:[facility] Potassium 3.7 3.5 - 5.0 mMol/L 11/07/2023 2:23 AM [facility] Chloride 94(L) 98 - 107 mMol/L 11/07/2023 2:23 [facility] Carbon Dioxide 24 22 - 31 mMol/L 11/07/2023 2:23 AM [facility] Anion Gap 15 5 - 15 mMol/L 11/07/2023 2:23 AM [facility] Calcium 8.9 8.5 - 10.5 mg/dL 11/07/2023 2:23 [facility] Est Glomerular Filtration Rate - Male 55 mL/min/1. 73 m?? 11/07/2023 2:23 AM [facility] Comment: This patient's estimated GFR [...] AM EDT Allen Figueroa MD CHEMISTRY ORDERABLES [facility] [place] [address] * (ABNORMAL) CBC (with Diff) (11/07/2023 1:38 AM EDT) White Blood Cell 12.68(H) 4.00 - 9.50 x10(3)/mc L 11/07/2023 1:50 AM EDT [facility] Red Blood Cell 4.67 4.58 - 5.54 x10(6)/mc L 11/07/2023 1:50 AM EDT [facility] Hemoglobin 11.3(L) 13.7 - 16.5 g/dL 11/07/2023 1:50 AM T [facility] Hematocrit 35.6(L) 40.5 - 48.5 % 11/07/2023 1:50 AM EDT [facility] Mean Cell Volume 76.2(L) 82.9 - 93.1 fL 11/07/2023 1:50 AM EDT [facility] Mean Cell Hemoglobin 24.2(L) 27.5 - 32.1 pg 11/07/2023 1:50 AM EDT [facility] Mean Cell Hemoglobin Concentration 31.7(L) 32.0 - 35.7 g/dL 11/07/2023 1:50 AM EDT [facility] Platelet 326 145 - 357 x10(3)/mc L 11/07/2023 1:50 AM EDT [facility] Mean Platelet Volume 9.5 7.6 - 12.9 fL 11/07/2023 1:50 AM [facility] RDW Standard Deviation 48.5(H) 36.0 - 45.0 fL 11/07/2023 1:50 AM [facility] RDW coefficient of variation 18.0(H) 11.4 - 13.8 % 11/07/2023 1:50 AM [facility] NRBC% auto 0.0 % 11/07/2023 1:50 AM [facility] NRBC Absolute 0.00 0.00 - 0.00 x10(3)/mc L 11/07/2023 1:50 AM [facility] Neutrophil % 81.0 % 11/07/2023 1:50 AM [facility] Neutrophil Absolute (ANC) - Automated 10.27(H) 1.70 - 6.10 x10(3)/mc L 11/07/2023 1:50 AM [facility] Lymph % 10.0 % 11/07/2023 1:50 AM [facility] Lymph Absolute 1.27 0.90 - 3.20 x10(3)/mc L 11/07/2023 1:50 AM [facility] Monocyte % 8.0 % 11/07/2023 1:50 AM [facility] Monocyte Absolute 1.01(H) 0.30 - 0.90 x10(3)/mc L 11/07/2023 1:50 AM [facility] Eos % 0.3 % 11/07/2023 1:50 AM [facility] Eos Absolute 0.04 0.00 - 0.40 x10(3)/mc L 11/07/2023 1:50 AM [facility] Basophil % 0.3 % 11/07/2023 1:50 AM [facility] Baso Absolute 0.04 0.00 - 0.10 x10(3)/mc L 11/07/2023 1:50 AM [facility] Immature Gran % 0.4 % 1:50 AM EDT [facility] Immature Gran Absolute 0.05(H) 0.00 - 0.04 x10(3)/mc L 11/07/2023 1:50 AM EDT [facility] Blood VENOUS BLOOD SPECIMEN / Unknown IP Care Team Draw / Unknown 11/07/2023 1:38 AM EDT 11/07/2023 1:43 AM EDT Allen Figueroa MD HEMATOLOGY ORDERABLE S Performing Organization Address [facility] Co de Phone Number [facility] [place] [address] * TSH (11/07/2023 1:38 AM EDT) Thyroid Stimulating Hormone 3.11 0.27 - 4.20 mcIU/mL 11/07/2023 2:23 AM EDT [facility] Blood VENOUS BLOOD SPECIMEN / Unknown IP Care Team Draw / Unknown 11/07/2023 1:38 AM EDT 11/07/2023 1:43 AM EDT Danni Joy MD CHEMISTRY ORDERABLES Performing Organization Address [facility] Co de Phone Number [facility] [place] [address] * Heparin (unfractionated) Level (11/06/2023 7:25 PM EDT) UF Heparin 0.35 IU/mL 11/06/2023 8:03 PM EDT [facility] Comment: Heparin (anti-Xa) levels should [...] MD HEMATOLOGY ORDERABLE S Performing Organization Address [facility] de Phone Number [facility] [place] [address] * Heparin (unfractionated) Level (11/06/2023 12:00 PM EDT) UF Heparin 0.27 IU/mL 11/06/2023 12:27 PM EDT [facility] Comment: Heparin (anti-Xa) levels should [...] MD HEMATOLOGY ORDERABLE S Performing Organization Address City/[facility] Co de Phone Number [facility] [place] [address] * EKG 12 Lead (11/06/2023 10:01 AM EDT) Ventricular rate 96 BPM MUSE SYSTEM Atrial Rate 96 BPM MUSE SYSTEM P-R Interval 174 ms MUSE SYSTEM QRS Duration 104 ms MUSE SYSTEM Q-T Interval 418 ms MUSE SYSTEM QTC Calculated (Bezet) 528 ms MUSE SYSTEM Calculated P Irvine 67 degrees MUSE SYSTEM Calculated R Irvine -56 degrees MUSE SYSTEM Calculated T Irvine 130 degrees MUSE SYSTEM INTERPRETATION Sinus rhythm Occasional Premature ventricular complexes Possible Left atrial enlargement Left axis deviation Minimal voltage criteria for LVH, may be normal variant ( [employer] product ) Anteroseptal infarct , age undetermined Prolonged QT Abnormal ECG When compared with ECG of 05-NOV-2023 16:52, No significant change was found Confirmed by MD Phan, Krystle ([id number]) on 11/06/2023 5:29:02 PM MUSE SYSTEM 11/06/2023 10:0 1 AM EDT 11/06/2023 5:29 PM EDT Prashant Calvin MD ECG ORDERABLES MUSE SYSTEM * ECHO COMPLETE W CONTRAST (11/06/2023 9:02 AM EDT) Pathologist [facility] EF 20 HEARTLAB SYSTEM Anatomical Region Laterality Modality Cardiac Other 11/06/2023 7:50 AM EDT Narrative 11/06/2023 9:49 AM EDT 1 [place] [address] ? Echocardiogram Report Name: ROSE BUCK ? Study Date: 11/06/2023 07:50 AMBP: 97/64 mmHg ? Patient Location: [facility] CV26 A : 1950 ? Height: 189 cm ? Account: [id number] Age: 73 yrs ? Weight: 107 kg Gender: Male ?BSA: 2.3 m2 Ordering Physician: PRASHANT CALVIN Referring Physician: MILDRED STEINER Performed By: KAYLIN Samuel Reason For Study: NSTEMI Interpreting Fellow: Rafael Johnson. Exam Location: [facility]. Interpretation Summary Left ventricle is severely [...] available. See report for additional findings. Procedure Complete-[id number]. Satisfactory quality. Left Ventricle Left ventricle is [...] Note Vipul Beltrán MD - 11/06/2023 1 [place] [address] Echocardiogram Report Name: ROSE BUCK Study Date: 407:50 AMBP: 97/64 mmHg Patient Location: [address] : 1950 Height: 189 cm Account: [id number] Age: 73 yrs Weight: 107 kg Gender: Male BSA: 2.3 m2 Ordering Physician: PRASHANT CALVIN Referring Physician: MILDRED STEINER Performed By: KAYLIN Samuel Reason For Study: NSTEMI Interpreting Fellow: Rafael Johnson. Exam Location: [facility]. Interpretation Summary Left ventricle is severely [...] available. See report for additional findings. Procedure Complete-[id number]. Satisfactory quality. Left Ventricle Left ventricle is [...] Heparin <0.04 IU/mL 11/06/2023 4:52 AM EDT [facility] Comment: Heparin (anti-Xa) levels should [...] AM EDT 11/06/2023 4:30 AM EDT Allen Figureoa MD HEMATOLOGY ORDERABLE S Performing Organization Address City/[facility]/ZIP Co de Phone Number [facility] [place] [address] * (ABNORMAL) Phosphorus (11/06/2023 4:08 AM EDT) Phosphorus 4.6(H) 2.5 - 4.5 mg/dL 11/06/2023 5:04 AM EDT [facility] Blood VENOUS BLOOD SPECIMEN / Unknown IP Care Team Draw / Unknown 11/06/2023 4:08 AM EDT 11/06/2023 4:30 AM EDT Allen Figueroa MD CHEMISTRY ORDERABLES Performing Organization Address City/[facility]/ZIP Co de Phone Number [facility] [place] [address] * Magnesium (11/06/2023 4:08 AM EDT) Magnesium 1.04 0.69 - 1.07 mMol/L 11/06/2023 5:04 AM EDT [facility] Blood VENOUS BLOOD SPECIMEN / Unknown IP Care Team Draw / Unknown 11/06/2023 4:08 AM EDT 11/06/2023 4:30 AM EDT Allen Figueroa MD CHEMISTRY ORDERABLES Performing Organization Address City/[facility]/ZIP Co de Phone Number [facility] [place] [address] * (ABNORMAL) Basic Metabolic Panel (11/06/2023 4:08 AM EDT) Glucose 123 65 - 199 mg/dL 11/06/2023 5:04 AM EDT [facility] Comment:Glucose Concentratio n >=200 mg/dL plus symptoms is consistent with Diabetes Mellitus. Blood Urea Nitrogen 25(H) 10 - 20 mg/dL 11/06/2023 5:04 AM [facility] Creatinine 1.40 0.80 - 1.50 mg/dL 11/06/2023 5:04 AM [facility] Sodium 133(L) 135 - 145 mMol/L 11/06/2023 5:04 AM [facility] Potassium 4.1 3.5 - 5.0 mMol/L 11/06/2023 5:04 AM [facility] Chloride 95(L) 98 - 107 mMol/L 11/06/2023 5:04 AM [facility] Carbon Dioxide 23 22 - 31 mMol/L 11/06/2023 5:04 AM [facility] Anion Gap 15 5 - 15 mMol/L 11/06/2023 5:04 AM [facility] Calcium 9.0 8.5 - 10.5 mg/dL 11/06/2023 5:04 AM [facility] Est Glomerular Filtration Rate - Male 52 mL/min/1. 73 m?? 11/06/2023 5:04 AM [facility] Comment: This patient's estimated GFR [...] AM EDT Allen Figueroa MD CHEMISTRY ORDERABLES [facility] [place] [address] * (ABNORMAL) CBC (with Diff) (11/06/2023 4:08 AM EDT) White Blood Cell 16.03(H) 4.00 - 9.50 x10(3)/mc L 11/06/2023 4:38 AM EDT [facility] Red Blood Cell 5.10 4.58 - 5.54 x10(6)/mc L 11/06/2023 4:38 AM T [facility] Hemoglobin 12.2(L) 13.7 - 16.5 g/dL 11/06/2023 4:38 AM [facility] Hematocrit 38.3(L) 40.5 - 48.5 % 11/06/2023 4:38 AM [facility] Mean Cell Volume 75.1(L) 82.9 - 93.1 fL 11/06/2023 4:38 AM [facility] Mean Cell Hemoglobin 23.9(L) 27.5 - 32.1 pg 11/06/2023 4:38 AM [facility] Mean Cell Hemoglobin Concentration 31.9(L) 32.0 - 35.7 g/dL 11/06/2023 4:38 AM [facility] Platelet 297 145 - 357 x10(3)/mc L 11/06/2023 4:38 AM [facility] Mean Platelet Volume 9.8 7.6 - 12.9 fL 11/06/2023 4:38 AM [facility] RDW Standard Deviation 47.1(H) 36.0 - 45.0 fL 11/06/2023 4:38 AM [facility] RDW coefficient of variation 17.8(H) 11.4 - 13.8 % 11/06/2023 4:[facility] NRBC% auto 0.0 % 11/06/2023 4:38 AM [facility] NRBC Absolute 0.00 0.00 - 0.00 x10(3)/mc L 11/06/2023 4:38 AM [facility] Neutrophil % 90.1 % 11/06/2023 4:38 AM [facility] Neutrophil Absolute (ANC) - Automated 14.46(H) 1.70 - 6.10 x10(3)/mc L 11/06/2023 4:38 AM [facility] Lymph % 3.6 % 11/06/2023 4:38 AM [facility] Lymph Absolute 0.57(L) 0.90 - 3.20 x10(3)/mc L 11/06/2023 4:38 AM [facility] Monocyte % 5.6 % 11/06/2023 4:38 AM [facility] Monocyte Absolute 0.89 0.30 - 0.90 x10(3)/mc L 11/06/2023 4:38 AM [facility] Eos % 0.0 % 11/06/2023 4:38 AM [facility] Eos Absolute 0.00 0.00 - 0.40 x10(3)/mc L 11/06/2023 4:38 AM [facility] Basophil % 0.1 % 11/06/2023 4:38 AM [facility] Baso Absolute 0.02 0.00 - 0.10 x10(3)/mc L 11/06/2023 4:38 AM [facility] Immature Gran % 0.6 % 4:38 AM [facility] Immature Gran Absolute 0.09(H) 0.00 - 0.04 x10(3)/mc L 11/06/2023 4:38 AM [facility] Blood VENOUS BLOOD SPECIMEN / Unknown IP Care Team Draw / Unknown 11/06/2023 4:08 AM EDT 11/06/2023 4:30 AM EDT Allen Figueroa MD HEMATOLOGY ORDERABLE S [facility] [place] [address] * (ABNORMAL) Troponin-T, Shola Sensitivity 3 Hour (11/05/2023 7:02 PM EDT) Troponin-T, High Sensitivity 1,944(H) <=22 ng/L 11/05/2023 7:32 PM EDT [facility] Comment: This patient's troponin T [...] troponin value can be found in the [facility] Laboratory Test Catalog Troponin - https://[email or web address]-.testcatalog.org/catalogs/565/files/31523 Reference: Fourth Hollis Definition of Myocardial Infarction. Journal of the [place] [employer] 2018;72:0687-5775 Troponin-T, HS 3 hr delta 3 ng/L 11/05/2023 7:32 PM EDT [facility] Comment:The 3 hour Troponin T [...] Calvin MD CHEMISTRY ORDERABLES Performing Organization Address [facility] Co de Phone Number [facility] [place] [address] * EKG 12 Lead (11/05/2023 4:52 PM EDT) Ventricular rate 97 BPM MUSE SYSTEM Atrial Rate 97 BPM MUSE SYSTEM P-R Interval 184 ms MUSE SYSTEM QRS Duration 106 ms MUSE SYSTEM Q-T Interval 412 ms MUSE SYSTEM QTC Calculated (Bezet) 523 ms MUSE SYSTEM Calculated P Irvine 78 degrees MUSE SYSTEM Calculated R Irvine -62 degrees MUSE SYSTEM Calculated T Irvine 106 degrees MUSE SYSTEM INTERPRETATION Sinus rhythm with Fusion complexes Left axis deviation Minimal voltage criteria for LVH, may be normal variant ( [employer] product ) Possible Anteroseptal infarct Nonspecific ST and T wave abnormality Prolonged QT Abnormal ECG When compared with ECG of 05-NOV-2023 14:48, No significant change was found Confirmed by MD Chisholm Danette ([id number]) on 11/06/2023 5:28:21 PM MUSE SYSTEM 11/05/2023 4:52 PM EDT 11/06/2023 5:28 PM EDT Prashant Calvin MD ECG ORDERABLES Performing Organization Address [facility] Phone Number MUSE SYSTEM * POC, GLUCOSE (11/05/2023 4:45 PM EDT) Glucometer, POC 195 65 - 199 mg/dL 11/06/2023 1:14 AM EDT [facility] Comment:Supplemental ranges: <140 mg/dL before meals <180 mg/dL all other times of the day. Blood CAPILLARY BLOOD / Unknown 11/05/2023 4:45 PM EDT 11/06/2023 1:14 AM EDT Prashant Calvin MD POINT OF CARE TEST O RDERABLES Performing Organization Address [facility] Co de Phone Number [facility] [place] [address] * CARDIAC CATHETERIZATION (11/05/2023 4:27 PM EDT) Anatomical Region Laterality Modality Other Narrative 11/07/2023 8:33 AM EDT ?[facility] ? Cardiac Catheterization/Intervention Report ? Patient Name: Mikhail, Rose ? Procedure Date: 11/05/2023 ? A #: [id number] ? Primary Physician: Marina Mullen I ? Case #: [id number] ? File Name: [id number] ? Catheterization Order Number: [id number] ? [facility] ? Final Report [place], [place] ? Patient Name: ? Rose Buck ? ID#: ?[id number] ? : ?1950 ? Procedure Date: ? November 05, 2023 ?Case #: ? [id number] ? Room: ? 5 ? Case Physician: [...] was designated as ASA Class IV. ?The [facility] clinical frailty scale is 5: Mildly Frail. ? Diagnostic Tests: ?Medications Prior to Procedure: ? Aspirin. ? Indications for Diagnostic Cath: ?The priority of the diagnostic procedure was Emergent. The indication for ?the lab coordinator visit is ACS greater than 24 hrs [...] 4.0 guiding catheter and a 3.5 [address] [facility] [address] ??20 Mhz using ?Manual pullback. ??Imaging [...] ?4.0 guiding catheter and a 3.[address] [facility] [address] ??20 Mhz using ?Manual pullback. ??Imaging [...] ? A premounted 3.50 x 22 mm Pride Gary (DORINDA) was deployed ? with a maximum [...] A premounted 3.00 x 30 mm Michael Gary (DORINDA) was deployed ? with a maximum [...] dose administered prior to arrival in the lab coordinator. ?Recommended anti-platelet/anti-thrombotic regimen: ?Continue aspirin 81 mg daily. ?Continue clopidogrel 75 mg daily. ?These recommendations are made at the time of the intervention. Patient ?and provider preferences or a changing clinical situation may require ?modification of this regimen. Consult [facility] Interventional Cardiology for ?questions. ? Conclusions: ?* [...] Procedure Note Marina Mullen MD - 11/08/2023 [facility] Cardiac Catheterization/Intervention Report Patient Name: Rose Buck Procedure Date: 11/05/2023 A #: [id number] Primary Physician: Marina Mullen I Case #: [id number] File Name: [id number] Catheterization Order Number: [id number] [facility] FinalReport [place], [place] Patient Name: Rose Buck ID#:[id number] :[id number] Procedure Date: November 05, 2023 Case [...] patient was designated as ASAClass IV. The [facility] clinical frailty scale is 5: Mildly Frail. Diagnostic Tests: Medications Prior to Procedure: Aspirin. Indications for Diagnostic Cath: The priority of the diagnostic procedure was Emergent. Theindication for the lab coordinator visit is ACS greater than 24 hrs [...] 4.0 guiding catheter and a 3.5 [address] [facility] [address] 20 Mhzusing Manual pullback. Imaging was [...] 4.0 guiding catheter and a 3.[address] [facility] [address] 20 Mhzusing Manual pullback. Imaging was [...] The lesion was predilated with a 2.50mm [id number] MM balloon with a maximum inflation pressure of 15atmospheres. A premounted 3.50 x 22 mm Michael Gary (DORINDA) wasdeployed with a maximum inflation pressure [...] The lesion was predilated with a 2.50mm [id number] MM balloon with a maximum inflation pressure of 15atmospheres. A premounted 3.00 x 30 mm Pride Gary (DORINDA) wasdeployed with a maximum inflation pressure [...] dose administered prior to arrival in the lab coordinator. Recommended anti-platelet/anti-thrombotic regimen: Continue aspirin 81 mg daily. Continue clopidogrel 75 mg daily. These recommendations are made at the time of the intervention.Patient and provider preferences or a changing clinical situation mayrequire modification of this regimen. Consult [facility] Interventional Cardiologyfor questions. Conclusions: * Two vessel [...] Troponin-T, High Sensitivity (11/05/2023 4:03 PM EDT) [facility] Troponin-T, High Sensitivity Initial 1,941([facility] ) <=22 ng/L 11/05/2023 6:19 PM EDT [facility] Comment: This patient's troponin T [...] troponin value can be found in the [facility] Laboratory Test Catalog Troponin - [email or web address].org/catalogs/565/[email or web address] Reference: Fourth Hollis Definition of Myocardial Infarction. Journal of the [place] [employer] 2018;72:5729-8438 Blood VENOUS BLOOD SPECIMEN / Unknown IP Care Team Draw / Unknown 11/05/2023 4:03 PM EDT 11/05/2023 5:22 PM EDT Prashant Calvin MD CHEMISTRY ORDERABLES Performing Organization Address City/[facility]/ZIP Co de Phone Number [facility] [place] [address] * Hemoglobin A1c (11/05/2023 4:03 PM EDT) [facility] Hemoglobin A1c 5.4 4.3 - 5.6 % 11/05/2023 8:50 PM EDT [facility] Comment: Per ADA guidelines, without [...] red blood cell turnover may not be customer counter representative of glycemic control. Reference Interval: 4.3 - 5.6% 5.7 - 6.4%: Consistent with prediabetes >=6.5%: Consistent with diagnosis of diabetes mellitus Estimated Average Glucose 11/05/2023 8:50 PM EDT [facility] Comment:Not Calculated. Blood VENOUS BLOOD SPECIMEN / Unknown IP Care Team Draw / Unknown 11/05/2023 4:03 PM EDT 11/05/2023 5:22 PM EDT Narrative [facility] - 11/05/2023 8:50 PM EDT Estimated average glucose (eAG) is calculated from the equation described in: Bahman MARTÍNEZ, Lia J, Gala R, et al. ??Translating the A1C assay into estimated average glucose values. ??Diabetes Care 2008:31(8):5901-5326. Additional resources are available on the ADA website (diabetes.org). Prashant Calvin MD CHEMISTRY ORDERABLES [facility] [place] [address] * Lipid Panel (Reflex Direct LDL) (11/05/2023 4:03 PM EDT) Cholesterol, Total 108 mg/dL 11/05/2023 6:13 PM EDT [facility] Comment: Desirable: < 200 mg/dL Borderline High: 200 - 239 mg/dL High: > or = 240 mg/dL Triglyceride 37 mg/dL 11/05/2023 6:13 PM EDT [facility] Comment: Normal: <150 mg/dL Borderline High: 150-199 mg/dL High: 200-499 mg/dL Very High: > or =500 mg/dL HDL Cholesterol 40 mg/dL 6:13 PM EDT [facility] Comment:Males: High Risk: <4 0 mg/dL LDL Cholesterol 58 mg/dL 6:13 PM EDT [facility] Comment: Desirable: <100 mg/dL Above Desirable: 100-129 mg/dL Borderline High: 130-159 mg/dL High: 160-189 mg/dL Very High: > or =190 mg/dL Note: LDL calculation updated to the NIH LDL formula as of 10/21/2023 Non-HDL Cholesterol 68 mg/dL 11/05/2023 6:13 PM EDT [facility] Comment: Desirable: <130 mg/dL Above Desirable: 130-159 mg/dL Borderline High: 160-189 mg/dL High: 190-219 mg/dL Very High: > or = 220 mg/dL Blood VENOUS BLOOD SPECIMEN / Unknown IP Care Team Draw / Unknown 11/05/2023 4:03 PM EDT 11/05/2023 5:22 PM EDT Narrative [facility] - 11/05/2023 6:13 PM EDT It [...] ACC/AHA Guidelines (most recently Margarette et al. [facility] 12/20/21): * For individuals with atherosclerotic [...] artery disease) Prashant Calvin MD [place] [address] * Hepatic Function Panel (11/05/2023 4:03 PM EDT) Albumin 3.6 3.2 - 5.2 g/dL 11/05/2023 6:13 PM EDT [facility] Aspartate Aminotransferase 35 <=39 unit/L 11/05/2023 6:13 PM EDT [facility] Alanine Aminotransferase 15 0 - 55 unit/L 11/05/2023 6:13 PM EDT [facility] Alkaline Phosphatase 74 40 - 130 unit/L 11/05/2023 6:13 PM EDT [facility] Bilirubin, Total 0.3 <=1.3 mg/dL 11/05/2023 6:13 PM EDT [facility] Bilirubin, Direct 0.2 0.0 - 0.3 mg/dL 11/05/2023 6:13 PM EDT [facility] Protein, Total 6.6 6.1 - 8.0 g/dL 11/05/2023 6:13 PM EDT [facility] Blood VENOUS BLOOD SPECIMEN / Unknown IP Care Team Draw / Unknown 11/05/2023 4:03 PM EDT 11/05/2023 5:22 PM EDT Prashant Calvin MD CHEMISTRY ORDERABLES [facility] [place] [address] * (ABNORMAL) pro-Brain Natriuretic Peptide (11/05/2023 4:03 PM EDT) NT-proBNP 15,949(H) <=124 pg/mL 11/05/2023 6:13 PM EDT [facility] Blood VENOUS BLOOD SPECIMEN / Unknown IP Care Team Draw / Unknown 11/05/2023 4:03 PM EDT 11/05/2023 5:22 PM EDT Prashant Calvin MD CHEMISTRY ORDERABLES [facility] [place] [address] * TSH (11/05/2023 4:03 PM EDT) Thyroid Stimulating Hormone 2.25 0.27 - 4.20 mcIU/mL 11/05/2023 6:13 PM EDT [facility] Blood VENOUS BLOOD SPECIMEN / Unknown IP Care Team Draw / Unknown 11/05/2023 4:03 PM EDT 11/05/2023 5:22 PM EDT Prashant Calvin MD [place] [address] * Phosphorus (11/05/2023 4:03 PM EDT) Phosphorus 3.3 2.5 - 4.5 mg/dL 11/05/2023 6:13 PM EDT [facility] Blood VENOUS BLOOD SPECIMEN / Unknown IP Care Team Draw / Unknown 11/05/2023 4:03 PM EDT 11/05/2023 5:22 PM EDT Prashant Calvin MD CHEMISTRY ORDERABLES [facility] [place] [address] * Magnesium (11/05/2023 4:03 PM EDT) Magnesium 1.04 0.69 - 1.07 mMol/L 11/05/2023 6:13 PM EDT [facility] Blood VENOUS BLOOD SPECIMEN / Unknown IP Care Team Draw / Unknown 11/05/2023 4:03 PM EDT 11/05/2023 5:22 PM EDT Prashant Calvin MD CHEMISTRY ORDERABLES [facility] [place] [address] * (ABNORMAL) Basic Metabolic Panel (11/05/2023 4:03 PM EDT) Glucose 185 65 - 199 mg/dL 11/05/2023 6:13 PM [facility] Comment:Glucose Concentratio n >=200 mg/dL plus symptoms is consistent with Diabetes Mellitus. Blood Urea Nitrogen 22(H) 10 - 20 mg/dL 11/05/2023 6:13 PM [facility] Creatinine 1.28 0.80 - 1.50 mg/dL 11/05/2023 6:13 PM [facility] Sodium 132(L) 135 - 145 mMol/L 11/05/2023 6:13 PM [facility] Potassium 3.7 3.5 - 5.0 mMol/L 11/05/2023 6:13 PM [facility] Chloride 95(L) 98 - 107 mMol/L 11/05/2023 6:13 PM [facility] Carbon Dioxide 22 22 - 31 mMol/L 11/05/2023 6:13 PM [facility] Anion Gap 15 5 - 15 mMol/L 11/05/2023 6:13 PM [facility] Calcium 8.6 8.5 - 10.5 mg/dL 11/05/2023 6:13 PM [facility] Est Glomerular Filtration Rate - Male 58 mL/min/1. 73 m?? 11/05/2023 6:13 PM [facility] Comment: This patient's estimated GFR [...] PM EDT Prashant Calvin MD CHEMISTRY ORDERABLES [facility] [place] [address] * (ABNORMAL) CBC (with Diff) (11/05/2023 4:03 PM EDT) White Blood Cell 18.52(H) 4.00 - 9.50 x10(3)/mc L 11/05/2023 5:33 PM EDT [facility] Red Blood Cell 5.03 4.58 - 5.54 x10(6)/mc L 11/05/2023 5:33 PM EDT [facility] Hemoglobin 12.2(L) 13.7 - 16.5 g/dL 11/05/2023 5:33 PM EDT [facility] Hematocrit 38.6(L) 40.5 - 48.5 % 11/05/2023 5:33 PM EDT [facility] Mean Cell Volume 76.7(L) 82.9 - 93.1 fL 11/05/2023 5:33 PM EDT [facility] Mean Cell Hemoglobin 24.3(L) 27.5 - 32.1 pg 11/05/2023 5:33 PM EDT [facility] Mean Cell Hemoglobin Concentration 31.6(L) 32.0 - 35.7 g/dL 11/05/2023 5:33 PM EDT [facility] Platelet 261 145 - 357 x10(3)/mc L 11/05/2023 5:33 PM EDT [facility] Mean Platelet Volume 9.4 7.6 - 12.9 fL 11/05/2023 5:33 PM EDT [facility] RDW Standard Deviation 47.9(H) 36.0 - 45.0 fL 11/[facility]23 5[facility] coefficient of variation 17.6(H) 11.4 - 13.8 % 11/05/2023 5:[facility] NRBC% auto 0.0 % 11/05/2023 5:33 PM [facility] NRBC Absolute 0.00 0.00 - 0.00 x10(3)/mc L 11/05/2023 5:[facility] Neutrophil % 94.1 % 11/05/2023 5:33 PM [facility] Neutrophil Absolute (ANC) - Automated 17.44(H) 1.70 - 6.10 x10(3)/mc L 11/05/2023 5:33 PM [facility] Lymph % 1.6 % 11/05/2023 5:[facility] Lymph Absolute 0.30(L) 0.90 - 3.20 x10(3)/mc L 11/05/2023 5:33 PM [facility] Monocyte % 3.5 % 11/05/2023 5:33 PM [facility] Monocyte Absolute 0.64 0.30 - 0.90 x10(3)/mc L 11/05/2023 5:33 PM [facility] Eos % 0.0 % 11/05/2023 5:[facility] Eos Absolute 0.00 0.00 - 0.40 x10(3)/mc L 11/05/2023 5:33 [facility] Basophil % 0.2 % 11/05/2023 5:33 [facility] Baso Absolute 0.03 0.00 - 0.10 x10(3)/mc L 11/05/2023 5:33 [facility] Immature Gran % 0.6 % 5:33 PM EDT [facility] Immature Gran Absolute 0.11(H) 0.00 - 0.04 x10(3)/mc L 11/05/2023 5:33 PM EDT [facility] Blood VENOUS BLOOD SPECIMEN / Unknown IP Care Team Draw / Unknown 11/05/2023 4:03 PM EDT 11/05/2023 5:22 PM EDT Prashant Calvin MD HEMATOLOGY ORDERABLE S Performing Organization Address [facility] Co de Phone Number [facility] [place] [address] * (ABNORMAL) POC, GLUCOSE (11/05/2023 3:44 PM EDT) Glucometer, POC 239(H) 65 - 199 mg/dL 11/05/2023 3:44 PM EDT [facility] Comment:Supplemental ranges: <140 mg/dL before meals <180 mg/dL all other times of the day. Blood CAPILLARY BLOOD / Unknown 11/05/2023 3:44 PM EDT 11/05/2023 3:44 PM EDT rPashant Calvin MD POINT OF CARE TEST O RDERABLES Performing Organization Address [facility] Co de Phone Number [facility] [place] [address] * (ABNORMAL) BLOOD GAS, POC (11/05/2023 3:22 PM EDT) Sodium, POC 131(L) 135 - 145 mmol/L 11/08/2023 8:27 AM EDT [facility] Potassium, POC 3.6 3.5 - 5.0 mmol/L 11/08/2023 8:27 AM EDT [facility] pH, POC 7.35 7.35 - 7.45 11/08/2023 8:27 AM EDT [facility] Ionized Calcium, POC 1.14(L) 1.15 - 1.33 mmol/L 11/08/2023 8:27 AM EDT [facility] pCO2, POC 39 35 - 45 mmHg 11/08/2023 8:27 AM EDT [facility] pO2, POC 76(L) 85 - 104 mmHg 11/08/2023 8:27 AM EDT [facility] Base Excess, POC -4.0(L) -3.0 - 3.0 mmol/L 11/08/2023 8:27 AM EDT [facility] Hematocrit, POC 36.0(L) 40.5 - 48.5 %PCV 11/08/2023 8:27 AM EDT [facility] Hemoglobin, POC 12.2(L) 13.7 - 16.5 g/dL 11/08/2023 8:27 AM EDT [facility] Comment:The calculation of h emoglobin from hematocrit assumes a normal MCHC. Bicarbonate, POC 21.4 20.0 - 26.0 mmol/L 11/08/2023 8:27 AM EDT [facility] Carbon Dioxide, POC 23 22 - 31 mmol/L 11/08/2023 8:27 AM EDT [facility] Blood VENOUS BLOOD SPECIMEN / Unknown 11/05/2023 3:22 PM EDT 11/08/2023 8:27 AM EDT Prashant Calvin MD POINT OF CARE TEST O RDERABLES [facility] [place] [address] documented in this encounter Visit Diagnoses Diagnosis NSTEMI (non-ST elevated myocardial infarction)- Primary Acute myocardial infarction, subendocardial infarction, episode of care unspecified Non-ST elevation myocardial infarction (NSTEMI) Acute myocardial infarction, subendocardial infarction, episode of care unspecified Coronary artery disease involving alturas heart, unspecified vessel or lesion type, unspecified whether angina present NSTEMI (non-ST elevated myocardial infarction) Acute myocardial infarction, subendocardial infarction, episode of care unspecified Hematuria, unspecified type CAD (coronary artery disease) Coronary atherosclerosis of unspecified type of vessel, alturas or graft Drinks beer Acute on chronic systolic heart failure documented in this encounter Admitting Diagnoses Diagnosis CAD (coronary artery disease) Coronary atherosclerosis of unspecified type of vessel, alturas or graft documented in this encounter Administered [...] Given 11/07/2023 8:21 AM EDT 75 mg furosemide (Lasix) (10 mg/mL) injection 120 mg 120 mg, Intravenous, ONCE, 1 dose, On Sun11/05/23 at 1845 Given 11/05/2023 6:53 PM EDT 120 mg furosemide (Lasix) (10 mg/mL) injection 60 mg 60 mg, Intravenous, ONCE, 1 dose, On Sun11/09/23 at 1030 Given 11/09/2023 11:10 AM EDT 60 mg heparin (porcine) (1,000 units/mL) injection 0-4,000 Units 0-4,000 Units, Intravenous, BOLUS PER HEPARIN PROTOCOL, Starting on Sun11/05/23 at 1814, Until Sun11/08/23 at 0934, Per Protocol, START ADJUSTMENT SCHEDULE [...] than 0.2 international unit/mL: No Bolus, Routine Given 11/06/2023 6:24 AM EDT 4,000 Units heparin (porcine) 50 units/mL in dextrose 5% 500 mL infusion 0-5,000 Units/hr (0-100 mL/hr), Intravenous, CONTINUOUS, Starting [...] Heparin UFH Level - Per Protocol, Routine Rate/Dose Verify 11/08/2023 3:25 AM EDT 1,700 Units/hr 34 mL/hr New Bag 11/07/2023 7:44 PM EDT 1,700 Units/hr 34 mL/hr New Bag 11/07/2023 5:21 AM EDT 1,700 Units/hr 34 mL/hr ipratropium-albuteroL (Duoneb) 0.5 mg-3 mg(2.5 mg base)/3 [...] Given 11/08/2023 9:09 AM EDT 12.5 mg nitroGLYcerin (Nitrostat) disintegrating tablet 0.4 mg [...] the last 24 to 72 hours., Routine pantoprazole EC (Protonix) tablet 40 mg 40 mg, Oral, DAILY, First dose on Sun11/05/23 at 1900, Until Discontinued, DO NOT CRUSH OR OPEN, Routine Given 11/09/2023 8:31 AM EDT 40 mg Given 11/08/2023 9:11 AM EDT 40 mg Given 11/07/2023 8:21 AM EDT 40 mg perflutren lipid microspheres (Definity) injection 0.5 mL 0.5 mL, Intravenous, ONCE PRN, 1 dose, Starting on Sun11/06/23 at 0902, Until Sun11/06/23 at 0830, Other, Routine Given 11/06/2023 8:30 AM EDT 0.5 mLs potassium chloride ER (Klor-Con M) crystal tablet 40 mEq 40 mEq, Oral, ONCE, 1 dose, On Sun11/05/23 at 1845, 20 mEq tablet may be dissolved in water for administration potassium chloride ER particle/crystal tablets (Klor-Con M) may be broken in half and each half swallowed separately. Tablets can be dissolved in ~4 ounces of water; allow ~2 minutes to dissolve, stir well and drink immediately. Do not crush, chew, or suck on tablet., Routine Given 11/05/2023 6:53 PM EDT 40 mEq potassium chloride ER (Klor-Con M) crystal tablet 40 mEq 40 mEq, Oral, ONCE, 1 dose, On Sun11/07/23 at 1245, potassium chloride ER particle/crystal tablets (Klor-Con M) may be broken in half and each half swallowed separately. Tablets can be dissolved in ~4 ounces of water; allow ~2 minutes to dissolve, stir well and drink immediately. Do not crush, chew, or suck on tablet., Routine Given 11/07/2023 2:12 PM EDT 40 mEq rosuvastatin (Crestor) tablet 20 mg 20 mg, Oral, EVERY EVENING, First dose on Sun11/05/23 at 1830, Until Discontinued, Routine Given 11/08/2023 5:40 PM EDT 20 mg Given 11/07/2023 5:36 PM EDT 20 mg Given 11/06/2023 4:25 PM EDT 20 mg sodium chloride (Blue Earth) 0.65 % nasal spray 1 spray 1 [...] Given 11/05/2023 8:55 PM EDT 5 mLs sodium chloride 0.9% infusion 100 mL/hr, Intravenous, CONTINUOUS, Starting on Sun11/08/23 at 1515, Until Sun11/08/23 at 1914, Recovery (Recovery-Hospital Unit) Continued Bag 11/08/2023 3:15 PM EDT 100 mL/hr 100 mL/hr spironolactone (Aldactone) tablet 12.5 mg 12.5 mg, [...] 08 (Given - Provider: Hilton Guevara RN) 910 (Given - Provider: Altagracia Spears RN) 829 (Given - Provider: Hilton Guevara RN) furosemide (Lasix) (10 mg/mL) injection 60 mg (COMPLETED) 60 mg, Intravenous, ONCE, 1 dose, On Sun11/09/23 at 1030 1110 (Given - Provider: Altagracia Spears RN) metoprolol tartrate (Lopressor) tablet 12.5 mg 12.5 mg, Oral, EVERY 12 HOURS SCHEDULED (2 times per day), First dose on Sun11/06/23 at 1045, Until Discontinued, Routine 08 (Given - Provider: Hilton Guevara RN)2020 (Given - Provider: Mara Puri RN) 09 (Given - Provider: Altagracia Spears RN)1330 (MAY [...] 0911 (Given - Provider: Altagracia Spears, ROWENA)1330 ([facility] Hold - Provider: Admin Adt - Reason: Transfer to a Procedural area)153 ([facility] Unhold - Provider: Admin Adt) 0831 (Given [...] (Given - Provider: Hilton Guevara RN) 1330 ([facility] Hold - Provider: Admin Adt - Reason: Transfer to a Procedural area)153 ([facility] Unhold - Provider: Admin Adt)1740 (Given - Provider: Altagracia Spears, ROWENA) sodium chloride 0.9 % (flush) (BD PosiFlush Normal Saline 0.9) flush 5 mL 5 mL, Intravenous, 2 TIMES DAILY, First dose on Sun11/05/23 at 2100, Until Discontinued, Routine 0822 (Given - Provider: Hilton Guevara RN)2020 (Given - Provider: Mara Puri, ROWENA) 0914 (Given - Provider: Altagracia Spears, ROWENA)1330 ([facility] Hold - Provider: Admin Adt - Reason: Transfer to a Procedural area)153 ([facility] Unhold - Provider: Admin Adt)203 (Given - Provider: Mara Puri RN) 0832 (Given - Provider: Hilton Guevara, ROWENA) spironolactone (Aldactone) tablet 12.5 mg 12.5 mg, Oral, DAILY, First dose on Sun11/06/23 at 0900, Until Discontinued, DO NOT SPLIT, CRUSH OR OPEN, Routine 0823 (Given - Provider: Hilton Guevara RN) 0911 (Given - Provider: Altagracia Spears, ROWENA)1330 ([facility] Hold - Provider: Admin Adt - Reason: Transfer to a Procedural area)153 ([facility] Unhold - Provider: Admin Adt) 0831 (Given - Provider: Hilton Guevara, ROWENA) valsartan (Diovan) tablet 20 mg 20 mg, Oral, 2 TIMES DAILY, First dose on Sun11/05/23 at 2100, Until Discontinued, Routine 0823 (Given - Provider: Hilton Guevara RN)2020 (Given - Provider: Mara Puri RN) 0900 (Given - Provider: Altagracia Spears RN)1330 (MA[facility] Hold - Provider: Admin Adt - Reason: Transfer to a Procedural area)153 ([facility] Unhold - Provider: Admin Adt)2030 (Given - [...] ROWENA) 0325 (Rate/Dose Verify - Provider: Mara Puri, ROWENA)0948 (Hold - Provider: Altagracia Spears RN - [...] (Given - Provider: Hilton Guevara RN) 1330 ([facility] Hold - Provider: Admin Adt - Reason: Transfer to a Procedural area)153 ([facility] Unhold - Provider: Admin Adt)1745 (Given - [...] Mylene Martin RN)1407 (Given - Provider: Mylene Martin RN)1424 (Given - Provider: Mylene Martin RN) ipratropium-albuteroL (Duoneb) 0.5 mg-3 mg(2.5 mg base)/3 mL nebulizer solution 3 mL 3 mL, Nebulization, EVERY 4 HOURS PRN, Starting on Sun11/06/23 at 0931, Until Sun11/09/23 at 1820, Wheezing, Routine 1330 ([facility] Hold - Provider: Admin Adt - Reason: Transfer to a Procedural area)153 ([facility] Unhold - Provider: Admin Adt) lidocaine (Xylocaine) 1% (10 mg/mL) injection 3 mg 3 mg (0.3 mL), Subcutaneous, ONCE PRN, 1 dose, Starting on Sun11/05/23 at 1503, Until Sun11/09/23 at 1820, for discomfort with PIV insertion, Routine 1330 ([facility] Hold - Provider: Admin Adt - Reason: Transfer to a Procedural area)153 ([facility] Unhold - Provider: Admin Adt) melatonin tablet 6 mg 6 mg, Oral, NIGHTLY PRN, Starting on Sun11/05/23 at 2315, Until Sun11/09/23 at 1820, Sleep, Routine 1330 ([facility] Hold - Provider: Admin Adt - Reason: Transfer to a Procedural area)1531 ([facility] Unhold - Provider: Admin Adt) midazolam (pf) [...] last 24 to 72 hours., Routine 1330 ([facility] Hold - Provider: Admin Adt - Reason: Transfer to a Procedural area)1531 ([facility] Unhold - Provider: Admin Adt) nitroGLYcerin 100 mcg/mL intracoronary dilution (CANCELED) PRN, Starting on Barbara 11/08/23 at 1355, Until Barbara 11/08/23 at 1531, Intra-Operative (Intra-Procedure), Routine 1355 (Given - Provider: RHIANNA Alves)1402 (Given - Provider: Joslyn Machado MD) sodium chloride (Blue [place]) 0.65 % nasal spray 1 spray 1 spray, Each Nare, 2 TIMES DAILY PRN, Starting on Sun11/06/23 at 2004, Until Sun11/09/23 at 1820, Congestion, Routine 1330 ([facility] Hold - Provider: Admin Adt - Reason: Transfer to a Procedural area)1531 ([facility] Unhold - Provider: Admin Adt) sodium chloride [...] Routine documented in this encounter Care Teams Instrument Assembly Supervisor Relationship Specialty Start Date End Date None None PCP - General 11/05/23 documented as of this encounter
--- OUTSIDE RECORDS SUMMARY | 2023-11-17 17:09 | XMS_ITS | Encounter Summary ---
Author Organization [facility] [place] [address] Care Team Providers Care Veterinary Milk Specialist Name Role Phone None Primary Care Provider Unavailabl e Reason for Visit * Auth/Cert (Routine) Specialty Diagnoses / Procedures Referred By Terrance t Referred To Contact Diagnoses CAD (coronary artery disease) LHC/CORS Procedures CARDIAC CATHETERIZATION Marina Mullen MD [facility] [place] [address] [facility] Referral ID Status Reason Start Date Expiration Date Visits Re quested Visits Authorized [id number] 1 1 Encounter Details Date Type Department Care Team (Late st Contact Info) Description 11/08/2023 2:38 PM EDT - 11/08/2023 4:08 PM EDT [place] [address] Joslyn Antony MD [facility] [place] [address] CARDIAC CATHETERIZATION Social History Tobacco Use Types Packs/Day Years Used Date Smoking Tobacco: Former Cigarettes Q uit: 1996 Passive Smoke Exposure: Past Smokeless Tobacco: Never Tobacco Cessation:Counseling Given: Yes Alcohol Use Standard Drinks/Week Comments Yes 14 (1 standard drink = 0.6 oz pu re alcohol) [facility] Utilities Answer Date Recorded In [...] were you homeless or living in a residential (including now)? No 11/06/2023 DH IPV Inpatient [...] Sign Reading Time Taken Comments Blood Pressure 113/86 11/08/2023 3:29 PM EDT Pulse 93 11/08/2023 3:29 PM EDT Temperature 36.6 ??C (97.8 ??F) 11/08/2023 3:29 PM ED T Respiratory Rate 20 11/08/2023 3:29 PM EDT Oxygen Saturation 97% 11/08/2023 3:29 PM EDT Inhaled Oxygen Concentration - - Weight 105.2 kg (232 lb) 11/08/2023 12:05 AM EDT Height 189 cm (6' 2.4) 11/06/2023 3:00 AM EDT Body Mass Index 28.83 11/06/2023 3:00 AM EDT documented in this encounter Discharge Summaries * Danni Joy MD - 11/09/2023 4:19 PM EDT Discharge Summary Patient Name: Rose Buck Patient Age: 73 y.o. Language: Azeri Race: Choose not to Disclose Ethnicity: Choose [...] please contact your inpatient physician through the [facility] . Issues afterhours and on weekends will [...] 4.1 3.7 CL 103 99 94* CO2 24 BUN 21* 27* 32* CREATININE 1.03 [...] of 8AM-5PM please call the Cardiology Clinic [phone] to speak with a nurse. All other hours please call the Hospital Curtain Framer [phone] and ask to speak to the bale piler on-call. Return to work: One week Driving: No driving for 48 hours after cath Follow up Appointments: 11/27/2023 2:20 PM Mara Robins PA [facility] 4A Arrive at: [facility] 4A Home oxygen therapy: N/A Arrangements [...] of one year. After this time, your chocolate production machine operator will determine if you need to continue [...] away. Stay on the phone. The emergency feeder operator will tell you what to do. [...] has weakened. We evaluated this further with [facility] and believe CAD caused this weakening. [...] 11/22/2023 1:00 PM LAB, THREE L Lab [facility] Arrive at: [facility] 3L [phone] 11/22/2023 2:00 PM Nahed Moore PA Cardiology at [facility] Arrive at: [facility] 4A [phone] 11/27/2023 2:20 PM Mara Robins PA Cardiology at [facility] Arrive at: [facility] 4A [phone] Future Orders Complete By Expires Referral to Cardiac Rehab [[id number] Custom] As directed Process Instructions: If no progress note charted, please enter Clinical details in comments. Scheduling Instructions: Questions: My question or request is: NSTEMI, staged PCI- cardiac rehab at [facility] Referral to Urology [[id number] Custom] As directed Process Instructions: If no [...] of 8AM-5PM please call the Cardiology Clinic [phone] to speak with a nurse. All other hours please call the Hospital Curtain Framer [phone] and ask to speak to the bale piler on-call. Return to work: One week Driving: No driving for 48 hours after cath Follow up Appointments: 11/27/2023 2:20 PM Mara Robins PA [facility] 4A Arrive at: [facility] 4A Home oxygen therapy: N/A Arrangements [...] of one year. After this time, your chocolate production machine operator will determine if you need to continue [...] away. Stay on the phone. The emergency feeder operator will tell you what to do. [...] has weakened. We evaluated this further with [facility] and believe CAD caused this weakening. [...] diet consult following NSTEMI S/p LAD stent. Poster met with pt at bedside. Poster provided Guidelines for a Heart Healthy Lifestyle handout and discussed with pt his typical eating habits. Pt stated he typically cooks at home for him and his , and rarely goes out to eat. Pt stated that he gave up red meat and likes cooking with fresh fruit and vegetables. Poster highlighted the importance of decreasing alcohol consumption [...] Orders Diet Daily Healthy Menu Choices/Cardiac diet ([facility]) Frequency: Effective Now Number of Occurrences: Until [...] unless consulted in the interim. Bekah Saeed Food Service Worker * Danni Joy MD - 11/08/2023 2:06 [...] Psychiatric/Behavioral: Negative. Lab Comments: Recent Labs 11/08/23 02411/07/23 0138 11/06/23 0408 WBC 7.95 12.68* 16.03* [...] Negative. Psychiatric/Behavioral: Negative. Lab Comments: Recent Labs 11/07/2313711/06/2340711/05/23 1603 WBC 12.68* 16.03* 18.52* HGB 11.3* [...] 74 BILITOT 0.3 BILIDIR 0.2 Recent Labs 11/07/2313711/06/2340711/05/23 1603 CALCIUM 8.9 9.0 8.6 MAGNESIUM 1.05 1.04 1.04 PHOS 4.4 4.6* 3.3 Recent Labs 11/05/23 1902 11/05/23 1603 TROPONINTHS 1,944* 1,941* Assessment: Rose Bcuk is a 73 y.o. male with past [...] interested in the Rethinking Drinking brochure. Jami CLAIRE,[facility] [id number] * Yesi Sharif MD - 11/06/2023 [...] 11/05/232099 Site Preparation/Maintenance dressing: dry and intact 11/06/23 06 Securement sterile tape strips, secured with;site guard in place 11/05/232099 Patency/Maintenance flushed without difficulty 11/05/23 2100 Phlebitis 0-->no symptoms 11/06/23 06 Infiltration 0-->no symptoms 11/06/23 0600 Site Signs/Symptoms [...] qd - Hold clopidogrel - pending upon geophysical laboratory director recommendation - Spironolactone 12.5 mg qd - [...] Internal Medicine, PGY-1 Cardiovascular Critical Care, Pager #[phone] 11/06/23 7:16 AM Associated attestation - Allen [...] Wong Meyer MD [facility] * Lulu Wilson, [facility] - 11/05/2023 4:34 PM EDT Respiratory Therapy [...] ICU course Found to have NSTEMI s/p C with severe LAD proximal and mid lesion [...] Intimate Partner Violence: Not At Risk (11/05/2023) IPV Inpatient Questions Prevent Contact with Others: [...] qd - Hold clopidogrel - pending upon geophysical laboratory director recommendation - Spironolactone 12.5 mg q12h - [...] Internal Medicine, PGY-1 Cardiovascular Critical Care, Pager #[phone] 11/05/23 4:36 PM Associated attestation - Allen [...] EDT Post Cardiac cath note Rose Mikhail [id number] 73 y.o. male Last value Range [...] of Hospital-Acquired Illness or Injury 11/08/20231705 by Altargacia Spears RN Outcome: Ongoing (Interventions Implemented as [...] Procedure Note: Patient Name: Rose Buck : [id number] MR#: [id number] Case Date: 11/08/2023 Curtain Framer: Surgeons and Role: * Joslyn Antony MD - Primary * Froilan Lopez MD - Fellow - Assisting * Mara Robins PA - Physician Epic Beacon Analyst Preoperative diagnosis: NSTEMI S/P LAD PCI with diseased LCx Postoperative diagnosis: NSTEMI S/P PCI LAD (previously stente) and LCx Preliminary Cardiac Catheterization Procedure Note: Procedure(s) performed: Coronary Angiography, Left Heart Cath, IVUS, PCI-Stent Baseline Frailty Assessment: Definitions from [place] Study of Health and Aging Clinical Frailty [...] Full report to follow. JOSLYN ANTONY MD supervising floorperson Pager [phone] * Consult Note - Adela [...] within reach. Plan Moving Forward: NPO for geophysical laboratory director today Discharge planning as appropriate CPG Evaluation [...] in an outpatient cardiac rehabilitation program at [facility] was discussed. Patient agrees to a [...] Admitted From: Transfer from another hospital Location: [facility] Reason for Hospitalization: Heart attack Past medical History: No past medical history on file. Hospitalizations Within the Past 30 Days: no previous admission in last 30 days Current Decision-Making Capacity: Self If AD's have not been completed the following surrogate would be surrogate decision maker per [place] surrogate decision making law. (Only good for 180 days) Any patient receiving care in [place] must abide by [place] law. The hierarchy for surrogate decision making [...] (i) The agent with financial power of real estate attorney or a conservator appointed in accordance [...] were you homeless or living in a residential (including now)?: No In the past 12 [...] Current DME: none Home Address confirmed as: [address] [address] Social & Family Supports: All names listed [...] Types: Cigarettes Quit date: 1996 Years since quittin. Passive exposure: Past Smokeless Tobacco Never In [...] current drinking and desire to cut down.(See HAND STAPLER Note) His step son will transport him home a his can not drive. Care Management team will continue to follow and assist with discharge planing and coordination of care as indicated. Jami Naqvi HAND STAPLER,WHITESMITH [id number] * Plan of Care - Terence [...] RN Outcome: Ongoing (Interventions Implemented as Appropriate) 11/05/2023 2302 by Terence Chopra RN Outcome: Ongoing (Interventions [...] Operative Note Patient Name: Rose Buck : [id number] MR#: [id number] Case Date: 11/05/2023 Surgeon: Surgeons and Role: [...] Vascular Unit Level 3 [place] [address] Yossi Castaneda MD [facility] [place] [address] 11/22/2023 1:00 PM EDT Laboratory Appointment Lab [address] [place] [phone] 11/22/2023 2:00 PM EDT Office Visit Cardiology at [address] [phone] Nahed Moore PA [facility] [place] [address] 11/27/2023 2:20 PM EDT Office Visit Cardiology at [address] [phone] Mara Robins PA [facility] [place] [address] Scheduled Referrals Name Type Priority Associated Diagnoses [...] 4:45 PM EDT CARDIAC CATHETERIZATION Routine 11/05/19 24 4:27 PM EDT TROPONIN-T, HIGH SENSITIVITY INITIAL [...] - 4.5 mg/dL 11/09/2023 4:11 AM EDT [facility] Blood VENOUS BLOOD SPECIMEN / Unknown IP Care Team Draw / Unknown 11/09/2023 3:29 AM EDT 11/09/2023 3:40 AM EDT Allen Figueroa MD CHEMISTRY ORDERABLES [facility] [place] [address] * Magnesium (11/09/2023 3:29 AM EDT) Magnesium 1.03 0.69 - 1.07 mMol/L 11/09/2023 4:11 AM EDT [facility] Blood VENOUS BLOOD SPECIMEN / Unknown IP Care Team Draw / Unknown 11/09/2023 3:29 AM EDT 11/09/2023 3:40 AM EDT Allen Figueroa MD CHEMISTRY ORDERABLES [facility] [place] [address] * (ABNORMAL) Basic Metabolic Panel (11/09/2023 3:29 AM EDT) Glucose 99 65 - 199 mg/dL [facility]23 [facility] Comment:Glucose Concentratio n >=200 mg/dL plus symptoms is consistent with Diabetes Mellitus. Blood Urea Nitrogen 21(H) 10 - 20 mg/dL 11/09/2023 4:11 AM [facility] Creatinine 1.03 0.80 - 1.50 mg/dL 11/09/2023 4:11 AM [facility] Sodium 136 135 - 145 mMol/L 11/09/2023 4:11 AM [facility] Potassium 4.1 3.5 - 5.0 mMol/L 11/09/2023 4:11 AM [facility] Chloride 103 98 - 107 mMol/L 11/09/2023 4:11 AM [facility] Carbon Dioxide 22 22 - 31 mMol/L 11/09/2023 4:11 AM [facility] Anion Gap 11 5 - 15 mMol/L 11/09/2023 4:11 AM [facility] Calcium 8.7 8.5 - 10.5 mg/dL 11/09/2023 4:[facility] Est Glomerular Filtration Rate - Male 76 mL/min/1. 73 m?? 11/09/2023 4:11 AM [facility] Comment: This patient's estimated GFR was [...] AM EDT Allen Figueroa MD CHEMISTRY ORDERABLES [facility] [place] [address] * (ABNORMAL) CBC (with Diff) (11/09/2023 3:29 AM EDT) White Blood Cell 6.55 4.00 - 9.50 x10(3)/mc L 11/09/2023 3:54 AM EDT [facility] Red Blood Cell 4.54(L) 4.58 - 5.54 x10(6)/mc L 11/09/2023 3:54 AM EDT [facility] Hemoglobin 10.9(L) 13.7 - 16.5 g/dL 11/09/2023 3:54 AM T [facility] Hematocrit 34.6(L) 40.5 - 48.5 % 11/09/2023 3:54 AM EDT [facility] Mean Cell Volume 76.2(L) 82.9 - 93.1 fL 11/09/2023 3:54 AM EDT [facility] Mean Cell Hemoglobin 24.0(L) 27.5 - 32.1 pg 11/09/2023 3:54 AM EDT [facility] Mean Cell Hemoglobin Concentration 31.5(L) 32.0 - 35.7 g/dL 11/09/2023 3:54 AM EDT [facility] Platelet 288 145 - 357 x10(3)/mc L 11/09/2023 3:[facility] Mean Platelet Volume 9.4 7.6 - 12.9 fL 11/09/2023 3:54 AM [facility] RDW Standard Deviation 48.4(H) 36.0 - 45.0 fL 11/09/2023 3:54 AM [facility] RDW coefficient of variation 17.5(H) 11.4 - 13.8 % 11/09/2023 3:54 AM [facility] NRBC% auto 0.0 % 11/09/2023 3:54 AM [facility] NRBC Absolute 0.00 0.00 - 0.00 x10(3)/mc L 11/09/2023 3:54 AM [facility] Neutrophil % 72.2 % 11/09/2023 3:54 AM [facility] Neutrophil Absolute (ANC) - Automated 4.73 1.70 - 6.10 x10(3)/mc L 11/09/2023 3:54 AM [facility] Lymph % 11.6 % 11/09/2023 3:54 AM [facility] Lymph Absolute 0.76(L) 0.90 - 3.20 x10(3)/mc L 11/09/2023 3:54 AM [facility] Monocyte % 12.5 % 11/09/2023 3:54 AM [facility] Monocyte Absolute 0.82 0.30 - 0.90 x10(3)/mc L 11/09/2023 3:54 AM [facility] Eos % 2.6 % 11/09/2023 3:54 AM [facility] Eos Absolute 0.17 0.00 - 0.40 x10(3)/mc L 11/09/2023 3:54 AM [facility] Basophil % 0.6 % 11/09/2023 3:54 AM [facility] Baso Absolute 0.04 0.00 - 0.10 x10(3)/mc L 11/09/2023 3:54 AM [facility] Immature Gran % 0.5 % 3:54 AM EDT [facility] Immature Gran Absolute 0.03 0.00 - 0.04 x10(3)/mc L 11/09/2023 3:54 AM EDT [facility] Blood VENOUS BLOOD SPECIMEN / Unknown IP Care Team Draw / Unknown 11/09/2023 3:29 AM EDT 11/09/2023 3:40 AM EDT Allen Figueroa MD HEMATOLOGY ORDERABLE S [facility] [place] [address] * EKG 12 Lead (11/08/2023 3:00 PM EDT) Ventricular rate 95 BPM MUSE SYSTEM Atrial Rate 95 BPM MUSE SYSTEM P-R Interval 180 ms MUSE SYSTEM QRS Duration 126 ms MUSE SYSTEM Q-T Interval 418 ms MUSE SYSTEM QTC Calculated (Bezet) 525 ms MUSE SYSTEM Calculated P [place] 81 degrees MUSE SYSTEM Calculated R [place] -57 degrees MUSE SYSTEM Calculated T [place] 109 degrees MUSE SYSTEM INTERPRETATION Normal sinus rhythm Possible Left atrial enlargement Left axis deviation Left ventricular hypertrophy with QRS widening and repolarization abnormality ( R in aVL , [place] product ) Cannot rule out Septal infarct [...] Modality Other Narrative 11/09/2023 8:37 AM EDT ?[facility] ? Cardiac Catheterization/Intervention Report ? Patient Name: Rose Buck ? Procedure Date: 11/08/2023 ? A #: [id number] ? Primary Physician: Antony, Joslyn V ? Case #: [id number] ? File Name: [id number] ? Catheterization Order Number: [id number] ? [facility] ? Final Report [place], [place] ? Patient Name: ? Rose Buck ? ID#: ?[id number] ? : ?1950 ? Procedure Date: ? November 08, 2023 ?Case #: ? [id number] ? Room: ? 5 ? Case Physician: [...] procedure was Elective. The indication for ?the geophysical laboratory director visit is stable known CAD. Chest pain [...] premounted ? 3.50 x 18 mm Michael Evans (DORINDA) was deployed with a maximum ? [...] A premounted 3.50 x 18 mm Michael Evans (DORINDA) was deployed ? with a maximum [...] on chronic DAPT on arrival to the geophysical laboratory director. ?Recommended anti-platelet/anti-thrombotic regimen: ?Start aspirin 81 mg daily now and continue for indefinitely. ?Start clopidogrel 75 mg daily now and continue for 12 months then stop. ?These recommendations are made at the time of the intervention. Patient ?and provider preferences or a changing clinical situation may require ?modification of this regimen. Consult [facility] Interventional Cardiology for ?questions. ?The 1 year [...] Procedure Note Joslyn Antony MD - 11/09/2023 [facility] Cardiac Catheterization/Intervention Report Patient Name: Rose Buck Procedure Date: 11/08/2023 A #: [id number] Primary Physician: Joslyn Antony V Case #: [id number] File Name: [id number] Catheterization Order Number: [id number] [facility] FinalReport [place], [place] Patient Name: Rose Buck ID#:[id number] :1950 Procedure Date: November 08, 2023 Case #: [id number] Room: 5 Case Physician: Joslyn Antony M.D. Start: 13:54 Fellow: Froilan Lopez M.D. Admission:11/05/2023 Procedures: * Coronary Angiography * Left Heart Catheterization * Coronary Ultrasound * Coronary Stent Insertion History Rose Bukc is a 73 year old man. The [...] was designated as ASA Class III. The [facility] clinical frailty scale is 4: Vulnerable. Diagnostic Tests: Prior Coronary Angiography: Prior coronary angiography was performed on 11/05/2023 andshowed obstructive CAD. LV ejection fraction within 6 months is 20%. Medications Prior to Procedure: Aspirin, Angiotensin II Receptor Good and Statin. Indications for Diagnostic Cath: The priority of the diagnostic procedure was Elective. Theindication for the geophysical laboratory director visit is stable known CAD. Chest pain [...] 14 atmospheres. Apremounted 3.50 x 18 mm [place] Evans (DORINDA) was deployed with amaximum inflation pressure [...] The lesion was predilated with a 3.00mm [id number] MM balloon with a maximum inflation pressure of 14atmospheres. A premounted 3.50 x 18 mm Michael Evans (DORINDA) wasdeployed with a maximum inflation pressure [...] on chronic DAPT on arrival to the geophysical laboratory director. Recommended anti-platelet/anti-thrombotic regimen: Start aspirin 81 mg daily now and continue for indefinitely. Start clopidogrel 75 mg daily now and continue for 12 months thenstop. These recommendations are made at the time of the intervention.Patient and provider preferences or a changing clinical situation mayrequire modification of this regimen. Consult [facility] Interventional Cardiologyfor questions. The 1 year bleeding [...] Heparin 0.36 IU/mL 11/08/2023 3:16 AM EDT [facility] Comment: Heparin (anti-Xa) levels [...] MD HEMATOLOGY ORDERABLE S Performing Organization Address [facility] Co de Phone Number [facility] [place] [address] * Phosphorus (11/08/2023 2:46 AM EDT) Phosphorus 3.3 2.5 - 4.5 mg/dL 11/08/2023 3:24 AM EDT [facility] Blood VENOUS BLOOD SPECIMEN / Unknown IP Care Team Draw / Unknown 11/08/2023 2:46 AM EDT 11/08/2023 2:53 AM EDT Allen Figueroa MD CHEMISTRY ORDERABLES Performing Organization Address [facility] Co de Phone Number [facility] [place] [address] * Magnesium (11/08/2023 2:46 AM EDT) Magnesium 1.06 0.69 - 1.07 mMol/L 11/08/2023 3:24 AM EDT [facility] Blood VENOUS BLOOD SPECIMEN / Unknown IP Care Team Draw / Unknown 11/08/2023 2:46 AM EDT 11/08/2023 2:53 AM EDT Allen Figueroa MD CHEMISTRY ORDERABLES [facility] [place] [address] * (ABNORMAL) Basic Metabolic Panel (11/08/2023 2:46 AM EDT) Glucose 105 65 - 199 mg/dL 11/08/2023 3:24 AM EDT [facility] Comment:Glucose Concentratio n >=200 mg/dL plus symptoms is consistent with Diabetes Mellitus. Blood Urea Nitrogen 27(H) 10 - 20 mg/dL 11/08/2023 3:24 AM EDT [facility] Creatinine 1.15 0.80 - 1.50 mg/dL 11/08/2023 3:24 AM T [facility] Sodium 135 135 - 145 mMol/L 11/[facility]23 [facility] Potassium 4.1 3.5 - 5.0 mMol/L 11/08/2023 3:24 AM [facility] Chloride 99 98 - 107 mMol/L 11/08/2023 3:24 AM [facility] Carbon Dioxide 25 22 - 31 mMol/L 11/08/2023 3:[facility] Anion Gap 11 5 - 15 mMol/L 11/08/2023 3:24 AM [facility] Calcium 8.5 8.5 - 10.5 mg/dL 11/08/2023 3:24 AM EDT [facility] Est Glomerular Filtration Rate - Male 66 mL/min/1. 73 m?? 11/08/2023 3:[facility] Comment: This patient's estimated GFR [...] AM EDT Allen Figueroa MD CHEMISTRY ORDERABLES [facility] [place] [address] * (ABNORMAL) CBC (with Diff) (11/08/2023 2:46 AM EDT) White Blood Cell 7.95 4.00 - 9.50 x10(3)/mc L 11/08/2023 3:03 AM [facility] Red Blood Cell 4.47(L) 4.58 - 5.54 x10(6)/mc L 11/08/2023 3:03 AM [facility] Hemoglobin 10.7(L) 13.7 - 16.5 g/dL 11/08/2023 3:03 AM [facility] Hematocrit 33.9(L) 40.5 - 48.5 % 11/08/2023 3:[facility] Mean Cell Volume 75.8(L) 82.9 - 93.1 fL 11/08/2023 3:03 AM [facility] Mean Cell Hemoglobin 23.9(L) 27.5 - 32.1 pg 11/08/2023 3:03 AM [facility] Mean Cell Hemoglobin Concentration 31.6(L) 32.0 - 35.7 g/dL 11/08/2023 3:03 AM [facility] Platelet 298 145 - 357 x10(3)/mc L 11/08/2023 3:03 AM [facility] Mean Platelet Volume 9.3 7.6 - 12.9 fL 11/08/2023 3:03 AM [facility] RDW Standard Deviation 48.6(H) 36.0 - 45.0 fL 11/08/2023 3:03 AM [facility] RDW coefficient of variation 17.6(H) 11.4 - 13.8 % 11/08/2023 3:03 AM [facility] NRBC% auto 0.0 % 11/08/2023 3:03 AM [facility] NRBC Absolute 0.00 0.00 - 0.00 x10(3)/mc L 11/08/2023 3:03 AM [facility] Neutrophil % 77.3 % 11/08/2023 3:03 AM [facility] Neutrophil Absolute (ANC) - Automated 6.15(H) 1.70 - 6.10 x10(3)/mc L 11/08/2023 3:03 AM [facility] Lymph % 11.8 % 11/08/2023 3:03 AM [facility] Lymph Absolute 0.94 0.90 - 3.20 x10(3)/mc L 11/08/2023 3:03 AM [facility] Monocyte % 9.3 % 11/08/2023 3:03 AM [facility] Monocyte Absolute 0.74 0.30 - 0.90 x10(3)/mc L 11/08/2023 3:03 AM [facility] Eos % 0.8 % 11/08/2023 3:03 AM [facility] Eos Absolute 0.06 0.00 - 0.40 x10(3)/mc L 11/08/2023 3:03 AM [facility] Basophil % 0.4 % 11/08/2023 3:03 AM EDT [facility] Baso Absolute 0.03 0.00 - 0.10 x10(3)/mc L 11/08/2023 3:03 AM EDT [facility] Immature Gran % 0.4 % 3:03 AM EDT [facility] Immature Gran Absolute 0.03 0.00 - 0.04 x10(3)/mc L 11/08/2023 3:03 AM EDT [facility] Blood VENOUS BLOOD SPECIMEN / Unknown IP Care Team Draw / Unknown 11/08/2023 2:46 AM EDT 11/08/2023 2:53 AM EDT Allen Figueroa MD HEMATOLOGY ORDERABLE S [facility] [place] [address] * XR Chest PA & Lateral (Generic) (11/07/2023 2:35 PM EDT) Cancer Genetics WORKSTATION ID [id number] DH RAD Anatomical Region Laterality Modality Chest [...] who have questions please contact the health critical care unit nurse that requested your imaging first. ? Electronically signed by: Rosas Verduzco MD, [facility] ??([phone]), at 11/08/2023 9:05 AM Narrative 11/08/2023 9:05 [...] patients who have questions please contactthe health critical care unit nurse that requested your imaging first. Danni Joy MD IMG DX ORDERABLES * Heparin (unfractionated) Level (11/07/2023 1:38 AM EDT) UF Heparin 0.45 IU/mL 11/07/2023 2:22 AM EDT [facility] Comment: Heparin (anti-Xa) levels [...] MD HEMATOLOGY ORDERABLE S Performing Organization Address [facility] Co de Phone Number [facility] [place] [address] * Phosphorus (11/07/2023 1:38 AM EDT) Phosphorus 4.4 2.5 - 4.5 mg/dL 11/07/2023 2:23 AM EDT [facility] Blood VENOUS BLOOD SPECIMEN / Unknown IP Care Team Draw / Unknown 11/07/2023 1:38 AM EDT 11/07/2023 1:43 AM EDT Allen Figueroa MD CHEMISTRY ORDERABLES Performing Organization Address [facility] Co de Phone Number [facility] [place] [address] * Magnesium (11/07/2023 1:38 AM EDT) Magnesium 1.05 0.69 - 1.07 mMol/L 11/07/2023 2:23 AM EDT [facility] Blood VENOUS BLOOD SPECIMEN / Unknown IP Care Team Draw / Unknown 11/07/2023 1:38 AM EDT 11/07/2023 1:43 AM EDT Allen Figueroa MD CHEMISTRY ORDERABLES Performing Organization Address [facility] Co de Phone Number [facility] [place] [address] * (ABNORMAL) Basic Metabolic Panel (11/07/2023 1:38 AM EDT) Glucose 113 65 - 199 mg/dL 11/07/2023 2:23 AM [facility] Comment:Glucose Concentratio n >=200 mg/dL plus symptoms is consistent with Diabetes Mellitus. Blood Urea Nitrogen 32(H) 10 - 20 mg/dL 11/07/2023 2:23 AM [facility] Creatinine 1.35 0.80 - 1.50 mg/dL 11/07/2023 2:23 AM [facility] Sodium 133(L) 135 - 145 mMol/L 11/07/2023 2:23 AM [facility] Potassium 3.7 3.5 - 5.0 mMol/L 11/07/2023 2:23 AM [facility] Chloride 94(L) 98 - 107 mMol/L 11/07/2023 2:23 AM [facility] Carbon Dioxide 24 22 - 31 mMol/L 11/07/2023 2:23 AM [facility] Anion Gap 15 5 - 15 mMol/L 11/07/2023 2:23 AM [facility] Calcium 8.9 8.5 - 10.5 mg/dL 11/07/2023 2:23 AM [facility] Est Glomerular Filtration Rate - Male 55 mL/min/1. 73 m?? 11/07/2023 2:23 AM [facility] Comment: This patient's estimated GFR was [...] AM EDT Allen Figueroa MD CHEMISTRY ORDERABLES [facility] [place] [address] * (ABNORMAL) CBC (with Diff) (11/07/2023 1:38 AM EDT) White Blood Cell 12.68(H) 4.00 - 9.50 x10(3)/mc L 11/07/2023 1:50 AM EDT [facility] Red Blood Cell 4.67 4.58 - 5.54 x10(6)/mc L 11/07/2023 1:50 AM EDT [facility] Hemoglobin 11.3(L) 13.7 - 16.5 g/dL 11/07/2023 1:50 AM EDT [facility] Hematocrit 35.6(L) 40.5 - 48.5 % 11/07/2023 1:50 AM EDT [facility] Mean Cell Volume 76.2(L) 82.9 - 93.1 fL 11/07/2023 1:50 AM [facility] Mean Cell Hemoglobin 24.2(L) 27.5 - 32.1 pg 11/07/2023 1:50 AM EDT [facility] Mean Cell Hemoglobin Concentration 31.7(L) 32.0 - 35.7 g/dL 11/07/2023 1:50 AM EDT [facility] Platelet 326 145 - 357 x10(3)/mc L [facility] Mean Platelet Volume 9.5 7.6 - 12.9 fL 11/07/2023 1:50 AM [facility] RDW Standard Deviation 48.5(H) 36.0 - 45.0 fL 11/07/2023 1:50 AM [facility] RDW coefficient of variation 18.0(H) 11.4 - 13.8 % 11/07/2023 1:50 AM [facility] NRBC% auto 0.0 % 11/07/2023 1:50 AM [facility] NRBC Absolute 0.00 0.00 - 0.00 x10(3)/mc L 11/07/2023 1:50 AM [facility] Neutrophil % 81.0 % 11/07/2023 1:50 AM [facility] Neutrophil Absolute (ANC) - Automated 10.27(H) 1.70 - 6.10 x10(3)/mc L 11/07/2023 1:50 AM [facility] Lymph % 10.0 % 11/07/2023 1:50 AM [facility] Lymph Absolute 1.27 0.90 - 3.20 x10(3)/mc L 11/07/2023 1:50 AM [facility] Monocyte % 8.0 % 11/07/2023 1:50 AM [facility] Monocyte Absolute 1.01(H) 0.30 - 0.90 x10(3)/mc L 11/07/2023 1:50 AM [facility] Eos % 0.3 % 11/07/2023 1:50 AM [facility] Eos Absolute 0.04 0.00 - 0.40 x10(3)/mc L 11/07/2023 1:50 AM [facility] Basophil % 0.3 % 11/07/2023 1:50 AM [facility] Baso Absolute 0.04 0.00 - 0.10 x10(3)/mc L 11/07/2023 1:50 AM [facility] Immature Gran % 0.4 % 1:50 AM [facility] Immature Gran Absolute 0.05(H) 0.00 - 0.04 x10(3)/mc L 11/07/2023 1:50 AM EDT [facility] Blood VENOUS BLOOD SPECIMEN / Unknown IP Care Team Draw / Unknown 11/07/2023 1:38 AM EDT 11/07/2023 1:43 AM EDT Allen Figueroa MD HEMATOLOGY ORDERABLE S Performing Organization Address [facility] Co de Phone Number [facility] [place] [address] * TSH (11/07/2023 1:38 AM EDT) Thyroid Stimulating Hormone 3.11 0.27 - 4.20 mcIU/mL 11/07/2023 2:23 AM EDT [facility] Blood VENOUS BLOOD SPECIMEN / Unknown IP Care Team Draw / Unknown 11/07/2023 1:38 AM EDT 11/07/2023 1:43 AM EDT Danni Joy MD CHEMISTRY ORDERABLES Performing Organization Address [facility] de Phone Number [facility] [place] [address] * Heparin (unfractionated) Level (11/06/2023 7:25 PM EDT) UF Heparin 0.35 IU/mL 11/06/2023 8:03 PM EDT [facility] Comment: Heparin (anti-Xa) levels [...] MD HEMATOLOGY ORDERABLE S Performing Organization Address [facility] Co de Phone Number [facility] [place] [address] * Heparin (unfractionated) Level (11/06/2023 12:00 PM EDT) UF Heparin 0.27 IU/mL 11/06/2023 12:27 PM EDT [facility] Comment: Heparin (anti-Xa) levels [...] MD HEMATOLOGY ORDERABLE S Performing Organization Address City/[facility] Co de Phone Number [facility] [place] [address] * EKG 12 Lead (11/06/2023 10:01 AM EDT) Ventricular rate 96 BPM MUSE SYSTEM Atrial Rate 96 BPM MUSE SYSTEM P-R Interval 174 ms MUSE SYSTEM QRS Duration 104 ms MUSE SYSTEM Q-T Interval 418 ms MUSE SYSTEM QTC Calculated (Bezet) 528 ms MUSE SYSTEM Calculated P [place] 67 degrees MUSE SYSTEM Calculated R [place] -56 degrees MUSE SYSTEM Calculated T [place] 130 degrees MUSE SYSTEM INTERPRETATION Sinus rhythm Occasional Premature ventricular complexes Possible Left atrial enlargement Left axis deviation Minimal voltage criteria for LVH, may be normal variant ( Momo product ) Anteroseptal infarct , age undetermined Prolonged QT Abnormal ECG When compared with ECG of 05-NOV-2023 16:52, No significant change was found Confirmed by MD Phan, Krystle ([id number]) on 11/06/2023 5:29:02 PM MUSE SYSTEM 11/06/2023 10:0 1 AM EDT 11/06/2023 5:29 PM EDT Prashant Calvin MD ECG ORDERABLES MUSE SYSTEM * ECHO COMPLETE W CONTRAST (11/06/2023 9:02 AM EDT) EF 20 HEARTLAB SYSTEM Anatomical Region Laterality Modality Cardiac Other 11/06/2023 7:50 AM EDT Narrative 11/06/2023 9:49 AM EDT [address] [place] [address] ? Echocardiogram Report Name: ROSE BUCK ? Study Date: 11/06/2023 07:50 AMBP: 97/64 mmHg ? Patient Location: [facility] CV26 A : 1950 ? Height: 189 cm ? Account: [id number] Age: 73 yrs ? Weight: 107 kg Gender: Male ?BSA: 2.3 m2 Ordering Physician: PRASHANT CALVIN Referring Physician: MILDRED STEINER Performed By: KAYLIN Samuel Reason For Study: NSTEMI Interpreting Fellow: Rafael Johnson. Exam Location: [facility]. Interpretation Summary Left ventricle is severely dilated [...] available. See report for additional findings. Procedure Complete-55950. Satisfactory quality. Left Ventricle Left ventricle is [...] Procedure Note Vipul Beltrán MD - 11/06/[address] [place] [address] Echocardiogram Report Name: ROSE BUCK Study Date: 407:50 AMBP: 97/64 mmHg Patient Location: [address] : 1950 Height: 189 cm Account: [id number] Age: 73 yrs Weight: 107 kg Gender: Male BSA: 2.3 m2 Ordering Physician: PRASHANT CALVIN Referring Physician: MILDRED STEINER Performed By: KAYLIN Samuel Reason For Study: NSTEMI Interpreting Fellow: Rafael Johnson. Exam Location: [facility]. Interpretation Summary Left ventricle is severely dilated [...] available. See report for additional findings. Procedure Complete-[id number]. Satisfactory quality. Left Ventricle Left ventricle is [...] Heparin <0.04 IU/mL 11/06/2023 4:52 AM EDT [facility] Comment: Heparin (anti-Xa) levels [...] MD HEMATOLOGY ORDERABLE S Performing Organization Address City/[facility]/ZIP Co de Phone Number [facility] [place] [address] * (ABNORMAL) Phosphorus (11/06/2023 4:08 AM EDT) Phosphorus 4.6(H) 2.5 - 4.5 mg/dL 11/06/2023 5:04 AM EDT [facility] Blood VENOUS BLOOD SPECIMEN / Unknown IP Care Team Draw / Unknown 11/06/2023 4:08 AM EDT 11/06/2023 4:30 AM EDT Allen Figueroa MD CHEMISTRY ORDERABLES Performing Organization Address [facility] Co de Phone Number [facility] [place] [address] * Magnesium (11/06/2023 4:08 AM EDT) Magnesium 1.04 0.69 - 1.07 mMol/L 11/06/2023 5:04 AM EDT [facility] Blood VENOUS BLOOD SPECIMEN / Unknown IP Care Team Draw / Unknown 11/06/2023 4:08 AM EDT 11/06/2023 4:30 AM EDT Allen Figueroa MD CHEMISTRY ORDERABLES Performing Organization Address City/[facility] Co de Phone Number [facility] [place] [address] * (ABNORMAL) Basic Metabolic Panel (11/06/2023 4:08 AM EDT) Glucose 123 65 - 199 mg/dL 11/06/2023 5:04 AM EDT [facility] Comment:Glucose Concentratio n >=200 mg/dL plus symptoms is consistent with Diabetes Mellitus. Blood Urea Nitrogen 25(H) 10 - 20 mg/dL 11/06/2023 5:04 AM [facility] Creatinine 1.40 0.80 - 1.50 mg/dL 11/06/2023 5:04 AM [facility] Sodium 133(L) 135 - 145 mMol/L 11/06/2023 5:04 AM [facility] Potassium 4.1 3.5 - 5.0 mMol/L 11/06/2023 5:04 AM [facility] Chloride 95(L) 98 - 107 mMol/L 11/06/2023 5:04 AM [facility] Carbon Dioxide 23 22 - 31 mMol/L 11/06/2023 5:04 AM [facility] Anion Gap 15 5 - 15 mMol/L 11/06/2023 5:04 AM [facility] Calcium 9.0 8.5 - 10.5 mg/dL 11/06/2023 5:04 AM [facility] Est Glomerular Filtration Rate - Male 52 mL/min/1. 73 m?? 11/06/2023 5:04 AM [facility] Comment: This patient's estimated GFR was [...] AM EDT Allen Figueroa MD CHEMISTRY ORDERABLES [facility] [place] [phone] * (ABNORMAL) CBC (with Diff) (11/06/2023 4:08 AM EDT) White Blood Cell 16.03(H) 4.00 - 9.50 x10(3)/mc L 11/06/2023 4:38 AM [facility] Red Blood Cell 5.10 4.58 - 5.54 x10(6)/mc L 11/06/2023 4:38 AM [facility] Hemoglobin 12.2(L) 13.7 - 16.5 g/dL 11/06/2023 4:38 AM [facility] Hematocrit 38.3(L) 40.5 - 48.5 % 11/06/2023 4:38 AM [facility] Mean Cell Volume 75.1(L) 82.9 - 93.1 fL 11/06/2023 4:38 AM [facility] Mean Cell Hemoglobin 23.9(L) 27.5 - 32.1 pg 11/06/2023 4:38 AM [facility] Mean Cell Hemoglobin Concentration 31.9(L) 32.0 - 35.7 g/dL 11/06/2023 4:38 AM [facility] Platelet 297 145 - 357 x10(3)/mc L 11/06/2023 4:38 AM [facility] Mean Platelet Volume 9.8 7.6 - 12.9 fL 11/06/2023 4:38 AM [facility] RDW Standard Deviation 47.1(H) 36.0 - 45.0 fL 11/06/2023 4:38 AM [facility] RDW coefficient of variation 17.8(H) 11.4 - 13.8 % 11/06/2023 4:38 AM [facility] NRBC% auto 0.0 % 11/06/2023 4:38 AM [facility] NRBC Absolute 0.00 0.00 - 0.00 x10(3)/mc L 11/06/2023 4:38 AM [facility] Neutrophil % 90.1 % 11/06/2023 4:38 AM [facility] Neutrophil Absolute (ANC) - Automated 14.46(H) 1.70 - 6.10 x10(3)/mc L [facility]23 [facility] Lymph % 3.6 % 11/06/2023 4:38 AM [facility] Lymph Absolute 0.57(L) 0.90 - 3.20 x10(3)/mc L 11/06/2023 4:38 AM [facility] Monocyte % 5.6 % 11/06/2023 4:38 AM [facility] Monocyte Absolute 0.89 0.30 - 0.90 x10(3)/mc L 11/06/2023 4:38 AM [facility] Eos % 0.0 % 11/06/2023 4:38 AM [facility] Eos Absolute 0.00 0.00 - 0.40 x10(3)/mc L 11/06/2023 4:38 AM [facility] Basophil % 0.1 % 11/06/2023 4:38 AM [facility] Baso Absolute 0.02 0.00 - 0.10 x10(3)/mc L 11/06/2023 4:38 AM [facility] Immature Gran % 0.6 % 4:38 AM [facility] Immature Gran Absolute 0.09(H) 0.00 - 0.04 x10(3)/mc L 11/06/2023 4:38 AM [facility] Blood VENOUS BLOOD SPECIMEN / Unknown IP Care Team Draw / Unknown 11/06/2023 4:08 AM EDT 11/06/2023 4:30 AM EDT Allen Figueroa MD HEMATOLOGY ORDERABLE S [facility] [place] [address] * (ABNORMAL) Troponin-T, Shola Sensitivity 3 Hour (11/05/2023 7:02 PM EDT) Troponin-T, High Sensitivity 1,944(H) <=22 ng/L 11/05/2023 7:32 PM EDT [facility] Comment: This patient's troponin [...] troponin value can be found in the [facility] Test Catalog Troponin - https://one-.testcatalog.org/catalogs/565/files/45059 Reference: Fourth Lolo Definition of Myocardial Infarction. Journal of the [place] 2018;72:7493-6885 Troponin-T, HS 3 hr delta 3 ng/L 11/05/2023 7:32 PM EDT [facility] Comment:The 3 hour Troponin [...] Calvin MD CHEMISTRY ORDERABLES Performing Organization Address [facility] Co de Phone Number [facility] [place] [address] * EKG 12 Lead (11/05/2023 4:52 PM EDT) Ventricular rate 97 BPM MUSE SYSTEM Atrial Rate 97 BPM MUSE SYSTEM P-R Interval 184 ms MUSE SYSTEM QRS Duration 106 ms MUSE SYSTEM Q-T Interval 412 ms MUSE SYSTEM QTC Calculated (Bezet) 523 ms MUSE SYSTEM Calculated P [place] 78 degrees MUSE SYSTEM Calculated R [place] -62 degrees MUSE SYSTEM Calculated T [place] 106 degrees MUSE SYSTEM INTERPRETATION Sinus rhythm with Fusion complexes Left axis deviation Minimal voltage criteria for LVH, may be normal variant ( Momo product ) Possible Anteroseptal infarct Nonspecific ST and T wave abnormality Prolonged QT Abnormal ECG When compared with ECG of 05-NOV-2023 14:48, No significant change was found Confirmed by MD Chisholm Danette ([id number]) on 11/06/2023 5:28:21 PM MUSE SYSTEM 11/05/2023 4:52 PM EDT 11/06/2023 5:28 PM EDT Prashant Calvin MD ECG ORDERABLES Performing Organization Address [facility] Phone Number MUSE SYSTEM * POC, GLUCOSE (11/05/2023 4:45 PM EDT) Glucometer, POC 195 65 - 199 mg/dL 11/06/2023 1:14 AM EDT [facility] Comment:Supplemental ranges: <140 mg/dL before meals <180 mg/dL all other times of the day. Blood CAPILLARY BLOOD / Unknown 11/05/2023 4:45 PM EDT 11/06/2023 1:14 AM EDT Prashant Calvin MD POINT OF CARE TEST O RDERABLES Performing Organization Address [facility] Co de Phone Number [facility] [place] [address] * CARDIAC CATHETERIZATION (11/05/2023 4:27 PM EDT) Anatomical Region Laterality Modality Other Narrative 11/07/2023 8:33 AM EDT ?[facility] ? Cardiac Catheterization/Intervention Report ? Patient Name: Philwski, Rose ? Procedure Date: 11/05/2023 ? A #: [id number] ? Primary Physician: Marina Mullen I ? Case #: [id number] ? File Name: [id number] ? Catheterization Order Number: [id number] ? [facility] ? Final Report [place], [place] ? Patient Name: ? Rose Moonyazminleón ? ID#: ?[id number] ? : ?1950 ? Procedure Date: ? November 05, 2023 ?Case #: ? [id number] ? Room: ? 5 ? Case Physician: [...] was designated as ASA Class IV. ?The [facility] clinical frailty scale is 5: Mildly Frail. ? Diagnostic Tests: ?Medications Prior to Procedure: ? Aspirin. ? Indications for Diagnostic Cath: ?The priority of the diagnostic procedure was Emergent. The indication for ?the geophysical laboratory director visit is ACS greater than 24 hrs [...] 4.0 guiding catheter and a 3.5 [address] [employer] ??20 Mhz using ?Manual pullback. ??Imaging [...] ?4.0 guiding catheter and a 3.5 Fr [address] ??20 Mhz using ?Manual pullback. ??Imaging [...] ? A premounted 3.50 x 22 mm Washington Evans (DORINDA) was deployed ? with a maximum [...] of the LAD. This was a de scarltet lesion. This lesion was ? designated a [...] ? A premounted 3.00 x 30 mm [place] Evans (DORINDA) was deployed ? with a maximum [...] dose administered prior to arrival in the geophysical laboratory director. ?Recommended anti-platelet/anti-thrombotic regimen: ?Continue aspirin 81 mg daily. ?Continue clopidogrel 75 mg daily. ?These recommendations are made at the time of the intervention. Patient ?and provider preferences or a changing clinical situation may require ?modification of this regimen. Consult [facility] for ?questions. ? Conclusions: ?* [...] Ammended: 11/08/2023 ??07:27 ? Procedure Note Marina uMllen MD - 11/08/2023 [facility] Cardiac Catheterization/Intervention Report Patient Name: Rose Buck Procedure Date: 11/05/2023 A #: [id number] Primary Physician: Marina Mullen I Case #: [id number] File Name: [id number] Catheterization Order Number: [id number] [facility] FinalReport [place], [place] Patient Name: Rose Buck ID#:[id number] :1950 Procedure Date: November 05, 2023 Case [...] patient was designated as ASAClass IV. The [facility] clinical frailty scale is 5: Mildly Frail. Diagnostic Tests: Medications Prior to Procedure: Aspirin. Indications for Diagnostic Cath: The priority of the diagnostic procedure was Emergent. Theindication for the geophysical laboratory director visit is ACS greater than 24 hrs [...] 4.0 guiding catheter and a 3.[address] 20 Mhzusing Manual pullback. Imaging was [...] 4.0 guiding catheter and a 3.[address] 20 Mhzusing Manual pullback. Imaging was [...] The lesion was predilated with a 2.50mm [id number] MM balloon with a maximum inflation pressure of 15atmospheres. A premounted 3.50 x 22 mm Washington Evans (DORINDA) wasdeployed with a maximum inflation pressure [...] The lesion was predilated with a 2.50mm [id number] MM balloon with a maximum inflation pressure of 15atmospheres. A premounted 3.00 x 30 mm Michael Evans (DORINDA) wasdeployed with a maximum inflation pressure [...] dose administered prior to arrival in the geophysical laboratory director. Recommended anti-platelet/anti-thrombotic regimen: Continue aspirin 81 mg daily. Continue clopidogrel 75 mg daily. These recommendations are made at the time of the intervention.Patient and provider preferences or a changing clinical situation mayrequire modification of this regimen. Consult [facility]iologyfor questions. Conclusions: * Two vessel [...] Troponin-T, High Sensitivity (11/05/2023 4:03 PM EDT) [facility] Troponin-T, High Sensitivity Initial 1,941([facility] ) <=22 ng/L 11/05/2023 6:19 PM EDT [facility] Comment: This patient's troponin [...] troponin value can be found in the [facility] [employer] [facility] Test Catalog Troponin - https://one-.testcatalog.org/catalogs/565/files/85490 Reference: Fourth Lolo Definition of Myocardial Infarction. Journal of the [place] College [employer] 2018;72:5527-0175 Blood VENOUS BLOOD SPECIMEN / Unknown IP Care Team Draw / Unknown 11/05/2023 4:03 PM EDT 11/05/2023 5:22 PM EDT Prashant Calvin MD CHEMISTRY ORDERABLES Performing Organization Address [facility]/ZIP Co de Phone Number [facility] [place] [address] * Hemoglobin A1c (11/05/2023 4:03 PM EDT) Hemoglobin A1c 5.4 4.3 - 5.6 % 11/05/2023 8:50 PM EDT [facility] Comment: Per ADA guidelines, [...] red blood cell turnover may not be veterans contact representative of glycemic control. Reference Interval: 4.3 - 5.6% 5.7 - 6.4%: Consistent with prediabetes >=6.5%: Consistent with diagnosis of diabetes mellitus Estimated Average Glucose 11/05/2023 8:50 PM EDT [facility] Comment:Not Calculated. Blood VENOUS BLOOD SPECIMEN / Unknown IP Care Team Draw / Unknown 11/05/2023 4:03 PM EDT 11/05/2023 5:22 PM EDT Narrative [facility] - 11/05/2023 8:50 PM EDT Estimated average glucose (eAG) is calculated from the equation described in: Bahman DM, Lia J, Gala R, et al. ??Translating the A1C assay into estimated average glucose values. ??Diabetes Care 2008:31(8):0604-9016. Additional resources are available on the ADA website (diabetes.org). Prashant Calvin MD CHEMISTRY ORDERABLES Performing Organization Address City/[facility]/ZIP Co de Phone Number [facility] [place] [address] * Lipid Panel (Reflex Direct LDL) (11/05/2023 4:03 PM EDT) Cholesterol, Total 108 mg/dL 11/05/2023 6:13 PM T [facility] Comment: Desirable: < 200 mg/dL Borderline High: 200 - 239 mg/dL High: > or = 240 mg/dL Triglyceride 37 mg/dL 11/05/2023 6:13 PM T [facility] Comment: Normal: <150 mg/dL Borderline High: 150-199 mg/dL High: 200-499 mg/dL Very High: > or =500 mg/dL HDL Cholesterol 40 mg/dL 6:13 PM [facility] Comment:Males: High Risk: <4 0 mg/dL LDL Cholesterol 58 mg/dL 6:13 PM [facility] Comment: Desirable: <100 mg/dL Above Desirable: 100-129 mg/dL Borderline High: 130-159 mg/dL High: 160-189 mg/dL Very High: > or =190 mg/dL Note: LDL calculation updated to the NIH LDL formula as of 10/21/2023 Non-HDL Cholesterol 68 mg/dL 11/05/2023 6:13 PM [facility] LABORATORY Comment: Desirable: <130 mg/dL Above Desirable: 130-159 mg/dL Borderline High: 160-189 mg/dL High: 190-219 mg/dL Very High: > or = 220 mg/dL Blood VENOUS BLOOD SPECIMEN / Unknown IP Care Team Draw / Unknown 11/05/2023 4:03 PM EDT 11/05/2023 5:22 PM EDT Narrative [facility] - 11/05/2023 6:13 PM EDT It [...] ACC/AHA Guidelines (most recently Margarette et al. JACC 12/20/21): * For individuals with atherosclerotic cardiovascular [...] artery disease) Prashant Calvin MD CHEMISTRY ORDERABLES [facility] [place] [address] * Hepatic Function Panel (11/05/2023 4:03 PM EDT) Pathologist [facility] [place] Albumin 3.6 3.2 - 5.2 g/dL 11/05/2023 6:13 PM EDT [facility] Aspartate Aminotransferase 35 <=39 unit/L 11/05/2023 6:13 PM EDT [facility] Alanine Aminotransferase 15 0 - 55 unit/L 11/05/2023 6:13 PM EDT [facility] Alkaline Phosphatase 74 40 - 130 unit/L 11/05/2023 6:13 PM EDT [facility] Bilirubin, Total 0.3 <=1.3 mg/dL 11/05/2023 6:13 PM EDT [facility] Bilirubin, Direct 0.2 0.0 - 0.3 mg/dL 11/05/2023 6:13 PM EDT [facility] Protein, Total 6.6 6.1 - 8.0 g/dL 11/05/2023 6:13 PM EDT [facility] Blood VENOUS BLOOD SPECIMEN / Unknown IP Care Team Draw / Unknown 11/05/2023 4:03 PM EDT 11/05/2023 5:22 PM EDT Prashant Calvin MD CHEMISTRY ORDERABLES [facility] [place] [address] * (ABNORMAL) pro-Brain Natriuretic Peptide (11/05/2023 4:03 PM EDT) Pathologist [facility] [place] NT-proBNP 15,949(H) <=124 pg/mL 11/05/2023 6:13 PM EDT [facility] Blood VENOUS BLOOD SPECIMEN / Unknown IP Care Team Draw / Unknown 11/05/2023 4:03 PM EDT 11/05/2023 5:22 PM EDT Prashant Calvin MD CHEMISTRY ORDERABLES [facility] [place] [address] * TSH (11/05/2023 4:03 PM EDT) Pathologist [facility] [place] Thyroid Stimulating Hormone 2.25 0.27 - 4.20 mcIU/mL 11/05/2023 6:13 PM EDT [facility] Blood VENOUS BLOOD SPECIMEN / Unknown IP Care Team Draw / Unknown 11/05/2023 4:03 PM EDT 11/05/2023 5:22 PM EDT Prashant Calvin MD CHEMISTRY ORDERABLES [facility] [place] [address] * Phosphorus (11/05/2023 4:03 PM EDT) [facility] Phosphorus 3.3 2.5 - 4.5 mg/dL 11/05/2023 6:13 PM EDT [facility] Blood VENOUS BLOOD SPECIMEN / Unknown IP Care Team Draw / Unknown 11/05/2023 4:03 PM EDT 11/05/2023 5:22 PM EDT Prashant Calvin MD CHEMISTRY ORDERABLES [facility] [place] [address] * Magnesium (11/05/2023 4:03 PM EDT) [facility] Magnesium 1.04 0.69 - 1.07 mMol/L 11/05/2023 6:13 PM EDT [facility] Blood VENOUS BLOOD SPECIMEN / Unknown IP Care Team Draw / Unknown 11/05/2023 4:03 PM EDT 11/05/2023 5:22 PM EDT Prashant Calvin MD CHEMISTRY ORDERABLES [facility] [place] [address] * (ABNORMAL) Basic Metabolic Panel (11/05/2023 4:03 PM EDT) Glucose 185 65 - 199 mg/dL 11/05/2023 6:13 PM [facility] Comment:Glucose Concentratio n >=200 mg/dL plus symptoms is consistent with Diabetes Mellitus. Blood Urea Nitrogen 22(H) 10 - 20 mg/dL 11/05/2023 6:13 PM [facility] Creatinine 1.28 0.80 - 1.50 mg/dL 11/05/2023 6:13 PM [facility] Sodium 132(L) 135 - 145 mMol/L 11/05/2023 6:13 PM [facility] Potassium 3.7 3.5 - 5.0 mMol/L 11/05/2023 6:13 PM [facility] Chloride 95(L) 98 - 107 mMol/L 11/05/2023 6:13 PM [facility] Carbon Dioxide 22 22 - 31 mMol/L 11/05/2023 6:13 PM [facility] Anion Gap 15 5 - 15 mMol/L 11/05/2023 6:13 PM [facility] Calcium 8.6 8.5 - 10.5 mg/dL 11/05/2023 6:13 PM [facility] Est Glomerular Filtration Rate - Male 58 mL/min/1. 73 m?? 11/05/2023 6:13 PM [facility] Comment: This patient's estimated GFR was [...] PM EDT Prashant Calvin MD CHEMISTRY ORDERABLES [facility] [place] [address] * (ABNORMAL) CBC (with Diff) (11/05/2023 4:03 PM EDT) White Blood Cell 18.52(H) 4.00 - 9.50 x10(3)/mc L 11/05/2023 5:33 PM EDT [facility] Red Blood Cell 5.03 4.58 - 5.54 x10(6)/mc L 11/05/2023 5:33 PM EDT [facility] Hemoglobin 12.2(L) 13.7 - 16.5 g/dL 11/05/2023 5:33 PM EDT [facility] Hematocrit 38.6(L) 40.5 - 48.5 % 11/05/2023 5:33 PM EDT [facility] Mean Cell Volume 76.7(L) 82.9 - 93.1 fL 11/05/2023 5:33 PM EDT [facility] Mean Cell Hemoglobin 24.3(L) 27.5 - 32.1 pg 11/05/2023 5:33 PM EDT [facility] Mean Cell Hemoglobin Concentration 31.6(L) 32.0 - 35.7 g/dL 11/05/2023 5:33 PM EDT [facility] Platelet 261 145 - 357 x10(3)/mc L 11/05/2023 5:33 PM EDT [facility] Mean Platelet Volume 9.4 7.6 - 12.9 fL 11/05/2023 5:33 PM EDT [facility] RDW Standard Deviation 47.9(H) 36.0 - 45.0 fL 11/05/2023 5:33 PM EDT [facility] RDW coefficient of variation 17.6(H) 11.4 - 13.8 % 11/05/2023 5:33 PM [facility] NRBC% auto 0.0 % 11/05/2023 5:33 PM [facility] NRBC Absolute 0.00 0.00 - 0.00 x10(3)/mc L [facility] Neutrophil % 94.1 % 11/05/2023 5:33 PM [facility] Neutrophil Absolute (ANC) - Automated 17.44(H) 1.70 - 6.10 x10(3)/mc L 11/05/2023 5:33 PM [facility] Lymph % 1.6 % 11/05/2023 5:33 PM [facility] Lymph Absolute 0.30(L) 0.90 - 3.20 x10(3)/mc L 11/05[facility]2023 5[facility] Monocyte % 3.5 % 11/05/2023 5:[facility] Monocyte Absolute 0.64 0.30 - 0.90 x10(3)/mc L 11/05/2023 5:33 PM [facility] Eos % 0.0 % 11/05/2023 5:33 PM [facility] Eos Absolute 0.00 0.00 - 0.40 x10(3)/mc L 11/05/2023 5:33 PM EDT [facility] Basophil % 0.2 % 11/05/2023 5:33 PM [facility] Baso Absolute 0.03 0.00 - 0.10 x10(3)/mc L 11/05/2023 5:[facility] Immature Gran % 0.6 % [facility] Immature Gran Absolute 0.11(H) 0.00 - 0.04 x10(3)/mc L 11/05/2023 5:33 PM EDT [facility] Blood VENOUS BLOOD SPECIMEN / Unknown IP Care Team Draw / Unknown 11/05/2023 4:03 PM EDT 11/05/2023 5:22 PM EDT Prashant Calvin MD HEMATOLOGY ORDERABLE S Performing Organization Address City/[facility]/ZIP Co de Phone Number [facility] [place] [address] * (ABNORMAL) POC, GLUCOSE (11/05/2023 3:44 PM EDT) Glucometer, POC 239(H) 65 - 199 mg/dL 11/05/2023 3:44 PM EDT [facility] Comment:Supplemental ranges: <140 mg/dL before meals <180 mg/dL all other times of the day. Blood CAPILLARY BLOOD / Unknown 11/05/2023 3:44 PM EDT 11/05/2023 3:44 PM EDT Prashant Calvin MD POINT OF CARE TEST O RDERABLES Performing Organization Address City/[facility]/ZIP Co de Phone Number [facility] [place] [address] * (ABNORMAL) BLOOD GAS, POC (11/05/2023 3:22 PM EDT) Sodium, POC 131(L) 135 - 145 mmol/L 11/08/2023 8:27 AM EDT [facility] Potassium, POC 3.6 3.5 - 5.0 mmol/L 11/08/2023 8:27 AM EDT [facility] pH, POC 7.35 7.35 - 7.45 11/08/2023 8:27 AM EDT [facility] Ionized Calcium, POC 1.14(L) 1.15 - 1.33 mmol/L 11/08/2023 8:27 AM EDT [facility] pCO2, POC 39 35 - 45 mmHg 11/08/2023 8:27 AM EDT [facility] pO2, POC 76(L) 85 - 104 mmHg 11/08/2023 8:27 AM EDT [facility] Base Excess, POC -4.0(L) -3.0 - 3.0 mmol/L 11/08/2023 8:27 AM EDT [facility] Hematocrit, POC 36.0(L) 40.5 - 48.5 %PCV 11/08/2023 8:27 AM EDT [facility] Hemoglobin, POC 12.2(L) 13.7 - 16.5 g/dL 11/08/2023 8:27 AM EDT [facility] Comment:The calculation of h emoglobin from hematocrit assumes a normal MCHC. Bicarbonate, POC 21.4 20.0 - 26.0 mmol/L 11/08/2023 8:27 AM EDT [facility] Carbon Dioxide, POC 23 22 - 31 mmol/L 11/08/2023 8:27 AM EDT [facility] Blood VENOUS BLOOD SPECIMEN / Unknown 11/05/2023 3:22 PM EDT 11/08/2023 8:27 AM EDT Prashant Calvin MD POINT OF CARE TEST O RDERABLES Performing Organization Address City/State/[facility] Co de Phone Number [facility] [place] [phone] documented in this encounter Visit Diagnoses Not on filedocumented in this encounter Admitting Diagnoses Diagnosis CAD (coronary artery disease) Coronary atherosclerosis of unspecified type of vessel, [place] or graft documented in this encounter Administered [...] (50 mcg/mL) multi-dose injection PRN, Starting on Sun11/08/23 at 1351, Until Sun11/08/23 at 1531, Intra-Operative (Intra-Procedure), Routine Given 11/08/2023 1:51 PM EDT 25 mcg heparin (porcine) (1,000 units/mL) injection PRN, Starting on Sun11/08/23 at 1400, Until Sun11/08/23 at 1531, Intra-Operative (Intra-Procedure), Routine Given 11/08/2023 2:24 PM EDT 3,000 Units Given 11/08/2023 2:07 PM EDT 1,500 Units Given 11/08/2023 2:00 PM EDT 6,000 Units ipratropium-albuteroL (Duoneb) 0.5 mg-3 mg(2.5 mg base)/3 [...] 12.5 mg midazolam (pf) (Versed) (1 mg/mL) injection PRN, Starting on Sun11/08/23 at 1351, Until Sun11/08/23 at 1531, Intra-Operative (Intra-Procedure), Routine Given 11/08/2023 1:51 PM EDT 1 mg nitroGLYcerin (Nitrostat) disintegrating [...] 100 mcg/mL intracoronary dilution PRN, Starting on Sun11/08/23 at 1355, Until Sun11/08/23 at 1531, Intra-Operative (Intra-Procedure), Routine Given 11/08/2023 2:02 PM EDT 150 mcg Given 11/08/2023 1:55 PM EDT 150 mcg pantoprazole EC (Protonix) tablet 40 mg [...] 4:25 PM EDT 20 mg sodium chloride (Hockley) 0.65 % nasal spray 1 spray 1 [...] Given 11/08/2023 9:00 AM EDT 20 mg verapamiL (Isoptin) (2.5 mg/mL) injection PRN, Starting on Sun11/08/23 at 1354, Until Sun11/08/23 at 1531, Administer over 2 Minutes, Intra-Operative (Intra-Procedure) Given 11/08/2023 1:54 PM EDT 2 .5 mg documented in this encounter Active and Recently Administered Medications Times are shown in EDT. Scheduled Medication Order 11/07/2023 11/08/2023 11/09/2023 aspirin EC tablet 81 mg 81 mg, Oral, DAILY, First dose on Sun11/06/23 at 0900, Until Discontinued, Recovery (Recovery-Hospital Unit), Routine 08 (Given - Provider: Hilton Guevara RN) 09 (Given - Provider: Altagracia Spears RN) 08 (Given - Provider: Hilton Guevara RN) clopidogreL (Plavix) tablet 75 mg 75 mg, Oral, DAILY, First dose on Sun11/06/23 at 0900, Until Discontinued, Recovery (Recovery-Hospital Unit), Routine 08 (Given - Provider: Hilton Guevara RN) 09 (Given - Provider: Altagracia Spears RN) 08 (Given - Provider: Hilton Guevara RN) furosemide (Lasix) (10 mg/mL) injection 60 mg (COMPLETED) 60 mg, Intravenous, ONCE, 1 dose, On Sun11/09/23 at 1030 1110 (Given - Provider: Altagracia Spears RN) metoprolol tartrate (Lopressor) tablet 12.5 mg 12.5 mg, Oral, EVERY 12 HOURS SCHEDULED (2 times per day), First dose on Sun11/06/23 at 1045, Until Discontinued, Routine 823 (Given - Provider: Hilton Guevara RN)2020 (Given - Provider: Mara Puri RN) 0909 (Given - Provider: Altagracia Spears, ROWENA)1330 ([facility] Hold - Provider: Admin Adt - Reason: Transfer to a Procedural area)153 ([facility] Unhold - Provider: Admin Adt)2030 (Given - Provider: Mara Puri, ROWENA) 0830 (Given - Provider: Hilton Guevara RN) pantoprazole EC (Protonix) tablet 40 mg 40 mg, Oral, DAILY, First dose on Sun11/05/23 at 1900, Until Discontinued, DO NOT CRUSH OR OPEN, Routine 0821 (Given - Provider: Hilton Guevara RN) 0911 (Given - Provider: Altagracia Spears, ROWENA)1330 ([facility] Hold - Provider: Admin Adt - Reason: Transfer to a Procedural area)153 ([facility] [place] - Provider: Admin Adt) [...] (Given - Provider: Hilton Guevara RN) 1330 ([facility] Hold - Provider: Admin Adt - Reason: Transfer to a Procedural area)153 ([facility] [place] - Provider: Admin Adt)1740 (Given - Provider: Altagracia Spears RN) sodium chloride 0.9 % (flush) (BD PosiFlush Normal Saline 0.9) flush 5 mL 5 mL, Intravenous, 2 TIMES DAILY, First dose on Sun11/05/23 at 2100, Until Discontinued, Routine 0822 (Given - Provider: Hilton Guevara RN)2020 (Given - Provider: Mara Puri RN) 0914 (Given - Provider: Altagracia Spears, ROWENA)1330 ([facility] Hold - Provider: Admin Adt - Reason: Transfer to a Procedural area)153 ([facility] [place] - Provider: Admin Adt)2030 (Given - Provider: Mara Puri, ROWENA) 0832 (Given - Provider: Hilton Guevara RN) spironolactone (Aldactone) tablet 12.5 mg 12.5 mg, Oral, DAILY, First dose on Sun11/06/23 at 0900, Until Discontinued, DO NOT SPLIT, CRUSH OR OPEN, Routine 0823 (Given - Provider: Hilton Guevara RN) 0911 (Given - Provider: Altagracia Spears RN)133 ([facility] Hold - Provider: Admin Adt - Reason: Transfer to a Procedural area)153 ([facility] [place] - Provider: Admin Adt) 0831 (Given - Provider: Hilton Guevara RN) valsartan (Diovan) tablet 20 mg 20 mg, Oral, 2 TIMES DAILY, First dose on Sun11/05/23 at 2100, Until Discontinued, Routine 0823 (Given - Provider: Hilton Guevara RN)2020 (Given - Provider: Mara Puri RN) 0900 (Given - Provider: Altagracia Spears, ROWENA)1330 ([facility] Hold - Provider: Admin Adt - Reason: Transfer to a Procedural area)153 ([facility] [place] - Provider: Admin Adt)2030 [...] Samuels RN)1944 (New Bag - Provider: Mara Puir RN) 0325 (Rate/Dose Verify - Provider: Mara Puri RN)0948 (Hold - Provider: Altagracia Spears RN - Reason: Per Order) sodium chloride 0.9% infusion () 100 [...] (Given - Provider: Hilton Guevara RN) 1330 ([facility] Hold - Provider: Admin Adt - Reason: Transfer to a Procedural area)153 ([facility] [place] - Provider: Admin Adt)1745 (Given - Provider: Hilton Guevara RN) fentaNYL (pf) (50 mcg/mL) multi-dose injection (CANCELED) PRN, Starting on Barbara 11/08/23 at 1351, Until Barbara 11/08/23 at 1531, Intra-Operative (Intra-Procedure), Routine 1351 (Given - Provider: Mylene Martin RN) heparin (porcine) (1,000 units/mL) injection (CANCELED) PRN, Starting on Sun11/08/23 at 1400, Until Barbara 11/08/23 at 1531, Intra-Operative (Intra-Procedure), Routine 1400 (Given - Provider: Mylene Martin RN)1407 (Given - Provider: Mylene Martin RN)1424 (Given - Provider: Mylene Martin RN) ipratropium-albuteroL (Duoneb) 0.5 mg-3 mg(2.5 mg base)/3 mL nebulizer solution 3 mL 3 mL, Nebulization, EVERY 4 HOURS PRN, Starting on Sun11/06/23 at 0931, Until Sun11/09/23 at 1820, Wheezing, Routine 1330 ([facility] Hold - Provider: Admin Adt - Reason: Transfer to a Procedural area)153 ([facility] Un[place] - Provider: Admin Adt) lidocaine (Xylocaine) 1% (10 mg/mL) injection 3 mg 3 mg (0.3 mL), Subcutaneous, ONCE PRN, 1 dose, Starting on Sun11/05/23 at 1503, Until Sun11/09/23 at 1820, for discomfort with PIV insertion, Routine 1330 ([facility] Hold - Provider: Admin Adt - Reason: Transfer to a Procedural area)1531 ([facility] Unhold - Provider: Admin Adt) melatonin tablet 6 mg 6 mg, Oral, NIGHTLY PRN, Starting on Sun11/05/23 at 2315, Until Sun11/09/23 at 1820, Sleep, Routine 1330 ([facility] Hold - Provider: Admin Adt - Reason: Transfer to a Procedural area)1531 ([facility] Unhold - Provider: Admin Adt) [...] last 24 to 72 hours., Routine 1330 ([facility] Hold - Provider: Admin Adt - Reason: Transfer to a Procedural area)1531 ([facility] Unhold - Provider: Admin Adt) nitroGLYcerin 100 mcg/mL intracoronary dilution (CANCELED) PRN, Starting on Sun11/08/23 at 1355, Until Sun11/08/23 at 1531, Intra-Operative (Intra-Procedure), Routine 1355 (Given - Provider: RHIANNA Alves)1402 (Given - Provider: Joslyn Machado MD) sodium chloride (Hockley) 0.65 % nasal spray 1 spray 1 spray, Each Nare, 2 TIMES DAILY PRN, Starting on Sun11/06/23 at 2004, Until Sun11/09/23 at 1820, Congestion, Routine 1330 ([facility] Hold - Provider: Admin Adt - Reason: Transfer to a Procedural area)1531 ([facility] Un[place] - Provider: Admin Adt) [...] Starting on Barbara 11/08/23 at 1354, Until Sun11/08/23 at 1531, Administer over 2 Minutes, Intra-Operative (Intra-Procedure) 1354 (Given - Provider: RHIANNA Alves) Linked Groups Order Group 1: heparin (porcine) 50 units/mL in dextrose 5% 500 mL infusion (CANCELED)Jump to med 0-5,000 Units/hr (0-100 mL/hr), Intravenous, CONTINUOUS, Starting on Sun11/05/23 at 1830, Until Sun11/08/23 at 0934, Begin infusion at 1,000 units [...] Routine documented in this encounter Care Teams Veterinary Milk Specialist Relationship Specialty Start Date End Date None None PCP - General 11/05/23 documented as of this encounter
[2023-11-17 18:36] LABS: Troponin I 294 ng/L (< or =60)
[2023-11-17] MEDS: Valsartan 40 MG TAB 20 MG PO (20:10)
[2023-11-17] MEDS: Acetaminophen 325 MG TAB 650 MG PO (20:10)
[2023-11-17] MEDS: Normal Saline Flush 10 ML SYR IVP (20:10)
[2023-11-18 00:13] VITALS: BP 110/64; PULSE 95; RESP 15; TEMP 37.1; O2SAT 97
[2023-11-18 00:35] VITALS: PULSE 293
[2023-11-18] MEDS: Amiodarone 150 MG/3 ML VIAL 360 MG IVP (00:49)
[2023-11-18] MEDS: Sodium Bicarbonate 50 MEQ/50 ML SYR ×4 (00:59→04:58)
--- NOTE | 2023-11-18 01:00 | DI.RAD_ITS ---
Exam(s) XR PORTABLE CHEST AP POST LINE EXAM: XR PORTABLE CHEST AP POST LINE CLINICAL HISTORY: Line placement TECHNIQUE: 2D digital imaging was performed of the chest. One images were obtained. AP views were obtained. COMPARISON: CR,XR XR PORTABLE CHEST AP POST LINE from 11/18/2023 FINDINGS: The lung apices were not included on this examination. MEDIASTINUM: Normal. HEART: Normal. PULMONARY VASCULATURE: Normal. LUNGS: There again seen bilateral diffuse pulmonary infiltrates, right greater than left. PLEURAL SPACE: No pleural effusion or pneumothorax. BONE:Within normal limits for the patient's age. OTHER FINDINGS:The tip of the endotracheal tube is 6 cm from the brandi. IMPRESSION: Stable bilateral pulmonary infiltrates. DATA REPOSITORY: RADIATION DOSE DELIVERED:
[2023-11-18] MEDS: Tenecteplase 50 MG KIT IVP (01:13)
--- NOTE | 2023-11-18 01:30 | DI.RAD_ITS ---
Exam(s) XR PORTABLE CHEST AP POST LINE EXAM: XR PORTABLE CHEST AP POST LINE CLINICAL HISTORY: post ETT and Line placement TECHNIQUE: 2D digital imaging was performed of the chest. One image was obtained. An AP view was ob tained. COMPARISON: CR XR PORTABLE CHEST AP POST LINE from 11/18/2023 FINDINGS: The lung apices are not included on this examination. MEDIASTINUM: Normal. HEART: Normal. PULMONARY VASCULATURE: Normal. LUNGS: There are persistent bilateral pulmonary infiltrates present. PLEURAL SPACE: No pleural effusion or pneumothorax. BONE:Within normal limits for the patient's age. OTHER FINDINGS:The tip of the endotracheal tube is 6 cm from the brandi. IMPRESSION: Stable bilateral pulmonary infiltrates. DATA REPOSITORY: RADIATION DOSE DELIVERED:
--- NOTE | 2023-11-18 01:49 | CE_ITS ---
Date of service: 11/18/23 Time of Service: 00:45 Event Note: Responded from ED to floor for CODE BLUE. Upon my arrival to the room patient was unresponsive with CPR in progress. Had just been admitted to the hospital with bilateral pulmonary embolus. Had coronary stents placed at [facility] 1 week ago. Patient found to be in V-fib. He was intubated by me on first attempt with end-tidal CO2 confirming placement. (see separate procedure note) He received multiple rounds of epinephrine, defibrillation. He was given amiodarone 360 mg loading dose. He received 200 mg of lidocaine. He received 2 A of bicarb. He received 3 L of fluid. He remained in refractory V-fib. Given the admission for acute pulmonary embolus with refractory V-fib elected to give tenecteplase 50 mg IV. Continue resuscitation for 45 minutes post infusion which was at 01:15. Dr. Fleming arrived at 01:30 and and report was given to him as overnight hospitalist. Care of patient turned over to hospitalist service on his arrival. Time Spent with Patient Time spent in critical care(minutes): 45 Time Spent Included: Time at immediate bedside
[2023-11-18] MEDS: MAGNESIUM SULFATE 4 GM/100 ML BAG IVINF (01:50)
--- NOTE | 2023-11-18 01:56 | W.ED.PROC ---
Date of service: 11/18/23 Time of Service: 00:45 Procedures Intubation Time out performed: No sedative: none Laryngoscope: Sadie (3) ET Tube Size: 7.5 ET Tube Uncuffed: No Tube Placement Confirmation: visualized tube passing through cords and confirmation by capnometry Patient Tolerated Procedure: no complications Intubation Complications: none Additional Comments: intubated for CODE BLUE Medical Decision Making Quality:SDOH Health Related Social Needs: No Data to Display
[2023-11-18] MEDS: Norepinephrine in D5W 8 MG/250 ML BAG 13.125 MG IV (01:59)
[2023-11-18 02:03] VITALS: RESP 27; RESP 31; O2SAT 86
[2023-11-18] MEDS: Atropine 1 MG/10 ML SYRINGE 0.5 MG IVP (02:10)
[2023-11-18 03:16] LABS: BE (Venous) -17 mmol/L (-2-3); HCO3 (Venous) 14 mmol/L (23-28); O2 Sat (Venous) 78 %; TCO2 (Venous) 15 mmol/L (24-29); pCO2 (Venous) 55 mmHg (41-51); pO2 (Venous) 65 mmHg
[2023-11-18 03:18] LABS: Abs Immature Grans 1.41 10^3/uL (0.0-0.06); HCT 32.9 % (40.0-50.0); HGB 9.9 g/dL (13.5-17.5); MCHC 30.1 % (32.0-36.0); MCV 82 fL (80-95); MPV 8.8 fL (8.0-11.0); Platelet Count 289 10^3/uL (130-400); RBC 4.01 10^6/uL (4.36-5.78); RDW 17.2 % (11.8-14.1); RDW-SD 51.8 fL; WBC 24.78 10^3/uL (4.4-10.8)
[2023-11-18 03:20] LABS: pH (Venous) 7.01 (7.31-7.41)
--- NOTE | 2023-11-18 03:22 | DI.VRAD_ITS ---
PROCEDURE INFORMATION: Exam: XR Chest Exam date and time: 11/18/2023 2:29 AM Age: 73 years old Clinical indication: Device placement; Other: Intubation TECHNIQUE: Imaging protocol: Radiologic exam of the chest. Views: 1 view. COMPARISON: CT CHEST PE CTA 11/17/2023 1:16 PM FINDINGS: Tubes, catheters and devices: ET tube tip is 7.6 cm superior to the brandi. Lungs: Interval development of diffuse prominence of the pulmonary vascular is tissue compatible with hydrostatic interstitial pulmonary edema/CHF. Some of the lung markings in the lower right lung are indistinct/partially confluent which may be due to alveolar edema or could signify concomitant pneumonia/aspiration. Pleural spaces: Unremarkable. No pleural effusion. No pneumothorax. Heart/Mediastinum: Unremarkable. No cardiomegaly. Bones/joints: Unremarkable. IMPRESSION: 1. ET tube tip is 7.6 cm superior to the brandi. 2. Interval development of diffuse prominence of the pulmonary vascular is tissue compatible with hydrostatic interstitial pulmonary edema/CHF. Some of the lung markings in the lower right lung are indistinct/partially confluent which may be due to alveolar edema or could signify concomitant pneumonia/aspiration. Dictated and Authenticated by: Sher Oviedo MD. Ordering:JANEL Boo MD
--- NOTE | 2023-11-18 03:23 | W.SURGCON ---
Date of service: 11/18/23 Time of Service: 03:23 Assessment and Plan Assessment and plan (1) Cardiac arrest: Status: Acute Assessment and plan: While employing as best aseptic technique as possible in an emergency situation, and with the assistance of real-time ultrasound guidance, I placed a right internal jugular vein triple-lumen catheter. The IJ was accessed under the vision of the ultrasound, and guidewire passed easily. A small skin incision was made, and the trajectory was gently dilated over the wire prior to advancing a 20 cm triple-lumen catheter over the wire to the skin level. This was secured in place and a sterile dressing was applied. All ports aspirated dark venous blood, and flushed easily. 20 mL of blood was obtained for emergency labs. History of Present Illness History of Present Illness Chief Complaint: Cardiac arrest Narrative: Julian 73 years old, his past medical history is most significant for coronary artery disease requiring percutaneous stenting, as well as pulmonary embolism. REI LOZANO was called as the patient was found to be in cardiac arrest. He was intubated, and resuscitated with CPR, as well as cardiac defibrillation and vasopressor therapies. I was asked to assist with emergency central line placement for ongoing vasoactive titration Consults Consult date: 11/18/23 Requesting physician: Rajeev Fleming Review of Systems Narrative: Unable to perform review of systems based on the emergency nature of the event [facility] All Active Problems (Updated 11/18/23 @ 03:28 by Quang Mitchell MD) Cardiac arrest (Acute) Hypertension (Chronic) CAD (coronary artery disease) (Chronic) Discharge planning issues (Acute) Syncope (Chronic) Pulmonary embolism (Chronic) CHF (congestive heart failure) (Chronic) Elevated troponin (Acute) Pulmonary edema (Acute) Medical History (Updated 11/18/23 @ 03:28 by Quang Mitchell MD) HFrEF (heart failure with reduced ejection fraction) NSTEMI (non-ST elevated myocardial infarction) Surgical History (Updated 11/17/23 @ 18:17 by Deandra August APRN) History of coronary artery stent placement Social History Smoking/Tobacco Use Status: Former Tobacco Use Quit Date: 10/18/99 Smoking risk assessment performed?: Yes Alcohol Intake: current Alcohol Intake frequency: 0-2 drinks per day Alcohol type: beer Substance use type: does not use Housing: house Do you feel safe at home: Yes Do you feel safe in your relationship?: Yes Exam Narrative Exam Narrative: Unable to conduct a thorough physical exam based on the emergency nature of the event, however, the patient does localize pain. Results Last Vital Signs Temp 98.8 F 11/18/23 00:13 Pulse 95 H 11/18/23 00:13 Resp 15 11/18/23 00:13 BP 110/64 11/18/23 00:13 Pulse Ox 97 11/18/23 00:13 Labs 11/17/23 12:07 11/17/23 12:07 Labs: Laboratory Results - last 24 hr 11/17/23 11/17/23 11/17/23 12:07 14:10 15:55 WBC 7.93 RBC 4.78 Hgb 11.5 L Hct 36.6 L MCV 77 L MCH 24.1 L MCHC 31.4 L RDW 17.2 H Plt Count 342 MPV 9.0 Immature Gran % 0.4 Neutrophils % 84.0 Lymphocytes % 6.8 Monocytes % 6.2 Eosinophils % 2.1 Basophils % 0.5 Nucleated RBC % 0.0 Absolute Neutrophils 6.66 Absolute Lymphocytes 0.54 L Absolute Monocytes 0.49 Absolute Eosinophils 0.17 Absolute Basophils 0.04 PT 12.0 H INR 1.2 H APTT 28.0 D-Dimer 2187 H VBG pH VBG pCO2 VBG pO2 VBG HCO3 VBG Total CO2 VBG O2 Saturation VBG Base Excess Sodium 137 Potassium 4.1 Chloride 101 Carbon Dioxide 26.1 Anion Gap 9.9 BUN 12 Creatinine 1.1 Est GFR (CKD-EPI 2020) 70.01 Glucose 146 H Calcium 9.1 Magnesium 1.9 Total Bilirubin 0.29 AST 20 ALT 22 Alkaline Phosphatase 82 Troponin I 287 H* 307 H* Cancelled NT-Pro-B Natriuret Pep 6950 H Total Protein 7.3 Albumin 3.1 L TSH 4.08 H Free T4 0.84 Ethyl Alcohol U Ethyl Glucuronide 11/17/23 11/17/23 11/17/23 17:14 18:07 19:24 WBC RBC Hgb Hct MCV MCH MCHC RDW Plt Count MPV Immature Gran % Neutrophils % Lymphocytes % Monocytes % Eosinophils % Basophils % Nucleated RBC % Absolute Neutrophils Absolute Lymphocytes Absolute Monocytes Absolute Eosinophils Absolute Basophils PT INR APTT D-Dimer VBG pH VBG pCO2 VBG pO2 VBG HCO3 VBG Total CO2 VBG O2 Saturation VBG Base Excess Sodium Potassium Chloride Carbon Dioxide Anion Gap BUN Creatinine Est GFR (CKD-EPI 2020) Glucose Calcium Magnesium Total Bilirubin AST ALT Alkaline Phosphatase Troponin I 294 H* Cancelled NT-Pro-B Natriuret Pep Total Protein Albumin TSH Free T4 Ethyl Alcohol Cancelled U Ethyl Glucuronide 11/17/23 11/18/23 Unknown 03:10 WBC RBC Hgb Hct MCV MCH MCHC RDW Plt Count MPV Immature Gran % Neutrophils % Lymphocytes % Monocytes % Eosinophils % Basophils % Nucleated RBC % Absolute Neutrophils Absolute Lymphocytes Absolute Monocytes Absolute Eosinophils Absolute Basophils PT INR APTT D-Dimer VBG pH 7.01 L* VBG pCO2 55 H VBG pO2 65 VBG HCO3 14 L VBG Total CO2 15 L VBG O2 Saturation 78 VBG Base Excess -17 L Sodium Potassium Chloride Carbon Dioxide Anion Gap BUN Creatinine Est GFR (CKD-EPI 2020) Glucose Calcium Magnesium Total Bilirubin AST ALT Alkaline Phosphatase Troponin I NT-Pro-B Natriuret Pep Total Protein Albumin TSH Free T4 Ethyl Alcohol U Ethyl Glucuronide Cancelled Procedures Central Line Placement Right IJ: Time out performed: Yes Patient placed on monitor/pulse ox: Yes MD prep: mask, gown and gloves Central line prep: Chlorhexidine scrub and sterile drapes applied Local anesthesia used: lidocaine 1% Amount of anesthesia used (ml): 3 Ultrasound used for placement: Yes Central line lumen inserted: triple Post procedure: sutured in place, good blood return, all ports aspirated, flushed, capped and sterile dressing applied Patient tolerated procedure: well and no complications
--- NOTE | 2023-11-18 03:28 | DI.RAD_ITS ---
Exam(s) XR PORTABLE CHEST AP POST LINE EXAM: XR PORTABLE CHEST AP POST LINE CLINICAL HISTORY: intubation. TECHNIQUE: 2D digital imaging was performed. COMPARISON: CR,XR XR PORTABLE CHEST AP from 11/17/2023 FINDINGS: Single AP portable view. Patient is now intubated. The distal tip of the endotracheal tube is approximately 5 cm above the ca gene. Heart size is upper normal. The mediastinum is not widened. There has been significant deterioration the appearance of the lung high with extensive bilateral i nterstitial disease now evident, more prominent on the right side. No obvious pleural effusions, robby lizing that this is a portable supine image. Also no obvious pneumothorax. IMPRESSION: Significant deterioration when compared to 11/17/2023. Interval development of diffuse bilateral int erstitial disease probable pulmonary edema. Cannot exclude superimposed infiltrates such as from asp iration. Distal tip of ET tube is approximately 5 cm above the brandi. DATA REPOSITORY: RADIATION DOSE DELIVERED:
[2023-11-18 03:30] LABS: MCH 24.7 pg (27.0-33.0)
[2023-11-18 03:31] LABS: Absolute Lymphocyte Count 1.49 10^3/uL (1.2-3.4)
[2023-11-18 03:32] LABS: ALT 112 U/L (16-63); AST 220 U/L (15-37); Albumin 1.8 g/dL (3.4-5.0); Alkaline Phosphatase 86 U/L (46-116); Anion Gap 17.4 mmol/L (3-11); BUN 13 mg/dL (7-18); Bilirubin, Total 0.38 mg/dL (0.2-1.0); CO2 16.6 mmol/L (21.0-32.0); CREATININE 1.5 mg/dL (0.70-1.30); Calcium 7.3 mg/dL (8.5-10.1); Chloride 108 mmol/L (98-107); Diff Comment Manual Differential; Estimated GFR 48.25 (mL/min/1.73m2); Glucose 225 mg/dL (74-106); Potassium 4.7 mmol/L (3.5-5.1); Sodium 142 mmol/L (136-145); Total Protein 4.7 g/dL (6.4-8.2)
[2023-11-18] MEDS: Rocuronium 50 MG/5 ML SYR 100 MG IVP (03:34)
[2023-11-18 03:54] VITALS: PULSE 52; RESP 16; RESP 32; O2SAT 85
--- NOTE | 2023-11-18 04:00 | DI.RAD_ITS ---
Exam(s) XR PORTABLE CHEST AP POST LINE EXAM: XR PORTABLE CHEST AP POST LINE CLINICAL HISTORY: reintubation. TECHNIQUE: 2D digital imaging was performed. COMPARISON: CR,XR XR PORTABLE CHEST AP POST LINE from 11/18/2023 FINDINGS: Single AP portable view. Patient is intubated. The distal tip of the endotracheal tube is 1.6 cm above the brandi. There is a right jugular central line in satisfactory position with distal tip at the SVC-RA junction. NG tub e is noted. Distal tip position is difficult to assess as not completely included in the field of vi ew but probably at the level the GE junction. Heart size is upper normal. The mediastinum is not widened. Extensive interstitial infiltrates in both lung high again noted, similar to chest x-ray of 024 at 2:29 a.m.. Probably representing element of pulmonary edema. No obvious pleural effusions. IMPRESSION: Significant deterioration in the appearance of the lung high when compared to 11/17/2023.Lung field s appear similar to 11/18/2023 at 2:29 a.m. ET tube satisfactory position. Right jugular internal line in satisfactory position NG tube position difficult to assess. If clinically indicated AP view of the upper abdomen can be pe rformed for determination of the exact position of the NG tube DATA REPOSITORY: RADIATION DOSE DELIVERED:
--- NOTE | 2023-11-18 04:01 | W.ED.PROC ---
Date of service: 11/18/23 Time of Service: 04:01 Procedures Intubation Time out performed: No sedative: other (Propofol) Mg Given: 80 paralytic: Rocuronium Mg Given: 100 Laryngoscope: Sadie Assist Device Used: fiberoptic device ET Tube Size: 8 ET Tube Uncuffed: No Tube Secured Depth (cm): 26 Tube Secured Location: lips Tube Placement Confirmation: confirmation by capnometry Intubation Complications: difficult intubation Additional Comments: I was called back to the room due to reported leak from the ET tube balloon. Upon my arrival patient has been extubated and has an I-gel in place. He is being bagged but has sats only in the 70s. He is on a propofol drip but is clearly not heavily sedated and has a gag reflex. He was given a 40 mg bolus of propofol with some improvement in sedation but ultimately required a repeat 40 mg bolus of propofol and 100 mg of rocuronium. I-gel had been removed and he was being ventilated with BVM. Sats were starting to come up when he vomited and needed to be turned on his side and suctioned. Attempt at intubation with direct laryngoscopy and MAC 4 blade. Saturations did not seem to improve after this and once end-tidal colorimetric monitor was attached it remained purple. Second attempt with direct laryngoscopy also unsuccessful. Ultimately patient intubated with fiberoptic glide scope with a #8 ET tube on third attempt. Saturations improved and colorimetric change present.
--- NOTE | 2023-11-18 04:34 | DI.VRAD_ITS ---
PROCEDURE INFORMATION: Exam: XR Chest Exam date and time: 11/18/2023 4:19 AM Age: 73 years old Clinical indication: Device placement; Other: Reintubation TECHNIQUE: Imaging protocol: Radiologic exam of the chest. Views: 1 view. COMPARISON: CR XR PORTABLE CHEST AP POST LINE 11/18/2023 2:29 AM FINDINGS: Tubes, catheters and devices: ET tube tip is 3.2 cm superior to the brandi. Right internal jugular venous catheter tip is at the distal SVC. Lungs: Severe CHF. Pneumonia/aspiration in the lower right lung not excluded. Pleural spaces: Unremarkable. No pleural effusion. No pneumothorax. Heart/Mediastinum: Unremarkable. No cardiomegaly. Bones/joints: Unremarkable. IMPRESSION: Severe CHF. Pneumonia/aspiration in the lower right lung not excluded. Dictated and Authenticated by: Sher Oviedo MD. Ordering:JANEL Boo MD
--- NOTE | 2023-11-18 04:50 | PGE_ITS ---
Date of Service Date of service: 11/18/23 Time of Service: 04:50 Assessment and Plan Assessment and plan (1) Cardiac arrest: Status: Acute Assessment and plan: Patient underwent a V-fib cardiac arrest at 0027 hrs. He was coded and resuscitated over the ensuing 4-1/2 hours. Because of the V-fib arrest is presumed to be secondary to the pulmonary embolism but also could be from his coronary disease which was just recently stented. He did seem to respond to the thrombolytics and survived the resuscitative efforts. (2) CAD (coronary artery disease): Status: Chronic Assessment and plan: Known underlying coronary artery disease. Status post recent PCI and stent 11/05/2023. He was on aspirin and Plavix. Plan is to transfer him back to [facility] cardiology service. (3) Syncope: Status: Chronic Assessment and plan: In retrospect the syncopal episodes may have been episodes of pulseless V. tach or V-fib which self abated. Prior to this arrest he was ambulatory and completely asymptomatic. (4) Pulmonary embolism: Status: Chronic Assessment and plan: Bilateral pulmonary emboli appear to be stabilized after TNK. It may be that they became severe enough to precipitate the V-fib arrest. (5) Discharge planning issues: Status: Acute Assessment and plan: Plan is to stabilize him here and transfer him to [facility] cardiology service as soon as possible. Subjective Subjective Interval history since last seen: Cardiac arrest Exam Narrative Exam Narrative: Patient was obtunded and intubated. His skin was blotchy. He appeared to be hypoperfusing. He had no spontaneous movements. He did have breath sounds on the right and left side. His abdomen is quite massive and obese. He is not rigid. The lower extremities had no spontaneous movement. Objective Last Vital Signs Temp 37.1 C 11/18/23 00:13 Pulse 95 H 11/18/23 00:13 Resp 15 11/18/23 00:13 BP 110/64 11/18/23 00:13 Pulse Ox 97 11/18/23 00:13 Laboratory Results - last 24 hr 11/17/23 11/17/23 11/17/23 12:07 14:10 15:55 WBC 7.93 RBC 4.78 Hgb 11.5 L Hct 36.6 L MCV 77 L MCH 24.1 L MCHC 31.4 L RDW 17.2 H Plt Count 342 MPV 9.0 Immature Gran % 0.4 Neutrophils % 84.0 Lymphocytes % 6.8 Monocytes % 6.2 Eosinophils % 2.1 Basophils % 0.5 Promyelocytes % Nucleated RBC % 0.0 Absolute Neutrophils 6.66 Absolute Lymphocytes 0.54 L Absolute Monocytes 0.49 Absolute Eosinophils 0.17 Absolute Basophils 0.04 RBC Morphology PT 12.0 H INR 1.2 H APTT 28.0 D-Dimer 2187 H VBG pH VBG pCO2 VBG pO2 VBG HCO3 VBG Total CO2 VBG O2 Saturation VBG Base Excess Sodium 137 Potassium 4.1 Chloride 101 Carbon Dioxide 26.1 Anion Gap 9.9 BUN 12 Creatinine 1.1 Est GFR (CKD-EPI 2020) 70.01 Glucose 146 H Calcium 9.1 Magnesium 1.9 Total Bilirubin 0.29 AST 20 ALT 22 Alkaline Phosphatase 82 Troponin I 287 H* 307 H* Cancelled NT-Pro-B Natriuret Pep 6950 H Total Protein 7.3 Albumin 3.1 L TSH 4.08 H Free T4 0.84 Ethyl Alcohol U Ethyl Glucuronide 11/17/23 11/17/23 11/17/23 17:14 18:07 19:24 WBC RBC Hgb Hct MCV MCH MCHC RDW Plt Count MPV Immature Gran % Neutrophils % Lymphocytes % Monocytes % Eosinophils % Basophils % Promyelocytes % Nucleated RBC % Absolute Neutrophils Absolute Lymphocytes Absolute Monocytes Absolute Eosinophils Absolute Basophils RBC Morphology PT INR APTT D-Dimer VBG pH VBG pCO2 VBG pO2 VBG HCO3 VBG Total CO2 VBG O2 Saturation VBG Base Excess Sodium Potassium Chloride Carbon Dioxide Anion Gap BUN Creatinine Est GFR (CKD-EPI 2020) Glucose Calcium Magnesium Total Bilirubin AST ALT Alkaline Phosphatase Troponin I 294 H* Cancelled NT-Pro-B Natriuret Pep Total Protein Albumin TSH Free T4 Ethyl Alcohol Cancelled U Ethyl Glucuronide 11/17/23 11/18/23 Unknown 03:10 WBC 24.78 H RBC 4.01 L Hgb 9.9 L Hct 32.9 L MCV 82 D MCH 24.7 L MCHC 30.1 L RDW 17.2 H Plt Count 289 MPV 8.8 Immature Gran % 0.0 Neutrophils % 90.0 Lymphocytes % 6.0 Monocytes % 2.0 Eosinophils % 2.0 Basophils % 0.0 Promyelocytes % [employer] Nucleated RBC % Absolute Neutrophils 22.30 H Absolute Lymphocytes 1.49 Absolute Monocytes 0.50 Absolute Eosinophils 0.50 Absolute Basophils 0.00 RBC Morphology [employer] PT INR APTT D-Dimer VBG pH 7.01 L* VBG pCO2 55 H VBG pO2 65 VBG HCO3 14 L VBG Total CO2 15 L VBG O2 Saturation 78 VBG Base Excess -17 L Sodium 142 Potassium 4.7 Chloride 108 H Carbon Dioxide 16.6 L Anion Gap 17.4 H BUN 13 Creatinine 1.5 H Est GFR (CKD-EPI 2020) 48.25 Glucose 225 H Calcium 7.3 L Magnesium Total Bilirubin 0.38 AST 220 H ALT 112 H Alkaline Phosphatase 86 Troponin I NT-Pro-B Natriuret Pep Total Protein 4.7 L Albumin 1.8 L TSH Free T4 Ethyl Alcohol U Ethyl Glucuronide Cancelled Objective Narrative Objective Narrative: Patient went into V-fib arrest at 0037 hrs. This was picked up on telemetry and CPR was started immediately, within 40 seconds. A CODE BLUE was called and Dr. Sosa came up from the emergency room. He underwent several rounds of CPR with epinephrine, amiodarone load, lidocaine bolus. With each intervention he seemed to stabilize and regain a pulse. Each time he deteriorated back into a pulseless arrest. After a few rounds of this Dr. Sosa decided to give him TNK. I took over at approximately 0127. We continue to give epinephrine every 3 minutes with continuous CPR. On pulse checks he would occasionally have a pulsatile rhythm which would rapidly deteriorate into a pulseless V. tach or V- fib. He was shocked with 200 J on 2 occasions under my care. At approximately 0 200 he regained a pulsatile rhythm and maintained it for several minutes. We were able to obtain a blood pressure. Norepinephrine was started, titrated up to 12 mcg/min. He then had a bradycardic episode and received atropine. He also received a dose of epinephrine which brought his heart rate up and his blood pressure improved. We opted to start an epinephrine infusion, titrated up to 10 mcg/min. Propofol was started. He had some low blood pressures and blood pressure agents were titrated up. Dr. Quang Mitchell was consulted to place a central line. He successfully placed a right IJ line. Soon thereafter the balloon on the ET tube ruptured and we were unable to ventilate him adequately. The ET tube was removed and Dr. Sosa was consulted to reintubate the patient. It was a somewhat difficult intubation with some low O2 sats over the ensuing 10 minutes. The patient vomited some dark material. An NG tube was placed at the time of the ET tube placement. We lost his pulse during this and CPR was restarted and he got a dose of epinephrine. He regained a pulse and we were again able to get him stabilized on the vent and on the blood pressure agents. At that point he was moved to the ICU at approximately 04 30. I spoke with the transfer center about getting him down to the [facility] cardiac intensive care unit. They recommended starting amiodarone 1 mg/min with a contingency of rebolusing with lidocaine and starting a lidocaine drip if he continued to have breakthrough ventricular arrhythmias. He was accepted to the service of Dr. Au. We are waiting for confirmed transport with critical care paramedics. Total time critical care at the bedside 4.5 hours. PAWSS Have you Been Recently Intoxicated or Drunk Within the Last 30 days?: No Have you Ever Experienced Previous Episodes of Alcohol Withdrawal?: No Have you ever Experienced Withdrawal Seizures?: No Have you ever Experienced Delirium Tremens(DT)s?: No Have you ever undergone Alcohol Rehabilitation Treatment (i.e, inpt ot outpatient treatment programs)?: No Have you ever Experienced Blackouts?: No Have you ever Combined Alcohol with other Downers within the last 90 days?: No Have you ever Combined Alcohol with any other Substance of Abuse during the last 90 days?: No Result: 0 Time Spent with Patient Time Spent with Patient: >50 minutes ([id number], 4-1/2 hours) Time was spent: preparing to see the patient(eg.review tests), obtaining and/or reviewing separately otained hiistory, ordering medications,tests, procedures, referring, communicating with other health animal care giver, indepentently interpreting results, counseling the patient, care coordination and other (meeting with family)
[2023-11-18] MEDS: Amiodarone in Dextrose 360 MG/200 ML BAG IV (04:58)
[2023-11-18] MEDS: Normal Saline Flush 10 ML SYR IVP (05:00)
[2023-11-18 05:32] LABS: BE (Venous) -10 mmol/L (-2-3); HCO3 (Venous) 19 mmol/L (23-28); O2 Sat (Venous) 67 %; TCO2 (Venous) 19 mmol/L (24-29); pCO2 (Venous) 57 mmHg (41-51); pO2 (Venous) 46 mmHg
[2023-11-18 05:34] LABS: Abs Immature Grans 0.67 10^3/uL (0.0-0.06); HCT 30.5 % (40.0-50.0); HGB 9.1 g/dL (13.5-17.5); MCH 24.1 pg (27.0-33.0); MCHC 29.8 % (32.0-36.0); MCV 81 fL (80-95); MPV 8.8 fL (8.0-11.0); Platelet Count 314 10^3/uL (130-400); RBC 3.77 10^6/uL (4.36-5.78); RDW 17.5 % (11.8-14.1); RDW-SD 51.8 fL; pH (Venous) 7.13 (7.31-7.41)
[2023-11-18 05:45] LABS: WBC 28.05 10^3/uL (4.4-10.8)
[2023-11-18 05:46] LABS: Absolute Lymphocyte Count 0.56 10^3/uL (1.2-3.4); Absolute Monocyte Count 0.56 10^3/uL (0.1-0.8); Absolute Neutrophil Count 26.37 10^3/uL (1.2-6.7); Diff Comment Manual Differential; Metamyelocytes % 2
[2023-11-18 05:52] LABS: Anion Gap 14.4 mmol/L (3-11); BUN 15 mg/dL (7-18); CO2 21.6 mmol/L (21.0-32.0); CREATININE 1.6 mg/dL (0.70-1.30); Calcium 7.1 mg/dL (8.5-10.1); Chloride 109 mmol/L (98-107); Estimated GFR 44.65 (mL/min/1.73m2); Glucose 207 mg/dL (74-106); Potassium 4.4 mmol/L (3.5-5.1); Sodium 145 mmol/L (136-145)
[2023-11-18 05:53] LABS: Troponin I 3237 ng/L (< or =60)
[2023-11-18 05:55] VITALS: RESP 16; RESP 29
--- NOTE | 2023-11-18 06:58 | RESPIRATORY ---
RT responded to CODE BLUE. CPR in process upon arrival. IRRIGATION ENGINEER managed pt's airway with oral airway tube on 15 LPM then placed on Ventilator after intubation. During CPR unable to get good sats but maintained good etCO2 through out CPR. RT managed airway until pt. transported to ICU with mechanical ventilator.
--- NOTE | 2023-11-18 06:59 | NUR.NOTE ---
Nursing Note: 00:37 patient HR increased to 293 appeared to be VT per continuous telemetry monitoring. Arrived to room to find to find pt unresponsive, cyanotic, with agonal breathing pattern. Compressions began immediately, zoll pads applied. Code blue initiated. Per zoll, pt in ventricular fibrillation. 0043: defibrillation 200J, epinephrine x1 0046: pulse check, VF, defibrillation 200J 0048: epinephrine x1 0049: 360mg Amiodarone loading dose, pulse check VF, defibrillation 200J 0051: epinephrinex1, pt successfully intubated by ER provider Dr. Sosa, continuing bagging with Capnography monitoring 0052: pulse check, VF, defib 200J 0054: epinephrinex1 0057: epinephrinex1, IRMA device applied after pule check (VF), compressions resumed 0059: Sodium bicarbx1 0101: epinephrinex1, pulse check, VF, defib 200J 0104: epinephrinex1 0105: lidocainex1 0108: epinephrinex1, pulse check VF, defibx1 0111: epinephrinex1 0112: rhythm check, zoll pads changed 0113: TNK administered 0114: epinephrinex1, pulse check, VF, defib 200J 0115: lidocainex1 0117: epinephrinex1 0118: pulse check, VF, defib 200J 0120: epinephrinex1, 3L NS infused 0122: pulse check VF, defib 200J, epinephrinex1 0125: epinephrinex1 0127: pulse check, VF, defib 200J 0130: epinephrinex1 0133: epinephrinex1 0134: pulse check, ROSC HR 134, BP 93/69 0138: Pulseless VT, defib 200J, compressions resumed 0139: epinephrinex1 0142: epinephrinex1 0143: sodium bicarbx1 0145: epinephrinex1, ROSC HR 142, ETCO2 45 0149: HR 98, SPO2 87% 0150: SPO2 81%, Magnesium sulfate 4gm administered 0151: HR 96, BP 102/62, SPO2 86% 100% FiO2, PEEP 8 0158: HR 92, BP 115/70, 4th L NS infused 0159: Norepinephrine gtt initiated at 6mcg 0200: HR 90, SPO2 88% 0203: HR 87, BP 77/57, SPO2 77% FiO2 100% 0204: Norepi gtt titrated 9mcg, propofol initiated 12mcg 0207: HR 87 BP 73/55, SPO2 78%, norepi titrated 12mcg 0207: 5th L NS infused 0209: HR 56, BP 71/52, SPO2 80% 0210: HR 42, atropinex1 0211: epinephrinex1 0212: HR 94, BP 116/78 0216: HR 94, BP 110/68, SPO2 74% 0217: holliday catheter inserted by Ni Brewer RN 0219: HR 94, BP 97/63, SPO2 67% FiO2 100% 0221: PCXR obtained, ET advanced 1cm. Repeat PCXR, ET advanced 1cm per RT 0225: epinephrinex1 0227: HR 82, BP 153/86 0233: HR 96, BP 111/70 SPO2 77% 0236: HR 82, BP 82/54 SPO2 74% 0238: epi gtt initiated 5mcg/min 0240: HR 90, BP 81/50, SPO2 72%, norepi titrated 14mcg 0242: HR 90, BP 75/51, SPO2 74% 0243: norepi titrated to 20mcg 0245: HR 90, BP 78/56, SPO2 72%, epi gtt titrated 10mcg/min 0246: HR 91, BP 93/55, SPO2 85% 0249: norepi titrated 12mcg 0251: HR 94, BP 107/63, SPO2 86% 0255: HR 96. BP 96/68 SPO2 84% 0257: HR 97, BP 100/63, SPO2 81% 0313: HR 97, BP 72/61, SPO2 85%, triple lumen IJ placed by Dr. Mitchell 0315: HR 97, BP 96/60, SPO2 84%, 0319: HR 94, BP 86/57, SPO2 77% 0324: ET tube dislodged, removed, pt bagged via ambubag/mask, ED provider paged for reintubation 0328: HR 123, BP 107/66 0332: Propofol bolus 80mcg per ED provider, pt vomited imlena red vomitus. Turned to side and suction provided. Artemio 100mcg administered, ET replaced, bagging continued via ET. 0344: BP 54/15, pulseless, compressions resumed 0348: epinephrinex1 0349: pulse check, asystole, compressions resumed. Sodium bicarbx1 0350: pulse check, ROSC HR 42, atropinex1 0353: HR 116, BP 148/71, SPO2 82% 0356: HR 108, BP 142/66, SPO2 79% 0405: HR 108. BP 78/53, SPO2 82% 0410: Pt family to bedside 0419: HR 99, BP 98/57, SPO2 86%, transfer to ICU 219.
--- NOTE | 2023-11-18 07:27 | W.PM.DDS ---
Date of service: 11/18/23 Time of Service: 07:27 Discharge Plan Disposition Patient Disposition: Discharge Details Reason For Visit: pulmonary embolism, syncope, CHF Admit Date/Time: 11/17/23 16:26 Admit Provider: Romulo Landa Attending Provider: Romulo Landa Primary Care Provider: Unknown,Unknown Hospital Course Hospital Course: 73 yo M with AUD, PAD, and CAD s/p NC/PCI with stents placed in circumflex and LAD on 11/05/23 and resultant HFrEF of 20%, presented to the emergency room after an episode of syncope. His troponins were elevated at 287 and 307, but lower than they were when he was hospitalized on 11/04, EKG not c/w ACS. CT showed pulmonary emboli in the left upper lobe, but did not show signs of right heart strain. He was not initially hypoxic or in respiratory distress. He was treated with enoxaparin. [facility] [place] and the patient was accepted for transfer pending bed 11/17. Overnight he had cardiac arrest in VFIB. After CPR with epinephrine, amiodarone, bicarb, and lidocaine, he was give n tenecteplase. ROSC acheived, but arrest recurred multiple times. He required pressor therapy. See notes from Dr. Sosa and Dr. Fleming. Bed was available for transfer to [facility], but at that point the family decided to withdraw care. The patient passed soon after fluids and pressors were stopped. Home Meds and New Rx's Prescriptions: No Action aspirin [Adult Aspirin Regimen] 81 mg tablet,delayed release (DR/EC) 81 mg PO DAILY clopidogrel 75 mg tablet 75 mg PO DAILY melatonin 3 mg tablet 6 mg PO HS PRN metoprolol succinate 25 mg tablet extended release 24 hr 25 mg PO DAILY nitroglycerin 0.4 mg tablet, sublingual 0.4 mg sublingual Q5-15M PRN Rx Instructions: do not exceed 3 doses per episode spironolactone [Aldactone] 25 mg tablet 12.5 mg PO DAILY torsemide 20 mg tablet 20 mg PO DAILY PRN valsartan [Diovan] 40 mg tablet 20 mg PO BID Discharge Data Cause of : Pulmonary embolism Discharge Sum: Prov Provider Admitting clinician: Deandra August Attending physician on admission: Romulo Landa Pronouncing clinician: Rajeev Fleming Discharge Sum: Diag PCOD Cause of : Pulmonary embolism Contributing Factors (1) Pulmonary embolism: (2) Cardiac arrest: (3) CAD (coronary artery disease): Discharge Sum: Summary Date and Time Admission Date: 11/17/23 Date of : 11/18/23 Time of : 07:05 Summary Details: 73 yo M with AUD, PAD, and CAD s/p NC/PCI with stents placed in circumflex and LAD on 11/05/23 and resultant HFrEF of 20%, presented to the emergency room after an episode of syncope. His troponins were elevated at 287 and 307, but lower than they were when he was hospitalized on 11/04, EKG not c/w ACS. CT showed pulmonary emboli in the left upper lobe, but did not show signs of right heart strain. He was not initially hypoxic or in respiratory distress. He was treated with enoxaparin. [facility] [place] and the patient was accepted for transfer pending bed 11/17. Overnight at 12:37AM he had cardiac arrest in VFIB. After CPR with epinephrine, amiodarone, bicarb, and lidocaine, he was give n tenecteplase. ROSC acheived, but arrest recurred multiple times. He required pressor therapy. See notes from Dr. Sosa and Dr. Fleming. Bed was available for transfer to [facility], but at that point the family decided to withdraw care. The patient passed soon after fluids and pressors were stopped Additional Data Confirmation of as documented by pronouncing clinician: no pulse Family: at bedside Attending/PCP notified?: No Attending Physician: Rajeev Fleming Was code activated?: Yes Autopsy requested?: No screen examiner notified?: No Advance directives: Yes Hospice patient?: No
== END 2023-11-18 09:41 | disposition expired | DRG 208 ==
LOC: ER 13:43 → MS 17:03 → ICU 11-18 04:30
PROVIDERS: Family Medicine; Nurse Practitioner Acute Care; Nurse Practitioner Family; Admitting Provider Family Medicine; Emergency Provider Physician Assistant; Visit Provider Family Medicine
DX: I26.99 Other pulmonary embolism without acute cor pulmonale (principal); I50.20 Unspecified systolic (congestive) heart failure; J81.1 Chronic pulmonary edema; R55 Syncope and collapse; I25.10 Atherosclerotic heart disease of native coronary artery without angina pectoris; I11.0 Hypertensive heart disease with heart failure; Z95.5 Presence of coronary angioplasty implant and graft; I73.9 Peripheral vascular disease, unspecified; I25.2 Old myocardial infarction; I49.01 Ventricular fibrillation; I46.2 Cardiac arrest due to underlying cardiac condition; R74.8 Abnormal levels of other serum enzymes
CPT/HCPCS: 31500 ×2; 36556; 76937; 00123; 36415; 36592; 71045; 71275; 80048; 80053; 82805; 93005; 96372; 99222; 99285; 99291; 80320; 83735; 83880; 84439; 84443; 84484; 85025; 85379; 85610; 85730; 93010; 94002; 99223; 99292; J0171; J0282; J0283; J0461; J1650; J2001; J3101; J3475; J3490